=== PATIENT | male | born 1955 | race Caucasian/White ===

== ENCOUNTER 2022-09-23 00:03 | Day surgery (SDC) | payer MEDICARE, SELFPAY ==
[2022-09-16 12:26] VITALS: BMI 32.8
[2022-09-23 10:47] VITALS: BP 124/90; PULSE 79; RESP 20; TEMP 36.3; O2SAT 95
[2022-09-23] MEDS: LACTATED RINGERS 1,000 ML 150 ML IV CONT (10:56)
--- NOTE | 2022-09-23 10:56 | PM.HPGS ---
History of Present Illness History of Present Illness Consent: Risks, benefits, and alternatives have been discussed and questions answered. Patient agrees to proceed with procedure. Chief complaint: neoplasm screening Narrative: Lazaro Hauser is a 67 year old male Presents for screening colonoscopy. Patient's current weight appetite and bowel movements are normal. Patient denies abdominal pain. He has had no bleeding. Family history is noncontributory. Patient did have previous colonoscopy more than 10 years ago. apparently this was unremarkable. Review of Systems Review of Systems: Review of systems noncontributory. [facility] Family History Family History (Updated 10/03/13 @ 12:45 by DOCTOR UNKNOWN) Other Family history of arthritis Family history of malignant neoplasm Social History Social History Smoking status: Never smoker Alcohol intake: never Substance use type: does not use Living arrangements: alone Spiritual care concerns: No Meds Home Medications and Allergies Home Medications Medication Instructions Recorded Confirmed Type sodium,potassium,mag sulfates 17.5 See Rx Instructions PO .COMPLEX 09/10/22 Rx gram-3.13 gram-1.6 gram oral soln #354 mL (Suprep Bowel Prep Kit) bupropion HCl 300 mg 24 hr tablet, 300 mg PO DAILY 09/16/22 09/16/22 History extended release eszopiclone 2 mg tablet 2 mg PO HS 09/16/22 09/16/22 History naproxen 500 mg tablet 500 mg PO BID 09/16/22 09/16/22 History oxybutynin chloride 5 mg 5 mg PO DAILY 09/16/22 09/16/22 History tablet,extended release 24 hr quetiapine 100 mg tablet 100 mg PO BID 09/16/22 09/16/22 History sertraline 100 mg tablet 200 mg PO DAILY 09/16/22 09/16/22 History simvastatin 20 mg tablet 20 mg PO DAILY 09/16/22 09/16/22 History Allergies Allergy/AdvReac Type Severity Reaction Status Date / Time No Known Allergies Allergy Unverified 09/23/22 10:46 Vital Signs Vital Signs - 24 hr 09/23/22 10:47 Temperature 97.3 F L Pulse Rate 79 Respiratory Rate 20 Blood Pressure 124/90 Pulse Oximetry 95 Oxygen Delivery Room Air Exam Narrative: Physical exam reveals patient to be alert. Vital signs stable. HEENT exam is unremarkable. Patient is anicteric. Lungs are clear to auscultation and percussion. Heart is without murmur or extra sounds. Abdomen bowel sounds are present soft nontender with no organomegaly. Digital external rectal exam is normal. Assessment and Plan Assessment and plan (1) Encounter for screening colonoscopy: Code(s): Z12.11 - Encounter for screening for malignant neoplasm of colon Status: Acute Assessment and Plan: Patient presents for screening colonoscopy. Appears to be at average risk for colon polyps. Further recommendations may be given after endoscopy.
--- NOTE | 2022-09-23 11:21 | P.PNAN_ITS ---
Anes - Initial Pre Proc Eval Procedure: Operation Date: 09/23/22 12:00 Proposed Procedures p Screening Colonoscopy - Ger Larkin MD Date/Time: 09/23/22 11:21 Surgeon: Ger Larkin MD Pre Op Diagnosis: neoplasm screening Patient Data Age: 67 Gender: M Height: 1.85 m Weight: 106.7 kg Last Vital Signs Temp 97.3 F L 09/23/22 10:47 Pulse 79 09/23/22 10:47 Resp 20 09/23/22 10:47 BP 124/90 09/23/22 10:47 Pulse Ox 95 09/23/22 10:47 O2 Del Method Room Air 09/23/22 10:47 Allergies Allergy/AdvReac Type Severity Reaction Status Date / Time No Known Allergies Allergy Unverified 09/23/22 10:46 Home Medications Medication Instructions Recorded Confirmed Type sodium,potassium,mag sulfates 17.5 See Rx Instructions PO .COMPLEX 09/10/22 Rx gram-3.13 gram-1.6 gram oral soln #354 mL (Suprep Bowel Prep Kit) bupropion HCl 300 mg 24 hr tablet, 300 mg PO DAILY 09/16/22 09/16/22 History extended release eszopiclone 2 mg tablet 2 mg PO HS 09/16/22 09/16/22 History naproxen 500 mg tablet 500 mg PO BID 09/16/22 09/16/22 History oxybutynin chloride 5 mg 5 mg PO DAILY 09/16/22 09/16/22 History tablet,extended release 24 hr quetiapine 100 mg tablet 100 mg PO BID 09/16/22 09/16/22 History sertraline 100 mg tablet 200 mg PO DAILY 09/16/22 09/16/22 History simvastatin 20 mg tablet 20 mg PO DAILY 09/16/22 09/16/22 History Patient hx anesthesia problems: none Family hx anesthesia problems: none Results Review: All pre-operative results and documents have been reviewed as part of the pre- operative evaluation. [facility] Family History Family History (Updated 10/03/13 @ 12:45 by DOCTOR UNKNOWN) Other Family history of arthritis Family history of malignant neoplasm Social History Social History Smoking status: Never smoker Alcohol intake: never Substance use type: does not use Living arrangements: alone Spiritual care concerns: No Anes - Eval Final PreProcedure Day of Procedure 09/23/22 11:21 Patient weight: obese Heart: regular rate and rhythm Lungs: clear to auscultation Airway: Mallampati scale class II Neurological: alert and oriented Last oral intake: >/= 8 hours ASA classification: II Emergent: no Anesthetic plan: proceed Anesthesia type and monitoring: general GIVS and standard monitoring Results Review: All pre-operative results and documents have been reviewed as part of the pre- operative evaluation. Informed Consent: The patient's anesthetic plan and its attendant risks and benefits were discussed with the patient/family/POA. Questions were solicited and answers provided to the satisfaction of the patient/family/POA.
[2022-09-23 11:44] VITALS: BP 110/70; PULSE 66; RESP 17; O2SAT 99
[2022-09-23 11:54] VITALS: BP 123/68; PULSE 67; RESP 22; O2SAT 99
[2022-09-23 12:04] VITALS: BP 118/68; PULSE 60; RESP 24; O2SAT 99
== END 2022-09-23 12:25 | disposition home or self-care (01) ==
PROVIDERS: PCP Family Medicine Sports Medicine; Visit Provider Internal Medicine Gastroenterology
PROC: 0DJD8ZZ Inspection of Lower Intestinal Tract, Via Natural or Artificial Opening Endoscopic (ICD-10-PCS; CPT 45378; principal; 2022-09-23 12:00)
DX: Z12.11 Encounter for screening for malignant neoplasm of colon (principal); K52.9 Noninfective gastroenteritis and colitis, unspecified; K64.8 Other hemorrhoids
CPT/HCPCS: 45380; 88305; J2704; J7120

== ENCOUNTER 2022-12-27 17:00 | Emergency (ER) | payer MEDICARE, SELFPAY ==
--- NOTE | ~2022-12-27 | CT_ITS ---
EXAMINATION: CT brain wo con DATE: 12/27/2022 18:13 INDICATION: head injury . TECHNIQUE: Computed tomography (CT) of the head was performed without intravenous contrast. The mA wa s adjusted according to patient size. Iterative reconstruction technique was employed. The dose-lengt h product was 681.00 mGy-cm. COMPARISON: None. FINDINGS: No acute intracranial hemorrhage or extra-axial fluid collection. No hydrocephalus, mass, or herniation. No acute ischemic infarct. Unremarkable dural venous sinus attenuation. No acute osseous abnormality. The aerated spaces are clear. Mild atrophy and chronic white matter change. Atherosclerotic intracranial calcification. IMPRESSION: No acute intracranial process. Reviewed, dictated and finalized at location K.
[2022-12-27 17:08] VITALS: BP 143/78; PULSE 69; RESP 17; TEMP 36.7; O2SAT 100
--- NOTE | 2022-12-27 17:51 | ED.FALL ---
HPI - Fall General Chief Complaint: Fall Stated Complaint: fall Time Seen by Provider: 12/27/22 17:36 History of Present Illness HPI Narrative: 67-year-old male presented to ED for evaluation after having a fall in his garden. Patient reports he tripped over some landscaping and fell back and struck his head. Patient denies any loss conscious. Patient states he is not on any blood thinners. Patient denies any other pain or injury. Patient is unsure of his last tetanus shot. Related Data Home Medications Medication Instructions Recorded Confirmed bupropion HCl 300 mg 24 hr tablet, 300 mg PO DAILY 09/16/22 09/16/22 extended release eszopiclone 2 mg tablet 2 mg PO HS 09/16/22 09/16/22 naproxen 500 mg tablet 500 mg PO BID 09/16/22 09/16/22 oxybutynin chloride 5 mg 5 mg PO DAILY 09/16/22 09/16/22 tablet,extended release 24 hr quetiapine 100 mg tablet 100 mg PO BID 09/16/22 09/16/22 sertraline 100 mg tablet 200 mg PO DAILY 09/16/22 09/16/22 simvastatin 20 mg tablet 20 mg PO DAILY 09/16/22 09/16/22 Allergies Allergy/AdvReac Type Severity Reaction Status Date / Time No Known Allergies Allergy Verified 12/27/22 17:20 Review of Systems Review of Systems: All systems reviewed & are unremarkable except as noted in HPI and below PMFSH Family History Family History (Updated 10/03/13 @ 12:45 by DOCTOR UNKNOWN) Other Family history of arthritis Family history of malignant neoplasm Social History Social History Smoking status: Never smoker Alcohol intake: never Substance use type: does not use Living arrangements: alone Spiritual care concerns: No Exam Narrative: APPEARANCE: Well appearing, no pain, no distress, well-nourished. HEAD: normocephalic, abrasion to posterior scalp. EYES: PERRLA/EOMI, conjunctivae clear. NOSE: Normal no drainage NECK: Supple. No adenopathy, no masses. RESPIRATORY: Airway patent, respirations nonlabored. Clear to auscultation bilaterally, no rales, rhonchi, wheezing. CARDIOVASCULAR: Regular rate and rhythm without murmurs rubs or gallops. ABDOMINAL: Soft, nontender, nondistended, normal bowel sounds MUSCULOSKELETAL: Moves all extremities. Strength/ROM intact, No edema, No calf tenderness. NEURO: Alert. Cranial nerves II through XII intact. Good gait. Good coordination SKIN: Abrasion to posterior scalp Course Course Emergency Course: 67-year-old male presented the ED for evaluation after a head injury. No laceration requiring repair. Patient's tetanus was up-to-date. Wound was cleansed and patient had a dressing applied to the ED. CT scan was ordered to evaluate for intracranial injury due to age. Head CT was negative for any acute injury or abnormality. Patient was able to ambulate at his baseline. All questions concerns addressed and patient was well-appearing at time of discharge. Vital Signs Vital signs: Vital Signs Temperature 98.1 F 12/27/22 17:08 Pulse Rate 69 12/27/22 17:08 Respiratory Rate 17 12/27/22 17:08 Blood Pressure 143/78 H 12/27/22 17:08 Pulse Oximetry 100 12/27/22 17:08 Oxygen Delivery Room Air 12/27/22 17:08 Temperature 98.1 F 12/27/22 17:08 Pulse Rate 69 12/27/22 17:08 Respiratory Rate 17 12/27/22 17:08 Blood Pressure 143/78 H 12/27/22 17:08 Pulse Oximetry 100 12/27/22 17:08 Oxygen Delivery Room Air 12/27/22 17:08 MDM - Fall Differential Diagnosis Differential diagnosis: Likely concussion without loss of consciousness and other Imaging Data Radiologist's impression: Impressions Head CT 12/27/22 18:19 IMPRESSION: No acute intracranial process. Discharge Plan Discharge Clinical Impression: Abrasion of scalp, Head injury Patient Disposition: Home, Self-Care Condition: Stable Instructions: Antibiotic Form, Abrasion (ED) Additional Instructions: Wound care as directed. Follow head injury guidelines. Have close follow-up with your primary car
[2022-12-27] MEDS: TETANUS,DIPHTHERIA,AC PERTUSSIS ADULT (0.5 ML) BOOSTRIX IM (18:07)
== END 2022-12-27 19:06 | disposition home or self-care (01) ==
LOC: ANHED 18:42
PROVIDERS: Emergency Provider Emergency Medicine; PCP Family Medicine Sports Medicine
DX: S00.01XA Abrasion of scalp, initial encounter (principal); W01.0XXA Fall on same level from slipping, tripping and stumbling without subsequent striking against object, initial encounter; Z23 Encounter for immunization
CPT/HCPCS: 70450; 90715; 99284

== ENCOUNTER 2023-03-16 14:22 | Inpatient (IN) | payer MEDICARE, SELFPAY ==
--- NOTE | ~2023-03-16 | XR_ITS ---
XR chest PICC line 03/19/2023 12:39 Indication: PICC line verification Procedure: AP portable chest Comparison: No prior studies for comparison. Findings: There is bibasilar atelectasis. Borderline heart size. PICC line tip in the CC. No pneumoth orax. There is a left shoulder arthroplasty. Impression: 1: PICC line tip in the SVC. Reviewed, dictated and finalized at location A. TOP MANAGER Impression: 1: PICC line tip in the SVC.
--- NOTE | ~2023-03-16 | XR_ITS ---
EXAM: XR toe 2nd LT min 2V DATE: 03/16/2023 15:55 HISTORY: infection- BEST OBTAINABLE IMAGES . COMPARISON: None available. FINDINGS: Normal mineralization. No fracture or dislocation. No lytic or blastic lesion. Scattered d egenerative changes. Osteopenia of the left second distal phalange, with loss of the normal cortical line. These abnormal changes approach but do not conclusively involve the joint space of the second D IP. Soft tissue swelling/defect over the second toe. IMPRESSION: Findings suspicious for early osteomyelitis in the left second distal phalange. Reviewed, dictated and finalized at location K. T PLANT OPERATOR
[2023-03-16 14:28] VITALS: BP 134/87; PULSE 90; RESP 16; TEMP 36.5; O2SAT 100
[2023-03-16 16:18] LABS: Basophils Percent Auto 0.3 % (0.2-1.2); Eosinophils Percent Auto 0.3 % (0-4.4); Hematocrit 43.6 % (42.0-52.0); Hemoglobin 14.4 g/dL (14.0-18.0); Immature Granulocyte Absolute 0.03 K/mm3 (0.00-0.031); Immature Granulocyte Percent A 0.4 % (0-0.5); Lymphocytes Absolute Auto 0.85 K/mm3 (0.9-3.2); Lymphocytes Percent Auto 11.1 % (18.3-44.2); Mean Corpuscular Hemoglobin 29.3 pg (26-34); Mean Corpuscular Volume 88.8 fl (80-100); Mean Platelet Volume 8.8 fl (7.4-10.4); Monocytes Absolute Auto 0.6 K/mm3 (0.1-0.6); Neutrophils Absolute Auto 6.1 K/mm3 (1.3-6.7); Neutrophils Percent Auto 79.9 % (45.5-73.1); Platelet Count Result 267 k/mm3 (150-375); Red Blood Count 4.91 M/mm3 (4.6-6.20); Red Cell Distribution Width 13.3 % (11.5-14.5); White Blood Count 7.7 K/mm3 (4.5-10.0)
[2023-03-16 16:35] LABS: Alanine Aminotransferase 22 U/L (6-50); Albumin Level 4.4 g/dL (3.5-5.1); Alkaline Phosphatase 101 U/L (38-126); Anion Gap 9 mmol/L (8-16); Aspartate Amino Transferase 26 U/L (17-59); Bilirubin,Total 0.8 mg/dL (0.2-1.3); Blood Urea Nitrogen 24 mg/dL (9-20); CRP 2.4 mg/dL (<1.0); Calcium 9.3 mg/dL (8.4-10.2); Carbon Dioxide 25 mmol/L (22-30); Chloride 105 mmol/L (98-107); Estimated CRCL calculation 65 ml/min; Estimated Glomerular Filt Rate > 60; Glucose 94 mg/dL (65-110); Potassium 4.2 mmol/L (3.4-5.0); Sodium 139 mmol/L (137-145)
[2023-03-16 16:57] LABS: Erythrocyte Sedimentation Rate 20 mm/hr (0-20)
--- NOTE | 2023-03-16 17:05 | ED.WOUNDLAC ---
HPI - Wound/Laceration General Chief Complaint: Wound/Laceration Stated Complaint: infected toe Time Seen by Provider: 03/16/23 14:49 History of Present Illness HPI narrative: patient is a 68-year-old male who presents ER with an infected left 2nd toe. He had trimmed his toenails little over week ago and became secondarily infected. He is not diabetic. No drainage from the toe. No fevers or chills or sweats. Has pain with manipulation. It is beginning to streaking to the midfoot. Related Data Home Medications Medication Instructions Recorded Confirmed bupropion HCl 300 mg 24 hr tablet, 300 mg PO DAILY 09/16/22 09/16/22 extended release eszopiclone 2 mg tablet 2 mg PO HS 09/16/22 09/16/22 naproxen 500 mg tablet 500 mg PO BID 09/16/22 09/16/22 oxybutynin chloride 5 mg 5 mg PO DAILY 09/16/22 09/16/22 tablet,extended release 24 hr quetiapine 100 mg tablet 100 mg PO BID 09/16/22 09/16/22 sertraline 100 mg tablet 200 mg PO DAILY 09/16/22 09/16/22 simvastatin 20 mg tablet 20 mg PO DAILY 09/16/22 09/16/22 Allergies Allergy/AdvReac Type Severity Reaction Status Date / Time No Known Allergies Allergy Verified 03/16/23 15:01 Review of Systems Review of Systems: All systems reviewed & are unremarkable except as noted in HPI and below Constitutional: Constitutional: Reports no additional constitutional complaints Cardiovascular: Cardiovascular: Reports no additional cardiovascular complaints Respiratory: Respiratory: Reports no additional respiratory complaints Gastrointestinal: Gastrointestinal: Reports no additional gastrointestinal complaints Musculoskeletal: Musculoskeletal: Reports arthralgias and Reports joint swelling Integumentary/Breasts: Skin/Breast: Reports erythema, Reports rash and Reports skin ulcer PMFSH Past Medical History Medical History (Updated 03/16/23 @ 18:23 by Dimitri Jay MD) Hyperlipidemia Surgical History Surgical History (Updated 03/16/23 @ 18:23 by Dimitri Jay MD) No pertinent past surgical history Family History Family History (Updated 10/03/13 @ 12:45 by DOCTOR UNKNOWN) Other Family history of arthritis Family history of malignant neoplasm Social History Social History Smoking status: Never smoker Alcohol intake: never Substance use type: does not use Living arrangements: alone Spiritual care concerns: No Exam Narrative: GENERAL: Well-appearing, well-nourished, and in no acute distress. HEAD: Normocephalic, atraumatic. ENT: Mucous membranes moist. CHEST: Clear to auscultation. No respiratory distress. HEART: Regular rate and rhythm. Normal peripheral pulses. ABDOMEN: Soft, nontender, nondistended. EXTREMITIES: Normal range of motion. No edema. left 2nd toe is edematous and erythematous moving into the midfoot. There is some sloughing of skin in using noted. Mildly tender to touch. SKIN: Warm, dry, no rash. NEURO: Alert and oriented x3. PSYCH: Normal mood and affect. Course Course Emergency Course: Patient resting comfortably. Informed of results. admit to hospitalist service for IV antibiotics per Vital Signs Vital signs: Vital Signs Temperature 97.7 F 03/16/23 14:28 Pulse Rate 90 03/16/23 14:28 Respiratory Rate 16 03/16/23 14:28 Blood Pressure 134/87 03/16/23 14:28 Pulse Oximetry 100 03/16/23 14:28 Temperature 97.7 F 03/16/23 14:28 Pulse Rate 90 03/16/23 14:28 Respiratory Rate 16 03/16/23 14:28 Blood Pressure 134/87 03/16/23 14:28 Pulse Oximetry 100 03/16/23 14:28 MDM - Wound/Laceration Lab Data 03/16/23 16:00 03/16/23 16:00 Labs: Lab Results 03/16/23 Range/Units 16:00 WBC 7.7 (4.5-10.0) K/mm3 RBC 4.91 (4.6-6.20) M/mm3 Hgb 14.4 (14.0-18.0) g/dL Hct 43.6 (42.0-52.0) % MCV 88.8 (80-100) fl MCH 29.3 (26-34) pg MCHC 33.0 (32-36) g/dl RDW 13.3 (11.5-14.5) % Plt Count 267 (150-375) k/m
[2023-03-16 18:12] VITALS: BP 139/89; PULSE 79; RESP 18; O2SAT 97
[2023-03-16] MEDS: cefTRIAXone 2 GM/NS 100 ML 2 GM/100 ML BAG IVPB (18:14)
--- NOTE | 2023-03-16 19:19 | PM.IMHP ---
H&P: HPI History of Present Illness Date/Time: 03/16/23 19:19 Chief Complaint: left 2nd toe pain Narrative: A 68-year-old? male who presents ER with an infected left 2nd toe.? He had trimmed his toenails little over week ago Which subsequently became painful and red.? this persisted and got swollen with redness spreading into the and patient decided to present to the ED to be evaluated. He is not diabetic.? No drainage from the toe.? No fevers or chills or sweats.? Has pain with manipulation.? he was found to have cellulitis of the left 2nd toe with osteomyelitis of the left 2nd toe, he was started on vancomycin and ceftriaxone and I was consulted for admission of this patient. patient said that pain is much better now Review of Systems Review of Systems: All systems reviewed & are unremarkable except as noted in HPI and below PMFSH Past Medical History Medical History (Updated 03/16/23 @ 19:24 by Dalia Liu MD) Hyperlipidemia Surgical History Surgical History (Updated 03/16/23 @ 18:23 by Dimitri Jay MD) No pertinent past surgical history Family History Family History (Updated 03/16/23 @ 22:28 by Etienne Mccall RN) Mother Family history of arthritis Acute myocardial infarction Hypertension Father Family history of malignant neoplasm Social History Social History Smoking status: Never smoker Alcohol intake: never Substance use: never Substance use type: does not use Lack of Transportation: No Lack of Food: Never True Current Housing: I Have Housing Concerned About Future Housing: No Difficulty Paying Gas/Electric Bills: No Difficulty Paying for Meds: No Currently Unemployed: No Education: Bachelor's Degree Difficulty w/ Childcare or Family Care: No Living arrangements: alone Spiritual care concerns: No Meds Home Medications and Allergies Home Medications Medication Instructions Recorded Confirmed Type naproxen 500 mg tablet 500 mg PO BID 09/16/22 03/16/23 History oxybutynin chloride 5 mg 5 mg PO DAILY 09/16/22 03/16/23 History tablet,extended release 24 hr quetiapine 100 mg tablet 100 mg PO BID 09/16/22 03/16/23 History sertraline 100 mg tablet 200 mg PO HS 09/16/22 03/16/23 History simvastatin 20 mg tablet 20 mg PO DAILY 09/16/22 03/16/23 History bupropion HCl 150 mg 24 hr tablet, 450 mg PO DAILY 03/16/23 03/16/23 History extended release lamotrigine 100 mg tablet 50 mg PO HS 03/16/23 03/16/23 History zolpidem 10 mg tablet 10 mg PO HS PRN Insomnia 03/16/23 03/16/23 History Allergies Allergy/AdvReac Type Severity Reaction Status Date / Time No Known Allergies Allergy Verified 03/16/23 15:01 Vital Signs Vital Signs - 24 hr 03/16/23 14:28 03/16/23 18:12 Temperature 97.7 F Pulse Rate 90 79 Respiratory Rate 16 18 Blood Pressure 134/87 139/89 Pulse Oximetry 100 97 Exam Narrative: GENERAL: Well-appearing, well-nourished, and in no acute distress. HEAD: Normocephalic, atraumatic. ENT:? Mucous membranes moist. CHEST: Clear to auscultation.? No respiratory distress. HEART: Regular rate and rhythm. ? Normal peripheral pulses. ABDOMEN: Soft, nontender, nondistended. EXTREMITIES: Normal range of motion. left 2nd toe is swollen and erythematous, gradually spreading into the left mid foot .? There is some sloughing of skin in using noted.? Mildly tender to touch and warm. SKIN: warm and erythematous left second toe as described above. NEURO: Alert and oriented x3. PSYCH: Normal mood and affect H&P: Results Labs Labs: Short CBC 03/16/23 Range/Units 16:00 WBC 7.7 (4.5-10.0) K/mm3 Hgb 14.4 (14.0-18.0) g/dL Hct 43.6 (42.0-52.0) % Plt Count 267 (150-375) k/mm3 [facility] 03/16/23 16:00 Sodium 139 Potassium 4.2 Chloride 105 Carbon Dioxide 25 BUN 24 H Creatinine 1.10 Glucose 94 Calcium 9.3 Liver Function 03/16/23 Range/Units 16:00 Total Bilirubin 0.8 (0.2-1.3) mg/dL
[2023-03-16] MEDS: VANCOMYCIN 1,250 MG/NS 250 ML 1,250 MG/250 ML BAG 166.67 MG IVPB ×2 (19:45→22:14)
[2023-03-16] MEDS: HYDROcodone/acetaminophen (*CRX) 5-325 MG TABLET 1 TAB PO (19:53)
[2023-03-16 20:00] VITALS: BP 121/53; PULSE 67; RESP 18; TEMP 36.7; O2SAT 98
--- NOTE | 2023-03-16 22:12 | ADMGEN ---
This patient, Lazaro Hauser, was admitted to Medical Room 243-01. Patient/family oriented to hospital policies and general routines including ID bracelet, bed and alarms, visiting hours, pain management, procedures, bathroom and other care routines, personal items, smoking policy, room service/diet, and visiting hours. Information on how to activate the Rapid Response Team has been discussed. Patient/Family are encouraged to report perceived risks to care and to ask questions if they do not understand what they are told or what they should do.
[2023-03-17] VITALS (7 sets, daily range): BP systolic 101–142; BP diastolic 51–82; PULSE 54–87; RESP 14–19; TEMP 36.1–37.1; O2SAT 90–99
[2023-03-17] MEDS: HYDROcodone/acetaminophen (*CRX) 5-325 MG TABLET 1 TAB PO ×2 (04:46→12:25)
[2023-03-17 06:19] LABS: Basophils Percent Auto 0.2 % (0.2-1.2); Eosinophils Percent Auto 0.2 % (0-4.4); Hematocrit 44.7 % (42.0-52.0); Hemoglobin 14.5 g/dL (14.0-18.0); Immature Granulocyte Absolute 0.04 K/mm3 (0.00-0.031); Immature Granulocyte Percent A 0.5 % (0-0.5); Lymphocytes Percent Auto 8.6 % (18.3-44.2); Mean Corpuscular HGB Conc 32.4 g/dl (32-36); Mean Corpuscular Hemoglobin 29.3 pg (26-34); Mean Corpuscular Volume 90.3 fl (80-100); Mean Platelet Volume 9.1 fl (7.4-10.4); Monocytes Absolute Auto 0.7 K/mm3 (0.1-0.6); Monocytes Percent Auto 8.9 % (2.6-8.5); Neutrophils Absolute Auto 6.7 K/mm3 (1.3-6.7); Neutrophils Percent Auto 81.6 % (45.5-73.1); Platelet Count Result 277 k/mm3 (150-375); Red Blood Count 4.95 M/mm3 (4.6-6.20); Red Cell Distribution Width 13.3 % (11.5-14.5); White Blood Count 8.2 K/mm3 (4.5-10.0)
[2023-03-17 06:36] LABS: Anion Gap 6 mmol/L (8-16); Blood Urea Nitrogen 20 mg/dL (9-20); Calcium 9.5 mg/dL (8.4-10.2); Carbon Dioxide 28 mmol/L (22-30); Chloride 106 mmol/L (98-107); Estimated CRCL calculation 72 ml/min; Estimated Glomerular Filt Rate > 60; Glucose 109 mg/dL (65-110); Potassium 4.6 mmol/L (3.4-5.0); Sodium 140 mmol/L (137-145)
[2023-03-17] MEDS: buPROPion HCL XL (24 HR) 150 MG TABCR 450 MG PO (08:32)
[2023-03-17] MEDS: SIMVASTATIN 20 MG TABLET PO (08:32)
[2023-03-17] MEDS: QUEtiapine FUMARATE 100 MG TABLET PO ×2 (08:32→17:55)
[2023-03-17] MEDS: oxyBUTYnin CHLORIDE XL 5 MG TAB.ER.24 PO (08:32)
--- NOTE | 2023-03-17 09:45 | PM.IMPN ---
Progress Note: A&P Assessment and Plan (1) Osteomyelitis of second toe of left foot: Code(s): M86.9 - Osteomyelitis, unspecified Status: Acute Assessment and Plan: Continue IV Abx of Rocephin and Vancomycin No blood cultures were ordered prior to administration of IV abx. Will order them now, after the fact Awaiting General Surgery consult. Monitor labs daily and continue to monitor VS. (2) Insomnia: Code(s): G47.00 - Insomnia, unspecified Status: Acute Assessment and Plan: I am allowing pt to continue with his Ambien 10 mg QHS Initiate Fall precautions. (3) Anxiety and depression: Code(s): F41.9 - Anxiety disorder, unspecified; F32.A - Depression, unspecified Status: Acute Assessment and Plan: Continue with home medications of Wellbutrin XL 450 mg po daily, Lamictal 50 mg po HS, Seroquel 100 mg po BID and Sertraline 200 mg po HS (4) Dyslipidemia: Code(s): E78.5 - Hyperlipidemia, unspecified Status: Acute Assessment and Plan: Continue statin therapy with Zocor 20 mg po daily. Heart healthy diet Time Spent With Patient Time: 20 minutes Subjective Date/time seen: 03/17/23 0800 Interval history: This very pleasant gentleman was examined at the bedside in interval assessment after being admitted to the hospital for Osteomyelitis of the left second toe. He is awaiting a consult from General surgery and remains on Vancomycin and Rocephin. This AM his labs and VSS, and states that he did not sleep well last night at all because he did not have his Ambien 10 mg that he takes at home at bedtime. He denies any other new complaints or symptoms at this time. Review of Systems Review of Systems: All systems reviewed & are unremarkable except as noted in HPI and below Exam Const: General: comfortable and no acute distress Other: Appears disheveled. HENMT: Mouth: Yes moist mucous membranes Eyes: General: appearance normal, both eyes and all related structures Neck: Neck: supple and no JVD Lymphatic: lymphadenopathy not noted Resp: Effort & Inspection: normal respiratory effort Auscultation: clear to auscultation bilaterally Cardio: Rate: regular rate GI: Inspection: non-distended GI Palp: Yes Soft to palpation and No Tenderness to palpation present (GI) Auscultation: normal bowel sounds Skin: General skin exam: No normal color, rashes and/or lesions noted and erythema (Left second toe is swollen, red and mildly warm to the touch. No drainage.) Wounds: wounds noted (Left second toe, distal phalanx and tuft.) Neuro: Speech: normal speech Motor exam (neuro): 5/5 motor strength present throughout and Normal motor muscle tone present throughout Sensory Exam: normal sensation Extrem: General: normal exam except as noted (See Skin assessment of left second toe.), edema (Left second toe) and no pedal edema Psych: Mental Status: mental status grossly normal Affect: normal affect Attitude: not belligerent Objective Data Vital Signs Vital Signs: Vital Signs - 24 hr 03/16/23 14:28 03/16/23 18:12 03/16/23 20:00 Temperature 97.7 F 98.1 F Pulse Rate 90 79 67 Respiratory Rate 16 18 18 Blood Pressure 134/87 139/89 121/53 L Pulse Oximetry 100 97 98 Oxygen Delivery 03/17/23 00:00 03/16/23 22:00 03/17/23 04:00 Temperature 97.7 F 97.8 F Pulse Rate 70 64 Respiratory Rate 18 18 Blood Pressure 101/52 L 113/63 Pulse Oximetry 95 99 Oxygen Delivery Room Air 03/17/23 08:00 Temperature 97.0 F L Pulse Rate 54 L Respiratory Rate 14 Blood Pressure 142/82 H Pulse Oximetry 90 Oxygen Delivery Intake/Output Intake/Output: Intake & Output 03/14/23 03/15/23 03/16/23 03/17/23 23:59 23:59 23:59 23:59 Intake Total 600 360 Output Total 795 Balance 600 -435 Meds/Results Medications: Active Medications Generic Name Dose Route Start Last Admin Trade Name Freq PRN Reason Stop Dose Admin Aceta
[2023-03-17] MEDS: VANCOMYCIN 1,500 MG/NS 500 ML 1,500 MG/500 ML BAG 250 MG IVPB (14:03)
--- NOTE | 2023-03-17 15:24 | WPDCN ---
Assessment and Plan Assessment and plan (1) Osteomyelitis of second toe of left foot: Code(s): M86.9 - Osteomyelitis, unspecified Status: Acute Assessment and Plan: Patient has cellulitis of the left 2nd toe extending onto the distal dorsal forefoot of the left foot. There is on fluctuance and some drainage the dorsal aspect of the 2nd left toe. Remaining toes on left foot or viable without evidence of infection. X-rays suggest possible osteomyelitis. Will taken to the operating room tomorrow for debridement of the left 2nd toe. If bone is exposed then by definition this will represent osteomyelitis. I did discuss with him attempts to salvage the toe which may include surgical debridement and then an extended course of IV antibiotics at home. A course of antibiotics could be as long as 6 weeks. Possible need for amputation of the left 2nd toe if it does not heal or the osteomyelitis cannot be eradicated was also discussed as well. He understands and wished to proceed with surgical debridement of the left 2nd toe tomorrow. Continue IV antibiotics for now. Will make him NPO at midnight. HPI Data of Consult Date/Time: 03/17/23 15:24 Requesting Physician: NEELA Nunn Primary Care Provider: Monisha Tucker, Consult Narrative Reason for consult: Left 2nd toe wound and cellulitis Narrative: Lazaro Hauser is a 68 year old male who presented to the emergency room yesterday with complaints of pain, redness, and infection of his left 2nd toe. Apparently in the recent past he had tried to trim his toenails and ended up causing a wound on the left 2nd toe. Since that time has become infected started to drain. White blood cell count was normal the emergency room. Plain x-ray showed possible osteomyelitis of the left 2nd toe. He was admitted to the hospital for IV antibiotics. I have been asked to comment on the for debridement of the wound on the 2nd left toe. Patient denies being a diabetic. He has never had any prior nonhealing wounds on his feet. [facility] Past Medical History Medical History Anxiety and depression Dyslipidemia Hyperlipidemia Insomnia Surgical History Surgical History No pertinent past surgical history Family History Family History Mother Family history of arthritis Acute myocardial infarction Hypertension Father Family history of malignant neoplasm Social History Social History Smoking status: Never smoker Alcohol intake: never Substance use: never Substance use type: does not use Lack of Transportation: No Lack of Food: Never True Current Housing: I Have Housing Concerned About Future Housing: No Difficulty Paying Gas/Electric Bills: No Difficulty Paying for Meds: No Currently Unemployed: No Education: Bachelor's Degree Difficulty w/ Childcare or Family Care: No Living arrangements: alone Spiritual care concerns: No Meds Home Medications and Allergies Home Medications Medication Instructions Recorded Confirmed Type naproxen 500 mg tablet 500 mg PO BID 09/16/22 03/16/23 History oxybutynin chloride 5 mg 5 mg PO DAILY 09/16/22 03/16/23 History tablet,extended release 24 hr quetiapine 100 mg tablet 100 mg PO BID 09/16/22 03/16/23 History sertraline 100 mg tablet 200 mg PO HS 09/16/22 03/16/23 History simvastatin 20 mg tablet 20 mg PO DAILY 09/16/22 03/16/23 History bupropion HCl 150 mg 24 hr tablet, 450 mg PO DAILY 03/16/23 03/16/23 History extended release lamotrigine 100 mg tablet 50 mg PO HS 03/16/23 03/16/23 History zolpidem 10 mg tablet 10 mg PO HS PRN Insomnia 03/16/23 03/16/23 History Allergies Allergy/AdvReac Type Severity Reaction Status Date / Time No Known Allergies Allergy Veri
[2023-03-17] MEDS: cefTRIAXone 2 GM/NS 100 ML 2 GM/100 ML BAG IVPB (17:55)
[2023-03-17] MEDS: SERTRALINE HCL 50 MG TABLET 200 MG PO (20:54)
[2023-03-17] MEDS: lamoTRIgine 50 MG TABLET PO (20:54)
[2023-03-17] MEDS: ZOLPIDEM TARTRATE (*CRX) 5 MG TABLET 10 MG PO (20:54)
[2023-03-18] VITALS (13 sets, daily range): BP systolic 105–137; BP diastolic 61–99; PULSE 60–97; RESP 10–20; TEMP 36.6–37.7; O2SAT 94–99
[2023-03-18 07:00] LABS: Basophils Percent Auto 0.3 % (0.2-1.2); Eosinophils Percent Auto 0.3 % (0-4.4); Hematocrit 41.5 % (42.0-52.0); Hemoglobin 13.9 g/dL (14.0-18.0); Immature Granulocyte Absolute 0.02 K/mm3 (0.00-0.031); Immature Granulocyte Percent A 0.3 % (0-0.5); Lymphocytes Absolute Auto 0.58 K/mm3 (0.9-3.2); Lymphocytes Percent Auto 9.9 % (18.3-44.2); Mean Corpuscular HGB Conc 33.5 g/dl (32-36); Mean Corpuscular Hemoglobin 29.9 pg (26-34); Mean Corpuscular Volume 89.2 fl (80-100); Mean Platelet Volume 8.6 fl (7.4-10.4); Monocytes Absolute Auto 0.6 K/mm3 (0.1-0.6); Monocytes Percent Auto 10.3 % (2.6-8.5); Neutrophils Absolute Auto 4.6 K/mm3 (1.3-6.7); Neutrophils Percent Auto 78.9 % (45.5-73.1); Platelet Count Result 219 k/mm3 (150-375); Red Blood Count 4.65 M/mm3 (4.6-6.20); Red Cell Distribution Width 13.3 % (11.5-14.5); White Blood Count 5.8 K/mm3 (4.5-10.0)
[2023-03-18 07:12] LABS: Anion Gap 7 mmol/L (8-16); Blood Urea Nitrogen 19 mg/dL (9-20); Calcium 9.1 mg/dL (8.4-10.2); Carbon Dioxide 26 mmol/L (22-30); Chloride 107 mmol/L (98-107); Estimated CRCL calculation 65 ml/min; Estimated Glomerular Filt Rate > 60; Glucose 115 mg/dL (65-110); Potassium 4.2 mmol/L (3.4-5.0); Sodium 140 mmol/L (137-145)
[2023-03-18 08:06] LABS: Erythrocyte Sedimentation Rate 72 mm/hr (0-20)
[2023-03-18] MEDS: VANCOMYCIN 1,500 MG/NS 500 ML 1,500 MG/500 ML BAG 250 MG IVPB ×2 (08:13→20:00)
[2023-03-18 08:39] LABS: Hemoglobin A1C 5.3 % (<5.7)
[2023-03-18] MEDS: SIMVASTATIN 20 MG TABLET PO (09:44)
[2023-03-18] MEDS: oxyBUTYnin CHLORIDE XL 5 MG TAB.ER.24 PO (09:44)
[2023-03-18] MEDS: QUEtiapine FUMARATE 100 MG TABLET PO (09:44)
[2023-03-18] MEDS: buPROPion HCL XL (24 HR) 150 MG TABCR 450 MG PO (09:45)
--- NOTE | 2023-03-18 09:48 | PM.IMPN ---
Progress Note: A&P Assessment and Plan (1) Osteomyelitis of second toe of left foot: Code(s): M86.9 - Osteomyelitis, unspecified Status: Acute Assessment and Plan: Continue IV Abx of Rocephin and Vancomycin No blood cultures were ordered prior to administration of IV abx. Will order them now, after the fact Awaiting General Surgery consult. Monitor labs daily and continue to monitor VS. if patient only has debridement rather than amputation he will require at least 6 weeks of IV antibiotics. If that is the case, we will have PICC line inserted tomorrow. (2) Insomnia: Code(s): G47.00 - Insomnia, unspecified Status: Acute Assessment and Plan: I am allowing pt to continue with his Ambien 10 mg QHS Initiate Fall precautions. (3) Anxiety and depression: Code(s): F41.9 - Anxiety disorder, unspecified; F32.A - Depression, unspecified Status: Acute Assessment and Plan: Continue with home medications of Wellbutrin XL 450 mg po daily, Lamictal 50 mg po HS, Seroquel 100 mg po BID and Sertraline 200 mg po HS EKG obtained QTC 439, continue home medications (4) Dyslipidemia: Code(s): E78.5 - Hyperlipidemia, unspecified Status: Acute Assessment and Plan: Continue statin therapy with Zocor 20 mg po daily. Heart healthy diet Time Spent With Patient Time with patient: 25 - 35 minutes Subjective Date/time seen: 03/18/23 09:48 Interval history: 03/17: This very pleasant gentleman was examined at the bedside in interval assessment after being admitted to the hospital for Osteomyelitis of the left second toe. He is awaiting a consult from General surgery and remains on Vancomycin and Rocephin. This AM his labs and VSS, and states that he did not sleep well last night at all because he did not have his Ambien 10 mg that he takes at home at bedtime. He denies any other new complaints or symptoms at this time. 03/18: patient going to the operating room at 5:00 p.m. today for debridement of left 2nd toe possible amputation for partial amputation. If debridement patient will require 6 weeks of IV antibiotics upon discharge. Patient reports chronic back pain L3-L4 with pinched nerve. Otherwise patient denies any complaints or concerns at this time. Patient does take several psychiatric medications. EKG ordered as there was not a recent one to reference. QTC 439. Continue prior plan care. Review of Systems Review of Systems: All systems reviewed & are unremarkable except as noted in HPI and below Exam Narrative: GENERAL: Well-appearing, well-nourished, and in no acute distress. HEAD: Normocephalic, atraumatic. ENT:? Mucous membranes moist. CHEST: Clear to auscultation.? No respiratory distress. HEART: Regular rate and rhythm. ? Normal peripheral pulses. ABDOMEN: Soft, nontender, nondistended. EXTREMITIES: Normal range of motion. left 2nd toe is swollen and erythematous, gradually spreading into the left mid foot .? There is some sloughing of skin in using noted.? Mildly tender to touch and warm. SKIN: warm and erythematous left second toe as described above. NEURO: Alert and oriented x3. PSYCH: Normal mood and affect Objective Data Vital Signs Vital Signs: Vital Signs - 24 hr 03/17/23 10:29 03/17/23 12:00 03/17/23 16:00 Temperature 36.6 C 36.5 C Pulse Rate 87 86 80 Respiratory Rate 18 14 14 Blood Pressure 103/55 L 120/65 Pulse Oximetry 97 99 95 Oxygen Delivery 03/17/23 20:00 03/17/23 20:55 03/18/23 00:00 Temperature 37.1 C 37.1 C Pulse Rate 68 83 Respiratory Rate 19 20 Blood Pressure 122/51 L 128/66 Pulse Oximetry 98 96 Oxygen Delivery Room Air 03/18/23 04:00 03/18/23 08:00 Temperature 36.6 C 36.6 C Pulse Rate 69 63 Respiratory Rate 17 17 Blood Pressure 137/69 126/72 Pulse Oximetry 99 99 Oxygen Delivery Intake/Output Intake/Output: Intake & Output 03/15/23 03/16/23 03/17/23 03/18/23 23:59 23:59 23:59 23:5
--- NOTE | 2023-03-18 09:59 | ECG_ITS ---
Measurements Intervals [place] Rate: 84 P: 12 UT: 177 QRS: -1 QRSD: 85 T: -5 QT: 370 QTc: 439 Interpretive Statements SINUS RHYTHM LOW QRS VOLTAGE IN PRECORDIAL LEADS [QRS DEFLECTION < 1.0 mV IN CHEST LEADS] OTHERWISE WITHIN NORMAL LIMITS NO PREVIOUS ECG AVAILABLE FOR COMPARISON Electronically Signed On 03-18-2023 14:11:56 [employer]HER by Dick Jean M.D.
--- NOTE | 2023-03-18 14:52 | WPDHPUPDATE1 ---
History and Physical Update Update Date/Time: 03/18/23 14:52 History and Physical has been reviewed, including an updated exam of the patient. There are NO changes in the patient's condition. Risks, benefits, and alternatives have been discussed and questions answered. Patient agrees to proceed with procedure.
--- NOTE | 2023-03-18 15:10 | PC.NURSE ---
Patient to OR for debridement.
[2023-03-18] MEDS: LACTATED RINGERS 1,000 ML 30 ML IV CONT (15:20)
--- NOTE | 2023-03-18 15:43 | WPDANESEPPF ---
Anes - Initial Pre Proc Eval Procedure: Operation Date: 03/18/23 17:00 Proposed Procedures p Debridement Left Second Toe - Quincy Mixon MD Date/Time: 03/18/23 15:43 Surgeon: NEELA Nunn Pre Op Diagnosis: Osteomyelitis Patient Data Age: 68 Gender: M Height: 1.85 m Weight: 95 kg Last Vital Signs Temp 36.7 C 03/18/23 15:22 Pulse 97 03/18/23 15:22 Resp 16 03/18/23 15:22 BP 134/72 03/18/23 15:22 Pulse Ox 98 03/18/23 15:22 O2 Del Method Room Air 03/18/23 15:22 Allergies Allergy/AdvReac Type Severity Reaction Status Date / Time No Known Allergies Allergy Verified 03/18/23 15:20 Home Medications Medication Instructions Recorded Confirmed Type naproxen 500 mg tablet 500 mg PO BID 09/16/22 03/16/23 History oxybutynin chloride 5 mg 5 mg PO DAILY 09/16/22 03/16/23 History tablet,extended release 24 hr quetiapine 100 mg tablet 100 mg PO BID 09/16/22 03/16/23 History sertraline 100 mg tablet 200 mg PO HS 09/16/22 03/16/23 History simvastatin 20 mg tablet 20 mg PO DAILY 09/16/22 03/16/23 History bupropion HCl 150 mg 24 hr tablet, 450 mg PO DAILY 03/16/23 03/16/23 History extended release lamotrigine 100 mg tablet 50 mg PO HS 03/16/23 03/16/23 History zolpidem 10 mg tablet 10 mg PO HS PRN Insomnia 03/16/23 03/16/23 History Laboratory Tests 03/18/23 06:47 WBC 5.8 K/mm3 (4.5-10.0) RBC 4.65 M/mm3 (4.6-6.20) Hgb 13.9 L g/dL (14.0-18.0) Hct 41.5 L % (42.0-52.0) MCV 89.2 fl (80-100) MCH 29.9 pg (26-34) MCHC 33.5 g/dl (32-36) RDW 13.3 % (11.5-14.5) Plt Count 219 k/mm3 (150-375) MPV 8.6 fl (7.4-10.4) Immature Gran % (Auto) 0.3 % (0-0.5) Neut % (Auto) 78.9 H % (45.5-73.1) Lymph % (Auto) 9.9 L % (18.3-44.2) [place] % (Auto) 10.3 H % (2.6-8.5) Eos % (Auto) 0.3 % (0-4.4) Baso % (Auto) 0.3 % (0.2-1.2) Lymph # (Auto) 0.58 L K/mm3 (0.9-3.2) [place] # (Auto) 0.6 K/mm3 (0.1-0.6) Eos # (Auto) 0.0 K/mm3 (0-0.3) Baso # (Auto) 0.0 K/mm3 (0.0-0.1) Abs Immat Gran (auto) 0.02 K/mm3 (0.00-0.031) Absolute Neuts (auto) 4.6 K/mm3 (1.3-6.7) Absolute Nucleated RBC 0.0 K/mm3 (0.0-0.012) Nucleated RBC % 0.0 % (0.0-0.2) ESR 72 H mm/hr (0-20) Sodium 140 mmol/L (137-145) Potassium 4.2 mmol/L (3.4-5.0) Chloride 107 mmol/L (98-107) Carbon Dioxide 26 mmol/L (22-30) Anion Gap 7 L mmol/L (8-16) BUN 19 mg/dL (9-20) Creatinine 1.10 mg/dL (0.7-1.3) Estim Creat Clear Calc 65 ml/min Estimated GFR > 60 (59 - ) Glucose 115 H mg/dL (65-110) Hemoglobin A1c 5.3 % (<5.7) Calcium 9.1 mg/dL (8.4-10.2) Vancomycin Trough 11.0 ug/mL (10.0-20.0) Patient hx anesthesia problems: none Family hx anesthesia problems: none Results Review: All pre-operative results and documents have been reviewed as part of the pre-operative evaluation. [facility] Past Medical History Medical History Anxiety and depression Dyslipidemia Hyperlipidemia Insomnia Surgical History Surgical History (Updated 03/18/23 @ 15:44 by Brett Fleming MD) H/O colonoscopy Family History Family History Mother Family history of arthritis Acute myocardial infarction Hypertension Father Family history of malignant neoplasm Social History Social History Smoking status: Never smoker Alcohol intake: never Substance use: never Substance use type: does not use Lack of Transportation: No Lack of Food: Never True Current Housing: I Have Housing Concerned About Future Housing: No Difficulty Paying Gas/Electric Bills: No Difficulty Paying for Meds: No Currently Unemployed: No Education: Bachelor's Degree Difficulty w/ Childcare or Fa
[2023-03-18] MEDS: LIDOCAINE HCL 1% PF INJ 5 ML VIAL INFILTRATE (16:43)
--- NOTE | 2023-03-18 16:43 | P.OP_ITS ---
Procedure Note - Detailed Date of Procedure 03/18/23 Pre-op Diagnosis Left 2nd toe abscess. Post-op Diagnosis Other (Left 2nd toe abscess with cellulitis and osteomyelitis.) Procedure Performed Incision and drainage of left 2nd toe abscess. Surgeon Quincy Mixon MD Anesthesia MAC and Local Indications Patient is a 68-year-old gentleman who is not a diabetic. He was trimming his toenails and the little to deep on his left 2nd toe has developed an infection and an abscess with underlying probable osteomyelitis. This now for incision and drainage of the left 2nd toe abscess. Findings Patient had approximately 1cm abscess extending down to the interphalangeal joint on the left 2nd toe. Did not seem to extend to the metatarsophalangeal joint. Small amount of purulent fluid was drained and a culture was sent for microbiology. Description of Procedure After informed consent was obtained patient brought to the operating room was placed supine position IV sedation was administered by anesthesia. The left foot was then prepped and draped usual sterile fashion. A time-out was then performed correctly identifying the patient as well as procedure to be performed and verifying the site marking. He was already on scheduled IV antibiotics. I 1st started by performing a digital block with 1% lidocaine without epinephrine around the base of the left 2nd toe. I then proceeded by by incising the abscess cavity on the dorsal aspect of distal left 2nd toe. I then cut away the necrotic skin and found underlying small abscess cavity. I then opened the abscess cavity with the scalpel spread into the abscess cavity with a small mosquito clamp. The clamp extended into the abscess cavity for about 1cm. Extended to the interphalangeal joint. There was no tract to the tarsal phalangeal joint the tissue was viable and that area although was cellulitic and swollen. I then irrigated out the abscess cavity sterile saline solution after a culture swab which was sent to microbiology. Packed the wound with quarter- inch iodoform gauze. Approximately 2 to 3 cm of gauze was placed. The wound was then covered with dry gauze and the foot was wrapped with dry Kerlix gauze and 4in Jason wrap. The patient tolerated the procedure well no complications. All sponges, needles, and instrument counts were correct at the end procedure. EBL was __5_cc. The patient was awakened and taken to recovery in stable and satisfactory condition. Implants None Estimated Blood Loss 5 Urine Output 150 Drains No Packing Yes (Iodoform packing quarter-inch left 2nd toe) Pathology Yes (Culture swab sent to microbiology) Complications No immediate complications Condition Stable Disposition PACU [facility] Billing Surgery - Charge Forward: Surgery Billing
[2023-03-18] MEDS: cefTRIAXone 2 GM/NS 100 ML 2 GM/100 ML BAG IVPB (18:11)
[2023-03-18] MEDS: SERTRALINE HCL 50 MG TABLET 200 MG PO (20:38)
[2023-03-18] MEDS: lamoTRIgine 50 MG TABLET PO (20:38)
[2023-03-18] MEDS: ZOLPIDEM TARTRATE (*CRX) 5 MG TABLET 10 MG PO (22:56)
[2023-03-19] VITALS: BP 133/91; PULSE 81; RESP 18; TEMP 37.2; O2SAT 98
[2023-03-19 04:00] VITALS: BP 141/75; PULSE 66; RESP 15; TEMP 36.6; O2SAT 96
[2023-03-19 05:16] LABS: Basophils Percent Auto 0.3 % (0.2-1.2); Eosinophils Absolute Auto 0.1 K/mm3 (0-0.3); Eosinophils Percent Auto 0.8 % (0-4.4); Hematocrit 43.6 % (42.0-52.0); Hemoglobin 14.3 g/dL (14.0-18.0); Immature Granulocyte Absolute 0.03 K/mm3 (0.00-0.031); Immature Granulocyte Percent A 0.5 % (0-0.5); Lymphocytes Absolute Auto 0.62 K/mm3 (0.9-3.2); Lymphocytes Percent Auto 9.9 % (18.3-44.2); Mean Corpuscular HGB Conc 32.8 g/dl (32-36); Mean Corpuscular Hemoglobin 29.4 pg (26-34); Mean Corpuscular Volume 89.5 fl (80-100); Mean Platelet Volume 9.1 fl (7.4-10.4); Monocytes Absolute Auto 0.6 K/mm3 (0.1-0.6); Monocytes Percent Auto 8.9 % (2.6-8.5); Neutrophils Percent Auto 79.6 % (45.5-73.1); Platelet Count Result 248 k/mm3 (150-375); Red Blood Count 4.87 M/mm3 (4.6-6.20); Red Cell Distribution Width 13.2 % (11.5-14.5); White Blood Count 6.3 K/mm3 (4.5-10.0)
[2023-03-19 05:26] LABS: Anion Gap 9 mmol/L (8-16); Blood Urea Nitrogen 19 mg/dL (9-20); Calcium 9.4 mg/dL (8.4-10.2); Carbon Dioxide 24 mmol/L (22-30); Chloride 105 mmol/L (98-107); Estimated CRCL calculation 72 ml/min; Estimated Glomerular Filt Rate > 60; Glucose 100 mg/dL (65-110); Potassium 4.2 mmol/L (3.4-5.0); Sodium 138 mmol/L (137-145)
[2023-03-19 08:15] VITALS: BP 121/71; PULSE 66; RESP 16; TEMP 36.4; O2SAT 97
[2023-03-19] MEDS: buPROPion HCL XL (24 HR) 150 MG TABCR 450 MG PO (08:35)
[2023-03-19] MEDS: VANCOMYCIN 1,500 MG/NS 500 ML 1,500 MG/500 ML BAG 250 MG IVPB ×2 (08:35→20:07)
[2023-03-19] MEDS: QUEtiapine FUMARATE 100 MG TABLET PO ×2 (08:36→17:34)
[2023-03-19] MEDS: SIMVASTATIN 20 MG TABLET PO (08:36)
[2023-03-19] MEDS: oxyBUTYnin CHLORIDE XL 5 MG TAB.ER.24 PO (08:36)
--- NOTE | 2023-03-19 11:51 | PM.IMPN ---
Progress Note: A&P Assessment and Plan (1) Osteomyelitis of second toe of left foot: Code(s): M86.9 - Osteomyelitis, unspecified Status: Acute Assessment and Plan: Continue IV Abx of Rocephin and Vancomycin No blood cultures were ordered prior to administration of IV abx. Will order them now, after the fact Awaiting General Surgery consult. Monitor labs daily and continue to monitor VS. if patient only has debridement rather than amputation he will require at least 6 weeks of IV antibiotics. If that is the case, we will have PICC line inserted tomorrow. 03/19: SNF versus home antibiotics and wound care. Expected date of discharge to be 03/21 (2) Insomnia: Code(s): G47.00 - Insomnia, unspecified Status: Acute Assessment and Plan: I am allowing pt to continue with his Ambien 10 mg QHS Initiate Fall precautions. (3) Anxiety and depression: Code(s): F41.9 - Anxiety disorder, unspecified; F32.A - Depression, unspecified Status: Acute Assessment and Plan: Continue with home medications of Wellbutrin XL 450 mg po daily, Lamictal 50 mg po HS, Seroquel 100 mg po BID and Sertraline 200 mg po HS EKG obtained QTC 439, continue home medications (4) Dyslipidemia: Code(s): E78.5 - Hyperlipidemia, unspecified Status: Acute Assessment and Plan: Continue statin therapy with Zocor 20 mg po daily. Heart healthy diet Plan SNF versus home antibiotics home health verses wound clinic, case management on board. Time Spent With Patient Time with patient: 25 - 35 minutes Subjective Date/time seen: 03/19/23 11:51 Interval history: 03/17: This very pleasant gentleman was examined at the bedside in interval assessment after being admitted to the hospital for Osteomyelitis of the left second toe. He is awaiting a consult from General surgery and remains on Vancomycin and Rocephin. This AM his labs and VSS, and states that he did not sleep well last night at all because he did not have his Ambien 10 mg that he takes at home at bedtime. He denies any other new complaints or symptoms at this time. 03/18: patient going to the operating room at 5:00 p.m. today for debridement of left 2nd toe possible amputation for partial amputation. If debridement patient will require 6 weeks of IV antibiotics upon discharge. Patient reports chronic back pain L3-L4 with pinched nerve. Otherwise patient denies any complaints or concerns at this time. Patient does take several psychiatric medications. EKG ordered as there was not a recent one to reference. QTC 439. Continue prior plan care. 03/19: Left toe incision and drainage completed in the operating room yesterday. Patient does have findings of osteomyelitis and abscess was into the joint. He require 6 weeks IV antibiotics per General surgery plan of care. Patient resides at [facility]. Will consult PT and OT in hopes SNF at [place] upon discharge. PICC line is ordered. Expect patient remains hospitalized until Tuesday when IV antibiotics can be arranged on an outpatient basis if he does not get in to SNF. He will also need wound care frequently. Review of Systems Review of Systems: All systems reviewed & are unremarkable except as noted in HPI and below Exam Narrative: GENERAL: Well-appearing, well-nourished, and in no acute distress. HEAD: Normocephalic, atraumatic. ENT:? Mucous membranes moist. CHEST: Clear to auscultation.? No respiratory distress. HEART: Regular rate and rhythm. ? Normal peripheral pulses. ABDOMEN: Soft, nontender, nondistended. EXTREMITIES: Normal range of motion. Surgical site is dressed, management per General surgery SKIN: warm and erythematous left second toe as described above. NEURO: Alert and oriented x3. PSYCH: Normal mood and affect Objective Data Vital Signs Vital Signs: Vital Signs - 24 hr 03/18/23 12:08 03/18/23 15:22 03/18/23 16:40 Temperature 36.6 C 36.7
[2023-03-19] MEDS: LIDOCAINE HCL 1% PF INJ 5 ML VIAL INFILTRATE (12:15)
--- NOTE | 2023-03-19 14:26 | PM.PNGS ---
Progress Note: A&P Assessment and Plan (1) Osteomyelitis of second toe of left foot: Code(s): M86.9 - Osteomyelitis, unspecified Status: Acute Assessment and Plan: Debrided yesterday in the operating room. Still erythematous, swollen, tender but open wound on the dorsum of the toe is not draining any purulent fluid. I did not see any packing in the wound. Will start silver gel dressing changes to open wound, cover with gauze, wrap with Juan and Jason wrap. Perform this daily. Patient is up walking with walking shoe. He is to get a PICC line today and will need 6 weeks of IV antibiotics. Subjective Subjective Date/Time Seen: 03/19/23 14:26 Post Op day: 1 Patient reports: no new complaints Exam Extrem: Left lower extremity: foot (Open wound dorsum left 2nd toe, toe reddened and swollen, tender) Details: tenderness; no unusual warmth and no crepitus Objective Data Vital Signs Vital Signs: Vital Signs - 24 hr 03/18/23 15:22 03/18/23 16:40 03/18/23 16:55 Temperature 36.7 C 36.9 C Pulse Rate 97 76 66 Respiratory Rate 16 10 L 14 Blood Pressure 134/72 110/72 122/73 Pulse Oximetry 98 99 98 Oxygen Delivery Room Air Simple Face Mask Room Air Oxygen Flow Rate 8 03/18/23 17:10 03/18/23 17:25 03/18/23 15:43 Temperature 36.7 C Pulse Rate 68 66 60 Respiratory Rate 16 14 16 Blood Pressure 133/68 132/71 123/61 Pulse Oximetry 99 99 99 Oxygen Delivery Room Air Room Air Oxygen Flow Rate 03/18/23 18:25 03/18/23 19:25 03/19/23 00:00 Temperature 36.8 C 37.7 C H 37.2 C Pulse Rate 82 76 81 Respiratory Rate 17 17 18 Blood Pressure 117/99 H 118/67 133/91 H Pulse Oximetry 97 94 98 Oxygen Delivery Oxygen Flow Rate 03/19/23 04:00 03/19/23 08:15 03/19/23 13:59 Temperature 36.6 C 36.4 C L Pulse Rate 66 66 Respiratory Rate 15 16 Blood Pressure 141/75 H 121/71 Pulse Oximetry 96 97 Oxygen Delivery Room Air Oxygen Flow Rate Intake/Output Intake/Output: Intake & Output 03/16/23 03/17/23 03/18/23 03/19/23 23:59 23:59 23:59 23:59 Intake Total 600 1780 1640 790 Output Total 1295 725 Balance 600 485 915 790 Meds/Results Medications: Active Medications Generic Name Dose Route Start Last Admin Trade Name Freq PRN Reason Stop Dose Admin Acetaminophen 650 mg 03/16/23 18:09 Acetaminophen 325 Mg Tablet PO Q4H PRN Mild Pain (1-3) or Fever Hydrocodone Bitart/Acetaminophen 1 tab 03/16/23 18:09 03/17/23 12:25 Hydrocodone/Acetaminophen (*Crx) 5-325 Mg Tablet PO 1 tab Q4H PRN Administration Pain Rated 4-6 Bupropion HCl 450 mg 03/17/23 09:00 03/19/23 08:35 Bupropion Hcl Xl (24 Hr) 150 Mg Tabcr PO 450 mg DAILY ALEJA Administration Ceftriaxone Sodium 2 gm in 100 mls @ 200 mls/hr 03/17/23 18:00 03/18/23 18:41 Rocephin 2 Gm/Ns 100 Ml IVPB Infused Q24H ALEJA Infusion Vancomycin HCl 1,500 mg in 500 mls @ 250 mls/hr 03/18/23 08:00 03/19/23 10:35 Vancomycin 1,500 Mg/Ns 500 Ml IVPB Infused Q12H ALEJA Infusion Lamotrigine 50 mg 03/17/23 21:00 03/18/23 20:38 Lamotrigine 50 Mg Tablet PO 50 mg HS ALEJA Administration Morphine Sulfate 2 mg 03/16/23 18:09 Morphine Sulfate (*Crx) 2 Mg/Ml Inj IV PUSH Q2H PRN Pain Rated 7-10 Ondansetron HCl 4 mg 03/16/23 18:09 Ondansetron Inj 4 Mg/2 Ml Vial IV PUSH Q4H PRN Nausea Ondansetron HCl 4 mg 03/18/23 15:43 Ondansetron Inj 4 Mg/2 Ml Vial IV PUSH ONCE PRN Nausea Oxybutynin Chloride 5 mg 03/17/23 09:00 03/19/23 08:36 Oxybutynin Chloride Xl 5 Mg Tab.Er.24 PO 5 mg DAILY ALEJA Administration Quetiapine Fumarate 100 mg 03/17/23 09:00 03/19/23 08:36 Quetiapine Fumarate 100 Mg Tablet PO 100 mg BID ALEJA Administration Sertraline HCl 200 mg 03/17/23 21:00 03/18/23 20:38 Sertraline Hcl 50 Mg Tablet PO 200 mg HS ALEJA Administration Simvastatin 20 mg 03/17/23 09:00 03/19/23 08:36 Simvastatin 20 Mg Tab
[2023-03-19 14:31] VITALS: BP 105/66; PULSE 90; RESP 16; TEMP 36.3; O2SAT 97
[2023-03-19] MEDS: CENTRAL LINE FLUSH 10 ML IV PUSH ×2 (17:34→23:46)
[2023-03-19] MEDS: cefTRIAXone 2 GM/NS 100 ML 2 GM/100 ML BAG IVPB (17:34)
[2023-03-19 18:05] VITALS: BP 110/62; PULSE 85; RESP 16; TEMP 36.5; O2SAT 100
[2023-03-19 19:15] LABS: Vancomycin Trough 16.7 ug/mL (10.0-20.0)
[2023-03-19 20:00] VITALS: BP 129/64; PULSE 66; RESP 18; TEMP 36.8; O2SAT 97
[2023-03-19] MEDS: SERTRALINE HCL 50 MG TABLET 200 MG PO (20:09)
[2023-03-19] MEDS: lamoTRIgine 50 MG TABLET PO (20:09)
[2023-03-19] MEDS: ZOLPIDEM TARTRATE (*CRX) 5 MG TABLET 10 MG PO (21:58)
[2023-03-20] VITALS: BP 129/67; PULSE 80; RESP 16; TEMP 36.3; O2SAT 98
[2023-03-20 04:00] VITALS: BP 144/76; PULSE 67; RESP 18; TEMP 36.5; O2SAT 97
[2023-03-20] MEDS: CENTRAL LINE FLUSH 10 ML IV PUSH ×3 (06:32→21:39)
[2023-03-20 08:12] VITALS: BP 136/69; PULSE 66; RESP 16; TEMP 36.5; O2SAT 97
[2023-03-20] MEDS: SIMVASTATIN 20 MG TABLET PO (08:29)
[2023-03-20] MEDS: buPROPion HCL XL (24 HR) 150 MG TABCR 450 MG PO (08:29)
[2023-03-20] MEDS: VANCOMYCIN 1,500 MG/NS 500 ML 1,500 MG/500 ML BAG 250 MG IVPB ×2 (08:29→21:38)
[2023-03-20] MEDS: oxyBUTYnin CHLORIDE XL 5 MG TAB.ER.24 PO (08:30)
[2023-03-20] MEDS: QUEtiapine FUMARATE 100 MG TABLET PO ×2 (08:30→17:15)
[2023-03-20 11:50] VITALS: BP 119/65; PULSE 77; RESP 17; TEMP 37; O2SAT 95
--- NOTE | 2023-03-20 14:19 | PM.IMPN ---
Progress Note: A&P Assessment and Plan (1) Osteomyelitis of second toe of left foot: Code(s): M86.9 - Osteomyelitis, unspecified Status: Acute Assessment and Plan: Continue IV Abx of Rocephin and Vancomycin No blood cultures were ordered prior to administration of IV abx. Awaiting General Surgery consult-debridement left 2nd toe Monitor labs daily and continue to monitor VS. He will require at least 6 weeks of IV antibiotics. 03/19: SNF versus home antibiotics and wound care. Expected date of discharge to be 03/21 (2) Insomnia: Code(s): G47.00 - Insomnia, unspecified Status: Acute Assessment and Plan: I am allowing pt to continue with his Ambien 10 mg QHS Initiate Fall precautions. (3) Anxiety and depression: Code(s): F41.9 - Anxiety disorder, unspecified; F32.A - Depression, unspecified Status: Acute Assessment and Plan: Continue with home medications of Wellbutrin XL 450 mg po daily, Lamictal 50 mg po HS, Seroquel 100 mg po BID and Sertraline 200 mg po HS EKG obtained QTC 439, continue home medications (4) Dyslipidemia: Code(s): E78.5 - Hyperlipidemia, unspecified Status: Acute Assessment and Plan: Continue statin therapy with Zocor 20 mg po daily. Heart healthy diet Plan SNF versus home antibiotics home health verses wound clinic, case management on board. Time Spent With Patient Time with patient: 15 - 25 minutes Subjective Date/time seen: 03/20/23 14:19 Interval history: 03/17:? This very pleasant gentleman was examined at the bedside in interval assessment after being admitted to the hospital for Osteomyelitis of the left second toe. He is awaiting a consult from General surgery and remains on Vancomycin and Rocephin. This AM his labs and VSS, and states that he did not sleep well last night at all because he did not have his Ambien 10 mg that he takes at home at bedtime. He denies any other new complaints or symptoms at this time. 03/18: patient going to the operating room at 5:00 p.m. today for debridement of left 2nd toe possible amputation for partial amputation.? If debridement patient will require 6 weeks of IV antibiotics upon discharge.? Patient reports chronic back pain L3-L4 with pinched nerve.? Otherwise patient denies any complaints or concerns at this time.? Patient does take several psychiatric medications.? EKG ordered as there was not a recent one to reference.? QTC 439.? Continue prior plan care. 03/19:? Left toe incision and drainage completed in the operating room yesterday.? Patient does have findings of osteomyelitis and abscess was into the joint.? He require 6 weeks IV antibiotics per General surgery plan of care.? Patient resides at [facility] living.? Will consult PT and OT in hopes SNF at [place] upon discharge. PICC line is ordered.? Expect patient remains hospitalized until Tuesday when IV antibiotics can be arranged on an outpatient basis if he does not get in to SNF.? He will also need wound care frequently. 03/20: Patient is alert and oriented x3 and denies any complaints. Denies any pain. Dressing to left foot is dry and intact. Pedal and posterior tibial pulses bilaterally are palpable and equal. Patient tolerating flat soled shoe. Patient was ambulatory in room with standby assist and steady gait. Process and vancomycin continued through the PICC line. Review of Systems Review of Systems: All systems reviewed & are unremarkable except as noted in HPI and below Exam Narrative: Patient is alert and oriented x4 and appears in no acute distress. Pleasant and jovial. Ambulatory in room with standby assist of staff. Gait steady. Const: General: comfortable and no acute distress HENMT: Face/Nose/Sinus: Normal nares present Mouth: Yes moist mucous membranes Eyes: General: appearance normal, both eyes and all related structures Sclera: sclerae normal Pupils: Equal, round and reacti
--- NOTE | 2023-03-20 14:34 | PM.PNGS ---
Progress Note: A&P Assessment and Plan (1) Osteomyelitis of second toe of left foot: Code(s): M86.9 - Osteomyelitis, unspecified Status: Acute Assessment and Plan: 2nd toe less swollen today and less tender. Continue IV antibiotics. Continue silver gel with gauze and Jason wrap. Walk with walking shoe only. Doing well. Subjective Subjective Date/Time Seen: 03/20/23 14:34 Post Op day: 2 Patient reports: no new complaints Exam Extrem: Left lower extremity: foot (Second toe less swollen, wound clean, less tender) Details: tenderness (Less than yesterday); no crepitus Objective Data Vital Signs Vital Signs: Vital Signs - 24 hr 03/19/23 18:05 03/19/23 20:00 03/20/23 00:00 Temperature 36.5 C 36.8 C 36.3 C L Pulse Rate 85 66 80 Respiratory Rate 16 18 16 Blood Pressure 110/62 129/64 129/67 Pulse Oximetry 100 97 98 Oxygen Delivery 03/20/23 04:00 03/20/23 08:12 03/20/23 08:22 Temperature 36.5 C 36.5 C Pulse Rate 67 66 Respiratory Rate 18 16 Blood Pressure 144/76 H 136/69 Pulse Oximetry 97 97 Oxygen Delivery Room Air 03/20/23 11:50 Temperature 37.0 C Pulse Rate 77 Respiratory Rate 17 Blood Pressure 119/65 Pulse Oximetry 95 Oxygen Delivery Intake/Output Intake/Output: Intake & Output 03/17/23 03/18/23 03/19/23 03/20/23 23:59 23:59 23:59 23:59 Intake Total 1780 1640 2280 680 Output Total 1295 725 Balance 311 740 3105 680 Meds/Results Medications: Active Medications Generic Name Dose Route Start Last Admin Trade Name Freq PRN Reason Stop Dose Admin Acetaminophen 650 mg 03/16/23 18:09 Acetaminophen 325 Mg Tablet PO Q4H PRN Mild Pain (1-3) or Fever Hydrocodone Bitart/Acetaminophen 1 tab 03/16/23 18:09 03/17/23 12:25 Hydrocodone/Acetaminophen (*Crx) 5-325 Mg Tablet PO 1 tab Q4H PRN Administration Pain Rated 4-6 Bupropion HCl 450 mg 03/17/23 09:00 03/20/23 08:29 Bupropion Hcl Xl (24 Hr) 150 Mg Tabcr PO 450 mg DAILY ALEJA Administration Ceftriaxone Sodium 2 gm in 100 mls @ 200 mls/hr 03/17/23 18:00 03/19/23 18:04 Rocephin 2 Gm/Ns 100 Ml IVPB Infused Q24H ALEJA Infusion Vancomycin HCl 1,500 mg in 500 mls @ 250 mls/hr 03/18/23 08:00 03/20/23 08:29 Vancomycin 1,500 Mg/Ns 500 Ml IVPB 250 mls/hr Q12H ALEJA Administration Lamotrigine 50 mg 03/17/23 21:00 03/19/23 20:09 Lamotrigine 50 Mg Tablet PO 50 mg HS ALEJA Administration Morphine Sulfate 2 mg 03/16/23 18:09 Morphine Sulfate (*Crx) 2 Mg/Ml Inj IV PUSH Q2H PRN Pain Rated 7-10 Ondansetron HCl 4 mg 03/16/23 18:09 Ondansetron Inj 4 Mg/2 Ml Vial IV PUSH Q4H PRN Nausea Ondansetron HCl 4 mg 03/18/23 15:43 Ondansetron Inj 4 Mg/2 Ml Vial IV PUSH ONCE PRN Nausea Oxybutynin Chloride 5 mg 03/17/23 09:00 03/20/23 08:30 Oxybutynin Chloride Xl 5 Mg Tab.Er.24 PO 5 mg DAILY ALEJA Administration Quetiapine Fumarate 100 mg 03/17/23 09:00 03/20/23 08:30 Quetiapine Fumarate 100 Mg Tablet PO 100 mg BID ALEJA Administration Sertraline HCl 200 mg 03/17/23 21:00 03/19/23 20:09 Sertraline Hcl 50 Mg Tablet PO 200 mg HS ALEJA Administration Simvastatin 20 mg 03/17/23 09:00 03/20/23 08:29 Simvastatin 20 Mg Tablet PO 20 mg DAILY ALEJA Administration Sodium Chloride 10 ml 03/19/23 14:00 03/20/23 06:32 Central Line Flush IV PUSH 10 ml Q8HR ALEJA Administration Sodium Chloride 10 ml 03/19/23 12:46 Central Line Flush IV PUSH PRN PRN with TPN bag changes Sodium Chloride 20 ml 03/19/23 12:46 Central Line Flush IV PUSH PRN PRN after blood draws Zolpidem Tartrate 10 mg 03/17/23 08:40 03/19/23 21:58 Zolpidem Tartrate (*Crx) 5 Mg Tablet PO 10 mg HS PRN Administration Insomnia Radiology Results: ITS Impressions Toe X-Ray 03/16/23 15:57 IMPRESSION: Findings suspicious for early osteomyelitis in the left second dista
[2023-03-20] MEDS: cefTRIAXone 2 GM/NS 100 ML 2 GM/100 ML BAG IVPB (17:15)
[2023-03-20 17:20] VITALS: BP 149/80; PULSE 76; RESP 17; TEMP 36.7; O2SAT 99
[2023-03-20 19:59] VITALS: BP 140/79; PULSE 68; RESP 16; TEMP 36.5; O2SAT 100
[2023-03-20] MEDS: ZOLPIDEM TARTRATE (*CRX) 5 MG TABLET 10 MG PO (21:38)
[2023-03-20] MEDS: SERTRALINE HCL 50 MG TABLET 200 MG PO (21:38)
[2023-03-20] MEDS: lamoTRIgine 50 MG TABLET PO (21:38)
[2023-03-21 00:54] VITALS: BP 146/84; PULSE 82; RESP 16; TEMP 36.5; O2SAT 96
[2023-03-21] MEDS: CENTRAL LINE FLUSH 10 ML IV PUSH ×3 (05:36→20:43)
[2023-03-21 06:14] LABS: Estimated CRCL calculation 72 ml/min; Estimated Glomerular Filt Rate > 60
[2023-03-21 06:32] VITALS: BP 145/68; PULSE 64; RESP 16; TEMP 36.4; O2SAT 98
[2023-03-21 08:22] VITALS: BP 141/70; PULSE 73; RESP 17; TEMP 36.9; O2SAT 100
[2023-03-21] MEDS: QUEtiapine FUMARATE 100 MG TABLET PO ×2 (09:06→17:17)
[2023-03-21] MEDS: SIMVASTATIN 20 MG TABLET PO (09:06)
[2023-03-21] MEDS: buPROPion HCL XL (24 HR) 150 MG TABCR 450 MG PO (09:06)
[2023-03-21] MEDS: oxyBUTYnin CHLORIDE XL 5 MG TAB.ER.24 PO (09:06)
[2023-03-21] MEDS: VANCOMYCIN 1,500 MG/NS 500 ML 1,500 MG/500 ML BAG 250 MG IVPB ×2 (09:06→20:43)
[2023-03-21 10:06] LABS: Anion Gap 6 mmol/L (8-16); Blood Urea Nitrogen 15 mg/dL (9-20); Calcium 9.5 mg/dL (8.4-10.2); Carbon Dioxide 25 mmol/L (22-30); Chloride 110 mmol/L (98-107); Estimated CRCL calculation 72 ml/min; Estimated Glomerular Filt Rate > 60; Glucose 113 mg/dL (65-110); Potassium 4.2 mmol/L (3.4-5.0); Sodium 141 mmol/L (137-145)
[2023-03-21 11:33] LABS: Basophils Percent Auto 0.3 % (0.2-1.2); Eosinophils Absolute Auto 0.1 K/mm3 (0-0.3); Hematocrit 42.4 % (42.0-52.0); Hemoglobin 13.9 g/dL (14.0-18.0); Immature Granulocyte Absolute 0.02 K/mm3 (0.00-0.031); Immature Granulocyte Percent A 0.3 % (0-0.5); Lymphocytes Absolute Auto 0.84 K/mm3 (0.9-3.2); Lymphocytes Percent Auto 12.4 % (18.3-44.2); Mean Corpuscular HGB Conc 32.8 g/dl (32-36); Mean Corpuscular Hemoglobin 29.3 pg (26-34); Mean Corpuscular Volume 89.5 fl (80-100); Mean Platelet Volume 8.8 fl (7.4-10.4); Monocytes Absolute Auto 0.5 K/mm3 (0.1-0.6); Neutrophils Absolute Auto 5.3 K/mm3 (1.3-6.7); Platelet Count Result 231 k/mm3 (150-375); Red Blood Count 4.74 M/mm3 (4.6-6.20); Red Cell Distribution Width 13.2 % (11.5-14.5); White Blood Count 6.8 K/mm3 (4.5-10.0)
[2023-03-21 12:00] VITALS: BP 100/66; PULSE 88; RESP 17; TEMP 36.3; O2SAT 99
[2023-03-21] MEDS: ACETAMINOPHEN 325 MG TABLET 650 MG PO (12:03)
--- NOTE | 2023-03-21 16:15 | PM.IMPN ---
Progress Note: A&P Assessment and Plan (1) Osteomyelitis of second toe of left foot: Code(s): M86.9 - Osteomyelitis, unspecified Status: Acute Assessment and Plan: Continue IV Abx of Rocephin and Vancomycin No blood cultures were ordered prior to administration of IV abx. Awaiting General Surgery consult-debridement left 2nd toe Monitor labs daily and continue to monitor VS. He will require at least 6 weeks of IV antibiotics. 03/19: SNF versus home antibiotics and wound care. 03/21: 1 blood culture returned positive for staph aureus which is what the preliminary wound culture shows. Repeat blood cultures ordered. (2) Insomnia: Code(s): G47.00 - Insomnia, unspecified Status: Acute Assessment and Plan: I am allowing pt to continue with his Ambien 10 mg QHS Initiate Fall precautions. (3) Anxiety and depression: Code(s): F41.9 - Anxiety disorder, unspecified; F32.A - Depression, unspecified Status: Acute Assessment and Plan: Continue with home medications of Wellbutrin XL 450 mg po daily, Lamictal 50 mg po HS, Seroquel 100 mg po BID and Sertraline 200 mg po HS EKG obtained QTC 439, continue home medications (4) Dyslipidemia: Code(s): E78.5 - Hyperlipidemia, unspecified Status: Acute Assessment and Plan: Continue statin therapy with Zocor 20 mg po daily. Heart healthy diet Plan SNF versus home antibiotics home health verses wound clinic, case management on board. Time Spent With Patient Time with patient: 15 - 25 minutes Subjective Date/time seen: 03/21/23 0936 Interval history: 03/17:? This very pleasant gentleman was examined at the bedside in interval assessment after being admitted to the hospital for Osteomyelitis of the left second toe. He is awaiting a consult from General surgery and remains on Vancomycin and Rocephin. This AM his labs and VSS, and states that he did not sleep well last night at all because he did not have his Ambien 10 mg that he takes at home at bedtime. He denies any other new complaints or symptoms at this time. 03/18: patient going to the operating room at 5:00 p.m. today for debridement of left 2nd toe possible amputation for partial amputation.? If debridement patient will require 6 weeks of IV antibiotics upon discharge.? Patient reports chronic back pain L3-L4 with pinched nerve.? Otherwise patient denies any complaints or concerns at this time.? Patient does take several psychiatric medications.? EKG ordered as there was not a recent one to reference.? QTC 439.? Continue prior plan care. 03/19:? Left toe incision and drainage completed in the operating room yesterday.? Patient does have findings of osteomyelitis and abscess was into the joint.? He require 6 weeks IV antibiotics per General surgery plan of care.? Patient resides at [facility].? Will consult PT and OT in hopes SNF at [place] upon discharge. PICC line is ordered.? Expect patient remains hospitalized until Tuesday when IV antibiotics can be arranged on an outpatient basis if he does not get in to SNF.? He will also need wound care frequently. 03/20:? Patient is alert and oriented x3 and denies any complaints.? Denies any pain.? Dressing to left foot is dry and intact.? Pedal and posterior tibial pulses bilaterally are palpable and equal.? Patient tolerating flat soled shoe.? Patient was ambulatory in room with standby assist and steady gait.? Process and vancomycin continued through the PICC line. 03/21: Preliminary culture of the toe shoes staph aureus as does one of the blood cultures. Will redraw blood cultures and await the sensitivity of the wound culture. Patient states he is doing well.Denies any pain. Review of Systems Review of Systems: All systems reviewed & are unremarkable except as noted in HPI and below Exam Narrative: Pt is a/o x 4 and appears in no distress. Pleasant affect. Const: General: comfortable a
[2023-03-21 16:30] VITALS: BP 114/70; PULSE 85; RESP 17; TEMP 36.4; O2SAT 99
[2023-03-21] MEDS: cefTRIAXone 2 GM/NS 100 ML 2 GM/100 ML BAG IVPB (17:16)
[2023-03-21 20:00] VITALS: BP 116/71; PULSE 75; RESP 15; TEMP 36.6; O2SAT 94
[2023-03-21] MEDS: ZOLPIDEM TARTRATE (*CRX) 5 MG TABLET 10 MG PO (20:43)
[2023-03-21] MEDS: SERTRALINE HCL 50 MG TABLET 200 MG PO (20:43)
[2023-03-21] MEDS: lamoTRIgine 50 MG TABLET PO (20:43)
[2023-03-22] VITALS: BP 141/78; PULSE 86; RESP 20; TEMP 36.7; O2SAT 92
[2023-03-22 04:00] VITALS: BP 137/76; PULSE 78; RESP 15; TEMP 36.7; O2SAT 95
[2023-03-22] MEDS: CENTRAL LINE FLUSH 10 ML IV PUSH ×3 (05:24→21:39)
[2023-03-22 07:43] LABS: Vancomycin Trough 21.8 ug/mL (10.0-20.0)
[2023-03-22] MEDS: buPROPion HCL XL (24 HR) 150 MG TABCR 450 MG PO (08:23)
[2023-03-22] MEDS: oxyBUTYnin CHLORIDE XL 5 MG TAB.ER.24 PO (08:24)
[2023-03-22] MEDS: QUEtiapine FUMARATE 100 MG TABLET PO ×2 (08:24→18:52)
[2023-03-22] MEDS: SIMVASTATIN 20 MG TABLET PO (08:24)
[2023-03-22] MEDS: ACETAMINOPHEN 325 MG TABLET 650 MG PO (08:28)
--- NOTE | 2023-03-22 11:06 | PM.IMPN ---
Progress Note: A&P Assessment and Plan (1) Osteomyelitis of second toe of left foot: Code(s): M86.9 - Osteomyelitis, unspecified Status: Acute Assessment and Plan: Continue IV Abx of Rocephin and Vancomycin No blood cultures were ordered prior to administration of IV abx. Awaiting General Surgery consult-debridement left 2nd toe Monitor labs daily and continue to monitor VS. He will require at least 6 weeks of IV antibiotics. 03/19: SNF versus home antibiotics and wound care. 03/21: 1 blood culture returned positive for staph aureus which is what the preliminary wound culture shows. Repeat blood cultures ordered. (2) Staphylococcus aureus bacteremia: Code(s): R78.81 - Bacteremia; B95.61 - Methicillin susceptible Staphylococcus aureus infection as the cause of diseases classified elsewhere Status: Acute Assessment and Plan: MSSA--on oxacillin until discharge, cefazolin 6 g over 24 hours continuous for 6 weeks (3) Insomnia: Code(s): G47.00 - Insomnia, unspecified Status: Acute Assessment and Plan: I am allowing pt to continue with his Ambien 10 mg QHS Initiate Fall precautions. (4) Anxiety and depression: Code(s): F41.9 - Anxiety disorder, unspecified; F32.A - Depression, unspecified Status: Acute Assessment and Plan: Continue with home medications of Wellbutrin XL 450 mg po daily, Lamictal 50 mg po HS, Seroquel 100 mg po BID and Sertraline 200 mg po HS EKG obtained QTC 439, continue home medications (5) Dyslipidemia: Code(s): E78.5 - Hyperlipidemia, unspecified Status: Acute Assessment and Plan: Continue statin therapy with Zocor 20 mg po daily. Heart healthy diet Plan Home health on discharge Time Spent With Patient Time with patient: 25 - 35 minutes Subjective Date/time seen: 03/22/23 11:06 Interval history: 03/17:? This very pleasant gentleman was examined at the bedside in interval assessment after being admitted to the hospital for Osteomyelitis of the left second toe. He is awaiting a consult from General surgery and remains on Vancomycin and Rocephin. This AM his labs and VSS, and states that he did not sleep well last night at all because he did not have his Ambien 10 mg that he takes at home at bedtime. He denies any other new complaints or symptoms at this time. 12/15: patient going to the operating room at 5:00 p.m. today for debridement of left 2nd toe possible amputation for partial amputation.? If debridement patient will require 6 weeks of IV antibiotics upon discharge.? Patient reports chronic back pain L3-L4 with pinched nerve.? Otherwise patient denies any complaints or concerns at this time.? Patient does take several psychiatric medications.? EKG ordered as there was not a recent one to reference.? QTC 439.? Continue prior plan care. 03/19:? Left toe incision and drainage completed in the operating room yesterday.? Patient does have findings of osteomyelitis and abscess was into the joint.? He require 6 weeks IV antibiotics per General surgery plan of care.? Patient resides at [facility].? Will consult PT and OT in hopes SNF at [place] upon discharge. PICC line is ordered.? Expect patient remains hospitalized until Tuesday when IV antibiotics can be arranged on an outpatient basis if he does not get in to SNF.? He will also need wound care frequently. 03/20:? Patient is alert and oriented x3 and denies any complaints.? Denies any pain.? Dressing to left foot is dry and intact.? Pedal and posterior tibial pulses bilaterally are palpable and equal.? Patient tolerating flat soled shoe.? Patient was ambulatory in room with standby assist and steady gait.? Process and vancomycin continued through the PICC line. 03/21: Preliminary culture of the toe shoes staph aureus as does one of the blood cultures. Will redraw blood cultures and await the sensitivity of the wound culture. Patient states he is
--- NOTE | 2023-03-22 11:54 | PM.PNGS ---
Progress Note: A&P Assessment and Plan (1) Osteomyelitis of second toe of left foot: Code(s): M86.9 - Osteomyelitis, unspecified Status: Acute Assessment and Plan: At the time of surgery the patient was noted to have an abscess cavity which extended into the PIP joint of the left 2nd toe. He wishes to try to salvage the left 2nd toe and so he will need at least 6 weeks of home IV antibiotic therapy. Cultures show methicillin sensitive Staph aureus. He can be discharged home on the appropriate IV antibiotics and dosing as per the primary service. I will see him back in the [facility] Care Clinic in 1 week. We will dress the toe with silver gel and wrapped it with dry dressings. He can ambulate with a postop shoe on the left foot. Subjective Subjective Date/Time Seen: 03/22/23 11:54 Interval history: Patient is doing well today. Sitting up in a chair. Home IV therapy nurses are currently working with him for teaching of administering is on IV antibiotics at home. He has a right upper extremity PICC line in place. Exam Extrem: Other: Left 2nd toe still with some mild swelling decreased erythema and minimal serous drainage. Sinus on the dorsal aspect of the left forefoot is decreased in the swelling has decreased. Remaining toes are all viable without any wounds. Objective Data Vital Signs Vital Signs: Vital Signs - 24 hr 03/21/23 12:00 03/21/23 16:30 03/21/23 20:00 Temperature 36.3 C L 36.4 C L 36.6 C Pulse Rate 88 85 75 Respiratory Rate 17 17 15 Blood Pressure 100/66 114/70 116/71 Pulse Oximetry 99 99 94 Oxygen Delivery 03/22/23 00:00 03/21/23 20:40 03/22/23 04:00 Temperature 36.7 C 36.7 C Pulse Rate 86 78 Respiratory Rate 20 15 Blood Pressure 141/78 H 137/76 Pulse Oximetry 92 95 Oxygen Delivery Room Air Intake/Output Intake/Output: Intake & Output 03/19/23 03/20/23 03/21/23 03/22/23 23:59 23:59 23:59 23:59 Intake Total 2279 2019 2119 640 Balance 2279 2019 2119 640 Meds/Results Medications: Active Medications Generic Name Dose Route Start Last Admin Trade Name Freq PRN Reason Stop Dose Admin Acetaminophen 650 mg 03/16/23 18:09 03/22/23 08:28 Acetaminophen 325 Mg Tablet PO 650 mg Q4H PRN Administration Mild Pain (1-3) or Fever Hydrocodone Bitart/Acetaminophen 1 tab 03/16/23 18:09 03/17/23 12:25 Hydrocodone/Acetaminophen (*Crx) 5-325 Mg Tablet PO 1 tab Q4H PRN Administration Pain Rated 4-6 Bupropion HCl 450 mg 03/17/23 09:00 03/22/23 08:23 Bupropion Hcl Xl (24 Hr) 150 Mg Tabcr PO 450 mg DAILY ALEJA Administration Oxacillin Sodium 2 gm/ Sodium 100 mls @ 200 mls/hr 03/22/23 13:00 Chloride IVPB 04/28/23 23:59 Q4HR ALEJA Lamotrigine 50 mg 03/17/23 21:00 03/21/23 20:43 Lamotrigine 50 Mg Tablet PO 50 mg HS ALEJA Administration Morphine Sulfate 2 mg 03/16/23 18:09 Morphine Sulfate (*Crx) 2 Mg/Ml Inj IV PUSH Q2H PRN Pain Rated 7-10 Ondansetron HCl 4 mg 03/16/23 18:09 Ondansetron Inj 4 Mg/2 Ml Vial IV PUSH Q4H PRN Nausea Ondansetron HCl 4 mg 03/18/23 15:43 Ondansetron Inj 4 Mg/2 Ml Vial IV PUSH ONCE PRN Nausea Oxybutynin Chloride 5 mg 03/17/23 09:00 03/22/23 08:24 Oxybutynin Chloride Xl 5 Mg Tab.Er.24 PO 5 mg DAILY ALEJA Administration Polyethylene Glycol 17 gm 03/21/23 07:40 Polyethylene Glycol 3350 17 Gm Powd.Pack PO DAILY PRN Constipation Quetiapine Fumarate 100 mg 03/17/23 09:00 03/22/23 08:24 Quetiapine Fumarate 100 Mg Tablet PO 100 mg BID ALEJA Administration Sertraline HCl 200 mg 03/17/23 21:00 03/21/23 20:43 Sertraline Hcl 50 Mg Tablet PO 200 mg HS ALEJA Administration Simvastatin 20 mg 03/17/23 09:00 03/22/23 08:24 Simvastatin 20 Mg Tablet PO 20 mg DAILY ALEJA Administration Sodium Chloride 10 ml 03/19/23 14:00 03/22/23 05:24 Central Line Flush IV PUSH 10 ml Q8HR
[2023-03-22 12:05] VITALS: BP 126/69; PULSE 79; RESP 16; TEMP 36.3; O2SAT 99
[2023-03-22] MEDS: OXACILLIN SODIUM 2 GM in SODIUM CHLORIDE 0.9% IV 100 ML IVPB ×3 (14:22→21:38)
[2023-03-22 16:44] VITALS: BP 129/68; PULSE 78; RESP 18; TEMP 36.4; O2SAT 97
[2023-03-22 19:59] VITALS: BP 100/65; PULSE 91; RESP 18; TEMP 36.8; O2SAT 97
[2023-03-22] MEDS: ZOLPIDEM TARTRATE (*CRX) 5 MG TABLET 10 MG PO (21:39)
[2023-03-22] MEDS: SERTRALINE HCL 50 MG TABLET 200 MG PO (21:39)
[2023-03-22] MEDS: lamoTRIgine 50 MG TABLET PO (21:39)
[2023-03-23] VITALS: BP 130/78; PULSE 81; RESP 18; TEMP 36.5; O2SAT 96
[2023-03-23] MEDS: OXACILLIN SODIUM 2 GM in SODIUM CHLORIDE 0.9% IV 100 ML IVPB ×4 (00:54→13:24)
[2023-03-23 03:56] VITALS: BP 130/75; PULSE 80; RESP 18; TEMP 36.4; O2SAT 95
[2023-03-23] MEDS: CENTRAL LINE FLUSH 10 ML IV PUSH ×2 (05:37→14:30)
[2023-03-23 06:06] LABS: Basophils Percent Auto 0.4 % (0.2-1.2); Eosinophils Absolute Auto 0.2 K/mm3 (0-0.3); Eosinophils Percent Auto 2.1 % (0-4.4); Hematocrit 43.1 % (42.0-52.0); Hemoglobin 14.1 g/dL (14.0-18.0); Immature Granulocyte Absolute 0.04 K/mm3 (0.00-0.031); Immature Granulocyte Percent A 0.5 % (0-0.5); Lymphocytes Absolute Auto 1.04 K/mm3 (0.9-3.2); Lymphocytes Percent Auto 13.7 % (18.3-44.2); Mean Corpuscular HGB Conc 32.7 g/dl (32-36); Mean Corpuscular Hemoglobin 29.2 pg (26-34); Mean Corpuscular Volume 89.2 fl (80-100); Mean Platelet Volume 9.1 fl (7.4-10.4); Monocytes Absolute Auto 0.5 K/mm3 (0.1-0.6); Neutrophils Absolute Auto 5.8 K/mm3 (1.3-6.7); Neutrophils Percent Auto 76.3 % (45.5-73.1); Platelet Count Result 288 k/mm3 (150-375); Red Blood Count 4.83 M/mm3 (4.6-6.20); Red Cell Distribution Width 13.2 % (11.5-14.5); White Blood Count 7.6 K/mm3 (4.5-10.0)
[2023-03-23 06:09] LABS: Alanine Aminotransferase 23 U/L (6-50); Albumin Level 4.1 g/dL (3.5-5.1); Alkaline Phosphatase 102 U/L (38-126); Anion Gap 6 mmol/L (8-16); Aspartate Amino Transferase 29 U/L (17-59); Bilirubin,Total 0.7 mg/dL (0.2-1.3); Blood Urea Nitrogen 20 mg/dL (9-20); Calcium 9.2 mg/dL (8.4-10.2); Carbon Dioxide 25 mmol/L (22-30); Chloride 108 mmol/L (98-107); Estimated CRCL calculation 60 ml/min; Estimated Glomerular Filt Rate 60; Glucose 104 mg/dL (65-110); Magnesium 2.2 mg/dL (1.6-2.3); Potassium 3.8 mmol/L (3.4-5.0); Sodium 139 mmol/L (137-145)
--- NOTE | 2023-03-23 07:36 | PM.DS ---
DS: Admitting Diagnosis Discharge Date 03/23/2023 Admitting Diagnosis osteomyelitis of second toe of left foot DS: Discharge Diagnosis Discharge Diagnosis (1) Osteomyelitis of second toe of left foot: Code(s): M86.9 - Osteomyelitis, unspecified Status: Acute (2) Staphylococcus aureus bacteremia: Code(s): R78.81 - Bacteremia; B95.61 - Methicillin susceptible Staphylococcus aureus infection as the cause of diseases classified elsewhere Status: Acute (3) Insomnia: Code(s): G47.00 - Insomnia, unspecified Status: Acute (4) Anxiety and depression: Code(s): F41.9 - Anxiety disorder, unspecified; F32.A - Depression, unspecified Status: Acute (5) Dyslipidemia: Code(s): E78.5 - Hyperlipidemia, unspecified Status: Acute DS: Summary Hospital Course Hospital Course: 03/17:? This very pleasant gentleman was examined at the bedside in interval assessment after being admitted to the hospital for Osteomyelitis of the left second toe. He is awaiting a consult from General surgery and remains on Vancomycin and Rocephin. This AM his labs and VSS, and states that he did not sleep well last night at all because he did not have his Ambien 10 mg that he takes at home at bedtime. He denies any other new complaints or symptoms at this time. 03/18: patient going to the operating room at 5:00 p.m. today for debridement of left 2nd toe possible amputation for partial amputation.? If debridement patient will require 6 weeks of IV antibiotics upon discharge.? Patient reports chronic back pain L3-L4 with pinched nerve.? Otherwise patient denies any complaints or concerns at this time.? Patient does take several psychiatric medications.? EKG ordered as there was not a recent one to reference.? QTC 439.? Continue prior plan care. 03/19:? Left toe incision and drainage completed in the operating room yesterday.? Patient does have findings of osteomyelitis and abscess was into the joint.? He require 6 weeks IV antibiotics per General surgery plan of care.? Patient resides at [facility].? Will consult PT and OT in hopes SNF at [place] upon discharge. PICC line is ordered.? Expect patient remains hospitalized until Tuesday when IV antibiotics can be arranged on an outpatient basis if he does not get in to SNF.? He will also need wound care frequently. 03/20:? Patient is alert and oriented x3 and denies any complaints.? Denies any pain.? Dressing to left foot is dry and intact.? Pedal and posterior tibial pulses bilaterally are palpable and equal.? Patient tolerating flat soled shoe.? Patient was ambulatory in room with standby assist and steady gait.? Process and vancomycin continued through the PICC line. 03/21: Preliminary culture of the toe shoes staph aureus as does one of the blood cultures.? Will redraw blood cultures and await the sensitivity of the wound culture. Patient states he is doing well.Denies any pain.? 03/22:? Blood culture and wound culture show MSSA.? Will change antibiotics to oxacillin.? Planned on oxacillin or nafcillin for home antibiotics however the infusion company said they could not do either one so he will be sent with a phos all in 6 g over 24 hours for total of 6 weeks with last dose on April 28.? Patient underwent bedside teaching of home antibiotic usage today.? He will also half to undergo teaching dressing changes.? Blood cultures redrawn yesterday.? Discharge is pending negative cultures for 48 hours which would be end of day tomorrow at the earliest.? Patient reports feeling fine except he still has pain in the affected toe. 03/23: Repeat blood cultures negative growth to date. Patient got very upset about being told he should stay until 1800 which would be 48 hours after repeat BCs drawn. First dose of cephazolin given here. Infusion company will deliver meds today. Home health will come tomorrow. Wound care instructions provided by surgery. Status at Discharge Cog
[2023-03-23 08:00] VITALS: BP 116/89; PULSE 79; RESP 18; TEMP 36.7; O2SAT 98
[2023-03-23] MEDS: buPROPion HCL XL (24 HR) 150 MG TABCR 450 MG PO (09:21)
[2023-03-23] MEDS: oxyBUTYnin CHLORIDE XL 5 MG TAB.ER.24 PO (09:21)
[2023-03-23] MEDS: SIMVASTATIN 20 MG TABLET PO (09:21)
[2023-03-23] MEDS: QUEtiapine FUMARATE 100 MG TABLET PO (09:21)
[2023-03-23 12:00] VITALS: BP 106/61; PULSE 82; RESP 16; TEMP 36.3; O2SAT 98
[2023-03-23] MEDS: ceFAZolin 2 GM/D5W 50 ML 2 GM/50 ML BAG IVPB (14:00)
== END 2023-03-23 16:00 | disposition home health service (06) | DRG 504 ==
LOC: ANHED 18:27 → ANH2MED 20:18
PROVIDERS: Nurse Practitioner; Nurse Practitioner Family; Student in an Organized Health Care Education/Training Program; Surgery; Admitting Provider Family Medicine; Emergency Provider Emergency Medicine; PCP Family Medicine Sports Medicine; Visit Provider Nurse Practitioner Adult Health
PROC: 0S9Q0ZZ Drainage of Left Toe Phalangeal Joint, Open Approach (ICD-10-PCS; principal; 2023-03-18 17:00)
DX: M86.172 Other acute osteomyelitis, left ankle and foot (principal); R78.81 Bacteremia; L03.032 Cellulitis of left toe; B95.61 Methicillin susceptible Staphylococcus aureus infection as the cause of diseases classified elsewhere; E78.5 Hyperlipidemia, unspecified; M54.9 Dorsalgia, unspecified; G89.29 Other chronic pain; G47.00 Insomnia, unspecified; F41.9 Anxiety disorder, unspecified; F32.A Depression, unspecified
CPT/HCPCS: 36415; 36569; 73660; 80048; 80053; 80202; 82565; 83036; 83735; 85025; 85652; 86140; 87040; 87070; 87075; 87147; 87181; 87186; 87205; 93005; 96365; 96366; 96367; 97161; 97165; 99285; A9270; G0378; J0690; J0696; J2250; J2700; J2704; J3010; J3370; J7120

== ENCOUNTER 2023-03-29 08:14 | Outpatient (RCR) | payer OTHER, MEDICARE, SELFPAY ==
[2023-03-29 09:51] VITALS: BMI 27.1
--- NOTE | 2023-03-29 11:05 | P.PN_ITS ---
Progress Note: A&P Assessment and Plan (1) Osteomyelitis of second toe of left foot: Code(s): M86.9 - Osteomyelitis, unspecified Status: Acute Assessment and Plan: Patient is improving and the infection is being treated with extended course of IV antibiotics [place] [facility] via PICC line. Continue with IV antibiotics for least another 2 to 4 weeks. We will see him back in the [facility] in 2 weeks to see if he can convert to oral antibiotics or whether he would need a full course of 6 weeks of IV antibiotics. Continue to paint the left 2nd toe with Betadine each day. He can continue ambulating with a postop shoe. Subjective Date/time seen: 03/29/23 11:05 Interval history: Patient is seen back in the [facility] after recent hospitalization for cellulitis and abscess drainage of his left 2nd toe. He had obvious infection into the PIP joint and osteomyelitis. Actually has been doing well at a [place] [facility] facility. He has got a PICC line placed and is scheduled get 6 weeks of IV antibiotics. Exam Extrem: Other: Left 2nd toe still with some mild swelling and mild erythema but much improved from its appearance during hospitalization. The has almost close and there is now scabbed over the wound. No drainage at this time. Mild redness extends back to the metatarsophalangeal joint but there is only minimal tenderness. No crepitus of the tissue. Remaining toes are all normal appearing without any wounds. He does have a palpable left dorsalis pedis pulse.
== END 2023-06-13 09:09 | disposition home or self-care (01) ==
LOC: ANHWOC 08:14
PROVIDERS: PCP Family Medicine Sports Medicine; Visit Provider Surgery
DX: M86.9 Osteomyelitis, unspecified (principal); L97.529 Non-pressure chronic ulcer of other part of left foot with unspecified severity
CPT/HCPCS: 99214; G0463

== ENCOUNTER 2023-04-12 10:14 | Emergency (ER) | payer MEDICARE, SELFPAY ==
[2023-04-12] VITALS (9 sets, daily range): BP systolic 131–141; BP diastolic 71–95; PULSE 69–93; RESP 14–20; TEMP 36.6–37.5; O2SAT 96–100
--- NOTE | ~2023-04-12 | CT_ITS ---
EXAMINATION: CT abdomen pelvis w con DATE: 04/12/2023 11:23 INDICATION: Left lower quadrant abdominal pain. Nausea. TECHNIQUE: Computed tomography (CT) of the abdomen and pelvis was performed with 100 mL Omnipaque 350 intravenous contrast. Automated exposure control and iterative reconstruction technique were employe d. The dose-length product was 818.00 mGy-cm. COMPARISON: None. FINDINGS: The visualized portions of the lung bases demonstrate mild atelectasis. No pleural effusion . The heart size is normal. There are coronary artery calcifications. No pericardial effusion. There is a 7 mm cyst in the liver. The spleen, pancreas, adrenal glands, and right kidney are normal. There is a 10 mm cyst in left kidney. There are bilateral inguinal hernias containing fat. There are no di lated loops of bowel. The appendix is fluid-filled with diameter of 9 mm. No adjacent fat stranding. There are no pathologically enlarged lymph nodes. There is no free intraperitoneal fluid. There is ca lcified atherosclerosis of the aorta and many of the other arteries. The prostate is mildly enlarged. There is lumbar levoscoliosis and severe spondylosis. IMPRESSION: 1. Bilateral inguinal hernias containing fat. 2. Appendiceal diameter of 9 mm, which is indeterminate for appendicitis. Correlate with physical exa m. Reviewed, dictated and finalized at location A. OSAL LEAD WRITER IMPRESSION: 1. Bilateral inguinal hernias containing fat. 2. Appendiceal diameter of 9 mm, which is indeterminate for appendicitis. Corre late with physical exam.
--- NOTE | 2023-04-12 10:37 | ED.ABDPAIN ---
HPI - Abdominal Pain General Chief Complaint: Abdominal Pain Stated Complaint: abd pain Source: patient Mode of arrival: EMS Limitations: no limitations History of Present Illness HPI narrative: Patient is a 68-year-old male who presents the ED via EMS with report of abdominal pain. Patient reports having pain across his mid to lower abdomen since last night. States pain began suddenly. He has never had pain like this before. Pain worse with standing upright. He also reports nausea, worse with standing upright. Denies vomiting. Denies diarrhea or constipation. States his last bowel movement was 2 days ago. Denies rectal bleeding or melena. Denies urinary complaints. Denies fevers. Patient was admitted to the hospital here in March for osteomyelitis of his left 2nd toe. Underwent debridement via Dr. Mixon. He is currently on IV antibiotics via PICC line related to this. States his toe has been doing well. Related Data Home Medications Medication Instructions Recorded Confirmed naproxen 500 mg tablet 500 mg PO BID 09/16/22 03/29/23 oxybutynin chloride 5 mg 5 mg PO DAILY 09/16/22 03/29/23 tablet,extended release 24 hr quetiapine 100 mg tablet 100 mg PO BID 09/16/22 03/29/23 sertraline 100 mg tablet 200 mg PO HS 09/16/22 03/29/23 simvastatin 20 mg tablet 20 mg PO DAILY 09/16/22 03/29/23 bupropion HCl 150 mg 24 hr tablet, 450 mg PO DAILY 03/16/23 03/29/23 extended release lamotrigine 100 mg tablet 50 mg PO HS 03/16/23 03/29/23 zolpidem 10 mg tablet 10 mg PO HS PRN Insomnia 03/16/23 03/29/23 amino acids-protein hydrolysate 17 1 ea PO DAILY 03/29/23 03/29/23 gram-100 kcal/30 mL oral liquid (Pro-Stat AWC) arginine-vitamin C-vitamin E oral 1 g PO DAILY 03/29/23 03/29/23 4.5 gram-156 mg/9.2 gram powder pkt (Arginaid) heparin lock flush (porcine) 10 10 unit IV Q8H 03/29/23 03/29/23 unit/mL intravenous solution nystatin 100,000 unit/gram topical 1 applic topical BID 03/29/23 03/29/23 powder sodium chloride 0.9 % (flush) 10 ml IV TID 03/29/23 03/29/23 (Normal Saline Flush 0.9 % injection syringe) Allergies Allergy/AdvReac Type Severity Reaction Status Date / Time No Known Allergies Allergy Verified 03/29/23 10:02 Review of Systems Review of Systems: CONSTITUTIONAL: Denies fever, chills, or sweats. CARDIOVASCULAR: Denies chest pain. RESPIRATORY: Denies dyspnea. GASTROINTESTINAL: See HPI. GENITOURINARY: Denies dysuria or hematuria. All systems reviewed & are unremarkable except as noted in HPI and below PMFSH Past Medical History Medical History Anxiety and depression Dyslipidemia Hyperlipidemia Insomnia Surgical History Surgical History H/O colonoscopy Family History Family History Mother Family history of arthritis Acute myocardial infarction Hypertension Father Family history of malignant neoplasm Social History Social History Smoking status: Never smoker Alcohol intake: never Substance use: never Substance use type: does not use Do You Feel Safe in your Home?: Yes Lack of Transportation: No Lack of Food: Never True Current Housing: I Have Housing Concerned About Future Housing: No Difficulty Paying Gas/Electric Bills: No Difficulty Paying for Meds: No Currently Unemployed: No Education: Bachelor's Degree Difficulty w/ Childcare or Family Care: No Living arrangements: alone Spiritual care concerns: No Exam Narrative: GENERAL: Elderly, well-nourished, non-toxic, in no acute distress. HEAD: Normocephalic, atraumatic. RESPIRATORY: Airway patent, respirations nonlabored. Clear to auscultation bilaterally, no rales, rhonchi, wheezing. CARDIOVASCULAR: Regular rate and rhythm without murmu
[2023-04-12 10:46] LABS: Basophils Percent Auto 0.5 % (0.2-1.2); Eosinophils Absolute Auto 0.1 K/mm3 (0-0.3); Eosinophils Percent Auto 1.1 % (0-4.4); Hematocrit 44.4 % (42.0-52.0); Hemoglobin 14.8 g/dL (14.0-18.0); Immature Granulocyte Absolute 0.02 K/mm3 (0.00-0.031); Immature Granulocyte Percent A 0.4 % (0-0.5); Lymphocytes Absolute Auto 0.82 K/mm3 (0.9-3.2); Lymphocytes Percent Auto 14.7 % (18.3-44.2); Mean Corpuscular HGB Conc 33.3 g/dl (32-36); Mean Corpuscular Hemoglobin 30.1 pg (26-34); Mean Corpuscular Volume 90.4 fl (80-100); Mean Platelet Volume 9.9 fl (7.4-10.4); Monocytes Absolute Auto 0.4 K/mm3 (0.1-0.6); Monocytes Percent Auto 7.2 % (2.6-8.5); Neutrophils Absolute Auto 4.3 K/mm3 (1.3-6.7); Neutrophils Percent Auto 76.1 % (45.5-73.1); Platelet Count Result 179 k/mm3 (150-375); Red Blood Count 4.91 M/mm3 (4.6-6.20); Red Cell Distribution Width 13.8 % (11.5-14.5); White Blood Count 5.6 K/mm3 (4.5-10.0)
[2023-04-12 10:56] LABS: Alanine Aminotransferase 10 U/L (6-50); Albumin Level 4.4 g/dL (3.5-5.1); Alkaline Phosphatase 93 U/L (38-126); Anion Gap 12 mmol/L (8-16); Aspartate Amino Transferase 27 U/L (17-59); Bilirubin,Total 0.9 mg/dL (0.2-1.3); Blood Urea Nitrogen 20 mg/dL (9-20); Calcium 9.5 mg/dL (8.4-10.2); Carbon Dioxide 22 mmol/L (22-30); Chloride 106 mmol/L (98-107); Estimated CRCL calculation 79 ml/min; Estimated Glomerular Filt Rate > 60; Glucose 119 mg/dL (65-110); Lipase 56 U/L (23-300); Potassium 3.9 mmol/L (3.4-5.0); Sodium 140 mmol/L (137-145)
[2023-04-12] MEDS: ONDANSETRON INJ 4 MG/2 ML VIAL IV PUSH (11:31)
[2023-04-12] MEDS: MORPHINE SULFATE (*CRX) 4 MG/ML INJ IV PUSH (11:31)
[2023-04-12] MEDS: SODIUM CHLORIDE 0.9% IV 1,000 ML 999 ML IV CONT (11:32)
[2023-04-12 13:22] LABS: Bilirubin Urine Negative (Negative); Blood Urine Negative (Negative); Color Urine Yellow (Yellow); Glucose Urine UA Negative (Negative); Ketones Urine Trace mg/dL (Negative); Leukocyte Esterase Ur Negative LEU/UL (Negative); Nitrate Urine Negative (Negative); Protein Urine Negative (Negative); Urobilinogen Urine 0.2 mg/dL (<2.0)
[2023-04-12 13:26] LABS: Appearance Urine Clear (Clear); Specific Grav Ur 1.056 (1.001-1.035)
[2023-04-12 13:27] LABS: Add Urine Microscopic? NO
--- NOTE | 2023-04-12 13:33 | PCWOUND ---
WOCN NOTE Patient missed wound care outpatient appointment due to admitted in ED. assess left 2nd toe wound. area is healed. toe continues with man coloring. Reported assessment to Dr Mixon.
== END 2023-04-12 14:06 | disposition home or self-care (01) ==
PROVIDERS: Emergency Provider Physician Assistant; PCP Family Medicine Sports Medicine
DX: R10.33 Periumbilical pain (principal); M86.9 Osteomyelitis, unspecified; F41.9 Anxiety disorder, unspecified; F32.A Depression, unspecified; E78.5 Hyperlipidemia, unspecified
CPT/HCPCS: 36415; 74177; 80053; 81003; 83690; 85025; 96361; 96374; 96375; 99284; J2270; J2405; J7030; Q9967

== ENCOUNTER 2023-04-20 14:22 | Outpatient (NON) | payer MEDICARE, SELFPAY ==
[2023-04-20 15:18] LABS: Basophils Percent Auto 0.4 % (0.2-1.2); Eosinophils Absolute Auto 0.1 K/mm3 (0-0.3); Hematocrit 43.1 % (42.0-52.0); Hemoglobin 13.9 g/dL (14.0-18.0); Immature Granulocyte Absolute 0.02 K/mm3 (0.00-0.031); Immature Granulocyte Percent A 0.4 % (0-0.5); Lymphocytes Absolute Auto 1.09 K/mm3 (0.9-3.2); Lymphocytes Percent Auto 20.2 % (18.3-44.2); Mean Corpuscular HGB Conc 32.3 g/dl (32-36); Mean Corpuscular Hemoglobin 29.6 pg (26-34); Mean Corpuscular Volume 91.7 fl (80-100); Monocytes Absolute Auto 0.5 K/mm3 (0.1-0.6); Monocytes Percent Auto 8.9 % (2.6-8.5); Neutrophils Absolute Auto 3.7 K/mm3 (1.3-6.7); Neutrophils Percent Auto 68.1 % (45.5-73.1); Platelet Count Result 199 k/mm3 (150-375); Red Cell Distribution Width 13.8 % (11.5-14.5); White Blood Count 5.4 K/mm3 (4.5-10.0)
[2023-04-20 15:30] LABS: Alanine Aminotransferase 11 U/L (6-50); Albumin Level 4.2 g/dL (3.5-5.1); Alkaline Phosphatase 89 U/L (38-126); Anion Gap 11 mmol/L (8-16); Aspartate Amino Transferase 29 U/L (17-59); Bilirubin,Total 0.6 mg/dL (0.2-1.3); Blood Urea Nitrogen 24 mg/dL (9-20); Calcium 9.2 mg/dL (8.4-10.2); Carbon Dioxide 25 mmol/L (22-30); Chloride 103 mmol/L (98-107); Estimated Glomerular Filt Rate > 60; Glucose 74 mg/dL (65-110); Potassium 3.6 mmol/L (3.4-5.0); Sodium 139 mmol/L (137-145)
== END 2023-04-20 14:23 | disposition home or self-care (01) ==
LOC: ANHLAB 14:28 → HOME HLTH 14:29
PROVIDERS: PCP Family Medicine Sports Medicine; Visit Provider Family Medicine Sports Medicine
DX: Z45.2 Encounter for adjustment and management of vascular access device (principal); M86.172 Other acute osteomyelitis, left ankle and foot; L03.032 Cellulitis of left toe; L02.612 Cutaneous abscess of left foot
CPT/HCPCS: 80053; 85025

== ENCOUNTER 2023-04-27 12:58 | Outpatient (RCR) | payer MEDICARE, SELFPAY ==
[2023-04-27 14:02] LABS: Basophils Percent Auto 0.4 % (0.2-1.2); Eosinophils Absolute Auto 0.1 K/mm3 (0-0.3); Eosinophils Percent Auto 1.3 % (0-4.4); Hematocrit 40.4 % (42.0-52.0); Hemoglobin 13.1 g/dL (14.0-18.0); Immature Granulocyte Absolute 0.01 K/mm3 (0.00-0.031); Immature Granulocyte Percent A 0.2 % (0-0.5); Lymphocytes Absolute Auto 0.78 K/mm3 (0.9-3.2); Lymphocytes Percent Auto 16.7 % (18.3-44.2); Mean Corpuscular HGB Conc 32.4 g/dl (32-36); Mean Corpuscular Hemoglobin 29.8 pg (26-34); Mean Corpuscular Volume 91.8 fl (80-100); Mean Platelet Volume 10.2 fl (7.4-10.4); Monocytes Absolute Auto 0.4 K/mm3 (0.1-0.6); Monocytes Percent Auto 9.4 % (2.6-8.5); Neutrophils Absolute Auto 3.4 K/mm3 (1.3-6.7); Platelet Count Result 188 k/mm3 (150-375); Red Cell Distribution Width 13.9 % (11.5-14.5); White Blood Count 4.7 K/mm3 (4.5-10.0)
[2023-04-27 14:11] LABS: Alanine Aminotransferase 10 U/L (6-50); Albumin Level 3.7 g/dL (3.5-5.1); Alkaline Phosphatase 96 U/L (38-126); Anion Gap 8 mmol/L (8-16); Aspartate Amino Transferase 27 U/L (17-59); Bilirubin,Total 0.5 mg/dL (0.2-1.3); Blood Urea Nitrogen 24 mg/dL (9-20); Calcium 8.8 mg/dL (8.4-10.2); Carbon Dioxide 25 mmol/L (22-30); Chloride 104 mmol/L (98-107); Estimated Glomerular Filt Rate > 60; Glucose 88 mg/dL (65-110); Potassium 4.1 mmol/L (3.4-5.0); Sodium 137 mmol/L (137-145)
== END 2023-07-26 23:59 | disposition home or self-care (01) ==
LOC: HOME HLTH 12:58
PROVIDERS: PCP Family Medicine Sports Medicine; Visit Provider Family Medicine Sports Medicine
DX: M86.172 Other acute osteomyelitis, left ankle and foot (principal); L03.032 Cellulitis of left toe; L02.612 Cutaneous abscess of left foot
CPT/HCPCS: 80053; 85025

== ENCOUNTER → 2023-05-03 13:59 | Outpatient (CLI) | payer MEDICARE, SELFPAY ==
--- NOTE | ~2023-05-03 | MR_ITS ---
EXAMINATION: MR brain/brain stem wo con DATE: 05/03/2023 15:13 INDICATION: Unstable gait. TECHNIQUE: Magnetic resonance imaging (MRI) of the brain and brainstem was performed without intraven ous contrast. COMPARISON: Head CT 12/27/2022 FINDINGS: There are scattered areas of nonspecific increased T2-weighted signal intensity in the cere bral white matter, which is within normal limits for the patient's age. There is no intracranial hemo rrhage, acute infarction, or abnormal intracranial mass lesion. The ventricles are normal in size. Th e paranasal sinuses are clear. The orbits are normal. There are small bilateral mastoid effusions. IMPRESSION: 1. Normal aging brain. Reviewed, dictated and finalized at location A. BUTTON SWITCH ASSEMBLER IMPRESSION: 1. Normal aging brain.
== END ==
PROVIDERS: PCP Family Medicine Sports Medicine; Visit Provider Family Medicine Sports Medicine
DX: R26.81 Unsteadiness on feet (principal); R29.6 Repeated falls; R32 Unspecified urinary incontinence; R41.3 Other amnesia
CPT/HCPCS: 70551

== ENCOUNTER 2023-05-10 09:19 | Emergency (ER) | payer MEDICARE, SELFPAY ==
--- NOTE | ~2023-05-10 | CT_ITS ---
EXAMINATION: CT abdomen pelvis w con DATE: 05/10/2023 11:00 INDICATION: Left lower quadrant abdominal pain. Left groin pain. TECHNIQUE: Computed tomography (CT) of the abdomen and pelvis was performed with 100 mL Omnipaque 350 intravenous contrast. Automated exposure control and iterative reconstruction technique were employe d. The dose-length product was 668.97 mGy-cm. COMPARISON: CT abdomen and pelvis 04/12/2023 FINDINGS: The visualized portions of the lung bases demonstrate mild atelectasis. No pleural effusion . The heart size is normal. There are coronary artery calcifications. No pericardial effusion. There is an 8 mm cyst in the liver. The gallbladder, spleen, pancreas, adrenal glands, and right kidney are normal. There is an 11 mm cyst in left kidney. There is a right inguinal hernia containing fat. Ther e is a left inguinal hernia containing nonobstructed sigmoid colon. The tip of the appendix measures 10 mm in diameter. No surrounding fat stranding. The prostate is moderately enlarged. There are no pa thologically enlarged lymph nodes. There is mild aortic atherosclerosis. There is no free intraperito phyllis fluid. IMPRESSION: 1. Left inguinal hernia containing nonobstructed sigmoid colon. 2. Right inguinal hernia containing fat. 3. Appendiceal diameter of 10 mm without change, which is indeterminate for appendicitis. Correlate w ith physical exam. Reviewed, dictated and finalized at location A. THCARE ANALYST IMPRESSION: 1. Left inguinal hernia containing nonobstructed sigmoid colon. 2. Right inguinal hernia containing fat. 3. Appendiceal diameter of 10 mm without change, which is indeterminate for fabiana endicitis. Correlate with physical exam.
[2023-05-10 09:39] VITALS: BP 130/80; PULSE 88; RESP 16; TEMP 36.6; O2SAT 96
[2023-05-10 10:09] LABS: Basophils Percent Auto 0.3 % (0.2-1.2); Eosinophils Absolute Auto 0.1 K/mm3 (0-0.3); Eosinophils Percent Auto 1.4 % (0-4.4); Hematocrit 44.1 % (42.0-52.0); Hemoglobin 14.9 g/dL (14.0-18.0); Immature Granulocyte Absolute 0.03 K/mm3 (0.00-0.031); Immature Granulocyte Percent A 0.5 % (0-0.5); Lymphocytes Absolute Auto 0.97 K/mm3 (0.9-3.2); Mean Corpuscular HGB Conc 33.8 g/dl (32-36); Mean Corpuscular Hemoglobin 30.2 pg (26-34); Mean Corpuscular Volume 89.5 fl (80-100); Mean Platelet Volume 8.9 fl (7.4-10.4); Monocytes Absolute Auto 0.5 K/mm3 (0.1-0.6); Monocytes Percent Auto 7.6 % (2.6-8.5); Neutrophils Absolute Auto 4.9 K/mm3 (1.3-6.7); Neutrophils Percent Auto 75.2 % (45.5-73.1); Platelet Count Result 241 k/mm3 (150-375); Red Blood Count 4.93 M/mm3 (4.6-6.20); Red Cell Distribution Width 13.8 % (11.5-14.5); White Blood Count 6.5 K/mm3 (4.5-10.0)
[2023-05-10 10:19] LABS: Alanine Aminotransferase 19 U/L (6-50); Albumin Level 3.9 g/dL (3.5-5.1); Alkaline Phosphatase 86 U/L (38-126); Anion Gap 7 mmol/L (8-16); Aspartate Amino Transferase 28 U/L (17-59); Bilirubin,Total 0.7 mg/dL (0.2-1.3); Blood Urea Nitrogen 24 mg/dL (9-20); Calcium 9.4 mg/dL (8.4-10.2); Carbon Dioxide 24 mmol/L (22-30); Chloride 106 mmol/L (98-107); Estimated Glomerular Filt Rate > 60; Glucose 103 mg/dL (65-110); Lipase 68 U/L (23-300); Potassium 4.2 mmol/L (3.4-5.0); Sodium 137 mmol/L (137-145)
--- NOTE | 2023-05-10 10:42 | ED.GENADULT ---
HPI - General Adult General Chief complaint: Abdominal Pain <Eric Perez PA-C - Last Filed: 05/10/23 15:37> Stated complaint: Hernia <Eric Perez PA-C - Last Filed: 05/10/23 15:37> Time Seen by Provider: 05/10/23 10:24 <Eric Perez PA-C - Last Filed: 05/10/23 15:37> Source: patient <ALISON West Last Filed: 05/10/23 15:37> Mode of arrival: ambulatory <ALISON West Last Filed: 05/10/23 15:37> Limitations: no limitations <ALISON West Last Filed: 05/10/23 15:37> History of Present Illness HPI narrative: This is a 68-year-old male who presents to the ED with chief complaint of left groin pain for the past several weeks and worsening last night. Reports that he noticed swelling this morning for the 1st time. Reports the pain is worse when he stands up feels like there is a lot more pressure and the groin. He has not tried to reduce the area of swelling to the groin. Endorses some nausea but no episodes of vomiting. Denies fevers, chills, diarrhea, chest pain, shortness of breath, urinary problems. <ALISON West Last Filed: 05/10/23 15:37> Related Data Home medications: Home Medications Medication Instructions Recorded Confirmed naproxen 500 mg tablet 500 mg PO BID 09/16/22 04/28/23 oxybutynin chloride 5 mg 5 mg PO DAILY 09/16/22 04/28/23 tablet,extended release 24 hr quetiapine 100 mg tablet 100 mg PO BID 09/16/22 04/28/23 sertraline 100 mg tablet 200 mg PO HS 09/16/22 04/28/23 simvastatin 20 mg tablet 20 mg PO DAILY 09/16/22 04/28/23 bupropion HCl 150 mg 24 hr tablet, 450 mg PO DAILY 03/16/23 04/28/23 extended release lamotrigine 100 mg tablet 50 mg PO HS 03/16/23 04/28/23 zolpidem 10 mg tablet 10 mg PO HS PRN Insomnia 03/16/23 04/28/23 amino acids-protein hydrolysate 17 1 ea PO DAILY 03/29/23 04/28/23 gram-100 kcal/30 mL oral liquid (Pro-Stat AWC) arginine-vitamin C-vitamin E oral 1 g PO DAILY 03/29/23 04/28/23 4.5 gram-156 mg/9.2 gram powder pkt (Arginaid) heparin lock flush (porcine) 10 10 unit IV Q8H 03/29/23 04/28/23 unit/mL intravenous solution nystatin 100,000 unit/gram topical 1 applic topical BID 03/29/23 04/28/23 powder sodium chloride 0.9 % (flush) 10 ml IV TID 03/29/23 04/28/23 (Normal Saline Flush 0.9 % injection syringe) <Eric Perez PA-C - Last Filed: 05/10/23 15:37> Allergies/adverse reactions: Allergies Allergy/AdvReac Type Severity Reaction Status Date / Time No Known Allergies Allergy Verified 04/28/23 13:15 <Eric Perez PA-C - Last Filed: 05/10/23 15:37> Review of Systems Review of Systems: All systems as dictated in HPI <Eric Perez PA-C - Last Filed: 05/10/23 15:37> PMFSH Past Medical History Medical History: Medical History Anxiety and depression Dyslipidemia Hyperlipidemia Insomnia <Eric Perez PA-C - Last Filed: 05/10/23 15:37> Surgical History Surgical History: Surgical History H/O colonoscopy History of incision and drainage I&D of left 2nd toe abscess 03/18/23. <Eric Perez PA-C - Last Filed: 05/10/23 15:37> Family History Family History: Family History Mother Family history of arthritis Acute myocardial infarction Hypertension Father Family history of malignant neoplasm <Eric Perez PA-C - Last Filed: 05/10/23 15:37> Social History Social History: Social History Smoking status: Never smoker Alcohol intake: never Substance use: never Substance use type: does not use Do You Feel Safe in your Home?: Yes Lack of Transportation: No Lack of Food: Never True Current Housing: I Have Housing Concerned About Future Housing: No Difficulty Paying Gas/El
[2023-05-10] MEDS: MORPHINE SULFATE (*CRX) 4 MG/ML INJ IV PUSH (11:32)
[2023-05-10] MEDS: ONDANSETRON INJ 4 MG/2 ML VIAL IV PUSH (11:32)
[2023-05-10 11:38] LABS: Appearance Urine Clear (Clear); Bilirubin Urine Negative (Negative); Blood Urine Negative (Negative); Color Urine Yellow (Yellow); Glucose Urine UA Negative (Negative); Ketones Urine Negative (Negative); Leukocyte Esterase Ur Negative LEU/UL (Negative); Nitrate Urine Negative (Negative); Protein Urine Negative (Negative)
[2023-05-10 11:40] LABS: Add Urine Microscopic? NO
[2023-05-10 13:50] VITALS: BP 125/70; PULSE 78; RESP 16; O2SAT 98
== END 2023-05-10 13:50 | disposition home or self-care (01) ==
PROVIDERS: Emergency Medicine; Emergency Provider Physician Assistant; PCP Family Medicine Sports Medicine
DX: K40.90 Unilateral inguinal hernia, without obstruction or gangrene, not specified as recurrent (principal); F41.9 Anxiety disorder, unspecified; F32.A Depression, unspecified; E78.5 Hyperlipidemia, unspecified
CPT/HCPCS: 36415; 74177; 80053; 81003; 83690; 85025; 96374; 96375; 99284; J2270; J2405; Q9967

== ENCOUNTER 2023-05-21 13:47 | Inpatient (IN) | payer MEDICARE, SELFPAY ==
--- NOTE | 2023-05-13 09:49 | PC.NURSE ---
Report to the Outpatient Waiting Room, entrance under the green pavilion located off [facility], at time 0645 on date _05/20/23 . Planned Procedure Time: __0845 . Time changes happen often and if your time is changed the preop area will call you the afternoon before. - You and your visitor will be asked to self-screen and do not enter if you have any COVID symptoms. - A mask is optional within the hospital at this time. Patients may have clear liquids (water, carbonated beverages, clear teas, apple juice) until 3 hours prior to surgery( 5:45 AM ) with a maximum of 20 ounces. - No food from midnight until time of surgery - Infants may have breast milk until 4 hours before surgery, infant formula 6 hours prior to surgery. - Children will be allowed to drink immediately following surgery. If applicable, please bring a bottle or sippy cup to assist with drinking. Juice, water, soda, and popsicles are readily available. For infants on formula, please bring formula the day of surgery. Pacifiers are allowed. Take the following medications with a SIP of water the morning of surgery: _BUPROPION,LEVOFLOXACIN,QUETIAPINE DO NOT STOP ANY OF YOUR OTHER PRESCRIPTION MEDICATIONS PRIOR TO SURGERY ?EXCEPT THE FOLLOWING Medications to discontinue per physician ___HOLD ALL VITAMINS AND SUPPLEMENTS 3 DAYS PRE OP .LAST DOSE 05/16/23 Please no make-up, nail mauritian, hairspray, perfume, deodorant, or body powder the day of surgery. No jewelry (including any body piercings) or valuables the day of surgery, leave them at home. Please take a shower or bath the night before, or the morning of, surgery with an antibacterial soap. Wear comfortable, loose fitting clothing. Children are encouraged to wear pajamas. - Jewelry must be removed prior to entering the operating room. Rings and piercings that are not removed may be cut off. - The hospital will not accept responsibility for valuables. - Please leave all valuables, including medications, at home the day of surgery. If you are going home after surgery, a licensed crew car driver must drive you home. - NO public transportation without another adult if you receive anesthesia. - We recommend that an adult stay with you for 24 hours following discharge. - We also recommend that you do not drive, make important decision, drink alcoholic beverages, or take any drugs that were not prescribed by your health care provider for at least 24 hours after your discharge time. Follow any additional instructions given to you from your surgeon. If you or anyone in your household have experienced Covid symptoms in the past week, please notify your surgeon or the nurse liaison at the phone number below for possible testing. Telephone instructions given to __PATIENT and asked if any additional questions and then verbalized understanding. Patient advised to call surgeon office or pre surgery nurse liaison [phone] if any additional questions.
[2023-05-13 09:58] VITALS: BMI 26.8
[2023-05-20] VITALS (10 sets, daily range): BP systolic 101–137; BP diastolic 54–76; PULSE 72–95; RESP 10–20; TEMP 36.4–37; O2SAT 94–100
[2023-05-20] MEDS: LACTATED RINGERS 1,000 ML 30 ML IV CONT ×2 (08:02→11:50)
--- NOTE | 2023-05-20 08:29 | WPDHPUPDATE1 ---
History and Physical Update Update Date/Time: 05/20/23 08:29 History and Physical has been reviewed, including an updated exam of the patient. There are NO changes in the patient's condition. Risks, benefits, and alternatives have been discussed and questions answered. Patient agrees to proceed with procedure.
[2023-05-20] MEDS: ACETAMINOPHEN 500 MG TABLET 1000 MG PO (08:34)
[2023-05-20] MEDS: KETOROLAC 15 MG/ML VIAL (*BKC) IV PUSH (08:36)
--- NOTE | 2023-05-20 08:43 | WPDANESEPPF ---
Anes - Initial Pre Proc Eval Procedure: Operation Date: 05/20/23 09:00 Proposed Procedures p Open Bilateral Inguinal Hernia Repair with [facility] - Quincy Mixon MD Date/Time: 05/20/23 08:43 Surgeon: Quincy Mixon MD Pre Op Diagnosis: bilat inguinal hernia Patient Data Age: 68 Gender: M Height: 1.85 m Weight: 92.1 kg Allergies Allergy/AdvReac Type Severity Reaction Status Date / Time No Known Allergies Allergy Verified 05/20/23 07:55 Home Medications Medication Instructions Recorded Confirmed Type naproxen 500 mg tablet 500 mg PO BID 09/16/22 05/20/23 History quetiapine 100 mg tablet 100 mg PO BID 09/16/22 05/20/23 History sertraline 100 mg tablet 200 mg PO HS 09/16/22 05/20/23 History simvastatin 20 mg tablet 20 mg PO QPM 09/16/22 05/20/23 History zolpidem 10 mg tablet 10 mg PO HS PRN Insomnia 03/16/23 05/20/23 History ondansetron 4 mg disintegrating 4 mg PO Q8H PRN nausea and 04/12/23 05/13/23 Rx tablet vomiting #15 tabs docusate sodium 100 mg capsule 100 mg PO BID #30 caps 05/10/23 05/20/23 Rx (Colace) hydrocodone 5 mg-acetaminophen 325 1 tablet PO Q8H PRN pain #14 tabs 05/10/23 05/20/23 Rx mg tablet bupropion HCl 300 mg 24 hr tablet, 300 mg PO QAM 05/12/23 05/20/23 History extended release lactobacillus combination no.9 4 4,000 mmu cells PO DAILY 05/12/23 05/20/23 History billion cell capsule (Adult 50 Plus Probiotic) levofloxacin 750 mg tablet 750 mg PO DAILY 30 days #30 tabs 05/12/23 05/20/23 Rx omeprazole 40 mg capsule,delayed 40 mg PO DAILY 05/12/23 05/20/23 History release tamsulosin 0.4 mg capsule 0.4 mg PO HS 05/13/23 05/20/23 History vitamins A,C,H-cess-fyftwn 2,148 2 tablet PO DAILY 05/13/23 05/20/23 History mcg-113 mg-45 mg-17.4 mg tablet (PreserVision AREDS) Patient hx anesthesia problems: none Family hx anesthesia problems: none Results Review: All pre-operative results and documents have been reviewed as part of the pre-operative evaluation. [facility] Past Medical History Medical History Anxiety and depression Dyslipidemia Hyperlipidemia Insomnia Surgical History Surgical History H/O colonoscopy History of incision and drainage I&D of left 2nd toe abscess 03/18/23. Family History Family History Mother Family history of arthritis Acute myocardial infarction Hypertension Father Family history of malignant neoplasm Social History Social History Smoking status: Never smoker Alcohol intake: never Substance use: never Substance use type: does not use Do You Feel Safe in your Home?: Yes Lack of Transportation: No Lack of Food: Never True Current Housing: I Have Housing Concerned About Future Housing: No Difficulty Paying Gas/Electric Bills: No Difficulty Paying for Meds: No Currently Unemployed: No Education: Bachelor's Degree Difficulty w/ Childcare or Family Care: No Living arrangements: alone Spiritual care concerns: No Anes - Eval Final PreProcedure Day of Procedure 05/20/23 08:43 Patient weight: normal Heart: regular rate and rhythm Lungs: clear to auscultation Airway: Mallampati scale class II Neurological: alert and oriented Last oral intake: >/= 8 hours ASA classification: II Emergent: no Anesthetic plan: proceed Anesthesia type and monitoring: general GIVS (may use LMA) and standard monitoring Results Review: All pre-operative results and documents have been reviewed as part of the pre-operative evaluation. Informed Consent: The patient's anesthetic plan and its attendant risks and benefits were discussed with the patient/family/POA. Questions were solicited and answers provided to the satisfaction of the patient/family/POA.
[2023-05-20] MEDS: ceFAZolin 2 GM/D5W 50 ML 2 GM/50 ML BAG IVPB (08:55)
[2023-05-20] MEDS: BUPivacaine HCL 0.5% PF 30 ML VIAL INFILTRATE ×2 (09:42→11:35)
--- NOTE | 2023-05-20 13:10 | ADMGEN ---
This patient, Lazaro Hauser, was admitted to Medical Room 344-01. Patient/family oriented to hospital policies and general routines including ID bracelet, bed and alarms, visiting hours, pain management, procedures, bathroom and other care routines, personal items, smoking policy, room service/diet, and visiting hours. Information on how to activate the Rapid Response Team has been discussed. Patient/Family are encouraged to report perceived risks to care and to ask questions if they do not understand what they are told or what they should do.
[2023-05-20] MEDS: LACTATED RINGERS 1,000 ML 75 ML IV CONT (14:55)
[2023-05-20] MEDS: QUEtiapine FUMARATE 100 MG TABLET PO (17:33)
[2023-05-20] MEDS: DOCUSATE SODIUM 100 MG CAPSULE PO (17:33)
[2023-05-20] MEDS: SIMVASTATIN 20 MG TABLET PO (17:33)
[2023-05-20] MEDS: ONDANSETRON INJ 4 MG/2 ML VIAL IV PUSH (19:44)
[2023-05-20] MEDS: SERTRALINE HCL 50 MG TABLET 200 MG PO (20:35)
[2023-05-20] MEDS: TAMSULOSIN HCL 0.4 MG CAPSULE PO (20:35)
[2023-05-20] MEDS: PROMETHAZINE HCL 25 MG/ML AMPUL 12.5 MG IV PUSH (22:20)
[2023-05-20] MEDS: PANTOPRAZOLE SODIUM IV 40 MG VIAL IV PUSH (22:20)
[2023-05-20] MEDS: ZOLPIDEM TARTRATE (*CRX) 5 MG TABLET 10 MG PO (22:28)
[2023-05-21] MEDS: LACTATED RINGERS 1,000 ML 75 ML IV CONT (05:34)
[2023-05-21 06:12] VITALS: BP 121/52; PULSE 85; RESP 18; TEMP 36.8; O2SAT 100
[2023-05-21] MEDS: HYDROcodone/acetaminophen (*CRX) 5-325 MG TABLET 1 TAB PO ×2 (09:51→18:03)
[2023-05-21] MEDS: OPTI-GEN TAB 1 TABLET PO (09:54)
[2023-05-21] MEDS: ACIDOPHILUS/BULGARICUS CHEWABLE TABLET 2 TABLET BY MOUTH (09:54)
[2023-05-21] MEDS: PANTOPRAZOLE 40 MG TABLET PO (09:54)
[2023-05-21] MEDS: DOCUSATE SODIUM 100 MG CAPSULE PO ×2 (09:54→17:51)
[2023-05-21] MEDS: levoFLOXacin 750 MG TABLET PO (09:54)
[2023-05-21] MEDS: QUEtiapine FUMARATE 100 MG TABLET PO ×2 (09:55→17:51)
[2023-05-21] MEDS: NAPROXEN 500 MG TABLET PO ×2 (09:55→17:50)
[2023-05-21] MEDS: buPROPion HCL XL (24 HR) 150 MG TABCR 300 MG PO (09:55)
--- NOTE | 2023-05-21 10:41 | WPDPN ---
Progress Note: A&P Assessment and Plan (1) Bilateral inguinal hernia: Qualifiers: Obstruction and gangrene presence: without obstruction or gangrene Recurrence: non-recurrent Qualified Code(s): K40.20 - Bilateral inguinal hernia, without obstruction or gangrene, not specified as recurrent Code(s): K40.20 - Bilateral inguinal hernia, without obstruction or gangrene, not specified as recurrent Status: Acute Assessment and Plan: Postoperative day 1 after bilat open inguinal hernia repairs with mesh. Pain seems to be okay on oral pain medications. Incisions look good. Continue supportive management. PT OT evaluation for safety strengthening. Patient does have balance issues. He lives alone presently but has plans to move into assisted living but in the short term he is still going to be going home. He will need to be safe from a ambulatory standpoint before he be discharged home. (2) Postoperative urinary retention: Code(s): N99.89 - Other postprocedural complications and disorders of genitourinary system; R33.8 - Other retention of urine Status: Acute Assessment and Plan: Rice catheter had replaced this morning for acute urinary retention most likely related to his bilateral inguinal hernia repairs yesterday. He was already on Flomax. We will put him on the nursing driven Rice catheter protocol and hopefully will be able to get the catheter out tomorrow morning. Subjective Date/time seen: 05/21/23 10:41 Interval history: Patient had very tension overnight had have a Rice catheter placed this morning. He was already on Flomax. He did have bilateral open inguinal hernia repair yesterday which likely contributed to his urinary retention. Urine output from the Rice is good and the urine is clear. He did tolerate some solid food for breakfast but did not like food very well. Hopefully lunch will be more palatable to him. Otherwise pre has got above once to a chair. Exam : Other: Bilateral groin incisions intact with minimal bruising and no drainage. Scrotal support in place. Rice catheter in place. Mild scrotal edema. Urinary Catheter: Urinary Catheter: patent and draining and urine clear Objective Data Vital Signs Vital Signs: Vital Signs - 24 hr 05/20/23 11:50 05/20/23 12:00 05/20/23 12:15 Temperature 36.4 C L Pulse Rate 76 74 81 Respiratory Rate 10 L 12 20 Blood Pressure 102/60 101/62 113/66 Pulse Oximetry 100 98 98 Oxygen Delivery Simple Face Mask Simple Face Mask Simple Face Mask Oxygen Flow Rate 8 8 8 05/20/23 12:30 05/20/23 12:45 05/20/23 14:30 Temperature 36.9 C Pulse Rate 87 88 82 Respiratory Rate 20 18 20 Blood Pressure 127/68 126/70 114/69 Pulse Oximetry 94 96 98 Oxygen Delivery Room Air Room Air Oxygen Flow Rate 05/20/23 14:59 05/20/23 16:00 05/20/23 19:38 Temperature 37.0 C 36.9 C Pulse Rate 83 84 72 Respiratory Rate 20 20 18 Blood Pressure 119/69 127/76 112/54 L Pulse Oximetry 96 96 98 Oxygen Delivery Oxygen Flow Rate 05/21/23 06:12 05/21/23 09:06 05/21/23 09:18 Temperature 36.8 C Pulse Rate 85 Respiratory Rate 18 Blood Pressure 121/52 L Pulse Oximetry 100 Oxygen Delivery Room Air Room Air Oxygen Flow Rate Intake/Output Intake/Output: Intake & Output 05/18/23 05/19/23 05/20/23 05/21/23 23:59 23:59 23:59 23:59 Intake Total 1050 1490 Output Total 3000 Balance 1050 -1510 Meds/Results Medications: Active Medications Generic Name Dose Route Start Last Admin Trade Name Freq PRN Reason Stop Dose Admin Acetaminophen 1,000 mg 05/20/23 12:52 Acetaminophen 500 Mg Tablet PO Q6H PRN Mild Pain (1-3) or Fever Hydrocodone Bitart/Acetaminophen 1 tab 05/20/23 12:52 05/21/23 09:51 Hydrocodone/Acetaminophen (*Crx) 5-325 Mg Tablet PO 1 tab Q4H PRN Administration Pain Rated 4-6 Bupropion HCl 300 mg 05/21/23 09:00 05/21/23 09:55 Bupropio
--- NOTE | 2023-05-21 11:20 | W.PM.PROC2 ---
Procedure Note - Detailed Date of Procedure 05/21/23 Pre-op Diagnosis Bilat inguinal hernia Post-op Diagnosis Same Procedure Performed Open bilateral inguinal hernia repairs with UHS mesh. Surgeon Quincy Mixon MD Anesthesia General Indications Patient is a 68-year-old gentleman who has bilateral inguinal hernias. Left side is much larger than the right side and the left side has portion of his colon in the left hemiscrotum. He presents now for bilateral elective inguinal hernia repairs with mesh. Findings The right-sided inguinal hernia was an indirect hernia with a large cord lipoma. The left-sided inguinal hernia was indirect as well had a portion of the sigmoid colon within it. All the bowel was viable. Description of Procedure After informed consent was obtained patient brought to the operating room was placed supine position and then general LMA anesthesia was administered. The bilateral lower abdomen and groins were then prepped and draped usual sterile fashion. A time-out was then performed correctly identifying the patient as well as procedure to be performed. He was given perioperative IV antibiotics. I 1st started by making a transverse incision right groin region and then dissected down through the subcutaneous tissues to the external oblique aponeurosis was encountered. I then sized external oblique aponeurosis with scalpel then opened out through the external ring utilizing electrocautery. Then the external oblique aponeurosis from the underlying cremasteric muscle fibers utilizing electrocautery. I then isolated the cord structures at the pubic tubercle and placed a Mónica drain around the cord for mobilization. Divided cremasteric muscle fibers to further mobilize the cord and examined the floor of the inguinal canal. There was no evidence of a direct defect. I then explored the cord and identified the vas deferens and testicular vessels protected these throughout the rest procedure. The large cord lipoma come out through the indirect inguinal hernia defect was dissected free of the cord structures and reduced back through the dilated internal ring. I then dissected out the preperitoneal space with blunt finger and sponge dissection inferior epigastric vessels. An extended oval piece of Ultrapro hernia system mesh was used for the repair. The underlay portion was placed through the dilated internal ring into the preperitoneal space and spread out to cover the whole myopectineal orifice. The cylindrical connecting portion of the mesh came out through the internal ring and then the overlay portion of mesh was placed over the floor of the inguinal canal. A slit was then cut the overlay mesh to accommodate cord structures and the edges were reapproximated around the cord utilizing interrupted 2-0 Vicryl sutures. The overlay mesh was then secured to the tissues around the pubic tubercle utilizing interrupted 2-0 Vicryl sutures. Medially the overlay mesh was secured to the internal oblique muscle utilizing interrupted 2-0 Vicryl sutures in laterally it was secured to the shelving edge of the external oblique aponeurosis utilizing interrupted 2-0 Vicryl sutures. The tail the patch was tucked underneath the external oblique aponeurosis. I then closed the external oblique aponeurosis utilizing a running 3-0 Vicryl suture. The external ring was recreated. I then irrigated out the incision and closed the subcutaneous tissues and Betty's fascial layer with interrupted 3-0 Vicryl sutures. The skin edges were approximated utilizing a running subcuticular 4 Monocryl suture. The incision was then cleaned and then skin glue was applied. I then approached repair of the left inguinal hernia. A transverse incision was made a left groin region dissection was carried down through the subcu tissues until the external oblique aponeurosis was encountered. Again the external oblique aponeurosis incised the scalp was opened widel
[2023-05-21 15:17] VITALS: BP 96/53; PULSE 94; RESP 16; TEMP 37; O2SAT 94
[2023-05-21] MEDS: SIMVASTATIN 20 MG TABLET PO (17:51)
[2023-05-21] MEDS: TAMSULOSIN HCL 0.4 MG CAPSULE PO (19:55)
[2023-05-21] MEDS: SERTRALINE HCL 50 MG TABLET 200 MG PO (19:56)
[2023-05-21] MEDS: ZOLPIDEM TARTRATE (*CRX) 5 MG TABLET 10 MG PO (19:56)
[2023-05-21] MEDS: oxyCODONE HCL (*CRX) 5 MG TAB IR PO (20:03)
[2023-05-21 20:28] VITALS: BP 137/73; PULSE 92; RESP 16; TEMP 36.7; O2SAT 97
[2023-05-21 23:57] VITALS: BP 117/65; PULSE 81; RESP 16; TEMP 36.4; O2SAT 97
[2023-05-22 05:16] VITALS: BP 125/75; PULSE 81; RESP 14; TEMP 36.7; O2SAT 97
[2023-05-22] MEDS: DOCUSATE SODIUM 100 MG CAPSULE PO ×2 (09:33→17:59)
[2023-05-22] MEDS: buPROPion HCL XL (24 HR) 150 MG TABCR 300 MG PO (09:33)
[2023-05-22] MEDS: levoFLOXacin 750 MG TABLET PO (09:33)
[2023-05-22] MEDS: OPTI-GEN TAB 1 TABLET PO (09:33)
[2023-05-22] MEDS: QUEtiapine FUMARATE 100 MG TABLET PO ×2 (09:33→17:59)
[2023-05-22] MEDS: ACIDOPHILUS/BULGARICUS CHEWABLE TABLET 2 TABLET BY MOUTH (09:33)
[2023-05-22] MEDS: PANTOPRAZOLE 40 MG TABLET PO (09:34)
[2023-05-22] MEDS: NAPROXEN 500 MG TABLET PO ×2 (09:34→17:59)
[2023-05-22] MEDS: HYDROcodone/acetaminophen (*CRX) 5-325 MG TABLET 1 TAB PO ×2 (10:06→20:32)
--- NOTE | 2023-05-22 10:29 | PM.PNGS ---
Progress Note: A&P Assessment and Plan (1) Bilateral inguinal hernia: Qualifiers: Obstruction and gangrene presence: without obstruction or gangrene Recurrence: non-recurrent Qualified Code(s): K40.20 - Bilateral inguinal hernia, without obstruction or gangrene, not specified as recurrent Code(s): K40.20 - Bilateral inguinal hernia, without obstruction or gangrene, not specified as recurrent Status: Acute Assessment and Plan: Doing well, continue routine postoperative care, continue to work PT/OT, may need rehab (2) Postoperative urinary retention: Code(s): N99.89 - Other postprocedural complications and disorders of genitourinary system; R33.8 - Other retention of urine Status: Acute Assessment and Plan: Will try to DC Rice this morning Subjective Subjective Date/Time Seen: 05/22/23 10:29 Interval history: feels ok, still pretty weak and unsteady c ambulation Review of Systems Review of Systems: All systems reviewed & are unremarkable except as noted in HPI and below Exam Const: General: cooperative, comfortable and no acute distress Resp: Auscultation: clear to auscultation bilaterally Cardio: Rate: regular rate Rhythm: regular rhythm GI: Inspection: normal to inspection, distended and incision GI Palp: Yes abdominal tenderness, Yes Soft to palpation and Yes Tenderness to palpation present (GI) Objective Data Vital Signs Vital Signs: Vital Signs - 24 hr 05/21/23 10:38 05/21/23 15:17 05/21/23 20:28 Temperature 37.0 C 36.7 C Pulse Rate 94 92 Respiratory Rate 16 16 Blood Pressure 96/53 L 137/73 Pulse Oximetry 94 97 Oxygen Delivery Room Air 05/21/23 20:00 05/21/23 23:57 05/22/23 05:16 Temperature 36.4 C L 36.7 C Pulse Rate 81 81 Respiratory Rate 16 14 Blood Pressure 117/65 125/75 Pulse Oximetry 97 97 Oxygen Delivery Room Air 05/22/23 09:33 Temperature Pulse Rate Respiratory Rate Blood Pressure Pulse Oximetry Oxygen Delivery Room Air Intake/Output Intake/Output: Intake & Output 05/19/23 05/20/23 05/21/23 05/22/23 23:59 23:59 23:59 23:59 Intake Total 1050 2090 120 Output Total 3950 600 Balance 1050 -1860 -480 Meds/Results Medications: Active Medications Generic Name Dose Route Start Last Admin Trade Name Nixon PRN Reason Stop Dose Admin Acetaminophen 1,000 mg 05/20/23 12:52 Acetaminophen 500 Mg Tablet PO Q6H PRN Mild Pain (1-3) or Fever Hydrocodone Bitart/Acetaminophen 1 tab 05/20/23 12:52 05/22/23 10:06 Hydrocodone/Acetaminophen (*Crx) 5-325 Mg Tablet PO 1 tab Q4H PRN Administration Pain Rated 4-6 Bupropion HCl 300 mg 05/21/23 09:00 05/22/23 09:33 Bupropion Hcl Xl (24 Hr) 150 Mg Tabcr PO 300 mg QAM ALEJA Administration Docusate Sodium 100 mg 05/20/23 17:00 05/22/23 09:33 Docusate Sodium 100 Mg Capsule PO 100 mg BID ALEJA Administration Lactated Ringer's 1,000 mls @ 75 mls/hr 05/20/23 11:55 05/22/23 07:58 Lr - Lactated Ringers Iv IV CONT Not Given .[id number] [facility] Lactobacillus Acidophilus 2 tablet 05/21/23 09:00 05/22/23 09:33 Acidophilus/Bulgaricus Chewable Tablet BY MOUTH 2 tablet DAILY ALEJA Administration Levofloxacin 750 mg 05/21/23 09:00 05/22/23 09:33 Levofloxacin 750 Mg Tablet PO 750 mg DAILY ALEJA Administration Multivitamins/Minerals 1 tablet 05/21/23 09:00 05/22/23 09:33 Opti-Gen Tab PO 1 tablet QAM ALEJA Administration Naproxen 500 mg 05/20/23 17:00 05/22/23 09:34 Naproxen 500 Mg Tablet PO 500 mg BID ALEJA Administration Ondansetron HCl 4 mg 05/19/23 14:05 05/20/23 19:44 Ondansetron Inj 4 Mg/2 Ml Vial IV PUSH 4 mg ONCE PRN Administration Nausea Ondansetron HCl 4 mg 05/20/23 12:52 Ondansetron Hcl Odt 4 Mg Tablet PO Q8H PRN nausea and vomiting Oxycodone HCl 5 mg 05/20/23 12:52 05/21/23 20:03 Oxycodone Hcl (*Crx) 5 Mg Tab Ir PO 5 mg Q4H CO
[2023-05-22 13:49] VITALS: BP 110/66; PULSE 78; RESP 24; TEMP 37.1; O2SAT 96
[2023-05-22] MEDS: SIMVASTATIN 20 MG TABLET PO (17:59)
[2023-05-22] MEDS: TAMSULOSIN HCL 0.4 MG CAPSULE PO (20:32)
[2023-05-22] MEDS: SERTRALINE HCL 50 MG TABLET 200 MG PO (20:32)
[2023-05-22] MEDS: LACTATED RINGERS 1,000 ML 75 ML IV CONT (20:33)
[2023-05-22] MEDS: ZOLPIDEM TARTRATE (*CRX) 5 MG TABLET 10 MG PO (20:36)
[2023-05-22 20:43] VITALS: BP 114/65; PULSE 76; RESP 16; TEMP 37.1; O2SAT 97
[2023-05-23] MEDS: HYDROcodone/acetaminophen (*CRX) 5-325 MG TABLET 1 TAB PO ×2 (05:56→16:36)
[2023-05-23 06:00] VITALS: BP 132/73; PULSE 72; RESP 16; TEMP 36.8; O2SAT 96
[2023-05-23] MEDS: buPROPion HCL XL (24 HR) 150 MG TABCR 300 MG PO (08:47)
[2023-05-23] MEDS: OPTI-GEN TAB 1 TABLET PO (08:47)
[2023-05-23] MEDS: NAPROXEN 500 MG TABLET PO ×2 (08:47→16:36)
[2023-05-23] MEDS: DOCUSATE SODIUM 100 MG CAPSULE PO ×2 (08:47→16:36)
[2023-05-23] MEDS: QUEtiapine FUMARATE 100 MG TABLET PO ×2 (08:47→16:36)
[2023-05-23] MEDS: PANTOPRAZOLE 40 MG TABLET PO (08:47)
[2023-05-23] MEDS: levoFLOXacin 750 MG TABLET PO (08:47)
[2023-05-23] MEDS: ACIDOPHILUS/BULGARICUS CHEWABLE TABLET 2 TABLET BY MOUTH (08:47)
[2023-05-23 14:00] VITALS: BP 129/65; PULSE 76; RESP 16; TEMP 36.8; O2SAT 98
--- NOTE | 2023-05-23 15:12 | PM.PNGS ---
Progress Note: A&P Assessment and Plan (1) Bilateral inguinal hernia: Qualifiers: Obstruction and gangrene presence: without obstruction or gangrene Recurrence: non-recurrent Qualified Code(s): K40.20 - Bilateral inguinal hernia, without obstruction or gangrene, not specified as recurrent Code(s): K40.20 - Bilateral inguinal hernia, without obstruction or gangrene, not specified as recurrent Status: Acute Assessment and Plan: Postop day 3 following open bilateral inguinal hernia repairs. He is slowly improving. Continues to have weakness and is followed by PT/OT. Patient came from [facility] and care coordination is working on placement on discharge back to [place] either chcf status or SNF. Hopefully, he can be discharged tomorrow if placement is confirmed. (2) Postoperative urinary retention: Code(s): N99.89 - Other postprocedural complications and disorders of genitourinary system; R33.8 - Other retention of urine Status: Acute Assessment and Plan: Voiding without difficulty after Rice removal yesterday. Continue tamsulosin. Plan I have discussed the patient's case and plan of care with Dr. Mixon. Subjective Subjective Date/Time Seen: 05/23/23 13:12 Post Op day: 3 (Open bilateral inguinal hernia repairs with UHS mesh) Patient reports: no new complaints, tolerating a regular diet, voiding w/o difficulty, flatus and bowel movement Interval history: Postop incisional pain well controlled. Tolerating a diet. He is still working with therapy as he has been weak since surgery. Having difficulty with ambulation. He was living in independent living at [place]. Recommendations are either SNF or chcf status on discharge back to [place]. CC working on approval. Review of Systems Review of Systems: All systems reviewed & are unremarkable except as noted in HPI and below Exam Const: General: comfortable and no acute distress GI: Inspection: non-distended GI Palp: Yes Soft to palpation, No Tenderness to palpation present (GI), No Guarding due to palpation present (GI) and No Rebound tenderness present Auscultation: normal bowel sounds Other: Incisions dry and glue intact, no erythema or drainage. : Penis: Yes normal penis Scrotum: edematous (appeared slightly edematous but difficult to assess while in chair) Objective Data Vital Signs Vital Signs: Vital Signs - 24 hr 05/22/23 20:43 05/22/23 20:00 05/23/23 06:00 Temperature 98.7 F 98.3 F Pulse Rate 76 72 Respiratory Rate 16 16 Blood Pressure 114/65 132/73 Pulse Oximetry 97 96 Oxygen Delivery Room Air 05/23/23 07:45 Temperature Pulse Rate Respiratory Rate Blood Pressure Pulse Oximetry Oxygen Delivery Room Air Intake/Output Intake/Output: Intake & Output 05/20/23 05/21/23 05/22/23 05/23/23 23:59 23:59 23:59 23:59 Intake Total 1050 3090 360 1360 Output Total 3950 600 700 Balance 1050 860 -240 660 Meds/Results Medications: Active Medications Generic Name Dose Route Start Last Admin Trade Name Freq PRN Reason Stop Dose Admin Acetaminophen 1,000 mg 05/20/23 12:52 Acetaminophen 500 Mg Tablet PO Q6H PRN Mild Pain (1-3) or Fever Hydrocodone Bitart/Acetaminophen 1 tab 05/20/23 12:52 05/23/23 05:56 Hydrocodone/Acetaminophen (*Crx) 5-325 Mg Tablet PO 1 tab Q4H PRN Administration Pain Rated 4-6 Bupropion HCl 300 mg 05/21/23 09:00 05/23/23 08:47 Bupropion Hcl Xl (24 Hr) 150 Mg Tabcr PO 300 mg QAM ALEJA Administration Docusate Sodium 100 mg 05/20/23 17:00 05/23/23 08:47 Docusate Sodium 100 Mg Capsule PO 100 mg BID ALEJA Administration Lactobacillus Acidophilus 2 tablet 05/21/23 09:00 05/23/23 08:47 Acidophilus/Bulgaricus Chewable Tablet BY MOUTH 2 tablet DAILY ALEJA Administration Levofloxacin 750 mg 05/21/23 09:00 05/23/23 08:47 Levofloxacin 750 Mg Tablet PO 75
[2023-05-23] MEDS: SIMVASTATIN 20 MG TABLET PO (17:39)
[2023-05-23 21:28] VITALS: BP 117/67; PULSE 81; RESP 18; TEMP 36.7; O2SAT 98
[2023-05-23] MEDS: oxyCODONE HCL (*CRX) 5 MG TAB IR PO (22:02)
[2023-05-23] MEDS: SERTRALINE HCL 50 MG TABLET 200 MG PO (22:03)
[2023-05-23] MEDS: ZOLPIDEM TARTRATE (*CRX) 5 MG TABLET 10 MG PO (22:03)
[2023-05-23] MEDS: TAMSULOSIN HCL 0.4 MG CAPSULE PO (22:03)
[2023-05-24 06:00] VITALS: BP 147/79; PULSE 72; RESP 18; TEMP 36.8; O2SAT 99
[2023-05-24] MEDS: DOCUSATE SODIUM 100 MG CAPSULE PO (10:05)
[2023-05-24] MEDS: ACIDOPHILUS/BULGARICUS CHEWABLE TABLET 2 TABLET BY MOUTH (10:05)
[2023-05-24] MEDS: levoFLOXacin 750 MG TABLET PO (10:05)
[2023-05-24] MEDS: NAPROXEN 500 MG TABLET PO (10:05)
[2023-05-24] MEDS: QUEtiapine FUMARATE 100 MG TABLET PO (10:05)
[2023-05-24] MEDS: OPTI-GEN TAB 1 TABLET PO (10:05)
[2023-05-24] MEDS: buPROPion HCL XL (24 HR) 150 MG TABCR 300 MG PO (10:05)
[2023-05-24] MEDS: PANTOPRAZOLE 40 MG TABLET PO (10:06)
--- NOTE | 2023-05-24 13:40 | PM.DS ---
DS: Admitting Diagnosis Discharge Date May 24, 2023 Admitting Diagnosis Status post open bilaterally more hernia repair with mesh. DS: Discharge Diagnosis Discharge Diagnosis (1) Bilateral inguinal hernia: Qualifiers: Obstruction and gangrene presence: without obstruction or gangrene Recurrence: non-recurrent Qualified Code(s): K40.20 - Bilateral inguinal hernia, without obstruction or gangrene, not specified as recurrent Code(s): K40.20 - Bilateral inguinal hernia, without obstruction or gangrene, not specified as recurrent Status: Acute (2) Postoperative urinary retention: Code(s): N99.89 - Other postprocedural complications and disorders of genitourinary system; R33.8 - Other retention of urine Status: Acute DS: Summary Hospital Course Reason for hospitalization: Postoperative management after bilateral open inguinal hernia repair with mesh and postoperative urinary retention Hospital Course: Patient [facility] on May 20, 2023 and underwent an uncomplicated open bilateral inguinal hernia repair with mesh. Postoperatively he was transferred to the surgical floor for postoperative routine management. The patient does have some baseline balance issues and given his recent postoperative status want to make sure he was able to ambulate and be safe. Once surgical floor that evening he had urinary retention had to have a Rice catheter placed. By nursing reports almost a L of urine and had to be drained. A Rice catheter was left in place overnight. The next day the Rice catheter was removed he was able to urinate spontaneously. Physical therapy and occupational therapy was consulted to see the patient and they felt that he would benefit from continued therapy after discharge. I saw the patient and his incisions are healing well without any wound complications. He was eating well and was afebrile. On postop day 4, arrangements were made for the patient to be discharged to long term facility where he continued to get strengthening and closer observation since he lives alone. He was discharged home in improved condition nearly back to his baseline. Status at Discharge Functional status at discharge: uses cane/walker Overall status at discharge: patient is progressing back to baseline Time Spent with Patient Time attestation: Total time spent providing and/or coordinating discharge services: Time spent: Less than 30 minutes Exam : Other: Bilateral groin incisions are healing well. Minimal ecchymosis and no swelling. Minimal scrotal swelling. No evidence of seroma or postoperative recurrent inguinal hernias. Discharge Plan Discharge Attending physician on discharge: Quincy Mixon Discharging Clinician: Quincy Mixon Patient Disposition: SNF Activity: may shower Diet: heart healthy Wound Care Instructions: other - see discharge instructions Discharge Instructions: May discharge patient home when stable. Patient to follow-up with Dr. Mixon in the office in 2 weeks. Call [phone] for an appointment. May shower in 24hours but no soaking incision under water for 2 weeks. No lifting more than 5 to 10 lb for 4 to 6 weeks. No driving for 1 week or until no longer taking any narcotic pain medications. Wear scrotal support during the day and at night for 2 weeks. Resume all home medications and a prescription for narcotic pain medication will be sent to the patient's pharmacy if needed. May use Tylenol and/or ibuprofen in addition to or in place of narcotic pain medications. Stand Alone Forms: General Discharge Information Follow-up/Referrals: Quincy Mixon MD [Physician] - ( Follow-up see Dr. Mixon in the office in 2 weeks) Discharge Medications: New hydrocodone-acetaminophen 5-325 mg tablet 1 tablet PO Q6H PRN (Reason: pain) Qty: 15 0RF Continued bupropion HCl 300 mg tablet extended release 24 hr 300 mg PO Q
[2023-05-24 14:00] VITALS: PULSE 90; RESP 16; TEMP 36.6; O2SAT 99
[2023-05-24 15:14] LABS: SARS-CoV-2 RNA PCR Negative (Negative)
== END 2023-05-24 15:35 | DRG 352 ==
LOC: ANHSURGERY 13:49 → ANH3MED 05-24 13:47
PROVIDERS: Admitting Provider Surgery; PCP Family Medicine Sports Medicine; Visit Provider Surgery
PROC: 0YUA0JZ Supplement Bilateral Inguinal Region with Synthetic Substitute, Open Approach (ICD-10-PCS; principal; 2023-05-20 09:00)
DX: K40.20 Bilateral inguinal hernia, without obstruction or gangrene, not specified as recurrent (principal); N99.89 Other postprocedural complications and disorders of genitourinary system; R33.8 Other retention of urine; D17.6 Benign lipomatous neoplasm of spermatic cord; F41.8 Other specified anxiety disorders; E78.5 Hyperlipidemia, unspecified
CPT/HCPCS: 87635; 97110; 97116; 97161; 97165; 97530; 97535; A9270; C1781; C9113; J0690; J1100; J1885; J2250; J2371; J2405; J2550; J2704; J3010; J7120

== ENCOUNTER 2024-02-13 13:03 | Emergency (ER) | payer MEDICARE, SELFPAY ==
--- NOTE | ~2024-02-13 | CT_ITS ---
EXAMINATION: CT cervical spine wo con DATE: 02/13/2024 15:29 INDICATION: Fall with head injury TECHNIQUE: Computed tomography (CT) of the cervical spine was performed without intravenous contrast. Automated exposure control and iterative reconstruction technique were employed. The dose-length pro duct was 430.09 mGy-cm. COMPARISON: None FINDINGS: 1-2 mm anterolisthesis C5 on C6. 1 mm anterolisthesis C3 on C4. Minimal cervicothoracic dextrocurvatu re and minimal cervical levocurvature. Vertebral body heights are normal. No fracture. Mild to modera te disc height loss at C2-C3 and mild disc height loss at C3-C4 through C5-C6. Disc bulges contributi ng to mild central canal stenosis at C3-C4 and C4-C5.0 there is posterior spinal fusion across the le ft C2-C3 facet joint. Severe facet osteoarthritis on the left at C5-C6 and on the right at C3-C4. Mil d to moderate facet osteoarthritis and remainder of the cervical spine. There is also mild multilevel cervical uncovertebral osteoarthritis. This contributes to multilevel bilateral mild cervical neural foraminal stenosis. Small amount of atherosclerotic calcifications at the bilateral carotid bulbs. C ervical soft tissues are otherwise unremarkable. There is a large apices of the lungs are clear. IMPRESSION: 1. Mild to moderate cervical spondylosis. No acute osseous abnormality. Reviewed, dictated and finalized at location B. ESCENT COUNSELOR
--- NOTE | ~2024-02-13 | CT_ITS ---
EXAMINATION: CT brain wo con DATE: 02/13/2024 15:29 INDICATION: Head injury. TECHNIQUE: Computed tomography (CT) of the head was performed without intravenous contrast. The mA wa s adjusted according to patient size. Iterative reconstruction technique was employed. The dose-lengt h product was 681.00 mGy-cm. COMPARISON: Head CT 01/26/2023, brain MRI 05/03/2023 FINDINGS: There are scattered areas of low attenuation in the cerebral white matter, which is within normal limits for the patient's age. There is no intracranial hemorrhage, acute infarction, or abnorm al intracranial mass lesion. The ventricles are normal in size. The paranasal sinuses are clear. The orbits are normal. The mastoid air cells are normal. There is cerumen in the external auditory canals . IMPRESSION: 1. Normal aging brain. Reviewed, dictated and finalized at location A. ENTICE COOK IMPRESSION: 1. Normal aging brain.
[2024-02-13 13:15] VITALS: BP 120/68; PULSE 68; RESP 17; TEMP 36.3; O2SAT 99
[2024-02-13] MEDS: diphenhydrAMINE HCl INJ 50 MG/ML VIAL 25 MG IV PUSH (15:44)
[2024-02-13] MEDS: PROCHLORPERAZINE EDISYLATE 10 MG/2 ML VIAL IV PUSH (15:44)
[2024-02-13 15:50] LABS: Basophils Percent Auto 0.1 % (0.2-1.2); Eosinophils Absolute Auto 0.1 K/mm3 (0-0.3); Eosinophils Percent Auto 0.5 % (0-4.4); Hematocrit 42.2 % (42.0-52.0); Hemoglobin 14.3 g/dL (14.0-18.0); Immature Granulocyte Absolute 0.04 K/mm3 (0.00-0.031); Immature Granulocyte Percent A 0.4 % (0-0.5); Lymphocytes Absolute Auto 0.71 K/mm3 (0.9-3.2); Lymphocytes Percent Auto 6.8 % (18.3-44.2); Mean Corpuscular HGB Conc 33.9 g/dl (32-36); Mean Corpuscular Hemoglobin 30.2 pg (26-34); Mean Corpuscular Volume 89.2 fl (80-100); Mean Platelet Volume 9.3 fl (7.4-10.4); Monocytes Absolute Auto 0.9 K/mm3 (0.1-0.6); Monocytes Percent Auto 8.7 % (2.6-8.5); Neutrophils Absolute Auto 8.7 K/mm3 (1.3-6.7); Neutrophils Percent Auto 83.5 % (45.5-73.1); Platelet Count Result 177 k/mm3 (150-375); Red Blood Count 4.73 M/mm3 (4.6-6.20); Red Cell Distribution Width 13.9 % (11.5-14.5); White Blood Count 10.5 K/mm3 (4.5-10.0)
[2024-02-13 16:00] LABS: Alanine Aminotransferase 16 U/L (6-50); Albumin Level 4.4 g/dL (3.5-5.1); Alkaline Phosphatase 103 U/L (38-126); Anion Gap 9 mmol/L (4-12); Aspartate Amino Transferase 21 U/L (17-59); Bilirubin,Total 1.3 mg/dL (0.2-1.3); Blood Urea Nitrogen 25 mg/dL (9-20); Calcium 9.4 mg/dL (8.4-10.2); Carbon Dioxide 26 mmol/L (22-30); Chloride 103 mmol/L (98-107); Estimated CRCL calculation 56 ml/min; Estimated Glomerular Filt Rate 55; Glucose 118 mg/dL (65-110); Potassium 4.1 mmol/L (3.4-5.0); Sodium 138 mmol/L (137-145)
[2024-02-13 16:15] LABS: Add Urine Microscopic? YES; Appearance Urine Cloudy (Clear); Bacteria Urine 4+ /hpf; Bilirubin Urine Negative (Negative); Blood Urine Negative (Negative); Color Urine Yellow (Yellow); Glucose Urine UA Negative (Negative); Ketones Urine Trace mg/dL (Negative); Leukocyte Esterase Ur 2+ LEU/UL (Negative); Nitrate Urine Positive (Negative); Protein Urine Trace mg/dL (Negative); RBC Urine 0-2 /hpf (0-2); Specific Grav Ur 1.017 (1.001-1.035); Squamous Epithelial Cell Urine Occasional /hpf (Few); WBC Urine 21-50 /hpf (0-3); pH Urine 5.5 (5.0-9.0)
[2024-02-13 16:31] VITALS: BP 123/75; PULSE 71; RESP 18; O2SAT 98
--- NOTE | 2024-02-13 16:46 | ED_ITS ---
HPI - General Adult General Chief complaint: Headache Stated complaint: HEADACHE POST FALL Time Seen by Provider: 02/13/24 14:39 History of Present Illness HPI narrative: patient is a 68-year-old gentleman who presents emergency department chief complaint of headache and nausea. Patient reports that he slipped out of bed last night struck his head patient reports no loss of consciousness but reports that he has had nausea since then. Patient reports no other complaints the patient reports that he is not on blood thinners but does report that the nausea got worse whenever he was at therapy today Related Data Home Medications Medication Instructions Recorded Confirmed naproxen 500 mg tablet 500 mg PO BID 09/16/22 09/15/23 sertraline 100 mg tablet 200 mg PO HS 09/16/22 09/15/23 simvastatin 20 mg tablet 20 mg PO QPM 09/16/22 09/15/23 zolpidem 10 mg tablet 10 mg PO HS PRN Insomnia 03/16/23 09/15/23 bupropion HCl 300 mg 24 hr tablet, 300 mg PO QAM 05/12/23 09/15/23 extended release omeprazole 40 mg capsule,delayed 40 mg PO DAILY 05/12/23 09/15/23 release tamsulosin 0.4 mg capsule 0.4 mg PO HS 05/13/23 09/15/23 vitamins A,C,V-hmsh-zphjpm 2,148 2 tablet PO DAILY 05/13/23 09/15/23 mcg-113 mg-45 mg-17.4 mg tablet (PreserVision AREDS) Allergies Allergy/AdvReac Type Severity Reaction Status Date / Time No Known Allergies Allergy Verified 09/07/23 14:09 Review of Systems Review of Systems: A 10 system review of systems was completed on the patient and is negative except for what is stated in the HPI. Nursing and ancillary documentation was reviewed. [facility] Past Medical History Medical History Anxiety and depression Dyslipidemia Hyperlipidemia Insomnia Surgical History Surgical History H/O colonoscopy History of incision and drainage I&D of left 2nd toe abscess 03/18/23. Hx of inguinal hernia repair Open bilateral inguinal hernia repairs with UHS mesh 05/20/23 SAW Family History Family History Mother Family history of arthritis Acute myocardial infarction Hypertension Father Family history of malignant neoplasm Social History Social History Smoking status: Never smoker Alcohol intake: never Substance use: never Substance use type: does not use Do You Feel Safe in your Home?: Yes Lack of Transportation: No Lack of Food: Never True Current Housing: I Have Housing Concerned About Future Housing: No Difficulty Paying Gas/Electric Bills: No Difficulty Paying for Meds: No Currently Unemployed: No Education: Bachelor's Degree Difficulty w/ Childcare or Family Care: No Living arrangements: alone Spiritual care concerns: No Exam Narrative: GENERAL: Well-appearing, well-nourished, and in no acute distress. HEAD: Normocephalic, atraumatic. EYES: PERRLA and EOMI. ENT: Nares clear, no rhinorrhea or epistaxis. Mucous membranes moist. NECK: Supple. CHEST: Clear to auscultation. No respiratory distress. HEART: Regular rate and rhythm. No murmur heard. Normal peripheral pulses. ABDOMEN: Soft, nontender, nondistended, normal active bowel sounds. EXTREMITIES: Normal range of motion. No edema. SKIN: Warm, dry, no rash. NEURO: No focal deficits. Alert and oriented x3. PSYCH: Normal mood and affect. Course Vital Signs Vital signs: Vital Signs Temperature 36.3 C L 02/13/24 13:15 Pulse Rate 68 02/13/24 13:15 Respiratory Rate 17 02/13/24 13:15 Blood Pressure 120/68 02/13/24 13:15 Pulse Oximetry 99 02/13/24 13:15 Temperature 36.3 C L 02/13/24 13:15 Pulse Rate 71 02/13/24 16:31 Respiratory Rate 18 02/13/24 16:31 Blood Pressure 123/75 02/13/24 16:31 Pulse Oximetry 98 02/13/24 16:31 Medical Decision Making [facility] Narrative Medical decision making narrative: differential diagnosis includes migraine headache, intracranial hemorrhage, head injury CT head CT C-spine showed no acute abnormality urinalysis did show evidence UTI electrolytes showed no acute abnormality CBC showed a white count of 10.5 hemoglobin of 14.3 Vital Signs Vital Signs: Vital Signs Temperature 36.3 C L 02/13/24 13:15 Pulse Rate 68 02/13/24 13:15 Respiratory Rate 17 02/13/24 13:15 Blood Pressure 120/68 02/13/24 13:15 Pulse Oximetry 99 02/13/24 13:15 Temperature 36.3 C L 02/13/24 13:15 Pulse Rate 71 02/13/24 16:31 Respiratory Rate 18 02/13/24 16:31 Blood Pressure 123/75 02/13/24 16:31 Pulse Oximetry 98 02/13/24 16:31 Lab Data 02/13/24 15:45 02/13/24 15:45 Labs: Lab Results 02/13/24 02/13/24 Range/Units 15:45 16:05 WBC 10.5 H (4.5-10.0) K/mm3 RBC 4.73 (4.6-6.20) M/mm3 Hgb 14.3 (14.0-18.0) g/dL Hct 42.2 (42.0-52.0) % MCV 89.2 (80-100) fl MCH 30.2 (26-34) pg MCHC 33.9 (32-36) g/dl RDW 13.9 (11.5-14.5) % Plt Count 177 (150-375) k/mm3 MPV 9.3 (7.4-10.4) fl Immature Gran % (Auto) 0.4 (0-0.5) % Neut % (Auto) 83.5 H (45.5-73.1) % Lymph % (Auto) 6.8 L (18.3-44.2) % [place] % (Auto) 8.7 H (2.6-8.5) % Eos % (Auto) 0.5 (0-4.4) % Baso % (Auto) 0.1 L (0.2-1.2) % Lymph # (Auto) 0.71 L (0.9-3.2) K/mm3 [place] # (Auto) 0.9 H (0.1-0.6) K/mm3 Eos # (Auto) 0.1 (0-0.3) K/mm3 Baso # (Auto) 0.0 (0.0-0.1) K/mm3 Abs Immat Gran (auto) 0.04 H (0.00-0.031) K/mm3 Absolute Neuts (auto) 8.7 H (1.3-6.7) K/mm3 Absolute Nucleated RBC 0.000 (0.0-0.012) K/mm3 Nucleated RBC % 0.0 (0.0-0.2) % Sodium 138 (137-145) mmol/L Potassium 4.1 (3.4-5.0) mmol/L Chloride 103 (98-107) mmol/L Carbon Dioxide 26 (22-30) mmol/L Anion Gap 9 (4-12) mmol/L BUN 25 H (9-20) mg/dL Creatinine 1.30 (0.7-1.3) mg/dL Estim Creat Clear Calc 56 ml/min Estimated GFR 55 L (59 - ) Glucose 118 H (65-110) mg/dL Calcium 9.4 (8.4-10.2) mg/dL Total Bilirubin 1.3 (0.2-1.3) mg/dL AST 21 (17-59) U/L ALT 16 (6-50) U/L Alkaline Phosphatase 103 (38-126) U/L Total Protein 8.0 (6.3-8.2) g/dL Albumin 4.4 (3.5-5.1) g/dL Urine Color Yellow (Yellow) Urine Appearance Cloudy H (Clear) Urine pH 5.5 (5.0-9.0) Ur Specific [place] 1.017 (1.001-1.035) Urine Protein Trace (Negative) mg/dL Urine Glucose (UA) Negative (Negative) mg/dL Urine Ketones Trace H (Negative) mg/dL Ur Blood (Man) Negative (Negative) Urine Nitrate Positive H (Negative) Urine Bilirubin Negative (Negative) Urine Urobilinogen 1.0 (<2.0) mg/dL Leukocyte Esterase Rfl 2+ H (Negative) KINGSLEY/UL Urine RBC 0-2 (0-2) /hpf Urine WBC 21-50 H (0-3) /hpf Ur Squamous Epith Cells Occasional (Few) /hpf Urine Bacteria 4+ H /hpf Urine Casts 3-5 Discharge Plan Discharge Clinical Impression: Headache, Acute UTI, Head injury Patient Disposition: Home, Self-Care Condition: Stable Instructions: Antibiotic Form, Head Injury (ED), Acute Headache (ED), Urinary Tract Infection in Older Adults (ED) Prescriptions: New cephalexin 500 mg capsule 500 mg PO Q12H 7 Days Qty: 14 0RF cephalexin 500 mg capsule 500 mg PO Q12H 7 Days Qty: 14 0RF No Action bupropion HCl 300 mg tablet extended release 24 hr 300 mg PO QAM omeprazole 40 mg capsule,delayed release(DR/EC) 40 mg PO DAILY zolpidem 10 mg tablet 10 mg PO HS PRN (Reason: Insomnia) PreserVision AREDS 2,148 mcg-113 mg-45 mg-17.4mg Tablet 2 tablet PO DAILY Rx Instructions: administer with AM and PM meals tamsulosin 0.4 mg capsule 0.4 mg PO HS sertraline 100 mg tablet 200 mg PO HS simvastatin 20 mg tablet 20 mg PO QPM naproxen 500 mg tablet 500 mg PO BID ondansetron 4 mg tablet,disintegrating 4 mg PO Q8H PRN (Reason: nausea and vomiting) Qty: 15 0RF docusate sodium [Colace] 100 mg capsule 100 mg PO BID Qty: 30 0RF Follow-up/Referrals: PHYSICIAN NOT ON STAFF,NONSTAFF [Primary Care Provider] - Time of Disposition: 16:54
== END 2024-02-13 17:15 | disposition home or self-care (01) ==
PROVIDERS: Emergency Provider Emergency Medicine
DX: S09.90XA Unspecified injury of head, initial encounter (principal); N39.0 Urinary tract infection, site not specified; E78.5 Hyperlipidemia, unspecified; F41.9 Anxiety disorder, unspecified; F32.A Depression, unspecified; Z79.899 Other long term (current) drug therapy; W06.XXXA Fall from bed, initial encounter
CPT/HCPCS: 36415; 70450; 72125; 80053; 81001; 85025; 96374; 96375; 99284; J0780; J1200

== ENCOUNTER 2024-06-26 00:21 | Day surgery (SDC) | payer MEDICARE, SELFPAY ==
[2024-06-18 08:34] VITALS: BMI 26.7
--- NOTE | 2024-06-18 10:43 | PC.NURSE ---
Report to the Outpatient Waiting Room, entrance under the green pavilion located off [facility], at time __8:30AM on date ___06/26/24____. Planned Procedure Time: ___10:30AM .? Time changes happen often and if your time is changed the preop area will call you the afternoon before. - You and your visitor will be asked to self-screen and do not enter if you have any COVID symptoms. Please call surgeon if you need to reschedule. - A mask is optional within the hospital at this time. Patients may have clear liquids (water, carbonated beverages, clear teas, apple juice) until 3 hours prior to surgery (7:30AM) with a maximum of 20 ounces. - No food from midnight until time of surgery and no smoking, or chewing tobacco (or any form of nicotine). No chewing gum, candy or mints. Take only the following medications with a SIP of water on the morning of surgery: ___BUPROPION DO NOT STOP ANY OF YOUR OTHER PRESCRIPTION MEDICATIONS PRIOR TO SURGERY EXCEPT THE FOLLOWING Hold all vitamins and supplements for 3 days per anesthesiologist.- LAST DOSE 06/22/24 Medications to discontinue per physician ____HOLD ASPIRIN 7 DAYS PRE-OP PER DR ZARAGOZA Date to take last dose 06/18/24 FLEET ENEMA ONCE PRE-OP ON 06/26/[address] ZARAGOZA. Please no make-up, nail rwandan, hairspray, perfume, deodorant, or body powder the day of surgery.? No jewelry (including any body piercings) or valuables the day of surgery, leave them at home.? Please take a shower or bath the night before, or the morning of, surgery with an antibacterial soap.? Wear comfortable, loose fitting clothing.? - Jewelry must be removed prior to entering the operating room.? Rings and piercings that are not removed may be cut off. - The hospital will not accept responsibility for valuables.? - Please leave all valuables, including medications, at home the day of surgery. If you are going home after surgery, a licensed six horse hitch driver must drive you home.? - NO public transportation without another adult if you receive anesthesia. - We recommend that an adult stay with you for 24 hours following discharge. - We also recommend that you do not drive, make important decision, drink alcoholic beverages, or take any drugs that were not prescribed by your health care provider for at least 24 hours after your discharge time. Follow any additional instructions given to you from your surgeon. Telephone instructions given to ____PATIENT, SISTER & LONG-TERM STAFF and asked if any additional questions and then verbalized understanding. Patient advised to call surgeon office or pre surgery nurse liaison [phone] if any additional questions.
--- OUTSIDE RECORDS SUMMARY | 2024-06-26 00:23 | XMS_ITS | Encounter Summary ---
Author Organization [facility] Healthcare Address [address] [place] [address] Care Team Providers Care Property Staff Accountant Name Role Phone Vladimir Skelton MD Primary Care Provider Monisha Tucker MD Primary Care Provider Jefe Chung NP Unavailable [phone] Mazin Vigil MD Unavailable Quincy Mixon MD Unavailable [phone] Murali Milton MD Unavailable [phone] Robert Bull RN Unavailable Cornelio Ferris MD Unavailable [phone] Reason for Visit * Reason Onset Date Comments No Show 08/14/2021 Encounter Details Date Type Department Care Team (Late st Contact Info) Description 08/14/2021 Documentation [facility] OP Physical Therapy [id number] [address] Aleta Nielsen PTA No Show Social History Tobacco Use Types Packs/Day Years Used Date Smoking Tobacco: Never Smokeless Tobacco: Never Alcohol Use Standard Drinks/Week Comments Not Currently 0 (1 standard drink = 0.6 oz pur e alcohol) AUDIT-C Answer Date Recorded Q1: How often do you have a drink containing alc ohol? Never 07/08/2021 Average Number of Drinks Not on file 022 Q3: How often do you have si x or more drinks on one occasion? 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 Gender Identity Not on file Sexual Orientation Not on file Occupation Industry Job Start Date Job End Date retired Not on file Not on file Not on file documented as of this encounter Plan of Treatment Not on file documented as of this encounter Visit Diagnoses Not on filedocumented in this encounter Care Teams Property Staff Accountant Relationship Specialty Start Date End Date Vladimir Skelton MD PCP - General Family Medicine 05/04/18 08/04/22 Monisha Tucker MD PCP - General Family Practice 08/05/22 [place] [id number] [facility] [address] [place] [address] Nurse Practitioner Pain Management 09/06/23 [place] [id number] [facility] [address] [address] Consulting Physician Pain Management 09/06/23 [place] [address] [facility] [address] [address] Referring Physician General Surgery 09/06/23 [place] [phone] [facility] [address] [address] Consulting Physician Neurosurgery 11/14/23 Robert Bull RN [address] [place] [address] [address] [place] [address] Bisque Kiln Placer 12/08/23 01/01/24 Cornelio Ferris MD [address] [facility] [address] [place] [address] Referring Physician Psychiatry 12/15/23 documented as of this encounter
--- OUTSIDE RECORDS SUMMARY | 2024-06-26 00:23 | XMS_ITS | Encounter Summary ---
Author Organization [facility] Address [address] [place] [id number] Care Team Providers Care Toll Collector Supervisor Name Role Phone Vladimir Skelton MD Primary Care Provider Encounter Details Date Type Department Care Team (Latest Contact Info) Description 02/07/2018 Abstract [facility] , Josue Knutson MD Social History Tobacco Use Types Packs/Day Years Used Date Smoking Tobacco: Never Smokeless Tobacco: Never Alcohol Use Standard Drinks/Week Comments No 0 (1 standard drink = 0.6 oz pur e alcohol) Sex and Gender Information Value Date Recorded Sex Assigned at Not on file Legal Sex Male 4:21 PM CDT Gender Identity Not on file Sexual Orientation Not on file documented as of this encounter Plan of Treatment Not on file documented as of this encounter Visit Diagnoses Not on filedocumented in this encounter Care Teams Toll Collector Supervisor Relationship Specialty Start Date End Date Vladimir Skelton MD [address] [place] [address] [address] [place] [address] PCP - General 03/27/15 documented as of this encounter
--- OUTSIDE RECORDS SUMMARY | 2024-06-26 00:23 | XMS_ITS | Clinical Summary ---
Author Organization [facility] Address [address] [place] [address] Care Team Providers Care Technology Analyst Name Role Phone Vladimir Skelton MD Primary Care Provider Allergies No known active allergies Medications ALPRAZolam 1 MG tablet TK 1 T PO TID PRA 4 07/19/2017 Active buPROPion 12 hr 150 MG 12 hr tablet Active sertraline 100 MG tablet Active simvastatin 20 MG tablet TK 1 T PO HS 2 01/19/2018 Active zolpidem (AMBIEN) 10 MG tablet Active QUEtiapine 200 MG tablet TK 1 T PO HS 0 03/06/2018 Active Active Problems Problem Noted Date Diagnosed Date Anxiety 01/10/2018 Degenerative arthritis of lumbar spine 8 Depression 01/10/2018 OCD (obsessive compulsive disorder) 01/10/2018 Partial tear of left subscapularis tendon 2017 Rupture of left supraspinatus tendon 01/10/2018 Subluxation of tendon of long head of biceps 12/2017 Tear of infraspinatus tendon 01/10/2018 Shoulder pain 01/09/2018 Social History Tobacco Use Types Packs/Day Years Used Date Smoking Tobacco: Never Smokeless Tobacco: Never Alcohol Use Standard Drinks/Week Comments No 0 (1 standard drink = 0.6 oz pur e alcohol) Sex and Gender Information Value Date Recorded Sex Assigned at Not on file Legal Sex Male 4:21 PM CDT Gender Identity Not on file Sexual Orientation Not on file Last Filed Vital Signs Vital Sign Reading Time Taken Comments Blood Pressure 136/86 04/11/2018 10:33 AM CAMPUS RECEPTIONIST Pulse 71 04/11/2018 10:33 AM CAMPUS RECEPTIONIST Temperature 36.8 C (98.2 F) 04/11/2018 10:33 AM CAMPUS RECEPTIONIST Respiratory Rate 20 11/04/2017 7:57 PM CDT Oxygen Saturation 97% 11/04/2017 7:57 PM CDT Inhaled Oxygen Concentration - - Weight 116 kg (255 lb 12.8 oz) 04/11/2018 10:33 AM CAMPUS RECEPTIONIST Height 188 cm (6' 2 ) 04/11/2018 10:33 AM CAMPUS RECEPTIONIST Body Mass Index 32.84 04/11/2018 10:33 AM CAMPUS RECEPTIONIST Plan of Treatment Health Maintenance Due Date Last Done Comments Colorectal Cancer Screening Colonoscopy (10 Years) 1955 Hepatitis C 02/13/1974 DTaP, Tdap and Td Vaccines (1 - Tdap) 02/13/1975 Zoster Vaccines (1 of 2) 02/13/2006 Annual Medicare Wellness Visit 02/13/2021 Pneumococcal Vaccine: 65+ Years (1 of 1 - PCV) 02/13/2021 COVID-19 Vaccine ( season) 2023 02/26/2022, 01/31/2021, 07/12/2020, Additional history exists Influenza Adult (#1) 2024 01/31/2021, 01/02/2020, 01/09/2014, Additional history exists RSV Immunization or 60+ Years (1 - 1-dose 75+ series) 02/13/2031 Meningococcal B Vaccine Aged Out No l onger eligible based on patient's age to complete this topic Meningococcal Vaccine Aged Out No elian ema eligible based on patient's age to complete this topic RSV Immunizations Under 20 Months Aged Out No longer eligible based on patient's age to complete this topic Insurance MEDICARE [facility] Care Teams Technology Analyst Relationship Specialty Start Date End Date Vladimir Skelton MD [address] [place] [address] [address] [place] [id number] PCP - General 03/27/15
--- OUTSIDE RECORDS SUMMARY | 2024-06-26 00:23 | XMS_ITS | Clinical Summary ---
Author Organization [facility] Address [address] [place] [address] Care Team Providers Care Mixer Operator Tablets Name Role Phone Monisha Tucker MD Primary Care Provider Jefe Chung NP Unavailable Mazin Vigil MD Unavailable Quincy Mixon MD Unavailable [phone] Murali Milton MD Unavailable [phone] Cornelio Ferris MD Unavailable [phone] Allergies No known active allergies Medications sertraline (ZOLOFT) 100 mg tabletIndicatio ns:Anxiety with Depression Take 2 tablets (200 mg total) by mouth nightly Active simvastatin (ZOCOR) 20 mg tabletIndicatio ns:hyperlipidem ia Take 1 tablet (20 mg total) by mouth nightly Active zolpidem (AMBIEN) 10 mg tablet Take 1 tablet (10 mg total) by mouth nightly at bedtime. 3 Active buPROPion XL (WELLBUTRIN XL) 150 mg 24 hr tablet Take 1 tablet (150 mg total) by mouth daily Total daily dose of 450 mg 0 4 Active vitamins A,C,E-zinc-jefry er (OCUVITE) 2,148 mcg-113 mg-45 mg-17.4mg tablet Take 1 tablet by mouth 2 (two) times a day Active omeprazole (PriLOSEC) 40 mg capsuleIndicati ons:Epigastric pain,Nausea Take 1 capsule (40 mg total) by mouth daily before breakfast For 30 days. After that can be used for 2 week course when symptoms flare 90 capsule 4 Active naproxen (NAPROSYN) 500 mg tablet Take 1 tablet (500 mg total) by mouth 2 (two) times a day with meals 4 Active buPROPion XL (WELLBUTRIN XL) 300 mg 24 hr tablet Take 1 tablet (300 mg total) by mouth every morning Total daily dose of 450 mg 0 4 Active aspirin 81 mg enteric coated tablet Take 1 tablet (81 mg total) by mouth daily Active cyanocobalamin (Vitamin B-12) 1,000 mcg tabletIndicatio ns:Prevention of Vitamin B12 Deficiency Take 1 tablet (1,000 mcg total) by mouth daily 100 tablet 3 4 Active Active Problems Problem Noted Date Diagnosed Date Lumbar radiculopathy 09/28/2023 Pre-ulcerative corn or callous 09/06/2023 Overview (09/06/2023): left 3rd toe. 2nd toe with mild swelling and erythema Chronic pain 08/25/2023 Lumbosacral radiculopathy 07/29/2023 Spinal stenosis, lumbar rosa on, with neurogenic claudication 07/29/2023 Assessment & Plan (09/06/2023 12:28 PM CDT): Chronic. Does struggle some with pain and some neurologic symptoms in his feet. Working with pain management. Plans to trial for possible spinal cord stimulator based on what he is describing Myofascial pain 07/13/2023 Mild episode of recurrent major depressive disor dilshad 04/18/2023 Assessment & Plan (09/06/2023 12:29 PM CDT): Chronic. Mood is relatively controlled with medication. Continue. Continue care per Psychiatry Assessment & Plan (04/18/2023 9:51 AM MANAGER MEDICAL WRITING): Chronic. Stable. 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 Patient reports the tamsulosin was making a Pee too frequently so he stopped it. He is requesting to stay off of it. We will need to monitor urinary symptoms Assessment & Plan (04/18/2023 9:52 AM MANAGER MEDICAL WRITING): Chronic. Feels oxybutynin ineffective. Will try change to tamsulosin. Monitor Toe osteomyelitis, left 04/18/2023 Assessment & Plan (09/06/2023 12:29 PM CDT): Patient follows with Dr. Mixon over it Rubin as surgeon. The 2nd toe is looking a little swollen and red still. Concerned that the osteomyelitis never fully resolved. He will follow up with the surgeon tomorrow as planned. He has a preulcerative callus on the adjacent 3rd toe which may also need to be addressed. He will discuss this with the surgeon tomorrow. If the surgeon is unable to address the 2nd and 3rd toe issues then we may want to get him in to see a fresh work inspector instead Assessment & Plan (04/18/2023 9:54 AM MANAGER MEDICAL WRITING): Continue care per surgeon Dr. Mixon. Continue IV antibiotics for total of 6 weeks. Antibiotics will be done in about a week and a half. Continue wound care in the toe. Monitor for recurrent ulcers. They are trying to save the toe previously by doing an I and D and deferring amputation Abnormal CT of the abdomen 04/15/2023 Overview (04/15/2023): 04/12/23 at [facility]. Report to be scanned Coronary artery calcification 7 mm liver cyst 10 mm cyst in the left kidney Bilateral inguinal hernias containing fat Appendix with filled with fluid with a diameter of 9 mm which was indeterminate for possible appendicitis. Hospital was to correlate with physical exam Atherosclerosis of the aorta and abdominal vasculature was noted Prostate mildly enlarged Lumbar levoscoliosis with severe spondylosis Atherosclerosis of aorta 04/15/2023 Overview (04/15/2023): Incidental vascular calcifications noted on CT abdomen pelvis 04/12/2023 at [facility] Assessment & Plan (09/06/2023 12:27 PM CDT): Patient had incidental finding of aortic atherosclerosis on prior imaging. Discussed recommendation to start a baby aspirin daily for risk reduction. We will target an LDL less than 70 with cholesterol medication. Check levels and adjust simvastatin as needed Assessment & Plan (04/18/2023 9:51 AM MANAGER MEDICAL WRITING): Incidental on prior imaging. Continue simvastatin. We will monitor levels and plan to just in the future as needed target LDL goal less than 70 Lumbar facet arthropathy 02/16/2023 Assessment & Plan (04/18/2023 9:51 AM MANAGER MEDICAL WRITING): Chronic. Follows with pain management. Advised caution with naproxen as may be contributing to some of his stomach symptoms. Thirty day course of PPI order Sacroiliitis, not elsewhere classified Assessment & Plan (04/18/2023 9:52 AM MANAGER MEDICAL WRITING): Mild noted on recent CT. Continue care per pain specialist Lumbar spondylosis 08/05/2022 Assessment & Plan (04/18/2023 9:51 AM MANAGER MEDICAL WRITING): Chronic. Care per pain manage Spondylolisthesis of lumbar region 09/25/2020 Assessment & Plan (04/18/2023 9:52 AM MANAGER MEDICAL WRITING): Chronic. Medication care per pain management. Caution with NSAIDs given recent stomach issues. Advised if guarding to take naproxen needs to take it with food. We will give a 30 day course of PPI Anxiety 06/13/2019 Assessment & Plan (04/18/2023 9:52 AM MANAGER MEDICAL WRITING): Chronic. Medication and care per Psychiatry. Defer meds to them Hyperlipidemia 06/13/2019 Assessment & Plan (09/06/2023 12:27 PM CDT): Patient is inconsistent whether he is taking simvastatin. He initially reported he has been off of it but then he reported later at the end of it is that he actually has been taking it. We will check his cholesterol level and determine possible need for adjustment. Assessment & Plan (04/18/2023 9:52 AM MANAGER MEDICAL WRITING): Chronic. On simvastatin. We will plan to adjust in the future as needed to target LDL less than 70 Risk factors for obstructive sleep apnea 020 OCD (obsessive compulsive disorder) 01/10/2018 Assessment & Plan (09/06/2023 12:28 PM CDT): Chronic. Mental status is relatively stable. He is going to continue working with his psychiatrist. Patient is unsure whether he is taking Seroquel or not. We will leave in the medication list and defer to psychiatrist Assessment & Plan (04/18/2023 9:52 AM MANAGER MEDICAL WRITING): Chronic. Medication and care per Psychiatry. Patient felt lamotrigine caused side effects so he is now stopped it through discussion with his psychiatrist Conductive hearing loss, bilateral 10/14/2016 Nonallergic rhinitis 10/14/2016 Resolved Problems Problem Noted Date Diagnosed Date Resolved Date MSSA bacteremia 04/18/2023 09/06/2023 Assessment & Plan (04/18/2023 9:54 AM MANAGER MEDICAL WRITING): Noted at time of hospitalization for toe infection. Repeat cultures were negative. 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 12/26/2020 08/05/2022 Overview (12/26/2020): Added automatically from request for surgery [id number] Acquired right foot drop 09/25/202007/2022 Class 1 obesity with body ma ss index (BMI) of 33.0 to 33.9 in adult 06/13/2019 08/05/2022 Depression 06/13/2019 04/18/2023 Nontraumatic complete tear o f left rotator cuff 07/17/2018 08/05/2022 Overview (07/17/2018): Added automatically from request for surgery [id number] Partial tear of left subscapularis tendon 01/10/2018 08/05/2022 Rupture of left supraspinatus tendon 01/10/2018 08/05/2022 Subluxation of tendon of long head of biceps 8 08/05/2022 Shoulder pain 01/09/2018 08/05/2022 Encounters Date Type Department Care Team Description 05/31/2024 7:37 AM MANAGER MEDICAL WRITING - 05/31/2024 11:59 PM MANAGER MEDICAL WRITING Hospital Encounter [facility] [address] [place] [address] Jefe Chung NP Other chronic pain (Primary Dx); Spondylolisthesis of lumbar region; Spinal stenosis, lumbar region, with neurogenic claudication; Sacroiliitis, not elsewhere classified; Lumbosacral radiculopathy; Lumbar spondylosis; Lumbar radiculopathy; Lumbar facet arthropathy Discharge Disposition: Discharge to home or self care from Last 3 Months Immunizations Immunization Administration Dates Next Due Influenza, Quadrivalent, Hig h Dose, Preservative Free, Intrr 01/07/2023,02/26/2022 Influenza, Quadrivalent, Spl it, Preservative Free, Intramuscular 01/31/2021,01/02/2020 Influenza, Trivalent, Adjuvanted, Intramuscular 01/12/2024 Influenza, Trivalent, IM (MDV) 01/09/2014,2012 Pneumococcal Conjugate Pcv20 09/06/2023 Tdap 12/27/2022 Surgical History Surgery Date Site/Laterality Comments MANDIBLE SURGERY 04/04/1971 - 04/03/1972 for broken jaw COLONOSCOPY SHOULDER ARTHROSCOPY 09/07/2018 Left rotator cuff repair TONSILLECTOMY 04/04/1960 - 04/03/1961 WISDOM TOOTH EXTRACTION 1970s REVERSE TOTAL SHOULDER ARTHROPLASTY 09/03/2019 - 10/02/2019 Left PERONEAL NERVE DECOMPRESSION Right FL FLUORO GUIDED LUMBAR PUNCTURE 03/08/2024 Right Medical History Medical History Date Comments HLD (hyperlipidemia) Anxiety Rotator cuff tear Obesity Osteoarthritis Depression Disc disorder of lumbar region Subluxation of tendon of elian g head of biceps 01/10/2018 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 Was in liver at Dx (may have been metastatic at Dx) - serotonin secretating tumor Heart disease Maternal Grandfather Heart attack Mother Heart disease Mother Cancer Paternal Grandfather in abdo men, but unsure of primary Stroke Paternal Grandmother Anal Cancer Sister Anesthesia problems Neg Hx Relation Name Status Comments Brother Father Maternal Grandfather Mother [place] age 70s Paternal Grandfather Paternal Grandmother Sister Social History Tobacco Use Types Packs/Day Years Used Date Smoking Tobacco: Never Smokeless Tobacco: Never Tobacco Cessation:Counseling Given: No Alcohol Use Standard Drinks/Week Comments Not Currently 0 (1 standard drink = 0.6 oz pur e alcohol) AUDIT-C Answer Date Recorded Q1: How often do you have a drink containing alcohol? Never 01/19/2024 Q2: How many drinks containi ng alcohol do you have on a typical day when you are drinking? Patient does not drink Q3: How often do you have si x or more drinks on one occasion? Never 01/19/2024 PHQ-2 Answer Date Recorded PHQ-2 Total Score (If total score is 3 or more points, staff should administer the PHQ-9) 0 09/06/2023 PHQ-9 Answer Date Recorded PHQ-9 Total Score 1 09/06/2023 Personal Safety Answer Date Recorded Have you ever been in or are you currently in a harmful physical or emotional relationship or is someone making you feel afraid or unsafe? Denies 03/08/2024 Sex and Gender Information Value Date Recorded Sex Assigned at Not on file Legal Sex Male 7:15 PM MANAGER MEDICAL WRITING Gender Identity Not on file Sexual Orientation Not on file Occupation Industry Job Start Date Job End Date retired Not on file Not on file Not on file Obstetrics History Last Filed Vital Signs Vital Sign Reading Time Taken Comments Blood Pressure 115/62 05/31/2024 8:03 AM MANAGER MEDICAL WRITING Pulse 101 05/31/2024 8:03 AM MANAGER MEDICAL WRITING Temperature 37.1 C (98.7 F) 03/08/2024 9:19 AM MANAGER MEDICAL WRITING Respiratory Rate 17 05/31/2024 8:03 AM MANAGER MEDICAL WRITING Oxygen Saturation 99% 05/31/2024 8:03 AM MANAGER MEDICAL WRITING Inhaled Oxygen Concentration - - Weight 96.4 kg (212 lb 8 oz) 03/08/2024 9:19 AM MANAGER MEDICAL WRITING Height 185.4 cm (6' 1 ) 03/08/2024 9:19 AM MANAGER MEDICAL WRITING Body Mass Index 28.04 03/08/2024 9:19 AM MANAGER MEDICAL WRITING Plan of Treatment Health Maintenance Due Date Last Done Comments Hepatitis B Screening 02/13/1974 Zoster Vaccine (1 of 2) 02/13/2006 Covid-19 Vaccine (2023-2 5 season) 2023 02/12/2023, 02/26/2022, 01/31/2021, Additional history exists Depression Screening 09/05/2024 09/06/2023, 09/06/2023, 01/07/2023, Additional history exists Well Visit 65+ 09/05/2024 09/06/2023 Fall Risk Assessment 05/31/2025 05/31/2024, 01/19/2024, 09/06/2023, Additional history exists Prostate Cancer Screening-PSA 09/08/2025 09/09/2023, 05/26/2022 DTaP/Tdap/Td Vaccine (2 - Td or Tdap) 12/27/2032 12/27/2022 Colon Cancer Screening-Colonoscopy 10/19/2033 10/20/2023, 11/12/2022 Pneumococcal vaccine 65+ Completed 09/06/2023 Hepatitis C Screening Completed 09/28/2023 Colon Cancer Screening-CT Colonography Discontinued 10/20/2023 Colon Cancer Screening-DNA Stool Discontinued 10/20/19 Colon Cancer Screening-FIT Discontinued 10/20/2023 Colon Cancer Screening-Sigmoidoscopy Discontinued 10/20/2023 Influenza Vaccine Completed 01/12/2024, , 02/26/2022, Additional history exists Medical Devices Implanted Type Area Government Guard Device Identifier Shelf Expiration Date Model / Serial / Lot [employer] [id number] Base Plate 26mm Tm Reverse 20m - [id number] Implanted:Qty : 1 on 09/17/2019 at [facility] Other - see comments Left: Shoulder [employer] [id number] 12/02/2028 [id number] / / [id number] [employer] Ar-2324 Bcm Swivelock 4.75mm 24.5mm Self Punch Vent Shoulder Grayson Suture - Sna - [id number] Implanted:Qty : 1 on 09/07/2018 by Amaury Gordon MD at [facility] Left: Humerus [employer] [id number] 05/04/2020 AR-2324BCM / NA / [id number] [employer] Ar-2324 Bcm Swivelock 4.75mm 24.5mm Self Punch Vent Shoulder Grayson Suture - [id number] Implanted:Qty : 1 on 09/07/2018 by Amaury Gordon MD at [facility] Left: Shoulder [employer] [id number] 05/04/2020 AR-2324BCM / / [id number] [employer] [id number] Glenosphere Tm Reverse 36mm Centric - [id number] Implanted:Qty : 1 on 09/17/2019 at [facility] Left: Shoulder [employer] [id number] 12/02/2028 [id number] / / [id number] [employer] .00917.048 Ncb Anatomical Shoulder 4.5mm 48mm Inverse Reverse Lock Self Tap - [id number] Implanted:Qty : 1 on 09/17/2019 at [facility] Left: Shoulder [employer] [id number] 03/03/2024.55283.048 / / [id number] [employer] 01.76625.042 Ncb Anatomical Shoulder 4.5mm 42mm Inverse Reverse Lock Self Tap - [id number] Implanted:Qty : 1 on 09/17/2019 at [facility] Left: Shoulder [employer] [id number] 02/02/2024 01.57791.042 / / [id number] [employer] [id number] 12mm 130mm Shoulder Stem Humeral Trabecular Metal Tivanium - [id number] Implanted:Qty : 1 on 09/17/2019 at [facility] Left: Shoulder [employer] [id number] 07/02/2029 [id number] / / [id number] [employer] [id number] 36mm H+3mm Reverse Humerus 7d Standard Liner Shoulder Trabecular - [id number] Implanted:Qty : 1 on 09/17/2019 at [facility] Left: Shoulder [employer] [id number] 06/02/2027 [id number] / / [id number] Explanted Type Area Government Guard Device Identifier Shelf Expiration Date Model / Serial / Lot [employer] [id number] Steinmann 3/32in 9in 2 Trocar Pin Fixation Nonsterile - [id number] Explanted:Qty: 1 on 09/17/2019 at [facility] [employer] [id number] / / Procedures Procedure Name Priority Date/Time Associated Diagnosis Comments COLONOSCOPY Routine 10/20/2023 9:37 AM CDT HEPATITIS C SCREENING Routine 09/28/2023 11:10 AM CDT PSA SCREEN Routine 05/26/2022 12:14 PM MANAGER MEDICAL WRITING Screening for prostate cancer from Last 3 Months or Most Recently Relevant to Health Maintenance Results * COLONOSCOPY (10/20/2023 9:37 AM CDT) Scribed Colonoscopy Normal us Monisha Tucker MD [facility] Fin al Result * HEPATITIS C SCREENING (09/28/2023 11:10 AM CDT) SCRIBED HCV ab Non Reactive us Rj Dooley MD [facility] Final Re sult * PSA screen (05/26/2022 12:14 PM MANAGER MEDICAL WRITING) PSA-Total 1.99 <=5.40 ng/mL IRAM GARCIA Comment: Interpretive Data AGE SEX REFERENCE INTERVAL 0 minutes-150 years Female None 0 minutes-49 years Male None 50-59 years Male 0-3.90 60-69 years Male 0-5.40 70-79 years Male 0-6.20 80-150 years Male 0-6.20 The Frances PSA Total assay procedure was used. Results from different manufacturers or methods may not be comparable. Serial testing should be performed using the same method. Current interpretive data last revised 21. Blood 05/26/2022 12:1 4 PM MANAGER MEDICAL WRITING 05/26/2022 2:55 PM MANAGER MEDICAL WRITING Nayan Linder DO LAB BLOOD ORDERABLES Fin al Result IRAM GARCIA [id number] Department [place] [address] from Last 3 Months or Most Recently Relevant to Health Maintenance Insurance MEDICARE [facility] MEDICARE SUPPLEMENT MEDICARE [facility] MEDICARE BLUE CROSS MEDICARE SUPPLEMENT Advance Directives For more information, please contact: [phone] Documents on File Type Date Recorded Patient Disk And Tape Machine Tender Expl anation ADVANCE DIRECTIVE 12/27/2023 8:58 AM Power of Branch Banker for Health Care Power of Branch Banker 05/16/2023 12:09 PM * Full Code (Latest Code Status on File) Date Activated Date Inactivated Comments 03/08/2024 10:51 AM 03/09/2024 5:26 AM * Full Code Date Activated Date Inactivated Comments 09/17/2019 7:41 PM 09/18/2019 4:44 PM Care Teams Mixer Operator Tablets Relationship Specialty Start Date End Date Monisha Tucker MD PCP - General Family Practice 08/05/22 [place] [address] [address] Nurse Practitioner Pain Management 09/06/23 [place] [address] [address] [facility] [address] [address] Consulting Physician Pain Management 09/06/23 [place] [address] [address] [facility] [address] [address] Referring Physician General Surgery 09/06/23 [place] [address] [address] [facility] [address] [address] Consulting Physician Neurosurgery 11/14/23 Cornelio Ferris MD [address] [address] Referring Physician Psychiatry 12/15/23
--- OUTSIDE RECORDS SUMMARY | 2024-06-26 00:23 | XMS_ITS | Referral Summary ---
Author Organization [facility] Address [address] [place] [address] Care Team Providers Care Residential Air Sealing Technician Name Role Phone Monisha Tucker MD Primary Care Provider Jefe Chung NP Unavailable [phone] Mazin Vigil MD Unavailable Quincy Mixon MD Unavailable [phone] Murali Milton MD Unavailable [phone] Cornelio Ferris MD Unavailable [phone] Encounters Date Type Department Care Team Description 05/31/2024 7:37 AM HOP STRAINER - 05/31/2024 11:59 PM HOP STRAINER Hospital Encounter [facility] [address], [place] [id number] Jefe Chung NP Other chronic pain (Primary Dx); Spondylolisthesis of lumbar region; Spinal stenosis, lumbar region, with neurogenic claudication; Sacroiliitis, not elsewhere classified; Lumbosacral radiculopathy; Lumbar spondylosis; Lumbar radiculopathy; Lumbar facet arthropathy Discharge Disposition: Discharge to home or self care from Last 3 Months Allergies No known active allergies Medications sertraline [...] Psychiatry Assessment & Plan (04/18/2023 9:51 AM HOP STRAINER): Chronic. Stable. 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 Patient reports the tamsulosin was making a Pee too frequently so he stopped it. He is requesting to stay off of it. We will need to monitor urinary symptoms Assessment & Plan (04/18/2023 9:52 AM HOP STRAINER): Chronic. Feels oxybutynin ineffective. Will try change to tamsulosin. Monitor Toe osteomyelitis, left 04/18/2023 Assessment & Plan (09/06/2023 12:29 PM CDT): Patient follows with Dr. Mixon over maya Conklin as surgeon. The 2nd toe is looking [...] to get him in to see a litigation services manager instead Assessment & Plan (04/18/2023 9:54 AM HOP STRAINER): Continue care per surgeon Dr. Mixon. Continue IV antibiotics for total of 6 weeks. Antibiotics will be done in about a week and a half. Continue wound care in the toe. Monitor for recurrent ulcers. They are trying to save the toe previously by doing an I and D and deferring amputation Abnormal CT of the abdomen 04/15/2023 Overview (04/15/2023): 04/12/23 at [facility]. Report to be scanned Coronary artery calcification [...] noted on CT abdomen pelvis 04/12/2023 at [facility] Assessment & Plan (09/06/2023 12:27 PM CDT): Patient had incidental finding of aortic atherosclerosis on prior imaging. Discussed recommendation to start a baby aspirin daily for risk reduction. We will target an LDL less than 70 with cholesterol medication. Check levels and adjust simvastatin as needed Assessment & Plan (04/18/2023 9:51 AM HOP STRAINER): Incidental on prior imaging. Continue simvastatin. We will monitor levels and plan to just in the future as needed target LDL goal less than 70 Lumbar facet arthropathy 02/16/2023 Assessment & Plan (04/18/2023 9:51 AM HOP STRAINER): Chronic. Follows with pain management. Advised caution with naproxen as may be contributing to some of his stomach symptoms. Thirty day course of PPI order Sacroiliitis, not elsewhere classified Assessment & Plan (04/18/2023 9:52 AM HOP STRAINER): Mild noted on recent CT. Continue care per pain specialist Lumbar spondylosis 08/05/2022 Assessment & Plan (04/18/2023 9:51 AM HOP STRAINER): Chronic. Care per pain manage Spondylolisthesis of lumbar region 09/25/2020 Assessment & Plan (04/18/2023 9:52 AM HOP STRAINER): Chronic. Medication care per pain management. Caution with NSAIDs given recent stomach issues. Advised if guarding to take naproxen needs to take it with food. We will give a 30 day course of PPI Anxiety 06/13/2019 Assessment & Plan (04/18/2023 9:52 AM HOP STRAINER): Chronic. Medication and care per Psychiatry. Defer [...] adjustment. Assessment & Plan (04/18/2023 9:52 AM HOP STRAINER): Chronic. On simvastatin. We will plan to [...] psychiatrist Assessment & Plan (04/18/2023 9:52 AM HOP STRAINER): Chronic. Medication and care per Psychiatry. Patient felt lamotrigine caused side effects so he is now stopped it through discussion with his psychiatrist Conductive hearing loss, bilateral 10/14/2016 Nonallergic rhinitis 10/14/2016 Resolved Problems Problem Noted Date Diagnosed Date Resolved Date MSSA bacteremia 04/18/2023 09/06/2023 Assessment & Plan (04/18/2023 9:54 AM HOP STRAINER): Noted at time of hospitalization for toe [...] (12/26/2020): Added automatically from request for surgery [id number] Acquired right foot drop 09/25/202007/2022 Class 1 obesity with body ma ss index (BMI) of 33.0 to 33.9 in adult 06/13/2019 08/05/2022 Depression 06/13/2019 04/18/2023 Nontraumatic complete tear o f left rotator cuff 07/17/2018 08/05/2022 Overview (07/17/2018): Added automatically from request for surgery [id number] Partial tear of left subscapularis tendon 01/10/2018 08/05/2022 Rupture of left supraspinatus tendon 01/10/2018 08/05/2022 Subluxation of tendon of long head of biceps 8 08/05/2022 Shoulder pain 01/09/2018 08/05/2022 Immunizations Immunization Administration Dates Next Due Influenza, Quadrivalent, Hig h Dose, Preservative Free, Intrr 01/07/2023,02/26/2022 Influenza, Quadrivalent, Spl it, Preservative Free, Intramuscular 01/31/2021,01/02/2020 Influenza, Trivalent, Adjuvanted, Intramuscular 01/12/2024 Influenza, Trivalent, IM (MDV) 01/09/2014,2012 Pneumococcal Conjugate Pcv20 09/06/2023 Tdap 12/27/2022 Social History Tobacco Use Types Packs/Day Years [...] on file Legal Sex Male 7:15 PM HOP STRAINER Gender Identity Not on file Sexual Orientation Not on file Occupation Industry Job Start Date Job End Date retired Not on file Not on file Not on file Last Filed Vital Signs Vital Sign Reading Time Taken Comments Blood Pressure 115/62 05/31/2024 8:03 AM HOP STRAINER Pulse 101 05/31/2024 8:03 AM HOP STRAINER Temperature 37.1 C (98.7 F) 03/08/2024 9:19 AM HOP STRAINER Respiratory Rate 17 05/31/2024 8:03 AM HOP STRAINER Oxygen Saturation 99% 05/31/2024 8:03 AM HOP STRAINER Inhaled Oxygen Concentration - - Weight 96.4 kg (212 lb 8 oz) 03/08/2024 9:19 AM HOP STRAINER Height 185.4 cm (6' 1 ) 03/08/2024 9:19 AM HOP STRAINER Body Mass Index 28.04 03/08/2024 9:19 AM HOP STRAINER Plan of Treatment Not on file Medical Devices Implanted Type Area Distribution Superintendent Device Identifier Shelf Expiration Date Model / Serial / Lot [employer] [id number] Base Plate 26mm Tm Reverse 20m - [id number] Implanted:Qty : 1 on 09/17/2019 at [facility] Other - see comments Left: Shoulder [employer] [id number] 12/02/2028 [id number] / / [id number] [employer] Ar-2324 Bcm Swivelock 4.75mm 24.5mm Self Punch Vent Shoulder [place] Suture - Sna - [id number] Implanted:Qty : 1 on 09/07/2018 by Amaury Gordon MD at [facility] Left: Humerus [employer] [id number] 05/04/2020 AR-2324BCM / NA / [id number] [employer] Ar-2324 Bcm Swivelock 4.75mm 24.5mm Self Punch Vent Shoulder [place] Suture - [id number] Implanted:Qty : 1 on 09/07/2018 by Amaury Gordon MD at [facility] Left: Shoulder [employer] [id number] 05/04/2020 AR-2324BCM / / [id number] [employer] [id number] Glenosphere Tm Reverse 36mm Centric - [id number] Implanted:Qty : 1 on 09/17/2019 at [facility] Left: Shoulder [employer] [id number] 12/02/2028 [id number] / / [id number] [employer] 01.78188.048 Ncb Anatomical Shoulder 4.5mm 48mm Inverse Reverse Lock Self Tap - [id number] Implanted:Qty : 1 on 09/17/2019 at [facility] Left: Shoulder [employer] [id number] 03/03/2024 01.04381.048 / / [id number] [employer] 01.34387.042 Ncb Anatomical Shoulder 4.5mm 42mm Inverse Reverse Lock Self Tap - [id number] Implanted:Qty : 1 on 09/17/2019 at [facility] Left: Shoulder [employer] [id number] 02/02/2024.63931.042 / / [id number] [employer] [id number] 12mm 130mm Shoulder Stem Humeral Trabecular Metal Tivanium - [id number] Implanted:Qty : 1 on 09/17/2019 at [facility] Left: Shoulder [employer] [id number] 07/02/2029 [id number] / / [id number] [employer] [id number] 36mm H+3mm Reverse Humerus 7d Standard Liner Shoulder Trabecular - [id number] Implanted:Qty : 1 on 09/17/2019 at [facility] Left: Shoulder [employer] [id number] 06/02/2027 [id number] / / [id number] Explanted Type Area Distribution Superintendent Device Identifier Shelf Expiration Date Model / Serial / Lot [employer] [id number] Siva 3/32in 9in 2 Trocar Pin Fixation Nonsterile - [id number] Explanted:Qty: 1 on 09/17/2019 at [facility] [employer] [id number] / / Procedures Procedure Name Priority Date/Time Associated Diagnosis Comments COLONOSCOPY Routine 10/20/2023 9:37 AM CDT HEPATITIS C SCREENING Routine 09/28/2023 11:10 AM CDT PSA SCREEN Routine 05/26/2022 12:14 PM HOP STRAINER Screening for prostate cancer from Last 3 Months or Most Recently Relevant to Health Maintenance Results * COLONOSCOPY (10/20/2023 9:37 AM CDT) Scribed Colonoscopy Normal us Monisha Tucker MD HEALTH MAINTENANCE Fin al Result * HEPATITIS C SCREENING (09/28/2023 11:10 AM CDT) SCRIBED HCV ab Non Reactive us Rj Dooley MD HEALTH MAINTENANCE Final Re sult * PSA screen (05/26/2022 12:14 PM HOP STRAINER) PSA-Total 1.99 <=5.40 ng/mL IRAM GARCIA Comment: [...] revised 21. Blood 05/26/2022 12:1 4 PM HOP STRAINER 05/26/2022 2:55 PM HOP STRAINER Nayan Linder DO LAB [place] [id number] [place] Department of Laboratories [place] [id number] from Last 3 Months or Most Recently Relevant to Health Maintenance Insurance MEDICARE [facility] MEDICARE SUPPLEMENT MEDICARE [facility] MEDICARE BLUE CROSS MEDICARE SUPPLEMENT Advance Directives For more information, please contact: [phone] Documents on File Type Date Recorded Patient Batch Plant Operator Expl anation ADVANCE DIRECTIVE 12/27/2023 8:58 AM Power of [employer] Lead for Health Care Power of [employer] Lead 05/16/2023 12:09 PM * Full Code (Latest Code Status on File) Date Activated Date Inactivated Comments 03/08/2024 10:51 AM 03/09/2024 5:26 AM * Full Code Date Activated Date Inactivated Comments 09/17/2019 7:41 PM 09/18/2019 4:44 PM Care Teams Residential Air Sealing Technician Relationship Specialty Start Date End Date Monisha Tucker MD PCP - General Family Practice 08/05/22 [place] [address] [address] Nurse Practitioner Pain Management 09/06/23 [place] [address] [address] [facility] [address] [address] Consulting Physician Pain Management 09/06/23 [place] [address] [address] [facility] [address] [address] Referring Physician General Surgery 09/06/23 [place] [address] [address] [facility] [address] [address] Consulting Physician Neurosurgery 11/14/23 Cornelio Ferris MD [address] [address] Referring Physician Psychiatry 12/15/23
--- OUTSIDE RECORDS SUMMARY | 2024-06-26 00:23 | XMS_ITS ---
Author Name Monisha Pretty Address [address] [place] [address] Phone [phone] Organization [facility] Address [address] [place] [address] Phone [phone] Care Team Providers Care Skinner Pelts Name Role Phone Monisha Pretty Unavailable [phone] Rj Dooley Unavailable Functional Status No Results Mental Status No Results Allergies and Intolerances Name Onset Date Reaction Severity No Known Allergies (Allergy) TueMar 24 16:29:00 EST 2022 Encounters Program Name Primary Diagnosis Admission Date/Time Dis charge Date/Time [facility] TueDec 14 20:00:00 EDT 2023Mar 30 17:00:00 EST 2023 [facility] TueJun 07 19:00:00 EST 2023August 08 08:00:00 EDT 2023 Assisted Living Area Hypertensive chroni c 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 chronic kidney disease, or unspecified chronic kidney disease TueMay 31 06:00:00 EST 2023 Immunizations Name Dates Status influenza, trivalent, adjuvanted TueJan 11 01:0 0:00 EDT 2023 Completed COVID-19, mRNA, LNP-S, PF, t ris-sucrose, 30 mcg/0.3 mL TueApr 20 01:00:00 EST 2024 Completed Medications Medication Directions Start Date End Date PreserVision AREDS 2,148 mcg-113 mg-45 mg-17.4 mg tablet 2 tablets TABLET Oral 1 Time Daily Indication: eye supplement [employer] SUPERINTENDENT supervision TueJun 27 01:00:00 ED2024 cyanocobalamin (vit B-12) 1,000 mcg tablet 1 tablet TABLET Oral 1 Time Daily Indication: supplementCNA supervision TueJun 27 01:00:00 ED2024 aspirin 81 mg chewable tablet 1 TABLET,CHEWABLE Oral 1 Time Daily Indication: anticoagulantCNA supervision TueJun 27 01:00:00 ED2024 Adult 50 Plus Probiotic 4 billion cell capsule 1 capsule CAPSULE Oral 1 Time Daily for 2 Days Indication: constipation GI prophCNA Supervision TueJun 20 01:00:00 EDT 2024Jun 22 00:59:00 ED2024 Adult 50 Plus Probiotic 4 billion cell capsule 1 capsule CAPSULE Oral 1 Time Daily Indication: constipation GI prophCNA Supervision TueJun 27 01:00:00 ED2024 PreserVision AREDS 2,148 mcg-113 mg-45 mg-17.4 mg tablet 2 tablets TABLET Oral 1 Time Daily Indication: eye supplement [employer] SUPERINTENDENT supervision TueJun 26 01:00:00 ED2024Jun 24 19:25:00 ED2024 aspirin 81 mg chewable tablet 1 TABLET,CHEWABLE Oral 1 Time Daily Indication: anticoagulantCNA supervision TueJun 26 01:00:00 EDT 2024Jun 24 19:28:00 EDT 2024 cyanocobalamin (vit B-12) 1,000 mcg tablet 1 tablet TABLET Oral 1 Time Daily Indication: supplementCNA supervision TueJun 26 01:00:00 ED2024Jun 24 19:26:00 ED2024 Fleet Enema 19 gram-7 gram/118 mL 1 ENEMA (ML) Rectal 1 Time Daily for 1 Day Indication: clean out system pre op TueJun 26 01:00:00 ED2024Jun 27 00:59:00 ED2024 ciprofloxacin 500 mg tablet 1 tablet By Mouth 2 Times Daily for 5 Days Indication: For UTI Give 1 tablet po twice daily times 5 days.[employer] SUPERINTENDENT Supervision x1, x4. TueMay 15 07:00:00 2024May 20 06:59:00 EST 2024 oxyBUTYnin chloride ER 15 mg tablet,extended release 24 hr 1 TABLET TABLET, EXTENDED RELEASE 24 HR Oral 1 Time Daily Indication: antispasmodic - per [facility] TueMay 07 15:30:00 EST 2024 acetaminophen 500 mg tablet 2 tablets TABLET Oral PRN Every 8 Hours Indication: painMaximum dose is 3 grams/24 hours Sat May 05 11:24:00 EST 2024 Comirnaty (12y up)(PF) 30 mcg/0.3 mL intramuscular syringe 1 SYRINGE (ML) Intramuscular 1 Time Daily for 1 Day Indication: Vaccine Nurse administer TueApr 20 15:00:00 EST 2024Apr 21 14:59:00 EST 2024 Blood Pressure Cuff 1 EACH Other 2 Times Daily for 3 Days Indication: Vaccine check Temp TueApr 20 15:00:00 EST 2024Apr 23 14:59:00 EST 2024 QUEtiapine 50 mg tablet 1 tablet TABLET Oral 1 Time Daily Indication: OCD Anxiety, OCDPer Renetta Guy Kooi NPCNA supervision x4 TueApr 07 19:30:00 EST 2024 ergocalciferol (vitamin D2) 1,250 mcg (50,000 unit) capsule 1 CAPSULE Oral 1 Time Weekly Indication: supplement - [employer]PER[employer]ENT supervision X1 TueMar 12 01:00:00 EST 2023 simvastatin 20 mg tablet 1 tablet TABLET Oral 1 Time Daily Indication: hyperlipidemiaCNA supervision @ 1700 TueFeb 26 10:58:00 EST 2023 naproxen 500 mg tablet 1 TAB TABLET Oral 2 Times Daily Indication: pain Pain/InflammationCNA supervision x1 and 1700 TueFeb 26 10:59:00 EST 2023Mar 08 01:07:00 EST 2023 cephALEXin 500 mg capsule 1 CAPSULE Oral Every 12 Hours for 7 Days Indication: UTI [employer] SUPER[employer]ENDENT Supervision x1 x3 TueFeb 14 14:43:00 EST 2023Feb 21 14:42:00 EST 2023 aspirin 81 mg chewable tablet 1 TABLET,CHEWABLE Oral 1 Time Daily Indication: anticoagulantCNA supervision X1 TueFeb 14 18:07:00 EST 2023Jun 19 20:29:00 EDT 2024 zolpidem 10 mg tablet 1 tablet TABLET Or al 1 Time Daily Indication: insomnia TueFeb 14 18:13:00 EST 2023 Blood Pressure Cuff 1 EACH Other 2 Times Monthly Indication: monthly vitals [employer] SUPER[employer]ENT to obtain TueFeb 26 01:00:00 EST 2023 cephALEXin 500 mg capsule 1 CAPSULE Oral Every 12 Hours for 7 Days Indication: UTI [employer]ENT Supervision x1 x3 TueFeb 12 18:00:00 EST 2023Feb 14 14:44:00 EST 2023 sertraline 100 mg tablet 200mg TABLET Or al 1 Time Daily Indication: depression DepressionCNA supervision x42 [id number] MG TueFeb 05 01:00:00 EST 2023 omeprazole 40 mg capsule,delayed release 1 CAP CAPSULE,DELAYED RELEASE (ENTERIC COATED) Oral 1 Time Daily Indication: GERD [employer] SUPER[employer]ENT supervision x1 TueFeb 05 01:00:00 EST 2023 Adult 50 Plus Probiotic 4 billion cell capsule 1 capsule CAPSULE Oral 1 Time Daily Indication: constipation GI prophCNA Supervision x1 TueFeb 05 01:00:00 EST 2023Jun 19 20:26:00 EDT 2024 PreserVision AREDS 2,148 mcg-113 mg-45 mg-17.4 mg tablet 2 tablets TABLET Oral 1 Time Daily Indication: eye supplement [employer]ENT supervision x1 TueFeb 05 01:00:00 EST 2023Jun 19 20:28:00 EDT 2024 acetaminophen 500 mg tablet 2 tablets TABLET Oral PRN Every 8 Hours Indication: pain TueFeb 05 01:00:00 EST 2023May 05 11:25:00 EST 2024 buPROPion HCL XL 300 mg 24 hr tablet, extended release 1 tablet TABLET, EXTENDED RELEASE 24 HR Oral 1 Time Daily Indication: DepressionCNA supervision x1 TueFeb 05 01:00:00 EST 2023 simvastatin 20 mg tablet 1 tablet TABLET Oral 1 Time Daily Indication: hyperlipidemiaCNA supervision x4 TueFeb 05 01:00:00 EST 2023Feb 26 10:59:00 EST 2023 naproxen 500 mg tablet 1 TAB TABLET Oral 2 Times Daily Indication: pain Pain/InflammationCNA supervision x1 and x4 TueFeb 05 01:00:00 EST 2023Feb 26 11:01:00 EST 2023 Blood Pressure Cuff 1 EACH Other 2 Times Monthly Indication: monthly vitals [employer]PER[employer]ENT to obtain TueFeb 05 01:00:00 EST 2023Feb 14 18:15:00 EST 2023 cetirizine 10 mg tablet 1 tablet TABLET Oral PRN 1 Time Daily Indication: allergies TueFeb 05 01:00:00 EST 2023 QUEtiapine 100 mg tablet 1 tablet TABLET Oral 1 Time Daily Indication: OCD Anxiety, OCDPer Renetta Guy Bhavna NPCNA supervision x4 TueFeb 05 01:00:00 EST 2023Apr 07 19:32:00 EST 2024 aspirin 81 mg chewable tablet 1 TABLET,CHEWABLE Oral 1 Time Daily Indication: anticoagulantCNA supervision X1 TueFeb 05 01:00:00 EST 2023Feb 14 18:12:00 EST 2023 cyanocobalamin (vit B-12) 1,000 mcg tablet 1 tablet TABLET Oral 1 Time Daily Indication: supplementCNA supervision x1 TueFeb 05 01:00:00 EST 2023Jun 19 20:29:00 EDT 2024 zolpidem 10 mg tablet 1 tablet TABLET Or al 1 Time Daily Indication: insomnia TueFeb 05 01:00:00 EST 2023Feb 14 18:14:00 EST 2023 Fluad Triv 2023-25(65y up)(PF) 45 mcg (15 mcg x 3)/0.5 mL IM syringe 1 SYRINGE (ML) Intramuscular 1 Time Daily for 1 Day Indication: Vaccine TueJan 11 01:00:00 EDT 2023Jan 12 00:59:00 EDT 2023 Fluad Triv 2023-25(65y up)(PF) 45 mcg (15 mcg x 3)/0.5 mL IM syringe 1 SYRINGE (ML) Intramuscular 1 Time Daily for 1 Day Indication: Vaccine TueJan 11 01:00:00 EDT 2023Jan 12 00:59:00 EDT 2023 cyanocobalamin (vit B-12) 1,000 mcg tablet 1 tablet TABLET Oral 1 Time Daily Indication: supplement TueSep 20 13:00:00 EDT 2023Feb 05 16:45:00 EST 2023 ALPRAZolam 0.25 mg tablet 0.25 mg 1 tab Oral 1 Time Daily Indication: Anxiety take 1 tab 45 minutes prior to MRI on empty stomach may repeat 15 min prior to MRI if needed TueSep 25 01:00:00 EDT 2023Sep 26 12:06:00 EDT 2023 docusate sodium 100 mg capsule 1 capsule CAPSULE Oral PRN 1 Time Daily Indication: Constipation TueSep 06 19:01:00 EDT 2023Feb 05 16:45:00 EST 2023 aspirin 81 mg chewable tablet 1 TABLET,CHEWABLE Oral 1 Time Daily Indication: anticoagulant [employer]ENT supervision X1 TueSep 06 01:00:00 EDT 2023Feb 05 16:45:00 EST 2023 HYDROcodone 5 mg-acetaminophen 325 mg tablet 1 TAB TABLET Oral PRN Every 6 Hours Indication: pain PAIN *DO NOT EXCEED 3GM/DAY APAP FROM ALL SOURCES* TueMay 31 12:00:00 EST 2023Feb 05 16:45:00 EST 2023 sertraline 100 mg tablet 200mg TABLET Or al 1 Time Daily Indication: depression Depression2 [id number] MG TueMay 31 12:00:00 EST 2023Feb 05 16:45:00 EST 2023 zolpidem 10 mg tablet 1 tablet TABLET Or al PRN Hour Of Sleep Indication: insomnia INSOMNIA TueMay 31 12:00:00 EST 2023Feb 05 16:45:00 EST 2023 docusate sodium 100 mg capsule 1 capsule CAPSULE Oral 2 Times Daily Indication: Constipation Constipation TueMay 31 12:00:00 EST 2023Sep 06 19:05:00 EDT 2023 omeprazole 40 mg capsule,delayed release 1 CAP CAPSULE,DELAYED RELEASE (ENTERIC COATED) Oral 1 Time Daily Indication: GERD GERD TueMay 31 12:00:00 EST 2023Feb 05 16:45:00 EST 2023 Adult 50 Plus Probiotic 4 billion cell capsule 1 capsule CAPSULE Oral 1 Time Daily Indication: constipation GI proph TueMay 31 12:00:00 EST 2023Feb 05 16:45:00 EST 2023 levoFLOXacin 750 mg tablet 1 tablet TABL ET Oral 1 Time Daily for 32 Days Indication: osteomyelitis Prophylactic for osteomyelitis for second left toe TueMay 31 12:00:00 EST 2023Jun 14 19:22:00 EDT 2023 PreserVision AREDS 2,148 mcg-113 mg-45 mg-17.4 mg tablet 2 tablets TABLET Oral 1 Time Daily Indication: eye supplement Eye Supplement TueMay 31 12:00:00 EST 2023Feb 05 16:45:00 EST 2023 tamsulosin 0.4 mg capsule 1 capsule CAPS ULE Oral 1 Time Daily Indication: urinary retention Urinary Retention TueMay 31 12:00:00 EST 2023Sep 06 19:02:00 EDT 2023 acetaminophen 500 mg tablet 2 tablets TABLET Oral PRN Every 8 Hours Indication: pain Pain TueMay 31 12:00:00 EST 2023Feb 05 16:45:00 EST 2023 ondansetron 8 mg disintegrating tablet 1 tablet TABLET,DISINTEGRATING Oral PRN Every 8 Hours Indication: nausea and vomiting Nausea & Vomiting TueMay 31 12:00:00 EST 2023Sep 06 19:02:00 EDT 2023 buPROPion HCL XL 300 mg 24 hr tablet, extended release 1 tablet TABLET, EXTENDED RELEASE 24 HR Oral 1 Time Daily Indication: depression Depression TueMay 31 12:00:00 EST 2023Feb 05 16:45:00 EST 2023 simvastatin 20 mg tablet 1 tablet TABLET Oral 1 Time Daily Indication: hyperlipidemia HLD TueMay 31 12:00:00 EST 2023Feb 05 16:45:00 EST 2023 naproxen 500 mg tablet 1 TAB TABLET Oral 2 Times Daily Indication: pain Pain/Inflammation TueMay 31 12:00:00 EST 2023Feb 05 16:45:00 EST 2023 Blood Pressure Cuff 1 EACH Other 2 Times Monthly Indication: monthly vitals [employer] SUPER[employer]ENDENT to obtain TueMay 31 12:00:00 EST 2023Feb 05 16:45:00 EST 2023 cetirizine 10 mg tablet 1 tablet TABLET Oral PRN 1 Time Daily Indication: allergies TueMay 31 12:00:00 EST 2023Feb 05 16:45:00 EST 2023 QUEtiapine 100 mg tablet 1 tablet TABLET Oral 1 Time Daily Indication: OCD Anxiety, OCDPer Renetta Ferris LICENSED CERTIFIED ORTHOTIST TueMay 31 12:00:00 EST 2023Feb 05 16:45:00 EST 2023 QUEtiapine 100 mg tablet 1 tablet TABLET Oral 1 Time Daily Indication: OCD Anxiety, OCDPer Rneetta Eduardo Huggins LICENSED CERTIFIED ORTHOTIST TueJun 11 19:20:00 EDT 2023Jun 13 00:01:00 EDT 2023 cetirizine 10 mg tablet 1 tablet TABLET Oral PRN 1 Time Daily Indication: allergies TueJun 08 09:57:00 EST 2023Jun 08 23:52:00 EST 2023 HYDROcodone 5 mg-acetaminophen 325 mg tablet 1 TAB TABLET Oral PRN Every 6 Hours Indication: pain PAIN *DO NOT EXCEED 3GM/DAY APAP FROM ALL SOURCES* TueJun 08 23:37:00 EST 2023Jun 12 23:44:00 EDT 2023 sertraline 100 mg tablet 200mg TABLET Or al 1 Time Daily Indication: depression Depression2 [id number] MG TueJun 08 23:38:00 EST 2023Jun 12 23:45:00 EDT 2023 QUEtiapine 100 mg tablet 1 tablet TABLET Oral 2 Times Daily Indication: OCD Anxiety, OCD TueJun 08 23:38:00 EST 2023Jun 11 19:26:00 EDT 2023 zolpidem 10 mg tablet 1 tablet TABLET Or al PRN Hour Of Sleep Indication: insomnia INSOMNIA TueJun 08 23:39:00 EST 2023Jun 12 23:46:00 EDT 2023 docusate sodium 100 mg capsule 1 capsule CAPSULE Oral 2 Times Daily Indication: Constipation Constipation TueJun 08 23:39:00 EST 2023Jun 12 23:47:00 EDT 2023 omeprazole 40 mg capsule,delayed release 1 CAP CAPSULE,DELAYED RELEASE (ENTERIC COATED) Oral 1 Time Daily Indication: GERD GERD TueJun 08 23:40:00 EST 2023Jun 08 23:42:00 EST 2023 omeprazole 40 mg capsule,delayed release 1 CAP CAPSULE,DELAYED RELEASE (ENTERIC COATED) Oral 1 Time Daily Indication: GERD GERD TueJun 08 23:41:00 EST 2023Jun 12 23:48:00 EDT 2023 Adult 50 Plus Probiotic 4 billion cell capsule 1 capsule CAPSULE Oral 1 Time Daily Indication: constipation GI proph TueJun 08 23:41:00 EST 2023Jun 12 23:49:00 EDT 2023 levoFLOXacin 750 mg tablet 1 tablet TABL ET Oral 1 Time Daily for 23 Days Indication: osteomyelitis Prophylactic for osteomyelitis for second left toe TueJun 08 23:42:00 EST 2023Jun 12 23:51:00 EDT 2023 PreserVision AREDS 2,148 mcg-113 mg-45 mg-17.4 mg tablet 2 tablets TABLET Oral 1 Time Daily Indication: eye supplement Eye Supplement TueJun 08 23:42:00 EST 2023Jun 12 23:53:00 EDT 2023 tamsulosin 0.4 mg capsule 1 capsule CAPS ULE Oral 1 Time Daily Indication: urinary retention Urinary Retention TueJun 08 23:43:00 EST 2023Jun 12 23:54:00 EDT 2023 ondansetron 8 mg disintegrating tablet 1 tablet TABLET,DISINTEGRATING Oral PRN Every 8 Hours Indication: nausea and vomiting Nausea & Vomiting TueJun 08 23:43:00 EST 2023Jun 08 23:45:00 EST 2023 acetaminophen 500 mg tablet 2 tablets TABLET Oral PRN Every 8 Hours Indication: pain Pain TueJun 08 23:44:00 EST 2023Jun 12 23:54:00 EDT 2023 ondansetron 8 mg disintegrating tablet 1 tablet TABLET,DISINTEGRATING Oral PRN Every 8 Hours Indication: nausea and vomiting Nausea & Vomiting TueJun 08 23:44:00 EST 2023Jun 12 23:55:00 EDT 2023 buPROPion HCL XL 300 mg 24 hr tablet, extended release 1 tablet TABLET, EXTENDED RELEASE 24 HR Oral 1 Time Daily Indication: depression Depression TueJun 08 23:45:00 EST 2023Jun 12 23:56:00 EDT 2023 simvastatin 20 mg tablet 1 tablet TABLET Oral 1 Time Daily Indication: hyperlipidemia HLD TueJun 08 23:46:00 EST 2023Jun 12 23:57:00 EDT 2023 naproxen 500 mg tablet 1 TAB TABLET Oral 2 Times Daily Indication: pain Pain/Inflammation TueJun 08 23:46:00 EST 2023Jun 12 23:58:00 EDT 2023 Blood Pressure Cuff 1 EACH Other 2 Times Monthly Indication: monthly vitals [employer] SUPERINTENDENT to obtain TueJun 08 23:48:00 EST 2023Jun 12 23:59:00 EDT 2023 cetirizine 10 mg tablet 1 tablet TABLET Oral PRN 1 Time Daily Indication: allergies TueJun 08 23:51:00 EST 2023Jun 13 00:00:00 EDT 2023 Blood Pressure Cuff 1 EACH Other 2 Times Monthly Indication: monthly vitals [employer] SUPERINTENDENT to obtain TueJun 04 09:59:00 EST 2023Jun 08 23:51:00 EST 2023 simvastatin 20 mg tablet 1 tablet TABLET Oral 1 Time Daily Indication: hyperlipidemia HLD TueJun 03 10:50:00 EST 2023Jun 08 23:47:00 EST 2023 naproxen 500 mg tablet 1 TAB TABLET Oral 2 Times Daily Indication: pain Pain/Inflammation TueJun 03 10:56:00 EST 2023Jun 08 23:49:00 EST 2023 buPROPion HCL XL 300 mg 24 hr tablet, extended release 1 tablet TABLET, EXTENDED RELEASE 24 HR Oral 1 Time Daily Indication: Depression TueMay 31 01:00:00 EST 2023May 31 01:00:00 EST 2023 HYDROcodone 5 mg-acetaminophen 325 mg tablet 1 TAB TABLET Oral PRN Every 6 Hours Indication: pain PAIN *DO NOT EXCEED 3GM/DAY APAP FROM ALL SOURCES* TueMay 31 12:00:00 EST 2023Jun 08 23:38:00 EST 2023 naproxen 500 mg tablet 1 TAB TABLET Oral 2 Times Daily Indication: pain Pain/Inflammation TueMay 31 07:00:00 2023Jun 03 10:57:00 EST 2023 sertraline 100 mg tablet 200mg TABLET Or al 1 Time Daily Indication: depression Depression2 [id number] MG TueMay 31 12:00:00 EST 2023Jun 08 23:39:00 EST 2023 QUEtiapine 100 mg tablet 1 tablet TABLET Oral 2 Times Daily Indication: OCD Anxiety, OCD TueMay 31 12:00:00 EST 2023Jun 08 23:39:00 EST 2023 simvastatin 20 mg tablet 1 tablet TABLET Oral 1 Time Daily Indication: hyperlipidemia HLD TueMay 31 12:00:00 2023 [facility] Jun 03 10:56:00 EST 2023 zolpidem 10 mg tablet 1 tablet TABLET Or al PRN Hour Of Sleep Indication: insomnia INSOMNIA TueMay 31 12:00:00 2023Jun 08 23:40:00 EST 2023 docusate sodium 100 mg capsule 1 capsule CAPSULE Oral 2 Times Daily Indication: Constipation Constipation TueMay 31 12:00:00 EST 2023Jun 08 23:41:00 EST 2023 omeprazole 40 mg capsule,delayed release 1 CAP CAPSULE,DELAYED RELEASE (ENTERIC COATED) Oral 1 Time Daily Indication: GERD GERD TueMay 31 12:00:00 EST 2023Jun 08 23:41:00 EST 2023 Adult 50 Plus Probiotic 4 billion cell capsule 1 capsule CAPSULE Oral 1 Time Daily Indication: constipation GI proph TueMay 31 12:00:00 2023Jun 08 23:42:00 EST 2023 levoFLOXacin 750 mg tablet 1 tablet TABL ET Oral 1 Time Daily for 23 Days Indication: osteomyelitis Prophylactic for osteomyelitis for second left toe TueMay 31 12:00:00 EST 2023Jun 08 23:42:00 EST 2023 PreserVision AREDS 2,148 mcg-113 mg-45 mg-17.4 mg tablet 2 tablets TABLET Oral 1 Time Daily Indication: eye supplement Eye Supplement TueMay 31 12:00:00 EST 2023Jun 08 23:43:00 EST 2023 tamsulosin 0.4 mg capsule 1 capsule CAPS ULE Oral 1 Time Daily Indication: urinary retention Urinary Retention TueMay 31 12:00:00 EST 2023Jun 08 23:44:00 EST 2023 ondansetron 8 mg disintegrating tablet 1 tablet TABLET,DISINTEGRATING Oral PRN Every 8 Hours Indication: nausea and vomiting Nausea & Vomiting TueMay 31 12:00:00 EST 2023Jun 08 23:44:00 EST 2023 acetaminophen 500 mg tablet 2 tablets TABLET Oral PRN Every 8 Hours Indication: pain Pain TueMay 31 12:00: EST 2023Jun 08 23:45:00 EST 2023 cetirizine 10 mg tablet 1 tablet TABLET Oral 1 Time Daily Indication: allergies Allergies TueMay 31 12:00:00 EST 2023Jun 08 09:59:00 EST 2023 buPROPion HCL XL 300 mg 24 hr tablet, extended release 1 tablet TABLET, EXTENDED RELEASE 24 HR Oral 1 Time Daily Indication: depression Depression TueMay 31 12:00:00 EST 2023Jun 08 23:45:00 EST 2023 Blood Pressure Cuff 1 EACH Other 2 Times Monthly Indication: monthly vitals monthly vitals TueMay 31 12:00:00 EST 2023Jun 04 10:02:00 EST 2023 buPROPion HCL SR 150 mg tablet,12 hr sustained-release 1 tablet TABLET,SUSTAINED-RELEASE 12 HR Oral 2 Times Daily Indication: Depression Mon Feb 01:00:00 EST 2023b 01:00:00 EST 2023 ondansetron 8 mg disintegrating tablet 1 tablet TABLET,DISINTEGRATING Oral PRN Every 8 Hours Indication: Nausea & Vomiting Ana Luisa Feb 17:00:00 EST 2023b 01:00:00 EST 2023 acetaminophen 500 mg tablet 2 tablets TABLET Oral PRN Every 8 Hours Indication: Pain Ana Luisa Feb 22 14:00:00 EST 2023 Feb 27 01:00:00 EST 2023 cetirizine 10 mg tablet 1 tablet TABLET Oral 1 Time Daily Indication: Allergies Ana Luisa Feb 22 14:00:00 EST 2023May 31 01:00:00 EST 2023 Med Pass 2.0 Nutritional Supplement 120 mL 120 mL 180 cc Oral 1 Time Daily Indication: For weight maintenance and healing TueMay 25 16:00:00 2023May 31 01:00:00 EST 2023 acetaminophen 325 mg tablet 2 tabs TABLET Oral PRN Every 6 Hours Indication: pain As needed for pain/elevated temperature. TueMay 24 17:00:00 2023May 26 17:25:00 EST 2023 TubersoL 5 tub. unit/0.1 mL intradermal injection solution 0.1 ml VIAL (ML) Intradermal 1 Time Weekly for 2 Weeks Indication: TB 1st injection on admission, then one week after. Read between 48 and 72 hours TueMay 25 07:00:00 2023May 31 01:00:00 EST 2023 TubersoL 5 tub. unit/0.1 mL intradermal injection solution Read Results VIAL (ML) Other 1 Time Weekly for 2 Weeks Indication: TB Read results between 48-72 hours after 1st and 2nd (1 week apart). If positive do chest x-ray. TueMay 24 07:00:00 2023May 31 01:00:00 EST 2023 HYDROcodone 5 mg-acetaminophen 325 mg tablet 1 TAB TABLET Oral PRN Every 6 Hours Indication: PAIN *DO NOT EXCEED 3GM/DAY APAP FROM ALL SOURCES* TueMay 24 01:00:00 2023May 31 01:00:00 EST 2023 naproxen 500 mg tablet 1 TAB TABLET Oral 2 Times Daily Indication: Pain/Inflammation TueMay 24 18:00:00 EST 2023May 31 01:00:00 EST 2023 sertraline 100 mg tablet 200mg TABLET Or al 1 Time Daily Indication: Depression2 [id number] MG TueMay 24 18:00:00 EST 2023May 31 01:00:00 EST 2023 QUEtiapine 100 mg tablet 1 tablet TABLET Oral 2 Times Daily Indication: Anxiety, OCD TueMay 24 18:00:00 EST 2023May 31 01:00:00 EST 2023 simvastatin 20 mg tablet 1 tablet TABLET Oral 1 Time Daily Indication: HLD TueMay 24 18:00:00 EST 2023May 31 01:00:00 EST 2023 zolpidem 10 mg tablet 1 tablet TABLET Or al PRN Hour Of Sleep Indication: INSOMNIA Tue Feb 01:00:00 EST 2023 Feb 01:00:00 EST 2023 ondansetron 4 mg disintegrating tablet 1 tablet TABLET,DISINTEGRATING Oral PRN Every 8 Hours Indication: NAUSEA AND VOMITING Tue Feb 19:00:00 EST 2023 Ana Luisa Feb 22 17:21:00 EST 2023 docusate sodium 100 mg capsule 1 capsule CAPSULE Oral 2 Times Daily Indication: Constipation Tue Feb 18:00:00 EST 2023 Feb 01:00:00 EST 2023 buPROPion HCL XL 300 mg 24 hr tablet, extended release 1 tablet TABLET, EXTENDED RELEASE 24 HR Oral 1 Time Daily Indication: Depression Tue Feb 18:00:00 EST 2023 Mon Feb 26 08:38:00 EST 2023 omeprazole 40 mg capsule,delayed release 1 CAP CAPSULE,DELAYED RELEASE (ENTERIC COATED) Oral 1 Time Daily Indication: GERD Tueb 18:00:00 EST 2023b 01:00:00 EST 2023 Adult 50 Plus Probiotic 4 billion cell capsule 1 CAP CAPSULE Oral 1 Time Daily Indication: dd Tueb 18:00:00 EST 2023 Feb 20 19:08:00 EST 2023 Adult 50 Plus Probiotic 4 billion cell capsule 1 capsule CAPSULE Oral 1 Time Daily Indication: GI proph Tueb 14:00:00 EST 2023 Feb 01:00:00 EST 2023 levoFLOXacin 750 mg tablet 1 tablet TABL ET Oral 1 Time Daily for 30 Days Indication: Prophylactic for osteomyelitis for second left toe Tueb 14:00:00 EST 2023 Feb 01:00:00 EST 2023 PreserVision AREDS 2,148 mcg-113 mg-45 mg-17.4 mg tablet 2 tablets TABLET Oral 1 Time Daily Indication: Eye Supplement Tue Feb 15:00:00 EST 2023 Feb 01:00:00 EST 2023 tamsulosin 0.4 mg capsule 1 capsule CAPS ULE Oral 1 Time Daily Indication: Urinary Retention Tue Feb 14:00:00 EST 2023 Feb 01:00:00 EST 2023 ceFAZolin 3 gram intravenous solution 6 Grams VIAL (EA) Intravenous 1 Time Daily for 28 Days Indication: osteomyelitis 6 gm IV over 24hs x 4 weeks Ana Luisa Apr 07 09:00:00 EST 2023Apr 06 12:55:00 EST 2023 heparin, porcine (PF) 10 unit/mL intravenous syringe 5 mL SYRINGE (ML) Intravenous 3 Times Daily for 24 Days Indication: IV 10 mL of NS, then medication, then follow with 10 mL NS, followed with 5 mL Heparin TueApr 06 00:00:00 EST 2023Apr 09 01:00: EST 2023 povidone-iodine 5 % eye solution paint SOLUTION, NON-ORAL Topical 1 Time Daily Indication: wound care TueMar 30 15:00:00 2022Apr 09 01:00: EST 2023 Pro-Stat AWC 17 gram-100 kcal/30 mL oral liquid 30 cc LIQUID (ML) Oral 1 Time Daily Indication: For wound healing TueMar 25 13:30:00 2022Apr 09 01:00: EST 2023 ceFAZolin 10 gram solution for injection 2 grams VIAL (EA) Intravenous 3 Times Daily for 36 Days Indication: Infuse 2g 100mL/hr every 8 hours d/t Osteomyelitis TueMar 25 18:00:00 2022Apr 09 01:00:00 EST 2023 Arginaid 4.5 gram-156 mg/9.2 gram oral powder packet 1 packet POWDER IN PACKET (EA) Oral 1 Time Daily Indication: supplement TueMar 25 13:45:00 2022Apr 09 01:00:00 EST 2023 Normal Saline Flush 0.9 % injection syringe 10ml syringe SYRINGE (ML) Intravenous 3 Times Daily for 36 Days Indication: IV 10ml of NS, then medication, then follow with 10ml of saline followed with 5ml Heparin. TueMar 25 18:00:00 EST 2022Apr 09 01:00: EST 2023 heparin lock flush (porcine) 10 unit/mL intravenous solution 5ml VIAL (ML) Intravenous 3 Times Daily for 36 Days Indication: IV 10ml of NS, then medication, then follow with 10ml of saline followed with 5ml Heparin. TueMar 25 18:00:00 EST 2022 TuApr 05 23:57:00 EST 2023 ceFAZolin 10 gram solution for injection 6 grams VIAL (EA) Intravenous 1 Time Daily for 36 Days Indication: Infuse 6g every 24 hours d/t Osteomyelitis TueMar 25 07:00:00 EST 2022Mar 24 20:08:00 EST 2022 zolpidem 10 mg tablet 1 tablet TABLET Or al PRN 1 Time Daily Indication: Insomnia TueMar 24 16:00:00 EST 2022 Sat Apr 09 01:00:00 EST 2023 lamoTRIgine 50 mg disintegrating tablet 1 tablet TABLET,DISINTEGRATING Oral 1 Time Daily Indication: Seizures TueMar 24 16:00:00 EST 2022 Sat Apr 09 01:00: EST 2023 buPROPion HCL XL 450 mg 24 hr tablet, extended release 1 tablet TABLET, EXTENDED RELEASE 24 HR Oral 1 Time Daily Indication: Depression TueMar 24 16:00: EST 2022 Sat Apr 09:00: EST 2023 sertraline 100 mg tablet 200mg TABLET Or al 1 Time Daily Indication: Depression TueMar 24 14:00:00 EST 2022 Sat Apr 09 01:00: EST 2023 QUEtiapine 100 mg tablet 1 tablet TABLET Oral 2 Times Daily Indication: Depression/Anxiety TueMar 24 17:00:00 EST 2022 Sat Apr 09 01:00: EST 2023 simvastatin 20 mg tablet 1 tablet TABLET Oral 1 Time Daily Indication: HLD TueMar 24 17:00:00 EST 2022Apr 09 01:00:00 EST 2023 oxyBUTYnin chloride 5 mg tablet 1 tablet TABLET Oral 1 Time Daily Indication: Urinary Incontinence TueMar 24 16:00:00 EST 2022Apr 09 01:00:00 EST 2023 naproxen 500 mg tablet 1 tablet TABLET O ral 2 Times Daily Indication: Pain/Inflammation TueMar 24 14:00:00 EST 2022 Sat Apr 09 01:00: EST 2023 nystatin 100,000 unit/gram topical powder 1 application POWDER (GRAM) Topical 2 Times Daily Indication: Apply powder to scrotum & nelida-area BID & PRN d/t fungal rash TueMar 25 07:00:00 EST 2022 Sat Apr 09 01:00:00 EST 2023 ceFAZolin 10 gram solution for injection 2 grams VIAL (EA) Intravenous 3 Times Daily for 36 Days Indication: Infuse 2g 100mL/hr every 8 hours d/t Osteomyelitis TueMar 25 06:00:00 EST 2022Mar 25 13:39:00 EST 2022 Problems Active Concerns * Hyperlipidemia, unspecified* Code: * Start Date: TueMar 24 00:00:00 EST 2022 * End Date: * Text: * Obsessive-compulsive disorder, unspecified* Code: * Start Date: TueMar 24 00:00:00 2022 * End Date: * Text: * Overactive bladder* Code: * Start Date: TueMar 24 00:00:00 EST 2022 * End Date: * Text: * Schizoaffective disorder, unspecified* Code: * Start Date: TueMay 24 00:00:00 EST 2023 * End Date: * Text: * Mixed hyperlipidemia* Code: * Start Date: TueMay 24 00:00:00 EST 2023 * End Date: * Text: * Radiculopathy, lumbar region* Code: * Start Date: TueMay 24 00:00:00 EST 2023 * End Date: * Text: * Unspecified urinary incontinence* Code: * Start Date: TueMay 24 00:00:00 EST 2023 * End Date: * Text: * Other fatigue* Code: * Start Date: TueDec 15 00:00:00 EDT 2023 * End Date: * Text: * Need for assistance with personal care* Code: * Start Date: TueDec 15 00:00:00 EDT 2023 * End Date: * Text: * group home (current) use of aspirin* Code: * Start Date: TueMay 31 00:00:00 2023 * End Date: * Text: * Chronic kidney disease, stage 3 unspecified* Code: * Start Date: TueMay 31 00:00:00 EST 2023 * End Date: * Text: * Vitamin D deficiency, unspecified* Code: * Start Date: TueMay 31 00:00:00 EST 2023 * End Date: * Text: * Hypertensive chronic 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 chronic kidney disease, or unspecified chronic kidney disease* Code: * Start Date: TueMay 31 00:00:00 EST 2023 * End Date: * Text: * Personal history of other endocrine, nutritional and metabolic disease* Code: * Start Date: TueMay 31 00:00:00 EST 2023 * End Date: * Text: * Generalized anxiety disorder* Code: * Start Date: TueJul 12:00:00 EDT 2022 * End Date: * Text: * Major depressive disorder, single episode, unspecified* Code: * Start Date: TueJul 12 00:00:00 EDT 2022 * End Date: * Text: * Insomnia due to other mental disorder* Code: * Start Date: TueMar 07 00:00:00 EST 2023 * End Date: * Text: * Primary generalized (osteo)arthritis* Code: * Start Date: TueMar 07 00:00:00 EST 2023 * End Date: * Text: Resolved Concerns * Problem Other acute osteomyelitis, left ankle and foot* Code: * Start Date: TueMar 24 00:00:00 EST 2022 * End Date: TueMar 14 00:00:00 EST 2023 * Problem Cellulitis of left toe* Code: * Start Date: TueMar 24 00:00:00 EST 2022 * End Date: TueMar 14 00:00:00 EST 2023 * Problem Methicillin susceptible Staphylococcus aureus infection as the [facility]* Code: * Start Date: TueMar 24 00:00:00 EST 2022 * End Date: TueMar 14 00:00:00 EST 2023 * Problem Insomnia, unspecified* Code: * Start Date: TueMar 24 00:00:00 EST 2022 * End Date: TueMar 07 00:00:00 EST 2023 * Problem Anxiety disorder, unspecified* Code: * Start Date: TueMar 24 00:00:00 EST 2022 * End Date: TueMar 14 00:00:00 EST 2023 * Problem Depression, unspecified* Code: * Start Date: TueMar 24 00:00:00 EST 2022 * End Date: TueMar 14 00:00:00 EST 2023 * Problem Encounter for surgical aftercare following surgery on the skin and subcutaneous tissue* Code: * Start Date: TueMar 24 00:00:00 EST 2022 * End Date: TueMar 14 00:00:00 EST 2023 * Problem Encounter for adjustment and management of vascular access device* Code: * Start Date: TueMar 24 00:00:00 EST 2022 * End Date: TueMar 14 00:00:00 EST 2023 * Problem group home (current) use of antibiotics* Code: * Start Date: TueMar 24 00:00:00 EST 2022 * End Date: TueMar 07 00:00:00 EST 2023 * Problem Unspecified osteoarthritis, unspecified site* Code: * Start Date: TueMar 24 00:00:00 EST 2022 * End Date: TueMar 07 00:00:00 EST 2023 * Problem Bilateral inguinal hernia, without obstruction or gangrene, not specified as recurrent* Code: * Start Date: TueMay 24 00:00:00 EST 2023 * End Date: TueMar 14 00:00:00 EST 2023 * Problem Encounter for surgical aftercare following surgery on the digestive system* Code: * Start Date: TueMay 24 00:00:00 EST 2023 * End Date: TueMar 14 00:00:00 EST 2023 * Problem Subacute osteomyelitis, left ankle and foot* Code: * Start Date: TueMay 24 00:00:00 EST 2023 * End Date: TueMar 14 00:00:00 EST 2023 * Problem Essential (primary) hypertension* Code: * Start Date: TueMay 24 00:00:00 EST 2023 * End Date: TueMar 14 00:00:00 EST 2023 * Problem Osteomyelitis, unspecified* Code: * Start Date: TueJun 08 00:00:00 EST 2023 * End Date: TueMar 14 00:00:00 EST 2023 * Problem Weakness* Code: * Start Date: TueJun 08 00:00:00 EST 2023 * End Date: TueMar 14 00:00:00 EST 2023 * Problem Unsteadiness on feet* Code: * Start Date: TueJun 08 00:00:00 EST 2023 * End Date: TueMar 14 00:00:00 EST 2023 Vital Signs Vital Sign Measurement Date Systolic Blood Pressure 107.00 mm[Hg] [facility] Jun 16 21:16:41 EDT 2024 Diastolic Blood Pressure 74.00 mm[Hg] [facility] Jun 16 21:16:41 EDT 2024 Body weight 200.20 [lb_av] [facility] Jun 16 21:16 :41 EDT 2024 Heart Rate 84.00 /min [facility] Jun 16:16 :41 EDT 2024 Body temperature 98.10 [degF] [facility] Jun 16 21:1 6:41 EDT 2024 Respiratory rate 20.00 /min [facility] Jun 16 21:1 6:41 EDT 2024 Pulse Oximetry 94.00 % [facility] Jun 16 21:16 :41 EDT 2024 Systolic Blood Pressure 138.00 mm[Hg] Sat Jun 02 21:49:24 EST 2024 Diastolic Blood Pressure 68.00 mm[Hg] Sat Jun 02 21:49:24 EST 2024 Heart Rate 76.00 /min [facility] Jun 02 21:49 :24 EST 2024 Body temperature 98.00 [degF] [facility] Jun 02 21:4 9:24 EST 2024 Respiratory rate 18.00 /min [facility] Jun 02 21:4 9:24 EST 2024 Pulse Oximetry 97.00 % [facility] Jun 02 21:49 :24 EST 2024 Systolic Blood Pressure 149.00 mm[Hg] Tue Feb 06:15:00 EST 2024 Diastolic Blood Pressure 79.00 mm[Hg] Tue Feb 06:15:00 EST 2024 Heart Rate 79.00 /min Tue Feb 06:15 :00 EST 2024 Body temperature 97.70 [degF] Tue Feb 06:1 5:00 EST 2024 Respiratory rate 20.00 /min Tue Feb 06:1 5:00 EST 2024 Pulse Oximetry 95.00 % Tue Feb 06:15 :00 EST 2024 Systolic Blood Pressure 133.00 mm[Hg] Sat Feb 15 21:00:08 EST 2024 Diastolic Blood Pressure 68.00 mm[Hg] Sat Feb 15 21:00:08 EST 2024 Body weight 0.00 [lb_av] Sat Feb 15 21:00 :08 EST 2024 Heart Rate 76.00 /min Sat Feb 15 21:00 :08 EST 2024 Body temperature 98.00 [degF] Sat Feb 15 21:0 0:08 EST 2024 Respiratory rate 18.00 /min Sat Feb 15 21:0 0:08 EST 2024 Pulse Oximetry 96.00 % Sat Feb 15 21:00 :08 EST 2024 Systolic Blood Pressure 139.00 mm[Hg] Sat Feb 15:54:54 EST 2024 Diastolic Blood Pressure 72.00 mm[Hg] Sat Feb 15:54:54 EST 2024 Body weight 208.40 [lb_av] Sat Feb 15:54 :54 EST 2024 Heart Rate 64.00 /min Sat Feb 15:54 :54 EST 2024 Body temperature 98.00 [degF] Sat Feb 15:5 4:54 EST 2024 Respiratory rate 18.00 /min TueMay 05 15:5 4:54 EST 2024 Pulse Oximetry 96.00 % [facility] May 05 15:54 :54 EST 2024 Body temperature 97.40 [degF] TueApr 23 17:4 3:32 EST 2024 Body temperature 98.10 [degF] TueApr 22 21:0 6:15 EST 2024 Body temperature 98.10 [degF] TueApr 22 17:0 5:39 EST 2024 Body temperature 97.60 [degF] [facility] Apr 21 21:4 3:40 EST 2024 Body temperature 97.90 [degF] [facility] Apr 21 13:5 9:28 EST 2024 Body temperature 97.70 [degF] TueApr 20 22:1 7:46 EST 2024 Systolic Blood Pressure 136.00 mm[Hg] TueApr 19 10:53:15 EST 2024 Diastolic Blood Pressure 79.00 mm[Hg] TueApr 19 10:53:15 2024 Body weight 208.30 [lb_av] TueApr 19 10:53 :15 EST 2024 Heart Rate 74.00 /min TueApr 19 10:53 :15 2024 Body temperature 97.80 [degF] TueApr 19 10:5 3:15 2024 Respiratory rate 20.00 /min TueApr 19 10:5 3:15 2024 Pulse Oximetry 98.00 % TueApr 19 10:53 :15 2024 Systolic Blood Pressure 123.00 mm[Hg] TueApr 04 21:29:07 2024 Diastolic Blood Pressure 78.00 mm[Hg] TueApr 04 21:29:07 EST 2024 Body temperature 97.90 [degF] TueApr 04 21:2 9:07 2024 Body weight 207.30 [lb_av] TueApr 04 21:29 :07 EST 2024 Heart Rate 79.00 /min TueApr 04 21:29 :07 2024 Respiratory rate 18.00 /min TueApr 04 21:2 9:07 2024 Pulse Oximetry 98.00 % TueApr 04 21:29 :07 EST 2024 Systolic Blood Pressure 113.00 mm[Hg] TueMar 18 18:41:12 EST 2023 Diastolic Blood Pressure 80.00 mm[Hg] TueMar 18 18:41:12 EST 2023 Pulse Oximetry 94.00 % TueMar 18 18:41 :12 EST 2023 Body weight 207.40 [lb_av] TueMar 18 18:41 :12 EST 2023 Heart Rate 99.00 /min TueMar 18 18:41 :12 EST 2023 Body temperature 97.60 [degF] TueMar 18 18:4 1:12 EST 2023 Respiratory rate 18.00 /min TueMar 18 18:4 1:12 EST 2023 Systolic Blood Pressure 127.00 mm[Hg] TueMar 05 11:42:09 EST 2023 Diastolic Blood Pressure 75.00 mm[Hg] TueMar 05 11:42:09 EST 2023 Body weight 209.00 [lb_av] TueMar 05 11:42 :09 EST 2023 Heart Rate 79.00 /min TueMar 05 11:42 :09 EST 2023 Body temperature 97.10 [degF] TueMar 05 11:4 2:09 EST 2023 Respiratory rate 18.00 /min TueMar 05 11:4 2:09 EST 2023 Pulse Oximetry 93.00 % TueMar 05 11:42 :09 EST 2023 Systolic Blood Pressure 119.00 mm[Hg] TueFeb 23 00:14:00 EST 2023 Diastolic Blood Pressure 72.00 mm[Hg] TueFeb 23 00:14:00 EST 2023 Heart Rate 98.00 /min TueFeb 23 00:14 :00 EST 2023 Body temperature 97.30 [degF] TueFeb 23 00:1 4:00 EST 2023 Respiratory rate 20.00 /min TueFeb 23 00:1 4:00 EST 2023 Pulse Oximetry 94.00 % TueFeb 23 00:14 :00 EST 2023 Systolic Blood Pressure 129.00 mm[Hg] TueFeb 02 19:18:54 EDT 2023 Diastolic Blood Pressure 74.00 mm[Hg] TueFeb 02 19:18:54 EDT 2023 Body weight 210.60 [lb_av] TueFeb 02 19:18 :54 EDT 2023 Heart Rate 97.00 /min TueFeb 02 19:18 :54 EDT 2023 Body temperature 97.70 [degF] TueFeb 02 19:1 8:54 EDT 2023 Respiratory rate 20.00 /min TueFeb 02 19:1 8:54 EDT 2023 Systolic Blood Pressure 120.00 mm[Hg] TueJan 16 21:16:28 EDT 2023 Diastolic Blood Pressure 70.00 mm[Hg] [facility] Jan 16 21:16:28 EDT 2023 Body weight 211.00 [lb_av] Jan 16 21:16 :28 EDT 2023 Heart Rate 84.00 /min [facility] Jan 16 21:16 :28 EDT 2023 Body temperature 97.50 [degF] [facility] Jan 16 21:1 6:28 EDT 2023 Respiratory rate 18.00 /min [facility] Jan 16 21:1 6:28 EDT 2023 Body temperature 97.90 [degF] [facility] 13:2 8:30 EDT 2023 Body temperature 97.70 [degF] [facility] 13:2 6:40 EDT 2023 Body temperature 98.20 [degF] [facility] 12 18:0 1:23 EDT 2023 Body temperature 97.90 [degF] [facility] 16:0 2:07 EDT 2023 Body temperature 98.20 [degF] [facility] 21:3 8:59 EDT 2023 Body temperature 97.50 [degF] [facility] 14:2 4:40 EDT 2023 Body temperature 97.40 [degF] [facility] 03:0 9:21 EDT 2023 Systolic Blood Pressure 135.00 mm[Hg] [facility] Jan 02 22:46:25 EDT 2023 Diastolic Blood Pressure 78.00 mm[Hg] [facility] Jan 02 22:46:25 EDT 2023 Body weight 216.80 [lb_av] [facility] Jan 02 22:46 :25 EDT 2023 Heart Rate 82.00 /min Jan 02 22:46 :25 EDT 2023 Body temperature 98.20 [degF] [facility] Jan 02 22:4 6:25 EDT 2023 Respiratory rate 20.00 /min [facility] Jan 02 22:4 6:25 EDT 2023 Systolic Blood Pressure 82.00 mm[Hg] Sat Sep 03:51:00 EDT 2023 Diastolic Blood Pressure 58.00 mm[Hg] Sat Sep 03:51:00 EDT 2023 Heart Rate 102.00 /min Sat Sep 21 03:51 :00 EDT 2023 Body temperature 97.00 [degF] Sat Sep 21 03:5 1:00 EDT 2023 Respiratory rate 22.00 /min Sat Sep 21 03:5 1:00 EDT 2023 Pulse Oximetry 95.00 % [facility] 03:51 :00 EDT 2023 Systolic Blood Pressure 140.00 mm[Hg] [facility] Sep 15 20:32:47 EDT 2023 Diastolic Blood Pressure 76.00 mm[Hg] [facility] Sep 15 20:32:47 EDT 2023 Body weight 212.00 [lb_av] [facility] Sep 15 20:32 :47 EDT 2023 Heart Rate 90.00 /min [facility] 15 20:32 :47 EDT 2023 Body temperature 97.50 [degF] [facility] 15 20:3 2:47 EDT 2023 Respiratory rate 18.00 /min [facility] 20:3 2:47 EDT 2023 Systolic Blood Pressure 106.00 mm[Hg] [facility] 21:11:20 EDT 2023 Diastolic Blood Pressure 72.00 mm[Hg] [facility] 21:11:20 EDT 2023 Body weight 214.60 [lb_av] [facility] 21:11 :20 EDT 2023 Heart Rate 98.00 /min [facility] 21:11 :20 EDT 2023 Body temperature 97.00 [degF] [facility] 21:1 1:20 EDT 2023 Respiratory rate 18.00 /min [facility] 21:1 1:20 EDT 2023 Systolic Blood Pressure 149.00 mm[Hg] [facility] Nov 16 20:23:43 EDT 2023 Diastolic Blood Pressure 79.00 mm[Hg] [facility] Nov 16 20:23:43 EDT 2023 Heart Rate 93.00 /min [facility] Nov 16 20:23 :43 EDT 2023 Respiratory rate 18.00 /min [facility] Nov 16 20:2 3:43 EDT 2023 Body temperature 96.80 [degF] [facility] Nov 16 20:2 3:43 EDT 2023 Systolic Blood Pressure 111.00 mm[Hg] TueNov 02 20:52:47 EDT 2023 Diastolic Blood Pressure 61.00 mm[Hg] [facility] Nov 02 20:52:47 EDT 2023 Body weight 220.60 [lb_av] [facility] Nov 02 20:52 :47 EDT 2023 Heart Rate 96.00 /min [facility] Nov 02 20:52 :47 EDT 2023 Body temperature 97.90 [degF] [facility] Nov 02 20:5 2:47 EDT 2024 Respiratory rate 18.00 /min [facility] Nov 02 20:5 2:47 EDT 4 Systolic Blood Pressure 139.00 mm[Hg] TueOct 16 18:18:12 EDT 2023 Diastolic Blood Pressure 88.00 mm[Hg] TueOct 16 18:18:12 EDT 4 Body weight 217.80 [lb_av] TueOct 16 18:18 :12 EDT 2023 Heart Rate 106.00 /min TueOct 16 18:18 :12 EDT 2023 Body temperature 98.20 [degF] TueOct 16 18:1 8:12 EDT 2023 Respiratory rate 18.00 /min TueOct 16 18:1 8:12 EDT 2023 Systolic Blood Pressure 123.00 mm[Hg] TueOct 02 18:49:14 EDT 2023 Diastolic Blood Pressure 74.00 mm[Hg] TueOct 02 18:49:14 EDT 2023 Body weight 215.20 [lb_av] TueOct 02 18:49 :14 EDT 2023 Heart Rate 92.00 /min TueOct 02 18:49 :14 EDT 2023 Body temperature 97.20 [degF] TueOct 02 18:4 9:14 EDT 4 Respiratory rate 18.00 /min TueOct 02 18:4 9:14 EDT 4 Systolic Blood Pressure 130.00 mm[Hg] [facility] Sep 16 22:10:55 EDT 2023 Diastolic Blood Pressure 79.00 mm[Hg] [facility] Sep 16 22:10:55 EDT 4 Body weight 215.30 [lb_av] [facility] Sep 16 22:10 :55 EDT 2023 Heart Rate 98.00 /min [facility] Sep 16 22:10 :55 EDT 2023 Body temperature 97.60 [degF] [facility] Sep 16 22:1 0:55 EDT 2023 Respiratory rate 18.00 /min [facility] 22:1 0:55 EDT 2023 Systolic Blood Pressure 113.00 mm[Hg] [facility] Sep 02 22:12:21 EDT 2023 Diastolic Blood Pressure 67.00 mm[Hg] [facility] Sep 02 22:12:21 EDT 2023 Body weight 212.00 [lb_av] [facility] Sep 02 22:12 :21 EDT 2023 Heart Rate 69.00 /min [facility] Sep 02 22:12 :21 EDT 2023 Body temperature 97.90 [degF] TueSep 02 22:1 2:21 EDT 2023 Respiratory rate 20.00 /min TueSep 02 22:1 2:21 EDT 2023 Systolic Blood Pressure 115.00 mm[Hg] TueAugust 16 18:06:24 EDT 2023 Diastolic Blood Pressure 70.00 mm[Hg] TueAugust 16 18:06:24 EDT 2023 Body weight 207.00 [lb_av] TueAugust 16 18:06 :24 EDT 2023 Heart Rate 77.00 /min TueAugust 16 18:06 :24 EDT 2023 Body temperature 99.40 [degF] TueAugust 16 18:0 6:24 EDT 2023 Respiratory rate 20.00 /min TueAugust 16 18:0 6:24 EDT 2023 Systolic Blood Pressure 136.00 mm[Hg] TueAugust 02 15:55:57 EDT 2023 Diastolic Blood Pressure 85.00 mm[Hg] TueAugust 02 15:55:57 EDT 2023 Body weight 199.80 [lb_av] TueAugust 02 15:55 :57 EDT 2023 Heart Rate 79.00 /min TueAugust 02 15:55 :57 EDT 2023 Body temperature 98.30 [degF] TueAugust 02 15:5 5:57 EDT 2023 Respiratory rate 24.00 /min TueAugust 02 15:5 5:57 EDT 2023 Systolic Blood Pressure 135.00 mm[Hg] TueJul 17 20:50:08 EDT 2023 Diastolic Blood Pressure 60.00 mm[Hg] TueJul 17 20:50:08 EDT 2023 Body weight 198.10 [lb_av] TueJul 17 20:50 :08 EDT 2023 Heart Rate 69.00 /min TueJul 17 20:50 :08 EDT 2023 Body temperature 97.70 [degF] TueJul 17 20:5 0:08 EDT 2023 Respiratory rate 18.00 /min TueJul 17 20:5 0:08 EDT 2023 Body weight 197.40 [lb_av] TueJul 04 07:15 :17 EDT 2023 Systolic Blood Pressure 137.00 mm[Hg] TueJul 03 21:01:06 EDT 2023 Diastolic Blood Pressure 67.00 mm[Hg] TueJul 03 21:01:06 EDT 2023 Body weight 200.10 [lb_av] TueJul 03 21:01 :06 EDT 2023 Heart Rate 74.00 /min TueJul 03 21:01 :06 EDT 2023 Body temperature 97.70 [degF] TueJul 03 21:0 1:06 EDT 2023 Respiratory rate 18.00 /min TueJul 03 21:0 1:06 EDT 2023 Reason for Referral Past Medical History Resolved Concerns * Problem Other acute osteomyelitis, left ankle and foot* Code: * Start Date: TueMar 24 00:00:00 EST 2022 * End Date: TueMar 14 00:00:00 EST 2023 * Problem Cellulitis of left toe* Code: * Start Date: TueMar 24 00:00:00 EST 2022 * End Date: TueMar 14 00:00:00 EST 2023 * Problem Methicillin susceptible Staphylococcus aureus infection as the cause of diseases classifiedelshere* Code: * Start Date: TueMar 24 00:00:00 EST 2022 * End Date: TueMar 14 00:00:00 EST 2023 * Problem Insomnia, unspecified* Code: * Start Date: TueMar 24 00:00:00 EST 2022 * End Date: TueMar 07 00:00:00 EST 2023 * Problem Anxiety disorder, unspecified* Code: * Start Date: TueMar 24 00:00:00 EST 2022 * End Date: TueMar 14 00:00:00 EST 2023 * Problem Depression, unspecified* Code: * Start Date: TueMar 24 00:00:00 EST 2022 * End Date: TueMar 14 00:00:00 EST 2023 * Problem Encounter for surgical aftercare following surgery on the skin and subcutaneous tissue* Code: * Start Date: TueMar 24 00:00:00 EST 2022 * End Date: TueMar 14 00:00:00 EST 2023 * Problem Encounter for adjustment and management of vascular access device* Code: * Start Date: TueMar 24 00:00:00 EST 2022 * End Date: TueMar 14 00:00:00 EST 2023 * Problem group home (current) use of antibiotics* Code: * Start Date: TueMar 24 00:00:00 EST 2022 * End Date: TueMar 07 00:00:00 EST 2023 * Problem Unspecified osteoarthritis, unspecified site* Code: * Start Date: TueMar 24 00:00:00 EST 2022 * End Date: TueMar 07 00:00:00 EST 2023 * Problem Bilateral inguinal hernia, without obstruction or gangrene, not specified as recurrent* Code: * Start Date: TueMay 24 00:00:00 EST 2023 * End Date: TueMar 14 00:00:00 EST 2023 * Problem Encounter for surgical aftercare following surgery on the digestive system* Code: * Start Date: TueMay 24 00:00:00 EST 2023 * End Date: TueMar 14 00:00:00 EST 2023 * Problem Subacute osteomyelitis, left ankle and foot* Code: * Start Date: TueMay 24 00:00:00 EST 2023 * End Date: TueMar 14 00:00:00 EST 2023 * Problem Essential (primary) hypertension* Code: * Start Date: TueMay 24 00:00:00 EST 2023 * End Date: TueMar 14 00:00:00 EST 2023 * Problem Osteomyelitis, unspecified* Code: * Start Date: TueJun 08 00:00:00 2023 * End Date: TueMar 14 00:00:00 EST 2023 * Problem Weakness* Code: * Start Date: TueJun 08 00:00:00 EST 2023 * End Date: TueMar 14 00:00:00 EST 2023 * Problem Unsteadiness on feet* Code: * Start Date: TueJun 08 00:00:00 EST 2023 * End Date: TueMar 14 00:00:00 EST 2023
--- NOTE | 2024-06-26 07:30 | PM.IMHP ---
H&P: HPI History of Present Illness Date/Time: 06/26/24 07:30 Chief Complaint: elevated psa Narrative: 69 yr old with elevated psa and abnormal mri. Here for uronav us and prostate biopsy Review of Systems Review of Systems: All systems reviewed & are unremarkable except as noted in HPI and below [facility] Past Medical History Medical History Dyslipidemia Anxiety and depression Insomnia Hyperlipidemia Surgical History Surgical History Hx of inguinal hernia repair Open bilateral inguinal hernia repairs with [facility] mesh 05/20/23 [facility] History of incision and drainage I&D of left 2nd toe abscess 03/18/23. H/O colonoscopy Family History Family History Mother Family history of arthritis Acute myocardial infarction Hypertension Father Family history of malignant neoplasm Social History Social History Smoking status: Never smoker Alcohol intake: never Substance use: never Substance use type: does not use Do You Feel Safe in your Home?: Yes Lack of Transportation: No Lack of Food: Never True Current Housing: I Have Housing Concerned About Future Housing: No Difficulty Paying Gas/Electric Bills: No Difficulty Paying for Meds: No Currently Unemployed: No Education: Bachelor's Degree Difficulty w/ Childcare or Family Care: No Living arrangements: assisted living Spiritual care concerns: No Meds Home Medications and Allergies Home Medications ?Medication ?Instructions ?Recorded ?Confirmed ?Type sertraline 100 mg tablet 200 mg PO HS 09/16/22 06/18/24 History simvastatin 20 mg tablet 20 mg PO QPM 09/16/22 06/18/24 History zolpidem 10 mg tablet 10 mg PO HS Insomnia 03/16/23 06/18/24 History bupropion HCl 300 mg 24 hr tablet, 300 mg PO QAM 05/12/23 06/18/24 History extended release omeprazole 40 mg capsule,delayed 40 mg PO DAILY 05/12/23 06/18/24 History release vitamins A,C,Y-evkf-lwavzz 2,148 2 tablet PO DAILY 05/13/23 06/18/24 History mcg-113 mg-45 mg-17.4 mg tablet (PreserVision AREDS) acetaminophen 500 mg tablet 1,000 mg PO Q8H PRN pain 06/18/24 06/18/24 History (Acetaminophen Extra Strength) aspirin 81 mg chewable tablet 81 mg PO DAILY 06/18/24 06/18/24 History cetirizine 10 mg tablet (24Hour 10 mg PO DAILY 06/18/24 06/18/24 History Allergy) cholecalciferol (vitamin D3) 1,250 1,250 mcg PO WEEKLY 06/18/24 06/18/24 History mcg (50,000 unit) tablet cyanocobalamin (vitamin B-12) 1,000 mcg PO DAILY 06/18/24 06/18/24 History 1,000 mcg capsule lactobacillus combination no.4 3 4,000 mmu cells PO DAILY 06/18/24 06/18/24 History billion cell capsule (Probiotic) oxybutynin chloride 15 mg 15 mg PO DAILY 06/18/24 06/18/24 History tablet,extended release 24 hr quetiapine 50 mg tablet 50 mg PO HS 06/18/24 06/18/24 History sodium phosphates 19 gram-7 118 ml RECTAL DAILY 06/18/24 06/18/24 History gram/118 mL enema (Enema) Allergies Allergy/AdvReac Type Severity Reaction Status Date / Time No Known Allergies Allergy Verified 06/18/24 10:22 Exam Const: General: cooperative and comfortable Resp: Effort & Inspection: normal respiratory effort Cardio: Rate: regular rate Rhythm: regular rhythm Assessment and Plan Assessment and plan (1) Elevated PSA: Code(s): R97.20 - Elevated prostate specific antigen [PSA] Status: Acute Assessment and Plan: Proceed with uronav us and prostate biopsy
--- NOTE | 2024-06-26 07:34 | WPDHPUPDATE1 ---
History and Physical Update Update Date/Time: 06/26/24 07:34 History and Physical has been reviewed, including an updated exam of the patient. There are NO changes in the patient's condition. Risks, benefits, and alternatives have been discussed and questions answered. Patient agrees to proceed with procedure.
[2024-06-26 08:30] VITALS: BP 130/83; PULSE 95; RESP 14; TEMP 36.5; O2SAT 98; BMI 25.9
[2024-06-26] MEDS: LACTATED RINGERS 1,000 ML 30 ML IV CONT (08:55)
--- NOTE | 2024-06-26 09:37 | P.PNAN_ITS ---
Anes - Initial Pre Proc Eval Procedure: Operation Date: 06/26/24 10:30 Proposed Procedures p Trans Rectal Ultrasound Fusion Guided Prostate Biopsy - Luis Eduardo Jackson MD Date/Time: 06/26/24 09:37 Surgeon: Luis Eduardo Jackson MD Pre Op Diagnosis: elevated PSA Patient Data Age: 69 Gender: M Height: 1.85 m Weight: 89.2 kg Last Vital Signs Temp 97.7 F 06/26/24 08:30 Pulse 95 06/26/24 08:30 Resp 14 06/26/24 08:30 BP 130/83 06/26/24 08:30 Pulse Ox 98 06/26/24 08:30 O2 Del Method Room Air 06/26/24 08:30 Allergies Allergy/AdvReac Type Severity Reaction Status Date / Time No Known Allergies Allergy Verified 06/26/24 08:52 Home Medications ?Medication ?Instructions ?Recorded ?Confirmed ?Type sertraline 100 mg tablet 200 mg PO HS 09/16/22 06/18/24 History simvastatin 20 mg tablet 20 mg PO QPM 09/16/22 06/18/24 History zolpidem 10 mg tablet 10 mg PO HS Insomnia 03/16/23 06/18/24 History bupropion HCl 300 mg 24 hr tablet, 300 mg PO QAM 05/12/23 06/26/24 History extended release omeprazole 40 mg capsule,delayed 40 mg PO DAILY 05/12/23 06/18/24 History release vitamins A,C,I-zzrr-nhigvv 2,148 2 tablet PO DAILY 05/13/23 06/26/24 History mcg-113 mg-45 mg-17.4 mg tablet (PreserVision AREDS) acetaminophen 500 mg tablet 1,000 mg PO Q8H PRN pain 06/18/24 06/18/24 History (Acetaminophen Extra Strength) aspirin 81 mg chewable tablet 81 mg PO DAILY 06/18/24 06/26/24 History cetirizine 10 mg tablet (24Hour 10 mg PO DAILY 06/18/24 06/18/24 History Allergy) cholecalciferol (vitamin D3) 1,250 1,250 mcg PO WEEKLY 06/18/24 06/26/24 History mcg (50,000 unit) tablet cyanocobalamin (vitamin B-12) 1,000 mcg PO DAILY 06/18/24 06/26/24 History 1,000 mcg capsule lactobacillus combination no.4 3 4,000 mmu cells PO DAILY 06/18/24 06/26/24 History billion cell capsule (Probiotic) oxybutynin chloride 15 mg 15 mg PO DAILY 06/18/24 06/18/24 History tablet,extended release 24 hr quetiapine 50 mg tablet 50 mg PO HS 06/18/24 06/18/24 History sodium phosphates 19 gram-7 118 ml RECTAL DAILY 06/18/24 06/26/24 History gram/118 mL enema (Enema) Patient hx anesthesia problems: none Family hx anesthesia problems: none Results Review: All pre-operative results and documents have been reviewed as part of the pre- operative evaluation. [facility] Past Medical History Medical History Dyslipidemia Anxiety and depression Insomnia Hyperlipidemia Surgical History Surgical History Hx of inguinal hernia repair Open bilateral inguinal hernia repairs with UHS mesh 05/20/23 SAW History of incision and drainage I&D of left 2nd toe abscess 03/18/23. H/O colonoscopy Family History Family History Mother Family history of arthritis Acute myocardial infarction Hypertension Father Family history of malignant neoplasm Social History Social History Smoking status: Never smoker Alcohol intake: never Substance use: never Substance use type: does not use Do You Feel Safe in your Home?: Yes Lack of Transportation: No Lack of Food: Never True Current Housing: I Have Housing Concerned About Future Housing: No Difficulty Paying Gas/Electric Bills: No Difficulty Paying for Meds: No Currently Unemployed: No Education: Bachelor's Degree Difficulty w/ Childcare or Family Care: No Living arrangements: assisted living Spiritual care concerns: No Anes - Eval Final PreProcedure Day of Procedure 06/26/24 09:37 Patient weight: overweight Lungs: normal air movement Airway: Mallampati scale and special considerations (Upper edentulous, lower missing many teeth, none loose. ) Neurological: alert and oriented Last oral intake: >/= 8 hours ASA classification: II Emergent: no Anesthetic plan: proceed Anesthesia type and monitoring: general GIVS and standard monitoring Results Review: All pre-operative results and documents have been reviewed as part of the pre-operative evaluation. Hyperlipidemia, pt uses an assistive device due to severe lower back pain, no cp or sob w ambulating short distances. Informed Consent: The patient's anesthetic plan and its attendant risks and benefits were discussed with the patient/family/POA. Questions were solicited and answers provided to the satisfaction of the patient/family/POA.
[2024-06-26] MEDS: ceFAZolin 2 GM/D5W 50 ML 2 GM/50 ML BAG IVPB (09:53)
--- NOTE | 2024-06-26 09:59 | W.PM.PROC2 ---
Procedure Note - Detailed Date of Procedure 06/26/24 Pre-op Diagnosis elevated PSA Post-op Diagnosis Same Procedure Performed Uronav us and prostate biopsy Surgeon Luis Eduardo Jackson MD Anesthesia General Description of Procedure Patient was taken to the operative suite correctly identified. He was placed in lateral decubitus position. Anesthesia was given. Transrectal ultrasound was then performed and the MRI was fused on the ultrasound machine. One single region of interest was visualized in 3 biopsies were taken from this site. Twelve standard cores were then taken. Patient tolerated procedure well without any complications and was taken recovery stable condition. He will call for path results in 1 week. This completes dictation. Please send a copy of op note to my office Estimated Blood Loss 0 Drains No Packing No Pathology Yes Complications No immediate complications Condition Stable Disposition PACU
[2024-06-26 10:03] VITALS: BP 100/64; PULSE 70; RESP 16; O2SAT 94
[2024-06-26 10:30] VITALS: BP 108/65; PULSE 68; RESP 16
[2024-06-26 10:51] VITALS: BP 126/72; PULSE 70; RESP 16
== END 2024-06-26 11:00 | disposition home or self-care (01) ==
PROVIDERS: PCP Family Medicine; Visit Provider Urology
PROC: (CPT 55700; principal; 2024-06-26 10:30)
DX: C61 Malignant neoplasm of prostate (principal); R97.20 Elevated prostate specific antigen [PSA]; E78.5 Hyperlipidemia, unspecified; F41.8 Other specified anxiety disorders; G47.00 Insomnia, unspecified; Z79.82 Long term (current) use of aspirin; Z98.890 Other specified postprocedural states; Z80.9 Family history of malignant neoplasm, unspecified; Z82.49 Family history of ischemic heart disease and other diseases of the circulatory system
CPT/HCPCS: 76872; 55700; G0416; J0690; J2003; J2405; J2704; J3010; J7120

== ENCOUNTER 2024-07-18 12:30 | Outpatient (CLI) | payer MEDICARE, SELFPAY ==
--- NOTE | ~2024-07-18 | PE_ITS ---
EXAMINATION: PET_PETPSMAST_PT DATE: 07/18/2024 14:44 INDICATION: Prostate cancer TECHNIQUE: 5.14 mCi of Illucix Ga-68([id number]) was administered i.v. Low dose computed tomog zulema (CT) images were acquired from the base of the brain to the base of the brain to the proximal t highs for attenuation correction and anatomic localization. Positron emission tomography (PET) images were acquired in the same distribution beginning 72 minutes after injection. Images including fused PET/CT images were reconstructed in axial, coronal, and sagittal planes. Automated exposure control t echnique was employed. The dose-length product was 1041.85mGy-cm. COMPARISON: None FINDINGS: Head/neck: Typical pattern of symmetric physiologic increased activity in the lacrimal, parotid and submandibula r glands as well as along the mucosa of the nasal and oral cavities, pharynx and hypopharynx. No path ologically enlarged cervical lymphadenopathy or suspicious foci of increased uptake in the visualized head or neck. Chest: There is some respiratory motion and mild atelectasis in both lungs. No suspicious pulmonary nodules, pneumonia or pleural effusion. Heart size is normal. Atherosclerotic coronary artery calcification. No pericardial effusion. Thoracic aorta is normal in caliber. No pathologically enlarged or PSMA avid thoracic lymphadenopathy. Abdomen/pelvis/proximal thighs: Physiologic renal accumulation and excretion of activity in the kidneys, bladder and along portions o f ureters. Prostatomegaly measuring 5.4 x 3.7 cm. There is an approximately 1 cm small focus of mild increased uptake at the left posterior aspect of the prostate with maximal SUV of 4.0 which likely re presents the site of reported primary prostate cancer. 1 cm low-attenuation cyst in the right hepatic lobe. There is also a hepatic calcified lesions consistent with old granulomatous disease. Normal de gree and slightly heterogenous pattern of increased uptake throughout the liver and spleen without ra diologic correlate or dominant PSMA avid lesion. The gallbladder, pancreas and bilateral adrenal glan ds are normal. Moderate uptake scattered throughout the bowels with typical duodenal and proximal jej unal predominance and without radiologic correlate, also likely physiologic. No other abnormal foci o f increased uptake or pathologically enlarged lymphadenopathy in the abdomen, pelvis or proximal thig hs. Musculoskeletal: S-shaped scoliosis of the thoracic and lumbar spine with severe spondylosis. There are bridging osteo phytes at multiple levels consistent with diffuse idiopathic skeletal hyperostosis (DISH). No suspic ious lytic, blastic or abnormally PSA may avid bone lesions to suggest metastatic disease. IMPRESSION: 1. Small focus of mild increased PSA may activity at the left posterior margin of the enlarged prosta te consistent with primary prostate cancer. No lesions suspicious for metastatic disease. Reviewed, dictated and finalized at location A. IMPRESSION: 1. Small focus of mild increased PSA may activity at the left posterior margin of the enlarged prostate consistent with primary prostate cancer. No lesions yanez spicious for metastatic disease.
--- OUTSIDE RECORDS SUMMARY | 2024-07-18 13:32 | XMS_ITS | Encounter Summary ---
Author Organization [facility] Address [address] [place] [address] Care Team Providers Care Vice President Mission Integration Name Role Phone Vladimir Skelton MD Primary Care Provider Encounter Details Date Type Department Care Team (Latest Contact Info) Description 02/07/2018 Abstract [facility] , Josue Knutson MD Social [...] on filedocumented in this encounter Care Teams Vice President Mission Integration Relationship Specialty Start Date End Date Vladimir Skelton MD [address] [place] [address] [address] [place] [address] PCP - General 03/27/15 documented as of this encounter
--- OUTSIDE RECORDS SUMMARY | 2024-07-18 13:32 | XMS_ITS ---
Author Name Rj Dooley Address [address] [place] [address] Phone [phone] Organization [facility] ices Address [address] [place] [address] Phone [phone] Care Team Providers Care Racing Car Driver Name Role Phone Rj Dooley Unavailable [phone] Functional Status Mental Status Allergies and Intolerances Encounters Immunizations Medications Problems Vital Signs Reason for Referral Past Medical History
--- OUTSIDE RECORDS SUMMARY | 2024-07-18 13:32 | XMS_ITS | Encounter Summary ---
Author Organization [facility] Address [address] [place] [address] Care Team Providers Care Color Buffer Name Role Phone Vladimir Skelton MD Primary Care Provider Monisha Tucker MD Primary Care Provider Jefe Chung NP Unavailable [phone] Mazin Vigil MD Unavailable [phone] Quincy Mixon MD Unavailable [phone] Murali Milton MD Unavailable [phone] Robert Bull RN Unavailable Cornelio Ferris MD Unavailable [phone] Reason for Visit * Reason Onset Date Comments No Show 08/14/2021 Encounter Details Date Type Department Care Team (Late st Contact Info) Description 08/14/2021 Documentation [facility] OP Physical Therapy [address] [address] Aleta Nielsen PTA No Show [...] on file 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 Gender Identity Not on file Sexual Orientation Not on file Occupation Industry Job Start Date Job End Date retired Not on file Not on file Not on file documented as of this encounter Plan of Treatment Not on file documented as of this encounter Visit Diagnoses Not on filedocumented in this encounter Care Teams Color Buffer Relationship Specialty Start Date End Date Vladimir Skelton MD PCP - General Family Medicine 05/04/18 08/04/22 Monisha Tucker MD PCP - General Family Practice 08/05/22 [place] [address] [address] [facility] [address] [place] [address] Nurse Practitioner Pain Management 09/06/23 [place] [address] [address] [facility] [address] [address] Consulting Physician Pain Management 09/06/23 [place] [address] [address] [facility] [address] [address] Referring Physician General Surgery 09/06/23 [place] [address] [address] [facility] [address] [address] Consulting Physician Neurosurgery 11/14/23 Robert Bull RN [address] [place] [address] [address] [place] [address] Mastercam Programmer 12/08/23 01/01/24 Cornelio Ferris MD [address] [facility] [address] [place] [address] Referring Physician Psychiatry 12/15/23 documented as of this encounter
--- OUTSIDE RECORDS SUMMARY | 2024-07-18 13:32 | XMS_ITS | Clinical Summary ---
Author Organization [facility] Address [address] [place] [address] Care Team Providers Care Car Pre Cooler Name Role Phone Vladimir Skelton MD Primary [...] Comments Blood Pressure 136/86 04/11/2018 10:33 AM NUTRITION COUNSELOR Pulse 71 04/11/2018 10:33 AM NUTRITION COUNSELOR Temperature 36.8 C (98.2 F) 04/11/2018 10:33 AM NUTRITION COUNSELOR Respiratory Rate 20 11/04/2017 7:57 PM CDT Oxygen Saturation 97% 11/04/2017 7:57 PM CDT Inhaled Oxygen Concentration - - Weight 116 kg (255 lb 12.8 oz) 04/11/2018 10:33 AM NUTRITION COUNSELOR Height 188 cm (6' 2 ) 04/11/2018 10:33 AM NUTRITION COUNSELOR Body Mass Index 32.84 04/11/2018 10:33 AM NUTRITION COUNSELOR Plan of Treatment Health Maintenance Due Date Last Done Comments Colorectal Cancer Screening Colonoscopy (10 Years) 1955 Hepatitis C 02/13/1974 DTaP, Tdap and Td Vaccines (1 - Tdap) 02/13/1975 Zoster Vaccines (1 of 2) 02/13/2006 Annual Medicare Wellness Visit 02/13/2021 Pneumococcal Vaccine: 50+ Years (1 of 1 - PCV) 02/13/2021 COVID-19 Vaccine ( season) 2023 02/26/2022, 01/31/2021, 07/12/2020, Additional history exists RSV Immunization or 60+ [...] age to complete this topic Insurance MEDICARE [facility] Care Teams Car Pre Cooler Relationship Specialty Start Date End Date Vladimir Skelton MD [address] [place] [address] [address] [place], [place] [id number] PCP - General 03/27/15
--- OUTSIDE RECORDS SUMMARY | 2024-07-18 13:32 | XMS_ITS | Referral Summary ---
Author Organization [facility] Address [address] [place] [address] Care Team Providers Care Flange Turner Name Role Phone Monisha Tucker MD Primary Care Provider Jefe Chung NP Unavailable [phone] Mazin Vigil MD Unavailable Quincy Mixon MD Unavailable [phone] Murali Milton MD Unavailable [phone] Cornelio Ferris MD Unavailable [phone] Encounters Date Type Department Care Team Description 05/31/2024 7:37 AM RADIOLOGIC THERAPIST - 05/31/2024 11:59 PM RADIOLOGIC THERAPIST Hospital Encounter [facility] [address] [place], [place] [id number] Jefe Chung NP Other chronic pain (Primary [...] Psychiatry Assessment & Plan (04/18/2023 9:51 AM RADIOLOGIC THERAPIST): Chronic. Stable. 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 Patient reports the tamsulosin was making a Pee too frequently so he stopped it. He is requesting to stay off of it. We will need to monitor urinary symptoms Assessment & Plan (04/18/2023 9:52 AM RADIOLOGIC THERAPIST): Chronic. Feels oxybutynin ineffective. Will try change [...] to get him in to see a drop forge hand instead Assessment & Plan (04/18/2023 9:54 AM RADIOLOGIC THERAPIST): Continue care per surgeon Dr. Mixon. Continue IV antibiotics for total of 6 weeks. Antibiotics will be done in about a week and a half. Continue wound care in the toe. Monitor for recurrent ulcers. They are trying to save the toe previously by doing an I and D and deferring amputation Abnormal CT of the abdomen 04/15/2023 Overview (04/15/2023): 04/12/23 at [facility]. Report to be scanned Coronary artery calcification [...] noted on CT abdomen pelvis 04/12/2023 at [facility] Assessment & Plan (09/06/2023 12:27 PM CDT): Patient had incidental finding of aortic atherosclerosis on prior imaging. Discussed recommendation to start a baby aspirin daily for risk reduction. We will target an LDL less than 70 with cholesterol medication. Check levels and adjust simvastatin as needed Assessment & Plan (04/18/2023 9:51 AM RADIOLOGIC THERAPIST): Incidental on prior imaging. Continue simvastatin. We will monitor levels and plan to just in the future as needed target LDL goal less than 70 Lumbar facet arthropathy 02/16/2023 Assessment & Plan (04/18/2023 9:51 AM RADIOLOGIC THERAPIST): Chronic. Follows with pain management. Advised caution with naproxen as may be contributing to some of his stomach symptoms. Thirty day course of PPI order Sacroiliitis, not elsewhere classified Assessment & Plan (04/18/2023 9:52 AM RADIOLOGIC THERAPIST): Mild noted on recent CT. Continue care per pain specialist Lumbar spondylosis 08/05/2022 Assessment & Plan (04/18/2023 9:51 AM RADIOLOGIC THERAPIST): Chronic. Care per pain manage Spondylolisthesis of lumbar region 09/25/2020 Assessment & Plan (04/18/2023 9:52 AM RADIOLOGIC THERAPIST): Chronic. Medication care per pain management. Caution with NSAIDs given recent stomach issues. Advised if guarding to take naproxen needs to take it with food. We will give a 30 day course of PPI Anxiety 06/13/2019 Assessment & Plan (04/18/2023 9:52 AM RADIOLOGIC THERAPIST): Chronic. Medication and care per Psychiatry. Defer [...] adjustment. Assessment & Plan (04/18/2023 9:52 AM RADIOLOGIC THERAPIST): Chronic. On simvastatin. We will plan to [...] psychiatrist Assessment & Plan (04/18/2023 9:52 AM RADIOLOGIC THERAPIST): Chronic. Medication and care per Psychiatry. Patient felt lamotrigine caused side effects so he is now stopped it through discussion with his psychiatrist Conductive hearing loss, bilateral 10/14/2016 Nonallergic rhinitis 10/14/2016 Resolved Problems Problem Noted Date Diagnosed Date Resolved Date MSSA bacteremia 04/18/2023 09/06/2023 Assessment & Plan (04/18/2023 9:54 AM RADIOLOGIC THERAPIST): Noted at time of hospitalization for toe [...] (12/26/2020): Added automatically from request for surgery [id number] Acquired right foot drop 09/25/202007/2022 Class 1 obesity with body ma ss index (BMI) of 33.0 to 33.9 in adult 06/13/2019 08/05/2022 Depression 06/13/2019 04/18/2023 Nontraumatic complete tear o f left rotator cuff 07/17/2018 08/05/2022 Overview (07/17/2018): Added automatically from request for surgery [id number] Partial tear of left subscapularis tendon 01/10/2018 [...] on file Legal Sex Male 7:15 PM RADIOLOGIC THERAPIST Gender Identity Not on file Sexual Orientation Not on file Occupation Industry Job Start Date Job End Date retired Not on file Not on file Not on file Last Filed Vital Signs Vital Sign Reading Time Taken Comments Blood Pressure 115/62 05/31/2024 8:03 AM RADIOLOGIC THERAPIST Pulse 101 05/31/2024 8:03 AM RADIOLOGIC THERAPIST Temperature 37.1 C (98.7 F) 03/08/2024 9:19 AM RADIOLOGIC THERAPIST Respiratory Rate 17 05/31/2024 8:03 AM RADIOLOGIC THERAPIST Oxygen Saturation 99% 05/31/2024 8:03 AM RADIOLOGIC THERAPIST Inhaled Oxygen Concentration - - Weight 96.4 kg (212 lb 8 oz) 03/08/2024 9:19 AM RADIOLOGIC THERAPIST Height 185.4 cm (6' 1 ) 03/08/2024 9:19 AM RADIOLOGIC THERAPIST Body Mass Index 28.04 03/08/2024 9:19 AM RADIOLOGIC THERAPIST Plan of Treatment Not on file Medical Devices Implanted Type Area Spar Finisher Device Identifier Shelf Expiration Date Model / Serial / Lot [employer] [id number] Base Plate 26mm Tm Reverse 20m - [id number] Implanted:Qty : 1 on 09/17/2019 at [facility] Other - see comments Left: Shoulder [employer] [id number] 12/02/2028 [id number] / / [id number] [employer] Ar-2324 Bcm Swivelock 4.75mm 24.5mm Self Punch Vent Shoulder Blairs Suture - Sna - [id number] Implanted:Qty : 1 on 09/07/2018 by Amaury Gordon MD at [facility] Left: Humerus [employer] [id number] 05/04/2020 [id number]-[id number] / NA / [id number] [employer] Ar-2324 Bcm Swivelock 4.75mm 24.5mm Self Punch Vent Shoulder Blairs Suture - [id number] Implanted:Qty : 1 on 09/07/2018 by Amaury Gordon MD at [facility] Left: Shoulder [employer] [id number] 05/04/2020 AR-2324BCM / / [id number] [employer] [id number] Glenosphere Tm Reverse 36mm Centric - [id number] Implanted:Qty : 1 on 09/17/2019 at [facility] Left: Shoulder [employer] [id number] 12/02/2028 [id number] / / [id number] [employer] 01.55204.048 Ncb Anatomical Shoulder 4.5mm 48mm Inverse Reverse Lock Self Tap - [id number] Implanted:Qty : 1 on 09/17/2019 at [facility] Left: Shoulder [employer] [id number] 03/03/2024 01.19835.048 / / [id number] [employer] 01.06166.042 Ncb Anatomical Shoulder 4.5mm 42mm Inverse Reverse Lock Self Tap - [id number] Implanted:Qty : 1 on 09/17/2019 at [facility] Left: Shoulder [employer] [id number] 02/02/2024.22729.042 / / [id number] [employer] [id number] 12mm 130mm Shoulder Stem Humeral Trabecular Metal Tivanium - [id number] Implanted:Qty : 1 on 09/17/2019 at [facility] Left: Shoulder [employer] [id number] 07/02/2029 [id number] / / [id number] [employer] [id number] 36mm H+3mm Reverse Humerus 7d Standard Liner Shoulder Trabecular - [id number] Implanted:Qty : 1 on 09/17/2019 at [facility] Left: Shoulder [employer] [id number] 06/02/2027 [id number] / / [id number] Explanted Type Area Spar Finisher Device Identifier Shelf Expiration Date Model / Serial / Lot [employer] [id number] Siva 3/32in 9in 2 Trocar Pin Fixation Nonsterile - [id number] Explanted:Qty: 1 on 09/17/2019 at [facility] [employer] [id number] / / Procedures Procedure Name Priority Date/Time Associated Diagnosis Comments COLONOSCOPY Routine 10/20/2023 9:37 AM CDT HEPATITIS C SCREENING Routine 09/28/2023 11:10 AM CDT PSA SCREEN Routine 05/26/2022 12:14 PM RADIOLOGIC THERAPIST Screening for prostate cancer from Last 3 Months or Most Recently Relevant to Health Maintenance Results * COLONOSCOPY (10/20/2023 9:37 AM CDT) Scribed Colonoscopy Normal us Monisha Tucker MD HEALTH MAINTENANCE Fin al Result * HEPATITIS C SCREENING (09/28/2023 11:10 AM CDT) SCRIBED HCV ab Non Reactive us Rj Dooley MD HEALTH MAINTENANCE Final Re sult * PSA screen (05/26/2022 12:14 PM RADIOLOGIC THERAPIST) PSA-Total 1.99 <=5.40 ng/mL IRAM GARCIA Comment: [...] revised 21. Blood 05/26/2022 12:1 4 PM RADIOLOGIC THERAPIST 05/26/2022 2:55 PM RADIOLOGIC THERAPIST Nayan Linder DO LAB [place]OD [place] [id number] [place] Department of Laboratories [place] [id number] from Last 3 Months or Most Recently Relevant to Health Maintenance Insurance MEDICARE [facility] MEDICARE SUPPLEMENT MEDICARE [facility] MEDICARE BLUE CROSS MEDICARE SUPPLEMENT Advance Directives For more information, please contact: [phone] Documents on File Type Date Recorded Patient Brand [employer] Promotional Sales Expl anation ADVANCE DIRECTIVE 12/27/2023 8:58 AM Power of Finish Off Operator for Health Care Power of Finish Off Operator 05/16/2023 12:09 PM * Full Code (Latest Code Status on File) Date Activated Date Inactivated Comments 03/08/2024 10:51 AM 03/09/2024 5:26 AM * Full Code Date Activated Date Inactivated Comments 09/17/2019 7:41 PM 09/18/2019 4:44 PM Care Teams Flange Turner Relationship Specialty Start Date End Date Monisha Tucker MD PCP - General Family Practice 08/05/22 [place] [address] [address] Nurse Practitioner Pain Management 09/06/23 [place] [address] [address] [facility] [address] [address] Consulting Physician Pain Management 09/06/23 [place] [address] [address] [facility] [address] [address] Referring Physician General Surgery 09/06/23 [place] [address] [address] [facility] [address] [address] Consulting Physician Neurosurgery 11/14/23 Cornelio Ferris MD [address] [address] Referring Physician Psychiatry 12/15/23
--- OUTSIDE RECORDS SUMMARY | 2024-07-18 13:32 | XMS_ITS | Clinical Summary ---
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 Gender Identity Not on file Sexual Orientation Not on file Plan of Treatment Health Maintenance Due Date Last Done Comments Hepatitis C Virus (HCV) Screening 1955 TdaP Immunization 1955 Colonoscopy 02/13/2001 Colorectal Cancer Screening 02/13/2001 Cologuard 02/13/2006 Immunochemical Fecal Occult Blood 02/13/2006 Pneumococcal Immunization (50+ years) (1 of 1 - PCV) 02/13/2006 Zoster Immunization (1 of 2) 02/13/2006 PSA Discussion 02/13/2011 Influenza Immunization (#1) 12/04/202301/04, 01/02/2020, 01/09/2014, Additional history exists SARS-COV-2 Immunization ( season) 2023 07/12/2020, 06/26/2020, 06/19/2020 Respiratory Syncytial Virus (RSV) Immunization (Adult) (1 - 1-dose 75+ series) 02/13/2031 Hepatitis B Immunization Aged Out No longer eligible based on patient's age to complete this topic Meningococcal Immunization (ACWY) Aged Out No longer eligible based on patient's age to complete this topic Rotavirus Immunization Aged Out No lo nger eligible based on patient's age to complete this topic
--- OUTSIDE RECORDS SUMMARY | 2024-07-18 13:32 | XMS_ITS | Clinical Summary ---
Author Organization [facility] Address [address] [place] [address] Care Team Providers Care Charge Entry Specialist Name Role Phone Monisha Tucker MD Primary Care Provider Jefe Chung NP Unavailable Mazin Vigil MD Unavailable Quincy Mixon MD Unavailable [phone] Murali Milton MD Unavailable [phone] Cornelio Ferris MD Unavailable [phone] Allergies No known active allergies Medications sertraline [...] Psychiatry Assessment & Plan (04/18/2023 9:51 AM FAREBOX REPAIRER): Chronic. Stable. 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 Patient reports the tamsulosin was making a Pee too frequently so he stopped it. He is requesting to stay off of it. We will need to monitor urinary symptoms Assessment & Plan (04/18/2023 9:52 AM FAREBOX REPAIRER): Chronic. Feels oxybutynin ineffective. Will try change to tamsulosin. Monitor Toe osteomyelitis, left 04/18/2023 Assessment & Plan (09/06/2023 12:29 PM CDT): Patient follows with Dr. Mixno over it Rubin as surgeon. The 2nd [...] to get him in to see a emt i/85 instead Assessment & Plan (04/18/2023 9:54 AM FAREBOX REPAIRER): Continue care per surgeon Dr. Mixon. Continue IV antibiotics for total of 6 weeks. Antibiotics will be done in about a week and a half. Continue wound care in the toe. Monitor for recurrent ulcers. They are trying to save the toe previously by doing an I and D and deferring amputation Abnormal CT of the abdomen 04/15/2023 Overview (04/15/2023): 04/12/[address] [facility]. Report to be scanned Coronary artery calcification [...] noted on CT abdomen pelvis 04/12/[address] [facility] Assessment & Plan (09/06/2023 12:27 PM CDT): Patient had incidental finding of aortic atherosclerosis on prior imaging. Discussed recommendation to start a baby aspirin daily for risk reduction. We will target an LDL less than 70 with cholesterol medication. Check levels and adjust simvastatin as needed Assessment & Plan (04/18/2023 9:51 AM FAREBOX REPAIRER): Incidental on prior imaging. Continue simvastatin. We will monitor levels and plan to just in the future as needed target LDL goal less than 70 Lumbar facet arthropathy 02/16/2023 Assessment & Plan (04/18/2023 9:51 AM FAREBOX REPAIRER): Chronic. Follows with pain management. Advised caution with naproxen as may be contributing to some of his stomach symptoms. Thirty day course of PPI order Sacroiliitis, not elsewhere classified Assessment & Plan (04/18/2023 9:52 AM FAREBOX REPAIRER): Mild noted on recent CT. Continue care per pain specialist Lumbar spondylosis 08/05/2022 Assessment & Plan (04/18/2023 9:51 AM FAREBOX REPAIRER): Chronic. Care per pain manage Spondylolisthesis of lumbar region 09/25/2020 Assessment & Plan (04/18/2023 9:52 AM FAREBOX REPAIRER): Chronic. Medication care per pain management. Caution with NSAIDs given recent stomach issues. Advised if guarding to take naproxen needs to take it with food. We will give a 30 day course of PPI Anxiety 06/13/2019 Assessment & Plan (04/18/2023 9:52 AM FAREBOX REPAIRER): Chronic. Medication and care per Psychiatry. Defer [...] adjustment. Assessment & Plan (04/18/2023 9:52 AM FAREBOX REPAIRER): Chronic. On simvastatin. We will plan to [...] psychiatrist Assessment & Plan (04/18/2023 9:52 AM FAREBOX REPAIRER): Chronic. Medication and care per Psychiatry. Patient felt lamotrigine caused side effects so he is now stopped it through discussion with his psychiatrist Conductive hearing loss, bilateral 10/14/2016 Nonallergic rhinitis 10/14/2016 Resolved Problems Problem Noted Date Diagnosed Date Resolved Date MSSA bacteremia 04/18/2023 09/06/2023 Assessment & Plan (04/18/2023 9:54 AM FAREBOX REPAIRER): Noted at time of hospitalization for toe [...] (12/26/2020): Added automatically from request for surgery [id number] Acquired right foot drop 09/25/202007/2022 Class 1 obesity with body ma ss index (BMI) of 33.0 to 33.9 in adult 06/13/2019 08/05/2022 Depression 06/13/2019 04/18/2023 Nontraumatic complete tear o f left rotator cuff 07/17/2018 08/05/2022 Overview (07/17/2018): Added automatically from request for surgery [id number] Partial tear of left subscapularis tendon 01/10/2018 08/05/2022 Rupture of left supraspinatus tendon 01/10/2018 08/05/2022 Subluxation of tendon of long head of biceps 8 08/05/2022 Shoulder pain 01/09/2018 08/05/2022 Encounters Date Type Department Care Team Description 05/31/2024 7:37 AM FAREBOX REPAIRER - 05/31/2024 11:59 PM FAREBOX REPAIRER Hospital Encounter [facility] [address] [place] [address] Jefe Chugn NP Other chronic pain (Primary Dx); Spondylolisthesis [...] Added automatically from req uest for surgery [id number] Low back pain Chickenpox Non-recurrent bilateral ingu [...] Status Comments Brother Father Maternal Grandfather Mother OR age 70s Paternal Grandfather Paternal Grandmother Sister [...] on file Legal Sex Male 7:15 PM FAREBOX REPAIRER Gender Identity Not on file Sexual Orientation Not on file Occupation Industry Job Start Date Job End Date retired Not on file Not on file Not on file Obstetrics History Last Filed Vital Signs Vital Sign Reading Time Taken Comments Blood Pressure 115/62 05/31/2024 8:03 AM FAREBOX REPAIRER Pulse 101 05/31/2024 8:03 AM FAREBOX REPAIRER Temperature 37.1 C (98.7 F) 03/08/2024 9:19 AM FAREBOX REPAIRER Respiratory Rate 17 05/31/2024 8:03 AM FAREBOX REPAIRER Oxygen Saturation 99% 05/31/2024 8:03 AM FAREBOX REPAIRER Inhaled Oxygen Concentration - - Weight 96.4 kg (212 lb 8 oz) 03/08/2024 9:19 AM FAREBOX REPAIRER Height 185.4 cm (6' 1 ) 03/08/2024 9:19 AM FAREBOX REPAIRER Body Mass Index 28.04 03/08/2024 9:19 AM FAREBOX REPAIRER Plan of Treatment Health Maintenance Due Date [...] history exists Medical Devices Implanted Type Area Stem Shaper Device Identifier Shelf Expiration Date Model / Serial / Lot [employer] [id number] Base Plate 26mm Tm Reverse 20m - [id number] Implanted:Qty : 1 on 09/17/2019 at [facility] Other - see comments Left: Shoulder [employer] [id number] 12/02/2028 [id number] / / [id number] [employer] Ar-2324 Bcm Swivelock 4.75mm 24.5mm Self Punch Vent Shoulder [place] Suture - Sna - [id number] Implanted:Qty : 1 on 09/07/2018 by Amaury Gordon MD at [facility] Left: Humerus [employer] [id number] 05/04/2020 AR-2324BCM / NA / [id number] [employer] Ar-2324 Bcm Swivelock 4.75mm 24.5mm Self Punch Vent Shoulder [place] Suture - [id number] Implanted:Qty : 1 on 09/07/2018 by Amaury Gordon MD at [facility] Left: Shoulder [employer] [id number] 05/04/2020 AR-2324BCM / / [id number] [employer] [id number] Glenosphere Tm Reverse 36mm Centric - [id number] Implanted:Qty : 1 on 09/17/2019 at [facility] Left: Shoulder [employer] [id number] 12/02/2028 [id number] / / [id number] [employer] .36009.048 Ncb Anatomical Shoulder 4.5mm 48mm Inverse Reverse Lock Self Tap - [id number] Implanted:Qty : 1 on 09/17/2019 at [facility] Left: Shoulder [employer] [id number] 03/03/2024.59122.048 / / [id number] [employer] 01.28935.042 Ncb Anatomical Shoulder 4.5mm 42mm Inverse Reverse Lock Self Tap - [id number] Implanted:Qty : 1 on 09/17/2019 at [facility] Left: Shoulder [employer] [id number] 02/02/2024 01.88565.042 / / [id number] [employer] [id number] 12mm 130mm Shoulder Stem Humeral Trabecular Metal Tivanium - [id number] Implanted:Qty : 1 on 09/17/2019 at [facility] Left: Shoulder [employer] [id number] 07/02/2029 [id number] / / [id number] [employer] [id number] 36mm H+3mm Reverse Humerus 7d Standard Liner Shoulder Trabecular - [id number] Implanted:Qty : 1 on 09/17/2019 at [facility] Left: Shoulder [employer] [id number] 06/02/2027 [id number] / / [id number] Explanted Type Area Stem Shaper Device Identifier Shelf Expiration Date Model / Serial / Lot Resource [employer] [id number] Steinmann 3/32in 9in 2 Trocar Pin Fixation Nonsterile - [id number] Explanted:Qty: 1 on 09/17/2019 at [facility] [employer] [id number] / / Procedures Procedure Name Priority Date/Time Associated Diagnosis Comments COLONOSCOPY Routine 10/20/2023 9:37 AM CDT HEPATITIS C SCREENING Routine 09/28/2023 11:10 AM CDT PSA SCREEN Routine 05/26/2022 12:14 PM FAREBOX REPAIRER Screening for prostate cancer from Last 3 Months or Most Recently Relevant to Health Maintenance Results * COLONOSCOPY (10/20/2023 9:37 AM CDT) Scribed Colonoscopy Normal us Monisha Tucker MD [facility] [place] Fin al Result * HEPATITIS C SCREENING (09/28/2023 11:10 AM CDT) SCRIBED HCV ab Non Reactive us Rj Dooley MD [facility] [place] Final Re sult * PSA screen (05/26/2022 12:14 PM FAREBOX REPAIRER) PSA-Total 1.99 <=5.40 ng/mL IRAM GARCIA Comment: [...] revised 21. Blood 05/26/2022 12:1 4 PM FAREBOX REPAIRER 05/26/2022 2:55 PM FAREBOX REPAIRER Nayan Linder DO LAB BLOOD ORDERABLES Fin al Result IRAM GARCIA [id number] Department [place] [address] from Last 3 Months or Most Recently Relevant to Health Maintenance Insurance MEDICARE [facility] MEDICARE SUPPLEMENT MEDICARE [facility] MEDICARE [employer] MEDICARE SUPPLEMENT Advance Directives For more information, please contact: [phone] Documents on File Type Date Recorded Patient Supervisor [employer] Expl anation ADVANCE DIRECTIVE 12/27/2023 8:58 AM Power of Dog Races Manager for Health Care Power of Dog Races Manager 05/16/2023 12:09 PM * Full Code (Latest Code Status on File) Date Activated Date Inactivated Comments 03/08/2024 10:51 AM 03/09/2024 5:26 AM * Full Code Date Activated Date Inactivated Comments 09/17/2019 7:41 PM 09/18/2019 4:44 PM Care Teams Charge Entry Specialist Relationship Specialty Start Date End Date Monisha Tucker MD PCP - General Family Practice 08/05/22 [place] [address] [address] Nurse Practitioner Pain Management 09/06/23 [place] [address] [address] [facility] [address] [address] Consulting Physician Pain Management 09/06/23 [place] [address] [address] [facility] [address] [address] Referring Physician General Surgery 09/06/23 [place] [id number] [address] [facility] [address] [address] Consulting Physician Neurosurgery 11/14/23 Cornelio Ferris MD [address] [address] Referring Physician Psychiatry 12/15/23
--- OUTSIDE RECORDS SUMMARY | 2024-07-18 13:32 | XMS_ITS ---
Author Name Rj Dooley Address [address] [place] [address] Phone [phone] [facility] ices Address [address] [place] [address] Phone [phone] Care Team Providers Care Contract Management Specialist Name Role Phone Rj Dooley Unavailable [phone] Functional Status Mental Status Allergies and Intolerances Encounters Immunizations Medications Problems Vital Signs Reason for Referral Past Medical History
== END 2024-07-18 12:31 | disposition home or self-care (01) ==
PROVIDERS: PCP Family Medicine; Visit Provider Urology
DX: C61 Malignant neoplasm of prostate (principal)
CPT/HCPCS: 78815; A9596

== ENCOUNTER 2024-07-26 11:22 | Emergency (ER) | payer MEDICARE, SELFPAY ==
[2024-07-26] VITALS (7 sets, daily range): BP systolic 110–159; BP diastolic 76–91; PULSE 72–83; RESP 14–22; TEMP 37–37.2; O2SAT 94–98
--- NOTE | ~2024-07-26 | XR_ITS ---
XR hip RT 2V w AP pelvis Ordering provider: Tristan Goldsmith MD History: . hip pain s/p fall . Comparison: None. FINDINGS: BONES: No acute fracture or dislocation. HIP JOINT SPACES: Moderate osteoarthritic changes. SACROILIAC JOINT SPACES/LUMBAR SPINE: The sacroili ac joint spaces are normal. Mild degenerative changes of the visualized lower lumbar spine. PUBIC SYMPHYSIS: Pubic symphysitis. SOFT TISSUES: Normal. IMPRESSION: No acute osseous abnormality pelvis and right hip. If Still suspicious CT is advised. Moderate bilateral hip osteoarthritic changes. Reviewed, dictated and finalized at location A.
--- NOTE | ~2024-07-26 | CT_ITS ---
EXAMINATION: CT hip RT wo con DATE: 07/26/2024 14:25 INDICATION: Right hip pain post fall TECHNIQUE: High resolution computed tomography (CT) of the right hip was performed without intravenou s contrast. Additional sagittal and coronal reconstructions were performed. Automated exposure contro l and iterative reconstruction technique were employed. The dose-length product was 160.66 mGy-cm. COMPARISON: Right hip radiographs dated 07/26/2024 FINDINGS: Alignment is normal. No fracture. Mild osteoarthritis at the right hip. No hip joint effusion. Visual ized portion of the bladder and bowels are unremarkable. No pathologically enlarged pelvic or inguina l lymphadenopathy. IMPRESSION: 1. Mild right hip osteoarthritis. No acute osseous abnormality. Reviewed, dictated and finalized at location A.
--- NOTE | ~2024-07-26 | CT_ITS ---
CT brain wo con Ordering provider: Tristan Goldsmith MD History: 69 years Male with . falls . Comparison: February 13, 2024 Technique: CT of the head without contrast. Radiation reduction technique utilized. The dose-length p roduct was 681 mGy-cm. FINDINGS: BRAIN PARENCHYMA AND CSF SPACES: Mild leukoaraiosis and diffuse cortical atrophy. Mild atheromatous d isease. No midline shift, mass effect or hemorrhage. The brain parenchyma and CSF spaces are otherwi se normal. VISUALIZED PARANASAL SINUSES: Well aerated. MASTOIDS: Well aerated. BONES: The bones appear intact. SOFT TISSUES: Visualized nasopharynx is normal. Superficial soft tissues are normal. IMPRESSION: No acute intracranial findings. Reviewed, dictated and finalized at location A.
--- NOTE | 2024-07-26 12:24 | ED_ITS ---
HPI - Fall General Chief Complaint: Fall Stated Complaint: fall, hip injury Time Seen by Provider: 07/26/24 12:06 History of Present Illness HPI Narrative: 69-year-old male with a past medical history including hyperlipidemia. Patient presents to the emergency department after mechanical fall at his assisted living center. Patient normally ambulates with a walker but was not using this today and was trying to do some chores in the household. Patient fell onto his right hip and states that he is having some hip pain on the right side especially when he tries to bend his knee forward. When he is not moving his not in any discomfort or pain. Did endorse hitting his head and states that he has also fallen several times as past few weeks but attributes this to deconditioning and occasional muscle weakness. Patient normally is very active. He endorses hitting his head today but does not feel like it was hard enough to get a head CT according to him. He denies any nausea, vomiting, loss consciousness, blood thinner use, seizure disorder. No syncope. No chest pain, shortness a breath, abdominal pain or weakness. No back pain, anesthesia in the saddle region, paresthesias in the legs, weakness in legs this time. Related Data Home Medications ?Medication ?Instructions ?Recorded ?Confirmed ?Last Taken ?Type sertraline 100 mg tablet 200 mg PO HS 09/16/22 06/18/24 05/19/23 History simvastatin 20 mg tablet 20 mg PO QPM 09/16/22 06/18/24 05/19/23 History zolpidem 10 mg tablet 10 mg PO HS Insomnia 03/16/23 06/18/24 Unknown History bupropion HCl 300 mg 24 hr tablet, 300 mg PO QAM 05/12/23 06/26/24 06/26/24 History extended release omeprazole 40 mg capsule,delayed 40 mg PO DAILY 05/12/23 06/18/24 05/20/23 06:00 History release vitamins A,C,F-dpbt-joutst 2,148 2 tablet PO DAILY 05/13/23 06/26/24 06/22/24 History mcg-113 mg-45 mg-17.4 mg tablet (PreserVision AREDS) acetaminophen 500 mg tablet 1,000 mg PO Q8H PRN pain 06/18/24 06/18/24 Unknown History (Acetaminophen Extra Strength) aspirin 81 mg chewable tablet 81 mg PO DAILY 06/18/24 06/26/24 06/18/24 History cetirizine 10 mg tablet (24Hour 10 mg PO DAILY 06/18/24 06/18/24 Unknown History Allergy) cholecalciferol (vitamin D3) 1,250 1,250 mcg PO WEEKLY 06/18/24 06/26/24 06/22/24 History mcg (50,000 unit) tablet cyanocobalamin (vitamin B-12) 1,000 mcg PO DAILY 06/18/24 06/26/24 06/22/24 History 1,000 mcg capsule lactobacillus combination no.4 3 4,000 mmu cells PO DAILY 06/18/24 06/26/24 06/22/24 History billion cell capsule (Probiotic) oxybutynin chloride 15 mg 15 mg PO DAILY 06/18/24 06/18/24 Unknown History tablet,extended release 24 hr quetiapine 50 mg tablet 50 mg PO HS 06/18/24 06/18/24 Unknown History sodium phosphates 19 gram-7 118 ml RECTAL DAILY 06/18/24 06/26/24 06/26/24 History gram/118 mL enema (Enema) Allergies Allergy/AdvReac Type Severity Reaction Status Date / Time No Known Allergies Allergy Verified 07/26/24 11:29 Review of Systems 2 Review of Systems: As reviewed above in HPI [facility] Past Medical History Medical History Dyslipidemia Anxiety and depression Insomnia Hyperlipidemia Surgical History Surgical History Hx of inguinal hernia repair Open bilateral inguinal hernia repairs with UHS mesh 05/20/23 SAW History of incision and drainage I&D of left 2nd toe abscess 03/18/23. H/O colonoscopy Family History Family History Mother Family history of arthritis Acute myocardial infarction Hypertension Father Family history of malignant neoplasm Social History Social History Smoking status: Never smoker Alcohol intake: never Substance use: never Substance use type: does not use Do You Feel Safe in your Home?: Yes Lack of Transportation: No Lack of Food: Never True Current Housing: I Have Housing Concerned About Future Housing: No Difficulty Paying Gas/Electric Bills: No Difficulty Paying for Meds: No Currently Unemployed: No Education: Bachelor's Degree Difficulty w/ Childcare or Family Care: No Living arrangements: assisted living Spiritual care concerns: No Exam 2 Narrative: GENERAL: [Well-appearing, well-nourished, and in no acute distress.] HEAD: [Normocephalic, atraumatic.] EYES: [PERRLA and EOMI.] ENT: Nares clear, no rhinorrhea or epistaxis. Mucous membranes moist. NECK: Supple. CHEST: [Clear to auscultation. No respiratory distress.] HEART: [Regular rate and rhythm]. No murmur heard. [Normal peripheral pulses.] ABDOMEN: [Soft, nondistended], [nontender], [No rigidity or guarding] EXTREMITIES: Normal range of motion. [No edema.] Reproducible pain and tenderness with palpation and movement near his proximal right hip laterally. Dorsiflexion and plantar flexion of the ankle 5/5 and does not elicit any pain. Full mobility of the knee and ankle. No left-sided tenderness, no paraspinal muscle or midline tenderness to the back. Some mild tenderness over the left side of his parietal scalp. No overlying skin changes. SKIN: Warm, dry, no rash. NEURO: [No focal deficits]. Alert and oriented [x3.] PSYCH: [Normal mood and affect.] Course Vital Signs Vital signs: Vital Signs Temperature 37.2 C 07/26/24 11:19 Pulse Rate 77 07/26/24 11:19 Respiratory Rate 15 07/26/24 11:19 Blood Pressure 127/79 07/26/24 11:19 Pulse Oximetry 96 07/26/24 11:19 Oxygen Delivery Room Air 07/26/24 11:19 Temperature 37.2 C 07/26/24 11:19 Pulse Rate 78 07/26/24 17:21 Respiratory Rate 22 H 07/26/24 17:21 Blood Pressure 159/91 H 07/26/24 17:21 Pulse Oximetry 96 07/26/24 17:21 Oxygen Delivery Room Air 07/26/24 11:19 MDM - Fall MDM Narrative Medical decision making narrative: 69-year-old male presenting from his assisted living facility after mechanical fall. Patient states that he was walking without using his walker for assistance and lost his balance and fell onto his right hip. EMS was called and patient was transported to the hospital. Patient did strike his head but did not lose consciousness and does not take any blood thinner medications. He has no weakness or sensory changes on examination, no neurological complaints. States he has some pain when he tries to move his right hip but without moving it he has no pain at rest. Focal reproducible tenderness to palpation the right lateral proximal hip with palpation and flexion at the hip but he has good range of motion. Distal neuro vasculature is intact. Normal vital signs. Patient does state that he has fallen several times as past few weeks. Suspicion presently is for potential hip contusion, hip fracture, intertrochanteric fracture, less likely pelvic fracture. Given his frequent falls and head trauma today with his age and risk factors we will get a head CT to rule out intracranial pathology such as subdural hematoma, epidural, stroke which is less likely. Patient was comfortable with this plan. Offered the patient pain medications which he politely declined at this juncture. Attempted to ambulate the patient after is negative hip x-rays came back. He states that he was having some pain at this time with difficulty walking. He was provided some pain medications and a CT scan was obtained to make sure that he does not have any occult fracture in his hip. CT of the head and the hip shows no acute osseous abnormalities aside from some chronic mild osteoarthritis. His laboratory studies were drawn and normal. He is ambulatory at this time and able to walk with the assistance of his normal walker. Patient's daughter felt uncomfortable with him going home at this time so medicare insurance specialist was called for assistance in possible placement. Patient is currently in the memory care facility with healthcare assistance and they were able to arrange for appropriate level of care when he returns there today. Family was comfortable with this plan he was safe for discharge given that he is ambulatory without any concerns at this juncture. Medical Records Attestation: I reviewed the patient's medical records. Lab Data Attestation: I reviewed the patient's lab results. 07/26/24 14:30 07/26/24 14:30 Labs: Lab Results 07/26/24 Range/Units 14:30 WBC 9.1 (4.5-10.0) K/mm3 RBC 5.25 (4.6-6.20) M/mm3 Hgb 15.8 (14.0-18.0) g/dL Hct 46.9 (42.0-52.0) % MCV 89.3 (80-100) fl MCH 30.1 (26-34) pg MCHC 33.7 (32-36) g/dl RDW 13.0 (11.5-14.5) % Plt Count 181 (150-375) k/mm3 MPV 9.4 (7.4-10.4) fl Immature Gran % (Auto) 0.3 (0-0.5) % Neut % (Auto) 82.5 H (45.5-73.1) % Lymph % (Auto) 9.0 L (18.3-44.2) % Dupage % (Auto) 6.9 (2.6-8.5) % Eos % (Auto) 0.9 (0-4.4) % Baso % (Auto) 0.4 (0.2-1.2) % Lymph # (Auto) 0.82 L (0.9-3.2) K/mm3 Dupage # (Auto) 0.6 (0.1-0.6) K/mm3 Eos # (Auto) 0.1 (0-0.3) K/mm3 Baso # (Auto) 0.0 (0.0-0.1) K/mm3 Abs Immat Gran (auto) 0.03 (0.00-0.031) K/mm3 Absolute Neuts (auto) 7.5 H (1.3-6.7) K/mm3 Absolute Nucleated RBC 0.000 (0.0-0.012) K/mm3 Nucleated RBC % 0.0 (0.0-0.2) % PT 14.6 (11.1-14.7) Seconds INR 1.1 APTT 30.6 (22.3-36.8) Seconds Sodium 139 (137-145) mmol/L Potassium 4.2 (3.4-5.0) mmol/L Chloride 106 (98-107) mmol/L Carbon Dioxide 23 (22-30) mmol/L Anion Gap 10 (4-12) mmol/L BUN 21 H (9-20) mg/dL Creatinine 1.13 (0.7-1.3) mg/dL Estim Creat Clear Calc 63 ml/min Estimated GFR > 60 (59 - ) Glucose 105 (65-110) mg/dL Calcium 9.3 (8.4-10.2) mg/dL Imaging Data Attestation: I personally reviewed and interpreted this imaging study as follows: My impression: Impressions Head CT 07/26/24 12:53 IMPRESSION: No acute intracranial findings. Hip/Pelvis X-Ray 07/26/24 13:02 IMPRESSION: No acute osseous abnormality pelvis and right hip. If Still suspicious CT is advised. Moderate bilateral hip osteoarthritic changes. Hip CT 07/26/24 14:26 IMPRESSION: 1. Mild right hip osteoarthritis. No acute osseous abnormality. Discharge Plan Discharge Clinical Impression: Acute hip pain, Fall Patient Disposition: Home Condition: Stable Instructions: Antibiotic Form, Contusion in Adults (ED) Additional Instructions: Your x-rays and CT scans are all reassuring. No signs of injury. Your laboratory studies are all normal. Follow-up with regular doctor, take Tylenol and ibuprofen for any aches or pains. Return with any emergent concerns. Patient Language: Cymraes Prescriptions: No Action bupropion HCl 300 mg tablet extended release 24 hr 300 mg PO QAM omeprazole 40 mg capsule,delayed release(DR/EC) 40 mg PO DAILY zolpidem 10 mg tablet 10 mg PO HS PreserVision AREDS 2,148 mcg-113 mg-45 mg-17.4mg Tablet 2 tablet PO DAILY Rx Instructions: administer with AM and PM meals Probiotic 3 billion cell capsule 4,000 mmu cells PO DAILY Rx Instructions: administer with a meal cetirizine [24Hour Allergy] 10 mg tablet 10 mg PO DAILY cyanocobalamin (vitamin B-12) 1,000 mcg capsule 1,000 mcg PO DAILY aspirin 81 mg tablet,chewable 81 mg PO DAILY cholecalciferol (vitamin D3) 1,250 mcg (50,000 unit) tablet 1,250 mcg PO WEEKLY quetiapine 50 mg tablet 50 mg PO HS acetaminophen [Acetaminophen Extra Strength] 500 mg tablet 1,000 mg PO Q8H PRN (Reason: pain) oxybutynin chloride 15 mg tablet extended release 24hr 15 mg PO DAILY Enema 19-7 gram/118 mL enema 118 ml RECTAL DAILY Patient Comments: PRE-OP 06/26/24 sertraline 100 mg tablet 200 mg PO HS simvastatin 20 mg tablet 20 mg PO QPM Follow-up/Referrals: Motwani,Rj K., MD [Primary Care Provider] - Time of Disposition: 18:24
--- OUTSIDE RECORDS SUMMARY | 2024-07-26 13:23 | XMS_ITS ---
Author Name Auto Generated, Auto Generated Organization [facility] Address [address] [place] [address] Phone [phone] Care Team Providers Care Delivery Technician Name Role Phone Rj Dooley Unavailable [phone] Functional Status Mental Status Allergies and Intolerances Encounters Immunizations Medications Problems Vital Signs Reason for Referral Past Medical History
--- OUTSIDE RECORDS SUMMARY | 2024-07-26 13:23 | XMS_ITS | Referral Summary ---
Author Organization [facility] Address [address] [place] [address] Care Team Providers Care Oil Pump Station Operator Chief Name Role Phone Monisha Tucker MD Primary Care Provider Jefe Chung NP Unavailable [phone] Mazin Vigil MD Unavailable Quincy Mixon MD Unavailable [phone] Murali Milton MD Unavailable [phone] Cornelio Ferris MD Unavailable [phone] Encounters Date Type Department Care Team Description 05/31/2024 7:37 AM PURSE SEINER - 05/31/2024 11:59 PM PURSE SEINER Hospital Encounter [facility] [address], [place] [id number] Jefe Chung NP Other chronic pain (Primary [...] Psychiatry Assessment & Plan (04/18/2023 9:51 AM PURSE SEINER): Chronic. Stable. 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 Patient reports the tamsulosin was making a Pee too frequently so he stopped it. He is requesting to stay off of it. We will need to monitor urinary symptoms Assessment & Plan (04/18/2023 9:52 AM PURSE SEINER): Chronic. Feels oxybutynin ineffective. Will try change [...] to get him in to see a hydraulic controls technician instead Assessment & Plan (04/18/2023 9:54 AM PURSE SEINER): Continue care per surgeon Dr. Mixon. Continue IV antibiotics for total of 6 weeks. Antibiotics will be done in about a week and a half. Continue wound care in the toe. Monitor for recurrent ulcers. They are trying to save the toe previously by doing an I and D and deferring amputation Abnormal CT of the abdomen 04/15/2023 Overview (04/15/2023): 04/12/23 at [facility]. Report to be scanned Coronary artery calcification [...] noted on CT abdomen pelvis 04/12/2023 at [facility] Assessment & Plan (09/06/2023 12:27 PM CDT): Patient had incidental finding of aortic atherosclerosis on prior imaging. Discussed recommendation to start a baby aspirin daily for risk reduction. We will target an LDL less than 70 with cholesterol medication. Check levels and adjust simvastatin as needed Assessment & Plan (04/18/2023 9:51 AM PURSE SEINER): Incidental on prior imaging. Continue simvastatin. We will monitor levels and plan to just in the future as needed target LDL goal less than 70 Lumbar facet arthropathy 02/16/2023 Assessment & Plan (04/18/2023 9:51 AM PURSE SEINER): Chronic. Follows with pain management. Advised caution with naproxen as may be contributing to some of his stomach symptoms. Thirty day course of PPI order Sacroiliitis, not elsewhere classified Assessment & Plan (04/18/2023 9:52 AM PURSE SEINER): Mild noted on recent CT. Continue care per pain specialist Lumbar spondylosis 08/05/2022 Assessment & Plan (04/18/2023 9:51 AM PURSE SEINER): Chronic. Care per pain manage Spondylolisthesis of lumbar region 09/25/2020 Assessment & Plan (04/18/2023 9:52 AM PURSE SEINER): Chronic. Medication care per pain management. Caution with NSAIDs given recent stomach issues. Advised if guarding to take naproxen needs to take it with food. We will give a 30 day course of PPI Anxiety 06/13/2019 Assessment & Plan (04/18/2023 9:52 AM PURSE SEINER): Chronic. Medication and care per Psychiatry. Defer [...] adjustment. Assessment & Plan (04/18/2023 9:52 AM PURSE SEINER): Chronic. On simvastatin. We will plan to [...] psychiatrist Assessment & Plan (04/18/2023 9:52 AM PURSE SEINER): Chronic. Medication and care per Psychiatry. Patient felt lamotrigine caused side effects so he is now stopped it through discussion with his psychiatrist Conductive hearing loss, bilateral 10/14/2016 Nonallergic rhinitis 10/14/2016 Resolved Problems Problem Noted Date Diagnosed Date Resolved Date MSSA bacteremia 04/18/2023 09/06/2023 Assessment & Plan (04/18/2023 9:54 AM PURSE SEINER): Noted at time of hospitalization for toe [...] (12/26/2020): Added automatically from request for surgery [id number] Acquired right foot drop 09/25/202007/2022 Class 1 obesity with body ma ss index (BMI) of 33.0 to 33.9 in adult 06/13/2019 08/05/2022 Depression 06/13/2019 04/18/2023 Nontraumatic complete tear o f left rotator cuff 07/17/2018 08/05/2022 Overview (07/17/2018): Added automatically from request for surgery [id number] Partial tear of left subscapularis tendon 01/10/2018 [...] on file Legal Sex Male 7:15 PM PURSE SEINER Gender Identity Not on file Sexual Orientation Not on file Occupation Industry Job Start Date Job End Date retired Not on file Not on file Not on file Last Filed Vital Signs Vital Sign Reading Time Taken Comments Blood Pressure 115/62 05/31/2024 8:03 AM PURSE SEINER Pulse 101 05/31/2024 8:03 AM PURSE SEINER Temperature 37.1 C (98.7 F) 03/08/2024 9:19 AM PURSE SEINER Respiratory Rate 17 05/31/2024 8:03 AM PURSE SEINER Oxygen Saturation 99% 05/31/2024 8:03 AM PURSE SEINER Inhaled Oxygen Concentration - - Weight 96.4 kg (212 lb 8 oz) 03/08/2024 9:19 AM PURSE SEINER Height 185.4 cm (6' 1 ) 03/08/2024 9:19 AM PURSE SEINER Body Mass Index 28.04 03/08/2024 9:19 AM PURSE SEINER Plan of Treatment Not on file Medical Devices Implanted Type Area Sampling Expert Device Identifier Shelf Expiration Date Model / Serial / Lot [employer] [id number] Base Plate 26mm Tm Reverse 20m - [id number] Implanted:Qty : 1 on 09/17/2019 at [facility] Other - see comments Left: Shoulder [employer] [id number] 12/02/2028 [id number] / / [id number] [employer] Ar-2324 Bcm Swivelock 4.75mm 24.5mm Self Punch Vent Shoulder Salt Flat Suture - Sna - [id number] Implanted:Qty : 1 on 09/07/2018 by Amaury Gordon MD at [facility] Left: Humerus [employer] [id number] 05/04/2020 [id number] / NA / [id number] [employer] Ar-2324 Bcm Swivelock 4.75mm 24.5mm Self Punch Vent Shoulder Salt Flat Suture - [id number] Implanted:Qty : 1 on 09/07/2018 by Amaury Gordon MD at [facility] Left: Shoulder [employer] [id number] 05/04/2020 AR-[id number] / / [id number] [employer] [id number] Glenosphere Tm Reverse 36mm Centric - [id number] Implanted:Qty : 1 on 09/17/2019 at [facility] Left: Shoulder [employer] [id number] 12/02/2028 [id number] / / [id number] [employer] 01.62238.048 Ncb Anatomical Shoulder 4.5mm 48mm Inverse Reverse Lock Self Tap - [id number] Implanted:Qty : 1 on 09/17/2019 at [facility] Left: Shoulder [employer] [id number] 03/03/2024 01.96226.048 / / [id number] [employer] 01.49316.042 Ncb Anatomical Shoulder 4.5mm 42mm Inverse Reverse Lock Self Tap - [id number] Implanted:Qty : 1 on 09/17/2019 at [facility] Left: Shoulder [employer] [id number] 02/02/2024.21393.042 / / [id number] [employer] [id number] 12mm 130mm Shoulder Stem Humeral Trabecular Metal Tivanium - [id number] Implanted:Qty : 1 on 09/17/2019 at [facility] Left: Shoulder [employer] [id number] 07/02/2029 [id number] / / [id number] [employer] [id number] 36mm H+3mm Reverse Humerus 7d Standard Liner Shoulder Trabecular - [id number] Implanted:Qty : 1 on 09/17/2019 at [facility] Left: Shoulder [employer] [id number] 06/02/2027 [id number] / / [id number] Explanted Type Area Sampling Expert Device Identifier Shelf Expiration Date Model / Serial / Lot [employer] [id number] Siva 3/32in 9in 2 Trocar Pin Fixation Nonsterile - [id number] Explanted:Qty: 1 on 09/17/2019 at [facility] [employer] [id number] / / Procedures Procedure Name Priority Date/Time Associated Diagnosis Comments COLONOSCOPY Routine 10/20/2023 9:37 AM CDT HEPATITIS C SCREENING Routine 09/28/2023 11:10 AM CDT PSA SCREEN Routine 05/26/2022 12:14 PM PURSE SEINER Screening for prostate cancer from Last 3 Months or Most Recently Relevant to Health Maintenance Results * COLONOSCOPY (10/20/2023 9:37 AM CDT) Scribed Colonoscopy Normal us Monisha Tucker MD HEALTH MAINTENANCE Fin al Result * HEPATITIS C SCREENING (09/28/2023 11:10 AM CDT) SCRIBED HCV ab Non Reactive us Rj Dooley MD HEALTH MAINTENANCE Final Re sult * PSA screen (05/26/2022 12:14 PM PURSE SEINER) PSA-Total 1.99 <=5.40 ng/mL IRAM GARCIA Comment: [...] revised 21. Blood 05/26/2022 12:1 4 PM PURSE SEINER 05/26/2022 2:55 PM PURSE SEINER Nayan Linder DO LAB [place] [id number] [place] Department of Laboratories [place] [id number] from Last 3 Months or Most Recently Relevant to Health Maintenance [place] [address] [facility] MEDICARE SUPPLEMENT MEDICARE [facility] MEDICARE BLUE CROSS MEDICARE SUPPLEMENT Advance Directives For more information, please contact: [phone] Documents on File Type Date Recorded Patient Transfer And Pumphouse Operator Expl anation ADVANCE DIRECTIVE 12/27/2023 8:58 AM Power of Felt Hat Mellowing Machine Operator for Health Care Power of Felt Hat Mellowing Machine Operator 05/16/2023 12:09 PM * Full Code (Latest Code Status on File) Date Activated Date Inactivated Comments 03/08/2024 10:51 AM 03/09/2024 5:26 AM * Full Code Date Activated Date Inactivated Comments 09/17/2019 7:41 PM 09/18/2019 4:44 PM Care Teams Oil Pump Station Operator Chief Relationship Specialty Start Date End Date Monisha Tucker MD PCP - General Family Practice 08/05/22 [place] [address] [address] Nurse Practitioner Pain Management 09/06/23 [place] [address] [address] [facility] [address] [address] Consulting Physician Pain Management 09/06/23 [place] [address] [address] [facility] [address] [address] Referring Physician General Surgery 09/06/23 [place] [address] [address] [facility] [address] [address] Consulting Physician Neurosurgery 11/14/23 Cornelio Ferris MD [address] [address] Referring Physician Psychiatry 12/15/23
--- OUTSIDE RECORDS SUMMARY | 2024-07-26 13:23 | XMS_ITS | Encounter Summary ---
Author Organization [facility] Address [address] [place] [address] Care Team Providers Care Color Expert Name Role Phone Vladimir Skelton MD Primary Care Provider Encounter Details Date Type Department Care Team (Latest Contact Info) Description 02/07/2018 Abstract [facility] , Josue Knutson MD [...] filedocumented in this encounter Care Teams Color Expert Relationship Specialty Start Date End Date Vladimir Skelton MD [address] [place] [address] [address] [place] [address] PCP - General 03/27/15 documented as of this encounter
--- OUTSIDE RECORDS SUMMARY | 2024-07-26 13:23 | XMS_ITS ---
Author Name Auto Generated, Auto Generated Organization [facility] Address [address] [place] [address] Phone [phone] Care Team Providers Care Banking Assistant Name Role Phone Rj Dooley Unavailable [phone] Functional Status Mental Status Allergies and Intolerances Encounters Immunizations Medications Problems Vital Signs Reason for Referral Past Medical History
--- OUTSIDE RECORDS SUMMARY | 2024-07-26 13:23 | XMS_ITS | Clinical Summary ---
Author Organization [facility] Care Team Providers Care Network Contractor Name Role Phone Unavailable Primary Care Provider Unavailabl e Immunizations Immunization Administration Dates Next Due Covid-19, Mrna, Lnp-s, Pf, 30 Mcg/0.3 Ml Dose (P fizer) 07/12/2020,06/19/2020 Sars-cov-2 (Covid-19) Vaccine, Unspecified 06/26 Social History Tobacco Use Types Packs/Day Years Used Date Smoking Tobacco: Never Assessed Sex and Gender Information Value Date Recorded Sex Assigned at Not on file Legal Sex Male 12:27 PM RUBBER MIXER Gender Identity Not on file Sexual Orientation [...]
--- OUTSIDE RECORDS SUMMARY | 2024-07-26 13:23 | XMS_ITS | Clinical Summary ---
Author Organization [facility] Address [address] [place] [address] Care Team Providers Care Timber Management Technician Name Role Phone Vladimir Skelton MD Primary [...] Comments Blood Pressure 136/86 04/11/2018 10:33 AM SQL REPORT ANALYST Pulse 71 04/11/2018 10:33 AM SQL REPORT ANALYST Temperature 36.8 C (98.2 F) 04/11/2018 10:33 AM SQL REPORT ANALYST Respiratory Rate 20 11/04/2017 7:57 PM CDT Oxygen Saturation 97% 11/04/2017 7:57 PM CDT Inhaled Oxygen Concentration - - Weight 116 kg (255 lb 12.8 oz) 04/11/2018 10:33 AM SQL REPORT ANALYST Height 188 cm (6' 2 ) 04/11/2018 10:33 AM SQL REPORT ANALYST Body Mass Index 32.84 04/11/2018 10:33 AM SQL REPORT ANALYST Plan of Treatment Health Maintenance Due Date Last Done Comments Colorectal Cancer Screening Colonoscopy (10 Years) 1955 Hepatitis C 02/13/1974 DTaP, Tdap and Td Vaccines (1 - Tdap) 02/13/1975 Pneumococcal Vaccine: 50+ Years (1 of 1 - PCV) 02/13/2006 Zoster Vaccines (1 of 2) 02/13/2006 Annual Medicare Wellness Visit 02/13/2021 COVID-19 Vaccine ( season) 2023 02/26/2022, [...] age to complete this topic Insurance MEDICARE [facility] Care Teams Timber Management Technician Relationship Specialty Start Date End Date Vladimir Skelton MD [address] [place] [address] DR GOOD [address] [place] [address] [id number] PCP - General 03/27/15
--- OUTSIDE RECORDS SUMMARY | 2024-07-26 13:23 | XMS_ITS | Encounter Summary ---
Author Organization [facility] Address [address] [place] [address] Care Team Providers Care Stone Sawyer Name Role Phone Vladimir Skelton MD Primary Care Provider Monisha Tucker MD Primary Care Provider Jefe Chung NP Unavailable [phone] Mazin Vigil MD Unavailable Quincy Mixon MD Unavailable [phone] Murali Milton MD Unavailable [phone] Robert Bull RN Unavailable [phone] Cornelio Ferris MD Unavailable [phone] Reason for Visit * Reason Onset Date Comments No Show 08/14/2021 Encounter Details Date Type Department Care Team (Late st Contact Info) Description 08/14/2021 Documentation [facility] OP Physical Therapy [address] [address] Aleta Nielsen PTA No Show [...] on file 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 Gender Identity Not on file Sexual Orientation Not on file Occupation Industry Job Start Date Job End Date retired Not on file Not on file Not on file documented as of this encounter Plan of Treatment Not on file documented as of this encounter Visit Diagnoses Not on filedocumented in this encounter Care Teams Stone Sawyer Relationship Specialty Start Date End Date Vladimir Skelton MD PCP - General Family Medicine 05/04/18 08/04/22 Monisha Tucker MD PCP - General Family Practice 08/05/22 [place] [phone] [facility] [address] [place] [address] Nurse Practitioner Pain Management 09/06/23 [place] [address] [facility] [address] [address] Consulting Physician Pain Management 09/06/23 [place] [address] [facility] [address] [address] Referring Physician General Surgery 09/06/23 [place] [address] [facility] [address] [address] Consulting Physician Neurosurgery 11/14/23 Robert Bull RN [address] [place] [address] [address] [place] [address] [employer] Department Manager 12/08/23 01/01/24 Cornelio Ferris MD [address] [facility] [address] [place] [address] Referring Physician Psychiatry 12/15/23 documented as of this encounter
--- OUTSIDE RECORDS SUMMARY | 2024-07-26 13:23 | XMS_ITS | Clinical Summary ---
Author Organization [facility] Address [address] [place] [address] Care Team Providers Care Doctor Of Nursing Practice Name Role Phone Monisha Tucker MD Primary Care Provider Jefe Chung NP Unavailable [phone] Mazin Vigil MD Unavailable Quincy Mixon MD Unavailable [phone] Murali Milton MD Unavailable [phone] Cornelio Ferris MD Unavailable [phone] Allergies No known active allergies Medications sertraline [...] Psychiatry Assessment & Plan (04/18/2023 9:51 AM TIME STUDY TECHNICIAN): Chronic. Stable. 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 Patient reports the tamsulosin was making a Pee too frequently so he stopped it. He is requesting to stay off of it. We will need to monitor urinary symptoms Assessment & Plan (04/18/2023 9:52 AM TIME STUDY TECHNICIAN): Chronic. Feels oxybutynin ineffective. Will try change [...] to get him in to see a ink grinder instead Assessment & Plan (04/18/2023 9:54 AM TIME STUDY TECHNICIAN): Continue care per surgeon Dr. Mixon. Continue IV antibiotics for total of 6 weeks. Antibiotics will be done in about a week and a half. Continue wound care in the toe. Monitor for recurrent ulcers. They are trying to save the toe previously by doing an I and D and deferring amputation Abnormal CT of the abdomen 04/15/2023 Overview (04/15/2023): 04/12/23 at [facility]. Report to be scanned Coronary [...] noted on CT abdomen pelvis 04/12/2023 at [facility] Assessment & Plan (09/06/2023 12:27 PM CDT): Patient had incidental finding of aortic atherosclerosis on prior imaging. Discussed recommendation to start a baby aspirin daily for risk reduction. We will target an LDL less than 70 with cholesterol medication. Check levels and adjust simvastatin as needed Assessment & Plan (04/18/2023 9:51 AM TIME STUDY TECHNICIAN): Incidental on prior imaging. Continue simvastatin. We will monitor levels and plan to just in the future as needed target LDL goal less than 70 Lumbar facet arthropathy 02/16/2023 Assessment & Plan (04/18/2023 9:51 AM TIME STUDY TECHNICIAN): Chronic. Follows with pain management. Advised caution with naproxen as may be contributing to some of his stomach symptoms. Thirty day course of PPI order Sacroiliitis, not elsewhere classified Assessment & Plan (04/18/2023 9:52 AM TIME STUDY TECHNICIAN): Mild noted on recent CT. Continue care per pain specialist Lumbar spondylosis 08/05/2022 Assessment & Plan (04/18/2023 9:51 AM TIME STUDY TECHNICIAN): Chronic. Care per pain manage Spondylolisthesis of lumbar region 09/25/2020 Assessment & Plan (04/18/2023 9:52 AM TIME STUDY TECHNICIAN): Chronic. Medication care per pain management. Caution with NSAIDs given recent stomach issues. Advised if guarding to take naproxen needs to take it with food. We will give a 30 day course of PPI Anxiety 06/13/2019 Assessment & Plan (04/18/2023 9:52 AM TIME STUDY TECHNICIAN): Chronic. Medication and care per Psychiatry. Defer [...] adjustment. Assessment & Plan (04/18/2023 9:52 AM TIME STUDY TECHNICIAN): Chronic. On simvastatin. We will plan to [...] psychiatrist Assessment & Plan (04/18/2023 9:52 AM TIME STUDY TECHNICIAN): Chronic. Medication and care per Psychiatry. Patient felt lamotrigine caused side effects so he is now stopped it through discussion with his psychiatrist Conductive hearing loss, bilateral 10/14/2016 Nonallergic rhinitis 10/14/2016 Resolved Problems Problem Noted Date Diagnosed Date Resolved Date MSSA bacteremia 04/18/2023 09/06/2023 Assessment & Plan (04/18/2023 9:54 AM TIME STUDY TECHNICIAN): Noted at time of hospitalization for toe [...] (12/26/2020): Added automatically from request for surgery [id number] Acquired right foot drop 09/25/202007/2022 Class 1 obesity with body ma ss index (BMI) of 33.0 to 33.9 in adult 06/13/2019 08/05/2022 Depression 06/13/2019 04/18/2023 Nontraumatic complete tear o f left rotator cuff 07/17/2018 08/05/2022 Overview (07/17/2018): Added automatically from request for surgery [id number] Partial tear of left subscapularis tendon 01/10/2018 08/05/2022 Rupture of left supraspinatus tendon 01/10/2018 08/05/2022 Subluxation of tendon of long head of biceps 8 08/05/2022 Shoulder pain 01/09/2018 08/05/2022 Encounters Date Type Department Care Team Description 05/31/2024 7:37 AM TIME STUDY TECHNICIAN - 05/31/2024 11:59 PM TIME STUDY TECHNICIAN Hospital Encounter [facility] [address] [place] [address] Jefe Chung NP Other chronic pain (Primary [...] of lumbar region Subluxation of tendon of elain g head of biceps 01/10/2018 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 12/26/2020 Added automatically from req uest for surgery [id number] Low back pain Chickenpox Non-recurrent bilateral ingu [...] Status Comments Brother Father Maternal Grandfather Mother ME age 70s Paternal Grandfather Paternal Grandmother Sister [...] on file Legal Sex Male 7:15 PM TIME STUDY TECHNICIAN Gender Identity Not on file Sexual Orientation Not on file Occupation Industry Job Start Date Job End Date retired Not on file Not on file Not on file Obstetrics History Last Filed Vital Signs Vital Sign Reading Time Taken Comments Blood Pressure 115/62 05/31/2024 8:03 AM TIME STUDY TECHNICIAN Pulse 101 05/31/2024 8:03 AM TIME STUDY TECHNICIAN Temperature 37.1 C (98.7 F) 03/08/2024 9:19 AM TIME STUDY TECHNICIAN Respiratory Rate 17 05/31/2024 8:03 AM TIME STUDY TECHNICIAN Oxygen Saturation 99% 05/31/2024 8:03 AM TIME STUDY TECHNICIAN Inhaled Oxygen Concentration - - Weight 96.4 kg (212 lb 8 oz) 03/08/2024 9:19 AM TIME STUDY TECHNICIAN Height 185.4 cm (6' 1 ) 03/08/2024 9:19 AM TIME STUDY TECHNICIAN Body Mass Index 28.04 03/08/2024 9:19 AM TIME STUDY TECHNICIAN Plan of Treatment Health Maintenance Due Date [...] history exists Medical Devices Implanted Type Area Electrical/Instrument Technician Device Identifier Shelf Expiration Date Model / Serial / Lot [employer] [id number] Base Plate 26mm Tm Reverse 20m - [id number] Implanted:Qty : 1 on 09/17/2019 at [facility] Other - see comments Left: Shoulder [employer] [id number] 12/02/2028 [id number] / / [id number] [employer] Ar-2324 Bcm Swivelock 4.75mm 24.5mm Self Punch Vent Shoulder [place] Suture - Sna - [id number] Implanted:Qty : 1 on 09/07/2018 by Amaury Gordon MD at [facility] Left: Humerus [employer] [id number] 05/04/2020 AR-2324BCM / NA / [id number] [employer] Ar-2324 Bcm Swivelock 4.75mm 24.5mm Self Punch Vent Shoulder [place] Suture - [id number] Implanted:Qty : 1 on 09/07/2018 by Amaury Gordon MD at [facility] Left: Shoulder [employer] [id number] 05/04/2020 AR-2324BCM / / [id number] [employer] [id number] Glenosphere Tm Reverse 36mm Centric - [id number] Implanted:Qty : 1 on 09/17/2019 at [facility] Left: Shoulder [employer] [id number] 12/02/2028 [id number] / / [id number] [employer] .[id number] Ncb Anatomical Shoulder 4.5mm 48mm Inverse Reverse Lock Self Tap - [id number] Implanted:Qty : 1 on 09/17/2019 at [facility] Left: Shoulder [employer] [id number] 03/03/2024.30095.048 / / [id number] [employer] 01.32963.042 Ncb Anatomical Shoulder 4.5mm 42mm Inverse Reverse Lock Self Tap - [id number] Implanted:Qty : 1 on 09/17/2019 at [facility] Left: Shoulder [employer] [id number] 02/02/2024 01.89210.042 / / [id number] [employer] [id number] 12mm 130mm Shoulder Stem Humeral Trabecular Metal Tivanium - [id number] Implanted:Qty : 1 on 09/17/2019 at [facility] Left: Shoulder [employer] [id number] 07/02/2029 [id number] / / [id number] [employer] [id number] 36mm H+3mm Reverse Humerus 7d Standard Liner Shoulder Trabecular - [id number] Implanted:Qty : 1 on 09/17/2019 at [facility] Left: Shoulder [employer] [id number] 06/02/2027 [id number] / / [id number] Explanted Type Area Electrical/Instrument Technician Device Identifier Shelf Expiration Date Model / Serial / Lot vi[employer]ood [employer] [id number] Steinmann 3/32in 9in 2 Trocar Pin Fixation Nonsterile - [id number] Explanted:Qty: 1 on 09/17/2019 at [facility] [employer] [id number] / / Procedures Procedure Name Priority Date/Time Associated Diagnosis Comments COLONOSCOPY Routine 10/20/2023 9:37 AM CDT HEPATITIS C SCREENING Routine 09/28/2023 11:10 AM CDT PSA SCREEN Routine 05/26/2022 12:14 PM TIME STUDY TECHNICIAN Screening for prostate cancer from Last 3 Months or Most Recently Relevant to Health Maintenance Results * COLONOSCOPY (10/20/2023 9:37 AM CDT) Scribed Colonoscopy Normal us Monisha Tucker MD [facility] Fin al Result * HEPATITIS C SCREENING (09/28/2023 11:10 AM CDT) SCRIBED HCV ab Non Reactive us Rj Dooley MD [facility] Final Re sult * PSA screen (05/26/2022 12:14 PM TIME STUDY TECHNICIAN) PSA-Total 1.99 <=5.40 ng/mL IRAM GARCIA Comment: [...] revised 21. Blood 05/26/2022 12:1 4 PM TIME STUDY TECHNICIAN 05/26/2022 2:55 PM TIME STUDY TECHNICIAN Nayan Linder DO LAB BLOOD ORDERABLES Fin al Result IRAM GARCIA [id number] [facility] [place] [address] from Last 3 Months or Most Recently Relevant to Health Maintenance Insurance MEDICARE [facility] MEDICARE SUPPLEMENT MEDICARE [facility] MEDICARE BLUE CROSS MEDICARE SUPPLEMENT Advance Directives For more information, please contact: [phone] Documents on File Type Date Recorded Patient Athletic Scout Expl anation ADVANCE DIRECTIVE 12/27/2023 8:58 AM Power of Waste Transportation Technician for Health Care Power of Waste Transportation Technician 05/16/2023 12:09 PM * Full Code (Latest Code Status on File) Date Activated Date Inactivated Comments 03/08/2024 10:51 AM 03/09/2024 5:26 AM * Full Code Date Activated Date Inactivated Comments 09/17/2019 7:41 PM 09/18/2019 4:44 PM Care Teams Doctor Of Nursing Practice Relationship Specialty Start Date End Date Monisha Tucker MD PCP - General Family Practice 08/05/22 [place] [address] [address] Nurse Practitioner Pain Management 09/06/23 [place] [address] [address] [facility] [address] [address] Consulting Physician Pain Management 09/06/23 [place] [address] [facility] [address] [address] Referring Physician General Surgery 09/06/23 [place] [address] [address] [address] [address] Consulting Physician Neurosurgery 11/14/23 Cornelio Ferris MD [address] [address] Referring Physician Psychiatry 12/15/23
--- NOTE | 2024-07-26 14:04 | PC.NURSE ---
Pt states pain is too strong to ambulate
[2024-07-26] MEDS: KETOROLAC 15 MG/ML VIAL (*BKC) IV PUSH (14:07)
[2024-07-26] MEDS: MORPHINE SULFATE (*CRX) 4 MG/ML INJ IV PUSH (14:09)
[2024-07-26 14:41] LABS: Basophils Percent Auto 0.4 % (0.2-1.2); Eosinophils Absolute Auto 0.1 K/mm3 (0-0.3); Eosinophils Percent Auto 0.9 % (0-4.4); Hematocrit 46.9 % (42.0-52.0); Hemoglobin 15.8 g/dL (14.0-18.0); Immature Granulocyte Absolute 0.03 K/mm3 (0.00-0.031); Immature Granulocyte Percent A 0.3 % (0-0.5); Lymphocytes Absolute Auto 0.82 K/mm3 (0.9-3.2); Mean Corpuscular HGB Conc 33.7 g/dl (32-36); Mean Corpuscular Hemoglobin 30.1 pg (26-34); Mean Corpuscular Volume 89.3 fl (80-100); Mean Platelet Volume 9.4 fl (7.4-10.4); Monocytes Absolute Auto 0.6 K/mm3 (0.1-0.6); Monocytes Percent Auto 6.9 % (2.6-8.5); Neutrophils Absolute Auto 7.5 K/mm3 (1.3-6.7); Neutrophils Percent Auto 82.5 % (45.5-73.1); Platelet Count Result 181 k/mm3 (150-375); Red Blood Count 5.25 M/mm3 (4.6-6.20); White Blood Count 9.1 K/mm3 (4.5-10.0)
[2024-07-26 14:49] LABS: INR 1.1; Prothrombin Time 14.6 Seconds (11.1-14.7)
[2024-07-26 14:50] LABS: Anion Gap 10 mmol/L (4-12); Blood Urea Nitrogen 21 mg/dL (9-20); Calcium 9.3 mg/dL (8.4-10.2); Carbon Dioxide 23 mmol/L (22-30); Chloride 106 mmol/L (98-107); Estimated CRCL calculation 63 ml/min; Estimated Glomerular Filt Rate > 60; Glucose 105 mg/dL (65-110); Partial Thromboplastin Time 30.6 Seconds (22.3-36.8); Potassium 4.2 mmol/L (3.4-5.0); Sodium 139 mmol/L (137-145)
--- NOTE | 2024-07-26 19:36 | PCCCNOTE ---
1645- Called to the ED to assist pt and family with more care at his assisted living. [place] [facility] and has been more weak lately and having falls. 1715-Spoke with Chavez at [place], regarding pt requiring more assistance. Meghann from [place] spoke with the pt and they developed a plan for pt to come back to his AL tonight with extra attention and talk more about his options tomorrow. Pt and his family agreed to this plan. notified, pt will be discharged.
== END 2024-07-26 18:51 | disposition home or self-care (01) ==
PROVIDERS: Emergency Provider Student in an Organized Health Care Education/Training Program; PCP Family Medicine
DX: M25.551 Pain in right hip (principal); W19.XXXA Unspecified fall, initial encounter; E78.5 Hyperlipidemia, unspecified; Z79.82 Long term (current) use of aspirin; F41.8 Other specified anxiety disorders
CPT/HCPCS: 36415; 70450; 73502; 73700; 80048; 85025; 85610; 85730; 96374; 96375; 99284; J1885; J2270

== ENCOUNTER 2024-11-03 23:35 | Emergency (ER) | payer MEDICARE, SELFPAY ==
--- NOTE | ~2024-11-03 | CT_ITS ---
EXAMINATION: CT brain wo con DATE: 11/04/2024 01:53 INDICATION: Fall with head injury TECHNIQUE: Computed tomography (CT) of the head was performed without intravenous contrast. Sagittal and coronal reconstructions were performed. The mA was adjusted according to patient size. Iterative reconstruction technique was employed. The dose-length product was 756.67 mGy-cm. COMPARISON: head CT dated 07/26/2024 FINDINGS: No fracture. No acute intracranial hemorrhage, acute infarction or abnormal extra axial fluid collect ion. Unchanged mild scattered white matter hypoattenuation consistent with chronic small vessel ische veronika disease. Ventricles are normal and symmetric. No mass/mass effect. The orbits, paranasal sinuses and mastoid air cells are normal. IMPRESSION: 1. Normal aging brain. No fracture or acute intracranial process. Reviewed, dictated and finalized at location A.
--- NOTE | ~2024-11-03 | CT_ITS ---
EXAMINATION: CT cervical spine wo con DATE: 11/04/2024 01:53 INDICATION: FALL STRUCK HEAD TECHNIQUE: Computed tomography (CT) of the cervical spine was performed without intravenous contrast. Automated exposure control and iterative reconstruction technique were employed. The dose-length pro duct was 447.02 mGy-cm. COMPARISON: 02/13/2024. FINDINGS: Mild motion artifact. Vertebral Body Alignment: Stable multilevel trace listheses. Craniocervical and atlantoaxial alignment: Moderate degenerative change. Alignment intact. Osseous structures/fracture: No evidence of a lytic or blastic process in the visualized spine. No e vidence of acute fracture. Left C2-3 facet fusion. Cervical soft tissues: The paraspinal soft tissues planes are maintained. Degenerative changes: Degenerative changes, without severe neural foraminal or central canal narrowin g. IMPRESSION: No acute fracture or traumatic malalignment in the cervical spine. Reviewed, dictated and finalized at location K.
[2024-11-03 23:36] VITALS: BP 128/70; PULSE 75; RESP 18; TEMP 36.5; O2SAT 100
--- OUTSIDE RECORDS SUMMARY | 2024-11-03 23:37 | XMS_ITS ---
Author Name Auto Generated, Auto Generated Organization [facility] Address [address] [place] [address] Phone [phone] Care Team Providers Care Food Writer Name Role Phone Rj Dooley Unavailable [phone] Functional Status No Results Mental Status No Results Allergies and Intolerances Name Onset Date Reaction Severity No Known Allergies (Allergy) TueMar 24 16:29:00 EST 2022 Encounters Program Name Primary Diagnosis Admission Date/Time Dis charge Date/Time [facility] TueJul 29 20:00:00 EDT 2024Sep 07 18:00:00 EDT 2024 Assisted Living Area Malignant neoplasm of prostate TueMay 31 06:00:00 EST 2023 [facility] TueDec 14 20:00:00 EDT 2023Mar 30 17:00:00 EST 2023 Immunizations Name Dates Status influenza, trivalent, adjuvanted TueJan 11 01:0 0:00 EDT 2023 Completed COVID-19, mRNA, LNP-S, PF, t ris-sucrose, 30 mcg/0.3 mL TueApr 20 01:00:00 EST 2024 Completed Medications Medication Directions Start Date End Date ondansetron 8 mg disintegrating tablet 1 tab TABLET,DISINTEGRATING Oral PRN Every 6 Hours Indication: Nausea TueOct 25 01:00:00 EDT 2024 simethicone 125 mg capsule 1 capsule CAP ROSA Oral 2 Times Daily Indication: Prep for TREATMENT CLIENT ADVISOR supervision x1, x4 TueSep 26 13:00:00 EDT 2024Sep 26 16:56:00 EDT 2024 Metamucil Fiber Singles 3.4 gram oral powder packet 1 packet POWDER IN PACKET (EA) Oral 2 Times Daily Indication: Prep for TREATMENT, mix packet into 8oz of waterCNA supervision x1, x4 TueSep 26 13:00:00 EDT 2024Sep 26 16:57:00 EDT 2024 Gas-X Extra Strength 125 mg capsule 1 capsule CAPSULE Oral 2 Times Daily Indication: Prep for TREATMENT CLIENT ADVISOR supervision x1, x3 TueSep 26 16:55:00 EDT 2024 Metamucil Fiber Singles 3.4 gram oral powder packet 1 packet POWDER IN PACKET (EA) Oral 2 Times Daily Indication: Prep for TREATMENT, mix packet into 8oz of waterCNA supervision x1, x3 TueSep 26 16:56:00 EDT 2024 ibuprofen 600 mg tablet 1 tab TABLET Ora l PRN Every 6 Hours for 14 Days Indication: pain/inflammation TueSep 25 13:06:00 EDT 2024Oct 09 13:05:00 EDT 2024 Fleet Enema 19 gram-7 gram/118 mL 1 ENEMA (ML) Rectal 1 Time Daily for 1 Day Indication: surgical prep Nurse to administer TueSep 17 07:22:00 EDT 2024Sep 17 07:24:00 EDT 2024 Fleet Enema 19 gram-7 gram/118 mL 1 ENEMA (ML) Rectal 1 Time Daily for 1 Day Indication: surgical prep Nurse to administer TueSep 19 01:00:00 EDT 2024Sep 20 00:59:00 EDT 2024 simethicone 125 mg capsule 1 capsule CAP ROSA Oral 2 Times Daily for 5 Days Indication: prep for CT CLIENT ADVISOR supervision x1, x4 TueSep 21 01:00:00 EDT 2024Sep 26 00:59:00 EDT 2024 Metamucil Fiber Singles 3.4 gram oral powder packet 1 packet POWDER IN PACKET (EA) Oral 2 Times Daily for 5 Days Indication: Prep for CT, mix packet into 8oz of waterCNA supervision x1, x4 TueSep 21 01:00:00 EDT 2024Sep 26 00:59:00 EDT 2024 Fleet Enema 19 gram-7 gram/118 mL 1 ENEMA (ML) Rectal 1 Time Daily for 1 Day Indication: surgical prep Nurse to administer TueSep 19 07:00:00 EDT 2024Sep 17 07:23:00 EDT 2024 calcium 500 mg (as calcium carbonate 1,250 mg) tablet 2 tablets TABLET Oral 1 Time Daily Indication: supplement CLIENT ADVISOR supervision x1 2 tablets= 1000mg TueAugust 23 01:00:00 EDT 2024 cholecalciferol (vitamin D3) 25 mcg (1,000 unit) tablet 1 tablet TABLET Oral 1 Time Daily Indication: supplement CLIENT ADVISOR supervision x1 TueAugust 23 01:00:00 EDT 2024 Orgovyx 120 mg tablet 3 tablets TABLET O ral 1 Time Daily for 1 Day Indication: Prostate cancer CLIENT ADVISOR supervision x13 tablets for 1 day TueAugust 23 01:00:00 EDT 2024August 24 00:59:00 EDT 2024 Orgovyx 120 mg tablet 1 tablet TABLET Or al 1 Time Daily Indication: prostate cancer CLIENT ADVISOR supervision x1 TueAugust 24 01:00:00 EDT 2024 QUEtiapine 50 mg tablet 1 TABLET TABLET Oral 1 Time Daily Indication: mood disorder CLIENT ADVISOR administration TueAugust 04 03:00:00 EDT 2024 AdviL Liqui-GeL 200 mg capsule 2-3 caps CAPSULE Oral PRN Every 8 Hours for 14 Days Indication: pain/inflammation TueJul 27 12:00:00 EDT 2024August 10 11:59:00 EDT 2024 clomiPRAMINE 25 mg capsule 1 cap CAPSULE Oral Hour Of Sleep Indication: OCD CLIENT ADVISOR Supervision x4 TueJul 05 01:00:00 EDT 2024August 04 03:07:00 EDT 2024 PreserVision AREDS 2,148 mcg-113 mg-45 mg-17.4 mg tablet 2 tablets TABLET Oral 1 Time Daily Indication: eye supplement CLIENT ADVISOR supervision x1 TueJun 27 01:00:00 EDT 2024 cyanocobalamin (vit B-12) 1,000 mcg tablet 1 tablet TABLET Oral 1 Time Daily Indication: supplementCNA supervision x1 TueJun 27 01:00:00 EDT 2024 aspirin 81 mg chewable tablet 1 TABLET,CHEWABLE Oral 1 Time Daily Indication: anticoagulantCNA supervision X1 TueJun 27 01:00:00 EDT 2024 Adult 50 Plus Probiotic 4 billion cell capsule 1 capsule CAPSULE Oral 1 Time Daily for 2 Days Indication: constipation GI prophCNA Supervision x1 TueJun 20 01:00:00 EDT 2024Jun 22 00:59:00 EDT 2024 Adult 50 Plus Probiotic 4 billion cell capsule 1 capsule CAPSULE Oral 1 Time Daily Indication: constipation GI prophCNA Supervision x1 TueJun 27 01:00:00 EDT 2024 PreserVision AREDS 2,148 mcg-113 mg-45 mg-17.4 mg tablet 2 tablets TABLET Oral 1 Time Daily Indication: eye supplement CLIENT ADVISOR supervision x1 TueJun 26 01:00:00 EDT 2024Jun 24 19:25:00 EDT 2024 aspirin 81 mg chewable tablet 1 TABLET,CHEWABLE Oral 1 Time Daily Indication: anticoagulantCNA supervision X1 TueJun 26 01:00:00 EDT 2024Jun 24 19:28:00 EDT 2024 cyanocobalamin (vit B-12) 1,000 mcg tablet 1 tablet TABLET Oral 1 Time Daily Indication: supplementCNA supervision x1 TueJun 26 01:00:00 EDT 2024Jun 24 19:26:00 EDT 2024 Fleet Enema 19 gram-7 gram/118 mL 1 ENEMA (ML) Rectal 1 Time Daily for 1 Day Indication: clean out system pre op TueJun 26 01:00:00 EDT 2024Jun 27 00:59:00 EDT 2024 ciprofloxacin 500 mg tablet 1 tablet By Mouth 2 Times Daily for 5 Days Indication: For UTI Give 1 tablet po twice daily times 5 days.CLIENT ADVISOR Supervision x1, x4. TueMay 15 07:00:00 EST 2024May 20 06:59:00 EST 2024 oxyBUTYnin chloride ER 15 mg tablet,extended release 24 hr 1 TABLET TABLET, EXTENDED RELEASE 24 HR Oral 1 Time Daily Indication: antispasmodic - per [facility] TueMay 07 15:30:00 EST 2024 acetaminophen 500 mg tablet 2 tablets TABLET Oral PRN Every 8 Hours Indication: painMaximum dose is 3 grams/24 hours TueMay 05 11:24:00 EST 2024 Comirnaty 2023- (12y up)(PF) 30 mcg/0.3 mL intramuscular syringe [...] Time Daily Indication: OCD Anxiety, OCDPer Renetta Eduardo Huggins NPCNA supervision x4 Sat Apr 07 19:30:00 EST 2024Jul 09 09:07:00 EDT 2024 ergocalciferol (vitamin D2) 1,250 mcg (50,000 unit) capsule 1 CAPSULE Oral 1 Time Weekly Indication: supplement - CLIENT ADVISOR supervision X1 TueMar 12 01:00:00 EST 2023August 28 10:27:00 EDT 2024 simvastatin 20 mg tablet 1 tablet TABLET Oral 1 Time Daily Indication: hyperlipidemiaCNA supervision @ 1700 TueFeb 26 10:58:00 EST 2023 naproxen 500 mg tablet 1 TAB TABLET Oral 2 Times Daily Indication: pain Pain/InflammationCNA supervision x1 and 1700 TueFeb 26 10:59:00 EST 2023Mar 08 01:07:00 EST 2023 cephALEXin 500 mg capsule 1 CAPSULE Oral Every 12 Hours for 7 Days Indication: UTI CLIENT ADVISOR Supervision x1 x3 TueFeb 14 14:43:00 EST [...] Other 2 Times Monthly Indication: monthly vitals CLIENT ADVISOR to obtain TueFeb 26 01:00:00 EST 2023 cephALEXin 500 mg capsule 1 CAPSULE Oral Every 12 Hours for 7 Days Indication: UTI CLIENT ADVISOR Supervision x1 x3 TueFeb 12 18:00:00 EST 2023Feb 14 14:44:00 EST 2023 sertraline 100 mg tablet 200mg TABLET Or al 1 Time Daily Indication: depression DepressionCNA supervision x42 [id number]=482 MG TueFeb 05 01:00:00 EST 2023 omeprazole 40 mg capsule,delayed release 1 CAP CAPSULE,DELAYED RELEASE (ENTERIC COATED) Oral 1 Time Daily Indication: GERD CLIENT ADVISOR supervision x1 TueFeb 05 01:00:00 EST 2023 Adult 50 Plus Probiotic 4 billion cell capsule 1 capsule CAPSULE Oral 1 Time Daily Indication: constipation GI prophCNA Supervision x1 TueFeb 05 01:00:00 EST 2023Jun 19 20:26:00 EDT 2024 PreserVision AREDS 2,148 mcg-113 mg-45 mg-17.4 mg tablet 2 tablets TABLET Oral 1 Time Daily Indication: eye supplement CLIENT ADVISOR supervision x1 TueFeb 05 01:00:00 EST 2023Jun [...] Other 2 Times Monthly Indication: monthly vitals CLIENT ADVISOR to obtain TueFeb 05 01:00:00 EST 2023Feb 14 18:15:00 EST 2023 cetirizine 10 mg tablet 1 tablet TABLET Oral PRN 1 Time Daily Indication: allergies TueFeb 05 01:00:00 EST 2023 QUEtiapine 100 mg tablet 1 tablet TABLET Oral 1 Time Daily Indication: OCD Anxiety, OCDPer Renetta [place] Bryceoi NPCNA supervision x4 TueFeb 05 01:00:00 EST [...] 2023Feb 14 18:14:00 EST 2023 Fluad Triv (65y up)(PF) 45 mcg (15 mcg x 3)/0.5 mL IM syringe 1 SYRINGE (ML) Intramuscular 1 Time Daily for 1 Day Indication: Vaccine TueJan 11 01:00:00 EDT 2023Jan 12 00:59:00 EDT 2023 Fluad Triv 25(65y up)(PF) 45 mcg (15 mcg x 3)/0.5 [...] TABLET,CHEWABLE Oral 1 Time Daily Indication: anticoagulant CLIENT ADVISOR supervision X1 TueSep 06 01:00:00 EDT 2023Feb 05 16:45:00 EST 2023 HYDROcodone 5 mg-acetaminophen 325 mg tablet 1 TAB TABLET Oral PRN Every 6 Hours Indication: pain PAIN *DO NOT EXCEED 3GM/DAY APAP FROM ALL SOURCES* TueMay 31 12:00:00 EST 2023Feb 05 16:45:00 EST 2023 sertraline 100 mg tablet 200mg TABLET Or al 1 Time Daily Indication: depression Depression2 XQAV=287 MG TueMay 31 12:00:00 EST 2023Feb 05 [...] Other 2 Times Monthly Indication: monthly vitals CLIENT ADVISOR to obtain TueMay 31 12:00:00 EST 2023Feb 05 16:45:00 EST 2023 cetirizine 10 mg tablet 1 tablet TABLET Oral PRN 1 Time Daily Indication: allergies TueMay 31 12:00:00 EST 2023Feb 05 16:45:00 EST 2023 QUEtiapine 100 mg tablet 1 tablet TABLET Oral 1 Time Daily Indication: OCD Anxiety, OCDPer Renetta Ferris GAME PROTECTOR TueMay 31 12:00:00 EST 2023Feb 05 16:45:00 EST 2023 QUEtiapine 100 mg tablet 1 tablet TABLET Oral 1 Time Daily Indication: OCD Anxiety, OCDPer Renetta Ferris GAME PROTECTOR TueJun 11 19:20:00 EDT 2023Jun 13 00:01:00 [...] al 1 Time Daily Indication: depression Depression2 [id number]=087 MG TueJun 08 23:38:00 EST 2023Jun 12 [...] Other 2 Times Monthly Indication: monthly vitals CLIENT ADVISOR to obtain TueJun 08 23:48:00 EST 2023Jun 12 23:59:00 EDT 2023 cetirizine 10 mg tablet 1 tablet TABLET Oral PRN 1 Time Daily Indication: allergies TueJun 08 23:51:00 EST 2023Jun 13 00:00:00 EDT 2023 Blood Pressure Cuff 1 EACH Other 2 Times Monthly Indication: monthly vitals CLIENT ADVISOR to obtain [place] Jun 04 09:59:00 EST 2023Jun 08 23:51:00 EST [...] Daily Indication: pain Pain/Inflammation TueMay 31 07:00:00 EST 2023 Sat Jun 03 10:57:00 EST 2023 sertraline 100 mg tablet 200mg TABLET Or al 1 Time Daily Indication: depression Depression2 [id number]=838 MG TueMay 31 12:00:00 EST 2023Jun 08 23:39:00 EST 2023 QUEtiapine 100 mg tablet 1 tablet TABLET Oral 2 Times Daily Indication: OCD Anxiety, OCD TueMay 31 12:00:00 2023Jun 08 23:39:00 EST 2023 simvastatin 20 mg tablet 1 tablet TABLET Oral 1 Time Daily Indication: hyperlipidemia HLD TueMay 31 12:00:00 2023 [facility] Jun 03 10:56:00 EST 2023 zolpidem 10 mg tablet 1 tablet TABLET Or al PRN Hour Of Sleep Indication: insomnia INSOMNIA TueMay 31 12:00:00 2023Jun 08 23:40:00 EST 2023 docusate sodium 100 mg capsule 1 capsule CAPSULE Oral 2 Times Daily Indication: Constipation Constipation TueMay 31 12:00:00 2023Jun 08 23:41:00 EST 2023 omeprazole 40 mg capsule,delayed release 1 CAP CAPSULE,DELAYED RELEASE (ENTERIC COATED) Oral 1 Time Daily Indication: GERD GERD TueMay 31 12:00:00 2023Jun 08 23:41:00 EST 2023 Adult 50 [...] urinary retention Urinary Retention TueMay 31 12:00:00 2023Jun 08 23:44:00 EST 2023 ondansetron 8 mg disintegrating tablet 1 tablet TABLET,DISINTEGRATING Oral PRN Every 8 Hours Indication: nausea and vomiting Nausea & Vomiting TueMay 31 12:00:00 2023Jun 08 23:44:00 EST 2023 acetaminophen 500 mg tablet 2 tablets TABLET Oral PRN Every 8 Hours Indication: pain Pain TueMay 31 12:00:00 EST 2023Jun 08 23:45:00 EST 2023 cetirizine [...] HR Oral 2 Times Daily Indication: Depression TueMay 30 01:00:00 EST 2023May 31 01:00:00 EST 2023 ondansetron 8 mg disintegrating tablet 1 tablet TABLET,DISINTEGRATING Oral PRN Every 8 Hours Indication: Nausea & Vomiting TueMay 26 17:00:00 EST 2023b 01:00:00 EST 2023 acetaminophen 500 mg tablet 2 tablets TABLET Oral PRN Every 8 Hours Indication: Pain TueMay 26 14:00:00 EST 2023b 01:00:00 EST 2023 cetirizine 10 mg tablet 1 tablet TABLET Oral 1 Time Daily Indication: Allergies Tueb 14:00:00 EST 2023b 01:00:00 EST 2023 Med Pass 2.0 Nutritional Supplement 120 mL 120 mL 180 cc Oral 1 Time Daily Indication: For weight maintenance and healing TueMay 25 16:00:00 EST 2023b 01:00:00 EST 2023 acetaminophen 325 mg tablet 2 tabs TABLET Oral PRN Every 6 Hours Indication: pain As needed for pain/elevated temperature. TueMay 24 17:00:00 EST 2023 Feb 17:25:00 EST 2023 TubersoL 5 tub. unit/0.1 [...] positive do chest x-ray. TueMay 24 07:00:00 EST 2023May 31 01:00:00 EST 2023 HYDROcodone [...] Or al 1 Time Daily Indication: Depression2 [id number] MG TueMay 24 18:00:00 2023May 31 01:00:00 EST 2023 QUEtiapine 100 [...] al PRN Hour Of Sleep Indication: INSOMNIA TueMay 24 01:00:00 EST 2023May 31 01:00:00 EST 2023 ondansetron 4 mg disintegrating tablet 1 tablet TABLET,DISINTEGRATING Oral PRN Every 8 Hours Indication: NAUSEA AND VOMITING TueMay 24 19:00:00 EST 2023u b 22 17:21:00 EST 2023 docusate sodium 100 mg capsule 1 capsule CAPSULE Oral 2 Times Daily Indication: Constipation TueMay 24 18:00:00 EST 2023 Feb 01:00:00 EST 2023 buPROPion HCL XL 300 mg 24 hr tablet, extended release 1 tablet TABLET, EXTENDED RELEASE 24 HR Oral 1 Time Daily Indication: Depression e Feb 20 18:00:00 EST 2023 Mon Feb 26 08:38:00 EST 2023 omeprazole 40 mg capsule,delayed release 1 CAP CAPSULE,DELAYED RELEASE (ENTERIC COATED) Oral 1 Time Daily Indication: GERD Tue Feb 18:00:00 EST 2023 Feb 01:00:00 EST 2023 Adult 50 Plus Probiotic 4 billion cell capsule 1 CAP CAPSULE Oral 1 Time Daily Indication: dd Tueb 18:00:00 EST 2023 Feb 20 19:08:00 EST 2023 Adult 50 Plus Probiotic 4 billion cell capsule 1 capsule CAPSULE Oral 1 Time Daily Indication: GI proph Tueb 14:00:00 2023b 01:00:00 EST 2023 levoFLOXacin 750 mg tablet 1 tablet TABL ET Oral 1 Time Daily for 30 Days Indication: Prophylactic for osteomyelitis for second left toe Tueb 14:00:00 EST 2023b 01:00:00 EST 2023 PreserVision AREDS 2,148 mcg-113 mg-45 mg-17.4 mg tablet 2 tablets TABLET Oral 1 Time Daily Indication: Eye Supplement TueMay 24 15:00:00 2023b 01:00:00 EST 2023 tamsulosin 0.4 mg capsule 1 capsule CAPS ULE Oral 1 Time Daily Indication: Urinary Retention TueMay 24 14:00:00 EST 2023b 01:00:00 EST 2023 ceFAZolin 3 gram intravenous solution 6 Grams VIAL (EA) Intravenous 1 Time Daily for 28 Days Indication: osteomyelitis 6 gm IV over 24hs x 4 weeks TueApr 07 09:00:00 EST 2023Apr 06 12:55:00 EST 2023 heparin, porcine (PF) 10 unit/mL intravenous syringe 5 mL SYRINGE (ML) Intravenous 3 Times Daily for 24 Days Indication: IV 10 mL of NS, then medication, then follow with 10 mL NS, followed with 5 mL Heparin TueApr 06 00:00:00 EST 2023Apr 09 01:00:00 EST 2023 povidone-iodine 5 % eye solution paint SOLUTION, NON-ORAL Topical 1 Time Daily Indication: wound care TueMar 30 15:00:00 EST 2022Apr 09 01:00: EST 2023 Pro-Stat AWC 17 gram-100 kcal/30 mL oral liquid 30 cc LIQUID (ML) Oral 1 Time Daily Indication: For wound healing TueMar 25 13:30:00 EST 2022Apr 09 01:00: EST 2023 ceFAZolin 10 gram solution for injection 2 grams VIAL (EA) Intravenous 3 Times Daily for 36 Days Indication: Infuse 2g 100mL/hr every 8 hours d/t Osteomyelitis TueMar 25 18:00:00 EST 2022Apr 09 01:00: EST 2023 Arginaid 4.5 gram-156 mg/9.2 gram oral powder packet 1 packet POWDER IN PACKET (EA) Oral 1 Time Daily Indication: supplement TueMar 25 13:45:00 EST 2022Apr 09 01:00: EST 2023 Normal Saline Flush 0.9 % injection syringe 10ml syringe SYRINGE (ML) Intravenous 3 Times Daily for 36 Days Indication: IV 10ml of NS, then medication, then follow with 10ml of saline followed with 5ml Heparin. TueMar 25 18:00:00 EST 2022Apr 09:00: EST 2023 heparin lock flush (porcine) 10 unit/mL intravenous solution 5ml VIAL (ML) Intravenous 3 Times Daily for 36 Days Indication: IV 10ml of NS, then medication, then follow with 10ml of saline followed with 5ml Heparin. TueMar 25 18:00:00 EST 2022 Tue Apr 05 23:57:00 EST 2023 ceFAZolin 10 gram solution for injection 6 grams VIAL (EA) Intravenous 1 Time Daily for 36 Days Indication: Infuse 6g every 24 hours d/t Osteomyelitis TueMar 25 07:00:00 EST 2022Mar 24 20:08:00 EST 2022 zolpidem 10 mg tablet 1 tablet TABLET Or al PRN 1 Time Daily Indication: Insomnia TueMar 24 16:00:00 EST 2022Apr 09 01:00: EST 2023 lamoTRIgine 50 mg disintegrating tablet 1 tablet TABLET,DISINTEGRATING Oral 1 Time Daily Indication: Seizures TueMar 24 16:00:00 2022Apr 09 01:00: EST 2023 buPROPion HCL XL 450 mg 24 hr tablet, extended release 1 tablet TABLET, EXTENDED RELEASE 24 HR Oral 1 Time Daily Indication: Depression TueMar 24 16:00:00 EST 2022 Sat Apr 09 01:00: EST 2023 sertraline 100 mg tablet 200mg TABLET Or al 1 Time Daily Indication: Depression TueMar 24 14:00:00 EST 2022 Sat Apr 09 01:00:00 EST 2023 QUEtiapine 100 mg tablet 1 tablet TABLET Oral 2 Times Daily Indication: Depression/Anxiety TueMar 24 17:00:00 EST 2022 Sat Apr 09 01:00: EST 2023 simvastatin 20 mg tablet 1 tablet TABLET Oral 1 Time Daily Indication: HLD TueMar 24 17:00:00 EST 2022 Sat Apr 09 01:00: EST 2023 oxyBUTYnin chloride 5 mg tablet 1 tablet TABLET Oral 1 Time Daily Indication: Urinary Incontinence TueMar 24 16:00:00 EST 2022 Sat Apr 09 01:00:00 EST 2023 naproxen 500 mg [...] 13:39:00 EST 2022 Problems Active Concerns * Other acute osteomyelitis, left ankle and foot* Code: * Start Date: TueMar 24 00:00:00 EST 2022 * End Date: TueMar 14 00:00:00 EST 2023 * Text: * Cellulitis of left toe* Code: * Start Date: TueMar 24 00:00:00 EST 2022 * End Date: TueMar 14 00:00:00 EST 2023 * Text: * Methicillin susceptible Staphylococcus aureus infection as the cause of diseases classified elsewhere* Code: * Start Date: TueMar 24 00:00:00 EST 2022 * End Date: TueMar 14 00:00:00 EST 2023 * Text: * Insomnia, unspecified* Code: * Start Date: TueMar 24 00:00:00 EST 2022 * End Date: TueMar 07 00:00:00 EST 2023 * Text: * Anxiety disorder, unspecified* Code: * Start Date: TueMar 24 00:00:00 EST 2022 * End Date: TueMar 14 00:00:00 EST 2023 * Text: * Depression, unspecified* Code: * Start Date: TueMar 24 00:00:00 EST 2022 * End Date: TueMar 14 00:00:00 EST 2023 * Text: * Hyperlipidemia, unspecified* Code: * Start Date: TueMar 24 00:00:00 EST 2022 * End Date: TueJul 12 00:00:00 EDT 2024 * Text: * Encounter for surgical aftercare following surgery on the skin and subcutaneous tissue* Code: * Start Date: TueMar 24 00:00:00 EST 2022 * End Date: TueMar 14 00:00:00 EST 2023 * Text: * Encounter for adjustment and management of vascular access device* Code: * Start Date: TueMar 24 00:00:00 EST 2022 * End Date: TueMar 14 00:00:00 EST 2023 * Text: * superintendent terminal (current) use of antibiotics* Code: * Start Date: TueMar 24 00:00:00 EST 2022 * End Date: TueMar 07 00:00:00 EST 2023 * Text: * Obsessive-compulsive disorder, unspecified* Code: * Start Date: TueMar 24 00:00:00 EST 2022 * End Date: * Text: * Overactive bladder* Code: * Start Date: TueMar 24 00:00:00 EST 2022 * End Date: * Text: * Unspecified osteoarthritis, unspecified site* Code: * Start Date: TueMar 24 00:00:00 EST 2022 * End Date: TueMar 07 00:00:00 EST 2023 * Text: * Bilateral inguinal hernia, without obstruction or gangrene, not specified as recurrent* Code: * Start Date: TueMay 24 00:00:00 EST 2023 * End Date: TueMar 14 00:00:00 EST 2023 * Text: * Encounter for surgical aftercare following surgery on the digestive system* Code: * Start Date: TueMay 24 00:00:00 EST 2023 * End Date: TueMar 14 00:00:00 EST 2023 * Text: * Subacute osteomyelitis, left ankle and foot* Code: * Start Date: TueMay 24 00:00:00 EST 2023 * End Date: TueMar 14 00:00:00 EST 2023 * Text: * Schizoaffective disorder, unspecified* Code: * Start Date: TueMay 24 00:00:00 EST 2023 * End Date: * Text: * Mixed hyperlipidemia* Code: * Start Date: TueMay 24 00:00:00 EST 2023 * End Date: TueJul 12 00:00:00 EDT 2024 * Text: * Radiculopathy, lumbar region* Code: * Start Date: TueMay 24 00:00:00 EST 2023 * End Date: * Text: * Essential (primary) hypertension* Code: * Start Date: TueMay 24 00:00:00 EST 2023 * End Date: TueMar 14 00:00:00 EST 2023 * Text: * Unspecified urinary incontinence* Code: * Start Date: TueMay 24 00:00:00 EST 2023 * End Date: * Text: * Osteomyelitis, unspecified* Code: * Start Date: TueJun 08 00:00:00 EST 2023 * End Date: TueMar 14 00:00:00 EST 2023 * Text: * Weakness* Code: * Start Date: TueJun 08 00:00:00 EST 2023 * End Date: TueMar 14 00:00:00 EST 2023 * Text: * Unsteadiness on feet* Code: * Start Date: TueJun 08 00:00:00 EST 2023 * End Date: TueMar 14 00:00:00 EST 2023 * Text: * Other fatigue* Code: * Start Date: TueDec 15 00:00:00 EDT 2023 * End Date: TueJul 12 00:00:00 EDT 2024 * Text: * Need for assistance with personal care* Code: * Start Date: TueDec 15 00:00:00 EDT 2023 * End Date: TueJul 12 00:00:00 EDT 2024 * Text: * superintendent terminal (current) use of aspirin* Code: * Start [...] anxiety disorder* Code: * Start Date: TueJul 12 00:00:00 [...] 2023 * End Date: * Text: * Malignant neoplasm of prostate* Code: * Start Date: TueJun 26 00:00:00 EDT 2024 * End Date: * Text: * Neuromuscular dysfunction of bladder, unspecified* Code: * Start Date: TueMay 31 00:00:00 EST 2023 * End Date: * Text: * Pure hyperglyceridemia* Code: * Start Date: TueJul 12 00:00:00 EDT 2024 * End Date: * Text: * Bilateral inguinal hernia, without obstruction or gangrene, not specified as recurrent* Code: * Start Date: TueJul 12 00:00:00 EDT 2024 * End Date: * Text: * Personal history of other diseases of the musculoskeletal system and connective tissue* Code: * Start Date: TueMay 31 00:00:00 EST 2023 * End Date: * Text: * Repeated falls* Code: * Start Date: TueJul 30 00:00:00 EDT 2024 * End Date: * Text: * Muscle weakness (generalized)* Code: * Start Date: TueJul 30 00:00:00 EDT 2024 * End Date: * Text: * Unsteadiness on feet* Code: * Start Date: TueJul 30 00:00:00 EDT 2024 * End Date: * Text: * Other fatigue* Code: * Start Date: TueJul 30 00:00:00 EDT 2024 * End Date: * Text: * Other abnormalities of gait and mobility* Code: * Start Date: TueJul 30 00:00:00 EDT 2024 * End Date: * Text: * Need for assistance with personal care* Code: * Start Date: TueJul 30 00:00:00 EDT 2024 * End Date: * Text: * Unspecified fall, subsequent encounter* Code: * Start Date: TueJul 26 00:00:00 EDT 2024 * End Date: * Text: Vital Signs Vital Sign Measurement Date Systolic Blood Pressure 125.00 mm[Hg] [facility] Nov 03 14:40:54 EDT 2024 Diastolic Blood Pressure 67.00 mm[Hg] [facility] Nov 03 14:40:54 EDT 2024 Pulse Oximetry 98.00 % TueNov 03 14:40 :54 EDT 2024 Body weight 184.00 [lb_av] TueNov 03 14:40 :54 EDT 2024 Heart Rate 68.00 /min TueNov 03 14:40 :54 EDT 2024 Body temperature 98.00 [degF] TueNov 03 14:4 0:54 ED2024 Respiratory rate 18.00 /min TueNov 03 14:4 0:54 ED2024 Systolic Blood Pressure 115.00 mm[Hg] TueOct 16 17:59:28 ED2024 Diastolic Blood Pressure 67.00 mm[Hg] TueOct 16 17:59:28 ED2024 Pulse Oximetry 98.00 % TueOct 16 17:59 :28 ED2024 Body weight 185.40 [lb_av] TueOct 16 17:59 :28 ED2024 Heart Rate 72.00 /min TueOct 16 17:59 :28 2024 Body temperature 97.30 [degF] TueOct 16 17:5 9:28 ED2024 Respiratory rate 18.00 /min TueOct 16 17:5 9:28 2024 Systolic Blood Pressure 127.00 mm[Hg] TueOct 02 17:49:46 EDT 2024 Diastolic Blood Pressure 73.00 mm[Hg] TueOct 02 17:49:46 EDT 2024 Pulse Oximetry 98.00 % TueOct 02 17:49 :46 EDT 2024 Body weight 184.14 [lb_av] TueOct 02 17:49 :46 EDT 2024 Heart Rate 63.00 /min TueOct 02 17:49 :46 EDT 2024 Body temperature 98.20 [degF] TueOct 02 17:4 9:46 EDT 2024 Respiratory rate 18.00 /min TueOct 02 17:4 9:46 EDT 2024 Systolic Blood Pressure 128.00 mm[Hg] TueSep 21 01:19:00 EDT 2024 Diastolic Blood Pressure 80.00 mm[Hg] TueSep 21 01:19:00 EDT 2024 Pulse Oximetry 98.00 % TueSep 21 01:19 :00 EDT 2024 Heart Rate 77.00 /min TueSep 21 01:19 :00 EDT 2024 Body temperature 98.30 [degF] TueSep 21 01:1 9:00 EDT 2024 Respiratory rate 18.00 /min TueSep 21 01:1 9:00 EDT 2024 Systolic Blood Pressure 132.00 mm[Hg] TueSep 16 21:35:24 EDT 2024 Diastolic Blood Pressure 76.00 mm[Hg] TueSep 16 21:35:24 EDT 2024 Pulse Oximetry 95.00 % TueSep 16 21:35 :24 EDT 2024 Body weight 188.00 [lb_av] TueSep 16 21:35 :24 EDT 2024 Heart Rate 82.00 /min TueSep 16 21:35 :24 EDT 2024 Body temperature 98.00 [degF] TueSep 16 21:3 5:24 EDT 2024 Respiratory rate 20.00 /min TueSep 16 21:3 5:24 EDT 2024 Systolic Blood Pressure 128.00 mm[Hg] TueSep 02 19:40:01 EDT 2024 Diastolic Blood Pressure 78.00 mm[Hg] TueSep 02 19:40:01 EDT 2024 Pulse Oximetry 97.00 % TueSep 02 19:40 :01 EDT 2024 Body weight 187.40 [lb_av] TueSep 02 19:40 :01 EDT 2024 Heart Rate 85.00 /min TueSep 02 19:40 :01 EDT 2024 Body temperature 97.90 [degF] TueSep 02 19:4 0:01 EDT 2024 Respiratory rate 20.00 /min TueSep 02 19:4 0:01 EDT 2024 Systolic Blood Pressure 128.00 mm[Hg] TueAugust 16 21:47:27 EDT 2024 Diastolic Blood Pressure 74.00 mm[Hg] TueAugust 16 21:47:27 EDT 2024 Pulse Oximetry 97.00 % TueAugust 16 21:47 :27 EDT 2024 Body weight 188.60 [lb_av] TueAugust 16 21:47 :27 EDT 2024 Heart Rate 89.00 /min TueAugust 16 21:47 :27 EDT 2024 Body temperature 98.20 [degF] TueAugust 16 21:4 7:27 EDT 2024 Respiratory rate 18.00 /min TueAugust 16 21:4 7:27 EDT 2024 Systolic Blood Pressure 126.00 mm[Hg] TueAugust 09 18:20:00 EDT 2024 Diastolic Blood Pressure 73.00 mm[Hg] TueAugust 09 18:20:00 EDT 2024 Pulse Oximetry 100.00 % TueAugust 09 18:20 :00 EDT 2024 Heart Rate 90.00 /min TueAugust 09 18:20 :00 EDT 2024 Body temperature 97.20 [degF] TueAugust 09 18:2 0:00 EDT 2024 Respiratory rate 18.00 /min TueAugust 09 18:2 0:00 EDT 2024 Systolic Blood Pressure 96.00 mm[Hg] TueAugust 02 20:32:03 EDT 2024 Diastolic Blood Pressure 53.00 mm[Hg] TueAugust 02 20:32:03 EDT 2024 Pulse Oximetry 94.00 % TueAugust 02 20:32 :03 EDT 2024 Body weight 189.40 [lb_av] TueAugust 02 20:32 :03 EDT 2024 Heart Rate 89.00 /min TueAugust 02 20:32 :03 EDT 2024 Body temperature 98.30 [degF] TueAugust 02 20:3 2:03 EDT 2024 Respiratory rate 16.00 /min TueAugust 02 20:3 2:03 EDT 2024 Systolic Blood Pressure 144.00 mm[Hg] TueAug 01 08:36:00 EDT 2024 Diastolic Blood Pressure 81.00 mm[Hg] TueAug 01 08:36:00 EDT 2024 Pulse Oximetry 97.00 % TueAug 01 08:36 :00 EDT 2024 Heart Rate 89.00 /min TueAug 01 08:36 :00 EDT 2024 Body temperature 98.20 [degF] TueAug 01 08:3 6:00 EDT 2024 Systolic Blood Pressure 124.00 mm[Hg] TueJul 17 21:13:14 EDT 2024 Diastolic Blood Pressure 69.00 mm[Hg] TueJul 17 21:13:14 EDT 2024 Pulse Oximetry 96.00 % TueJul 17 21:13 :14 EDT 2024 Body weight 184.00 [lb_av] TueJul 17 21:13 :14 EDT 2024 Heart Rate 73.00 /min TueJul 17 21:13 :14 EDT 2024 Body temperature 98.60 [degF] TueJul 17 21:1 3:14 EDT 2024 Respiratory rate 16.00 /min TueJul 17 21:1 3:14 EDT 2024 Body weight 196.00 [lb_av] TueJul 03 20:32 :13 EDT 2024 Systolic Blood Pressure 110.00 mm[Hg] TueJul 03 19:15:38 EDT 2024 Diastolic Blood Pressure 75.00 mm[Hg] TueJul 03 19:15:38 EDT 2024 Pulse Oximetry 94.00 % TueJul 03 19:15 :38 EDT 2024 Body weight 200.40 [lb_av] TueJul 03 19:15 :38 EDT 2024 Heart Rate 77.00 /min TueJul 03 19:15 :38 EDT 2024 Body temperature 98.40 [degF] TueJul 03 19:1 5:38 EDT 2024 Respiratory rate 18.00 /min TueJul 03 19:1 5:38 EDT 2024 Systolic Blood Pressure 107.00 mm[Hg] Tue 15 21:16:41 EDT 2024 Diastolic Blood Pressure 74.00 mm[Hg] Tue 15 21:16:41 EDT 2024 Pulse Oximetry 94.00 % Sat Jun 15 21:16 :41 EDT 2024 Body weight 200.20 [lb_av] Sat Mar 15 21:16 :41 EDT 2024 Heart Rate 84.00 /min [facility] Jun 16 21:16 :41 EDT 2024 Body temperature 98.10 [degF] [facility] Jun 16 21:1 6:41 EDT 2024 Respiratory rate 20.00 /min [facility] Jun 16 21:1 6:41 EDT 2024 Systolic Blood Pressure 138.00 mm[Hg] [facility] Jun 02 21:49:24 EST 2024 Diastolic Blood Pressure 68.00 mm[Hg] [facility] Jun 02 21:49:24 EST 2024 Pulse Oximetry 97.00 % [facility] Jun 02 21:49 :24 EST 2024 Heart Rate 76.00 /min [facility] Jun 02 21:49 :24 EST 2024 Body temperature 98.00 [degF] [facility] Jun 02 21:4 9:24 EST 2024 Respiratory rate 18.00 /min [facility] Jun 02 21:4 9:24 EST 2024 Systolic Blood Pressure 149.00 mm[Hg] Tue Feb 06:15:00 EST 2024 Diastolic Blood Pressure 79.00 mm[Hg] Tue Feb 06:15:00 EST 2024 Pulse Oximetry 95.00 % TueJun 01 06:15 :00 EST 2024 Heart Rate 79.00 /min Tueb 06:15 :00 EST 2024 Body temperature 97.70 [degF] Tueb 06:1 5:00 EST 2024 Respiratory rate 20.00 /min Tueb 06:1 5:00 EST 2024 Systolic Blood Pressure 133.00 mm[Hg] [facility] Feb 15 21:00:08 EST 2024 Diastolic Blood Pressure 68.00 mm[Hg] [facility] Feb 15 21:00:08 EST 2024 Pulse Oximetry 96.00 % [facility] Feb 15 21:00 :08 EST 2024 Body weight 0.00 [lb_av] [facility] Feb 15 21:00 :08 EST 2024 Heart Rate 76.00 /min [facility] Feb 15 21:00 :08 EST 2024 Body temperature 98.00 [degF] [facility] Feb 15 21:0 0:08 EST 2024 Respiratory rate 18.00 /min [facility] Feb 15 21:0 0:08 EST 2024 Systolic Blood Pressure 139.00 mm[Hg] [facility] Feb 15:54:54 EST 2024 Diastolic Blood Pressure 72.00 mm[Hg] [facility] Feb 15:54:54 EST 2024 Pulse Oximetry 96.00 % [facility] May 05 15:54 :54 EST 2024 Body weight 208.40 [lb_av] [facility] May 05 15:54 :54 EST 2024 Heart Rate 64.00 /min [facility] May 05 15:54 :54 EST 2024 Body temperature 98.00 [degF] [facility] May 05 15:5 4:54 EST 2024 Respiratory rate 18.00 /min [facility] May 05 15:5 4:54 EST 2024 Body temperature 97.40 [degF] TueApr 23 17:4 3:32 EST 2024 Body temperature 98.10 [degF] [place] Apr 22 21:0 6:15 EST 2024 Body temperature 98.10 [degF] [place] Apr 22 17:0 5:39 EST 2024 Body temperature 97.60 [degF] [facility] Apr 21 21:4 3:40 EST 2024 Body temperature 97.90 [degF] [facility] Apr 21 13:5 9:28 EST 2024 Body temperature 97.70 [degF] [facility] Apr 20 22:1 7:46 2024 Systolic Blood Pressure 136.00 mm[Hg] TueApr 19 10:53:15 2024 Diastolic Blood Pressure 79.00 mm[Hg] TueApr 19 10:53:15 2024 Pulse Oximetry 98.00 % TueApr 19 10:53 :15 2024 Body weight 208.30 [lb_av] TueApr 19 10:53 :15 2024 Heart Rate 74.00 /min TueApr 19 10:53 :15 2024 Body temperature 97.80 [degF] TueApr 19 10:5 3:15 2024 Respiratory rate 20.00 /min TueApr 19 10:5 3:15 2024 Systolic Blood Pressure 123.00 mm[Hg] TueApr 04 21:29:07 2024 Diastolic Blood Pressure 78.00 mm[Hg] TueApr 04 21:29:07 2024 Pulse Oximetry 98.00 % TueApr 04 21:29 :07 2024 Body weight 207.30 [lb_av] TueApr 04 21:29 :07 EST 2024 Heart Rate 79.00 /min TueApr 04 21:29 :07 2024 Body temperature 97.90 [degF] TueApr 04 21:2 9:07 EST 2024 Respiratory rate 18.00 /min TueApr 04 21:2 9:07 EST 2024 Systolic Blood Pressure 113.00 mm[Hg] [...] 75.00 mm[Hg] TueMar 05 11:42:09 EST 2023 Pulse Oximetry 93.00 % TueMar 05 11:42 :09 EST 2023 Body weight 209.00 [lb_av] TueMar 05 11:42 :09 EST 2023 Heart Rate 79.00 /min TueMar 05 11:42 :09 EST 2023 Body temperature 97.10 [degF] TueMar 05 11:4 2:09 EST 2023 Respiratory rate 18.00 /min TueMar 05 11:4 2:09 EST 2023 Systolic Blood Pressure 119.00 mm[Hg] TueFeb 23 00:14:00 EST 2023 Diastolic Blood Pressure 72.00 mm[Hg] TueFeb 23 00:14:00 EST 2023 Pulse Oximetry 94.00 % TueFeb 23 00:14 :00 EST 2023 Heart Rate 98.00 /min TueFeb 23 00:14 :00 EST 2023 Body temperature 97.30 [degF] TueFeb 23 00:1 4:00 EST 2023 Respiratory rate 20.00 /min TueFeb 23 00:1 4:00 EST 2023 Systolic Blood Pressure 129.00 mm[Hg] [...] EDT 2023 Diastolic Blood Pressure 70.00 mm[Hg] TueJan 16 21:16:28 EDT 2023 Body weight 211.00 [lb_av] TueJan 16 21:16 :28 EDT 2023 Heart Rate 84.00 /min TueJan 16 21:16 :28 EDT 2023 Body temperature 97.50 [degF] TueJan 16 21:1 6:28 EDT 2023 Respiratory rate 18.00 /min TueJan 16 21:1 6:28 EDT 2023 Body temperature 97.90 [degF] [facility] 13:2 8:30 EDT 2023 Body temperature 97.70 [degF] [facility] 13:2 6:40 EDT 2023 Body temperature 98.20 [degF] [facility] 18:0 1:23 EDT 2023 Body temperature 97.90 [degF] [facility] 16:0 2:07 EDT 2023 Body temperature 98.20 [degF] [facility] Jan 12 21:3 8:59 EDT 2023 Body temperature 97.50 [degF] [facility] Jan 12 14:2 4:40 EDT 2023 Body temperature 97.40 [degF] [facility] Jan 12 03:0 9:21 EDT 2023 Systolic Blood Pressure 135.00 mm[Hg] TueJan 02 22:46:25 EDT 2023 Diastolic Blood Pressure 78.00 mm[Hg] TueJan 02 22:46:25 EDT 2023 Body weight 216.80 [lb_av] TueJan 02 22:46 :25 EDT 2023 Heart Rate 82.00 /min TueJan 02 22:46 :25 ED2023 Body temperature 98.20 [degF] TueJan 02 22:4 6:25 EDT 2023 Respiratory rate 20.00 /min TueJan 02 22:4 6:25 EDT 2023 Systolic Blood Pressure 82.00 mm[Hg] Sat Sep 21 03:51:00 EDT 2023 Diastolic Blood Pressure 58.00 mm[Hg] Sat Sep 21 03:51:00 EDT 2023 Pulse Oximetry 95.00 % [facility] 21 03:51 :00 EDT 2023 Heart Rate 102.00 /min [facility] 21 03:51 :00 EDT 2023 Body temperature 97.00 [degF] [facility] 21 03:5 1:00 EDT 2023 Respiratory rate 22.00 /min [facility] 03:5 1:00 EDT 2023 Systolic Blood Pressure 140.00 mm[Hg] [place] Sep 15 20:32:47 EDT 2023 Diastolic Blood Pressure 76.00 mm[Hg] [facility] 15 20:32:47 EDT 2023 Body weight 212.00 [lb_av] [facility] 15 20:32 :47 EDT 2023 Heart Rate 90.00 /min [facility] 15 20:32 :47 EDT 2023 Body temperature 97.50 [degF] [facility] 20:3 2:47 EDT 2023 Respiratory rate 18.00 /min [facility] 20:3 2:47 EDT 2023 Systolic Blood Pressure 106.00 mm[Hg] [facility] 21:11:20 EDT 2023 Diastolic Blood Pressure 72.00 mm[Hg] [facility] 21:11:20 EDT 2023 Body weight 214.60 [lb_av] [facility] 21:11 :20 EDT 2023 Heart Rate 98.00 /min [facility] 21:11 :20 EDT 2023 Body temperature 97.00 [degF] [facility] 21:1 1:20 EDT 2023 Respiratory rate 18.00 /min [facility] 21:1 1:20 EDT 2023 Systolic Blood Pressure 149.00 mm[Hg] [facility] Nov 16 20:23:43 EDT 2023 Diastolic Blood Pressure 79.00 mm[Hg] [facility] Nov 16 20:23:43 EDT 2023 Heart Rate 93.00 /min [facility] Nov 16 20:23 :43 EDT 2023 Body temperature 96.80 [degF] [facility] Nov 16 20:2 3:43 EDT 2023 Respiratory rate 18.00 /min TueNov 16 20:2 3:43 EDT 2023 Reason for Referral Past Medical History
--- OUTSIDE RECORDS SUMMARY | 2024-11-03 23:37 | XMS_ITS | Clinical Summary ---
Author Organization [facility] Address [address] [place] [address] Care Team Providers Care Electronic Lab Technician Name Role Phone Vladimir Skelton MD [...] Comments Blood Pressure 136/86 04/11/2018 10:33 AM MEDICAL DELIVERY DRIVER Pulse 71 04/11/2018 10:33 AM MEDICAL DELIVERY DRIVER Temperature 36.8 C (98.2 F) 04/11/2018 10:33 AM MEDICAL DELIVERY DRIVER Respiratory Rate 20 11/04/2017 7:57 PM CDT Oxygen Saturation 97% 11/04/2017 7:57 PM CDT Inhaled Oxygen Concentration - - Weight 116 kg (255 lb 12.8 oz) 04/11/2018 10:33 AM MEDICAL DELIVERY DRIVER Height 188 cm (6' 2) 04/11/2018 10:33 AM MEDICAL DELIVERY DRIVER Body Mass Index 32.84 04/11/2018 10:33 AM MEDICAL DELIVERY DRIVER Plan of Treatment Health Maintenance Due Date [...] age to complete this topic Insurance MEDICARE [facility] Care Teams Electronic Lab Technician Relationship Specialty Start Date End Date Vladimir Skelton MD [address] [place] [address] DR GOOD [address] [place] [address] [id number] PCP - General 03/27/15
--- OUTSIDE RECORDS SUMMARY | 2024-11-03 23:37 | XMS_ITS | Referral Summary ---
Author Organization [facility] Address [address] [place] [address] Care Team Providers Care Still Operator Gin Name Role Phone Monisha Tucker MD Primary Care Provider Jefe Chung NP Unavailable [phone] Mazin Vigil MD Unavailable Quincy Mixon MD Unavailable [phone] Murali Milton MD Unavailable [phone] Cornelio Ferris MD Unavailable [phone] Allergies No known active allergies Medications sertraline [...] Psychiatry Assessment & Plan (04/18/2023 9:51 AM INDUSTRIAL HYGIENE MANAGER): Chronic. Stable. 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 Patient reports the tamsulosin was making a Pee too frequently so he stopped it. He is requesting to stay off of it. We will need to monitor urinary symptoms Assessment & Plan (04/18/2023 9:52 AM INDUSTRIAL HYGIENE MANAGER): Chronic. Feels oxybutynin ineffective. Will try change [...] to get him in to see a stitch rubber instead Assessment & Plan (04/18/2023 9:54 AM INDUSTRIAL HYGIENE MANAGER): Continue care per surgeon Dr. Mixon. Continue IV antibiotics for total of 6 weeks. Antibiotics will be done in about a week and a half. Continue wound care in the toe. Monitor for recurrent ulcers. They are trying to save the toe previously by doing an I and D and deferring amputation Abnormal CT of the abdomen 04/15/2023 Overview (04/15/2023): 04/12/23 at [facility]. Report to be scanned Coronary artery [...] noted on CT abdomen pelvis 04/12/2023 at [facility] Assessment & Plan (09/06/2023 12:27 PM CDT): Patient had incidental finding of aortic atherosclerosis on prior imaging. Discussed recommendation to start a baby aspirin daily for risk reduction. We will target an LDL less than 70 with cholesterol medication. Check levels and adjust simvastatin as needed Assessment & Plan (04/18/2023 9:51 AM INDUSTRIAL HYGIENE MANAGER): Incidental on prior imaging. Continue simvastatin. We will monitor levels and plan to just in the future as needed target LDL goal less than 70 Lumbar facet arthropathy 02/16/2023 Assessment & Plan (04/18/2023 9:51 AM INDUSTRIAL HYGIENE MANAGER): Chronic. Follows with pain management. Advised caution with naproxen as may be contributing to some of his stomach symptoms. Thirty day course of PPI order Sacroiliitis, not elsewhere classified Assessment & Plan (04/18/2023 9:52 AM INDUSTRIAL HYGIENE MANAGER): Mild noted on recent CT. Continue care per pain specialist Lumbar spondylosis 08/05/2022 Assessment & Plan (04/18/2023 9:51 AM INDUSTRIAL HYGIENE MANAGER): Chronic. Care per pain manage Spondylolisthesis of lumbar region 09/25/2020 Assessment & Plan (04/18/2023 9:52 AM INDUSTRIAL HYGIENE MANAGER): Chronic. Medication care per pain management. Caution with NSAIDs given recent stomach issues. Advised if guarding to take naproxen needs to take it with food. We will give a 30 day course of PPI Anxiety 06/13/2019 Assessment & Plan (04/18/2023 9:52 AM INDUSTRIAL HYGIENE MANAGER): Chronic. Medication and care per Psychiatry. Defer [...] adjustment. Assessment & Plan (04/18/2023 9:52 AM INDUSTRIAL HYGIENE MANAGER): Chronic. On simvastatin. We will plan to [...] psychiatrist Assessment & Plan (04/18/2023 9:52 AM INDUSTRIAL HYGIENE MANAGER): Chronic. Medication and care per Psychiatry. Patient felt lamotrigine caused side effects so he is now stopped it through discussion with his psychiatrist Conductive hearing loss, bilateral 10/14/2016 Nonallergic rhinitis 10/14/2016 Resolved Problems Problem Noted Date Diagnosed Date Resolved Date MSSA bacteremia 04/18/2023 09/06/2023 Assessment & Plan (04/18/2023 9:54 AM INDUSTRIAL HYGIENE MANAGER): Noted at time of hospitalization for toe [...] (12/26/2020): Added automatically from request for surgery [id number] Acquired right foot drop 09/25/202007/2022 Class 1 obesity with body ma ss index (BMI) of 33.0 to 33.9 in adult 06/13/2019 08/05/2022 Depression 06/13/2019 04/18/2023 Nontraumatic complete tear o f left rotator cuff 07/17/2018 08/05/2022 Overview (07/17/2018): Added automatically from request for surgery [id number] Partial tear of left subscapularis tendon 01/10/2018 [...] on file Legal Sex Male 7:15 PM INDUSTRIAL HYGIENE MANAGER Gender Identity Not on file Sexual Orientation Not on file Occupation Industry Job Start Date Job End Date retired Not on file Not on file Not on file Last Filed Vital Signs Vital Sign Reading Time Taken Comments Blood Pressure 115/62 05/31/2024 8:03 AM INDUSTRIAL HYGIENE MANAGER Pulse 101 05/31/2024 8:03 AM INDUSTRIAL HYGIENE MANAGER Temperature 37.1 C (98.7 F) 03/08/2024 9:19 AM INDUSTRIAL HYGIENE MANAGER Respiratory Rate 17 05/31/2024 8:03 AM INDUSTRIAL HYGIENE MANAGER Oxygen Saturation 99% 05/31/2024 8:03 AM INDUSTRIAL HYGIENE MANAGER Inhaled Oxygen Concentration - - Weight 96.4 kg (212 lb 8 oz) 03/08/2024 9:19 AM INDUSTRIAL HYGIENE MANAGER Height 185.4 cm (6' 1) 03/08/2024 9:19 AM INDUSTRIAL HYGIENE MANAGER Body Mass Index 28.04 03/08/2024 9:19 AM INDUSTRIAL HYGIENE MANAGER Plan of Treatment Not on file Medical Devices Implanted Type Area Trimmer Meat Device Identifier Shelf Expiration Date Model / Serial / Lot [employer] [id number] Base Plate 26mm Tm Reverse 20m - [id number] Implanted:Qty : 1 on 09/17/2019 at [facility] Other - see comments Left: Shoulder [employer] [id number] 12/02/2028 [id number] / / [id number] [employer] Ar-2324 Bcm [place]ivelock 4.75mm 24.5mm Self Punch Vent Shoulder [place] Suture - Sna - [id number] Implanted:Qty : 1 on 09/07/2018 by Amaury Gordon MD at [facility] Advanced Medicine Left: Humerus [employer] [id number] 05/04/2020 AR-2324BCM / NA / [id number] [employer] Ar-2324 Bcm [place] 4.75mm 24.5mm Self Punch Vent Shoulder [place] Suture - [id number] Implanted:Qty : 1 on 09/07/2018 by Amaury Gordon MD at [facility] Advanced [employer] Left: Shoulder [employer] [id number] 05/04/2020 AR-2324BCM / / [id number] [employer] [id number] Glenosphere Tm Reverse 36mm Centric - [id number] Implanted:Qty : 1 on 09/17/2019 at [facility] Left: Shoulder [employer] [id number] 12/02/2028 [id number] / / [id number] [employer] .30262.048 Ncb Anatomical Shoulder 4.5mm 48mm Inverse Reverse Lock Self Tap - [id number] Implanted:Qty : 1 on 09/17/2019 at [facility] Left: Shoulder [employer] [id number] 03/03/2024.42521.048 / / [id number] [employer] .27904.042 Ncb Anatomical Shoulder 4.5mm 42mm Inverse Reverse Lock Self Tap - [id number] Implanted:Qty : 1 on 09/17/2019 at [facility] Left: Shoulder [employer] [id number] 02/02/2024.56022.042 / / [id number] [employer] [id number] 12mm 130mm Shoulder Stem Humeral Trabecular Metal Tivanium - [id number] Implanted:Qty : 1 on 09/17/2019 at [facility] Left: Shoulder [employer] [id number] 07/02/2029 [id number] / / [id number] [employer] [id number] 36mm H+3mm Reverse Humerus 7d Standard Liner Shoulder Trabecular - [id number] Implanted:Qty : 1 on 09/17/2019 at [facility] Left: Shoulder [employer] [id number] 06/02/2027 [id number] / / [id number] Explanted Type Area Trimmer Meat Device Identifier Shelf Expiration Date Model / Serial / Lot [employer] [id number] Steinmann 3/32in 9in 2 Trocar Pin Fixation Nonsterile - [id number] Explanted:Qty: 1 on 09/17/2019 at [facility] [employer] [id number] / / Procedures Procedure Name Priority Date/Time Associated Diagnosis Comments COLONOSCOPY Routine 10/20/2023 9:37 AM CDT HEPATITIS C SCREENING Routine 09/28/2023 11:10 AM CDT PSA SCREEN Routine 05/26/2022 12:14 PM INDUSTRIAL HYGIENE MANAGER Screening for prostate cancer from Last 3 Months or Most Recently Relevant to Health Maintenance Results * COLONOSCOPY (10/20/2023 9:37 AM CDT) Scribed Colonoscopy Normal us Monisha Tucker MD HEALTH MAINTENANCE Fin al Result * HEPATITIS C SCREENING (09/28/2023 11:10 AM CDT) SCRIBED HCV ab Non Reactive Rj Dooley MD HEALTH MAINTENANCE Final Re sult * PSA screen (05/26/2022 12:14 PM INDUSTRIAL HYGIENE MANAGER) PSA-Total 1.99 <=5.40 ng/mL IRAM GARCIA Comment: [...] revised 21. Blood 05/26/2022 12:1 4 PM INDUSTRIAL HYGIENE MANAGER 05/26/2022 2:55 PM INDUSTRIAL HYGIENE MANAGER Nayan Linder DO LAB BLOOD ORDERABLES Fin al Result IRAM GARCIA [id number] [address] [place] [address] from Last 3 Months or Most Recently Relevant to Health Maintenance Insurance MEDICARE [employer] MEDICARE SUPPLEMENT MEDICARE [facility] MEDICARE [facility] MEDICARE SUPPLEMENT Advance Directives For more information, please contact: [phone] Documents on File Type Date Recorded Patient Lpc Expl anation ADVANCE DIRECTIVE 12/27/2023 8:58 AM Power of Nursing Executive for Health Care Power of Nursing Executive 05/16/2023 12:09 PM * Full Code (Latest Code Status on File) Date Activated Date Inactivated Comments 03/08/2024 10:51 AM 03/09/2024 5:26 AM * Full Code Date Activated Date Inactivated Comments 09/17/2019 7:41 PM 09/18/2019 4:44 PM Care Teams Still Operator Gin Relationship Specialty Start Date End Date Monisha Tucker MD PCP - General Family Practice 08/05/22 [place] [id number] [address] [facility] [address] [place] [address] Nurse Practitioner Pain Management 09/06/23 [place] [id number] [address] [facility] [address] [address] Consulting Physician Pain Management 09/06/23 [place] [address] [address] [address] Referring Physician General Surgery 09/06/23 [place] [id number] [address] Consulting Physician Neurosurgery 11/14/23 Cornelio Ferris MD [address] [address] Referring Physician Psychiatry 12/15/23
--- OUTSIDE RECORDS SUMMARY | 2024-11-03 23:37 | XMS_ITS | Continuity of Care Document ---
Author Organization [facility] Address [address] [place] [address] Phone Care Team Providers Care Blemish Remover Name Role Phone Jose Armando PT,MPT,ATC, Eric Unavailable Unavai lable Procedures Procedure Date Therapeutic Activities Neuromuscular Re-Ed Hot or Cold Pack Therapeutic Activities Neuromuscular Re-Ed Therapeutic Exercise Hot or Cold Pack Therapeutic Activities Neuromuscular Re-Ed Therapeutic Exercise Hot or Cold Pack Therapeutic Activities Neuromuscular Re-Ed Therapeutic Exercise Hot or Cold Pack Therapeutic Activities Neuromuscular Re-Ed Hot or Cold Pack Therapeutic Activities Neuromuscular Re-Ed Therapeutic Exercise Hot or Cold Pack Therapeutic Activities Neuromuscular Re-Ed Therapeutic Exercise Manual Therapy Hot or Cold Pack Therapeutic Activities Neuromuscular Re-Ed Hot or Cold Pack Therapeutic Exercise Doc neg elder mal no plan OT Evaluation Moderate Complexity Therapeutic Activities Neuromuscular Re-Ed Hot or Cold Pack Manual Therapy Therapeutic Activities Therapeutic Exercise Neuromuscular Re-Ed Therapeutic Activities Neuromuscular Re-Ed Therapeutic Exercise Therapeutic Activities Neuromuscular Re-Ed Therapeutic Exercise Therapeutic Activities Neuromuscular Re-Ed Therapeutic Activities Neuromuscular Re-Ed Therapeutic Activities Neuromuscular Re-Ed Hot or Cold Pack Therapeutic Activities Neuromuscular Re-Ed Therapeutic Activities Neuromuscular Re-Ed Doc neg elder mal no plan PT Evaluation High Complexity Therapeutic Activities Neuromuscular Re-Ed Progress Note Therapeutic Activities Neuromuscular Re-Ed Hot or Cold Pack Electrical Stimulation Therapeutic Activities Neuromuscular Re-Ed Hot or Cold Pack Electrical Stimulation Therapeutic Activities Neuromuscular Re-Ed Doc neg elder mal no plan PT Re-evaluation Therapeutic Activities Neuromuscular Re-Ed Therapeutic Activities Neuromuscular Re-Ed Therapeutic Activities Neuromuscular Re-Ed Therapeutic Activities Neuromuscular Re-Ed Therapeutic Exercise Therapeutic Activities Neuromuscular Re-Ed Therapeutic Exercise Doc neg elder mal no plan PT Evaluation Moderate Complexity Therapeutic Activities Neuromuscular Re-Ed Therapeutic Activities Therapeutic Exercise Neuromuscular Re-Ed Therapeutic Activities Neuromuscular Re-Ed Therapeutic Exercise Therapeutic Activities Neuromuscular Re-Ed Therapeutic Exercise Therapeutic Activities Neuromuscular Re-Ed Therapeutic Exercise Therapeutic Activities Therapeutic Exercise Neuromuscular Re-Ed Therapeutic Activities Neuromuscular Re-Ed Therapeutic Exercise Neuromuscular Re-Ed Therapeutic Activities Therapeutic Activities Neuromuscular Re-Ed Hot or Cold Pack Doc neg elder mal no plan Therapeutic Activities PT Evaluation Low Complexity Neuromuscular Re-Ed Advance Directives Directive Yes / No Effective Date File Name No Information Encounters Encounter Description Practice Location Reason(s) For Visit Diagnoses Date Provider Providers Copied on Encounter [facility], [id number], tel:[phone] [place] No Information 4 [place], [place], . [facility], [place], [place], [id number], tel:[phone] [place] No Information 3 Ta Leonardo. . Referring Provider: Monisha Tucker , [address], [place], [address]. tel:[phone] [facility], [place], [place], [id number], tel:[phone] [place] No Information 3 Sherif Alvarado. . Referring Provider: Monisha Tucker [address], [place], [address]. tel:[phone] [facility], [address], [place], [place], [id number], [place] tel:[phone] [place] No Information 3 Sherif Jenny. . Referring Provider: Monisha Tucker , [address], [place], [address]. tel:[phone] [facility], [address], [place], [place], [id number], [place] tel:[phone] [place] No Information 3 Sherif Jenny. . Referring Provider: Monisha Tucker , [address], [place], [address]. tel:[phone] [facility], [address], [place], [place], [id number], [place] tel:[phone] [place] No Information 3 Sherif Jenny. . Referring Provider: Monisha Tucker , [address], [place], [address]. tel:[phone] [facility], [place], [place], [id number], [place] tel:[phone] [place] No Information 3 Sherif Jenny. . Referring Provider: Monisha Tucker , [address], [place], [address]. tel:[phone] [facility], [place], [place], [id number], [place] tel:[phone] [place] No Information 2 3 Sherif Jenny. . Referring Provider: Monisha Tucker , [address], [place], [address]. tel:[phone] [facility], [place], [place], [id number], [place] tel:[phone] [place] No Information 3 Sherif Jenny. . Referring Provider: Monisha Tucker [address], [place], [address]. tel:[phone] [facility], [address], [place], [place], [id number], [place] tel:[phone] [place] No Information 3 Sherif Adamesah. . Referring Provider: Monisha uTcker [address], [place], [address]. tel:[phone] [facility] [address], [place], [place], [id number], [place] tel:[phone] [place] No Information 3 Jose Armando Chowdh[place]yn. , [place], [place]. Referring Provider: Monisha Tucker [address], [place], [address]. tel:[phone] [facility], [address], [place], [place], [id number], [place] tel:[phone] [place] No Information 3 Jose Armando [place]. , [place], [place]. Referring Provider: Monisha Tucker [address], [place], [address]. tel:[phone] [facility] [address], [place], [place], [id number], [place] tel:[phone] [place] No Information 3 Suárez Eric. , [place], [place]. Referring Provider: Monisha Tucker [address], [place], [address]. tel:[phone] [facility], [place], [place], [id number], [place] tel:[phone] [place] No Information 3 Jose Armando Chow[place]. , [place], [place]. Referring Provider: Monisha Tucker [address], [place], [address]. tel:[phone] [facility], [place], [place], [id number], [place] tel:[phone] [place] No Information 3 Jose Armando [place]. , [place], [place]. Referring Provider: Monisha Tucker , [address], [place], [address]. tel:[phone] [facility], [place], [place], [id number], [place] tel:[phone] [place] No Information 3 Jose Armando Chow[place]. , [place], [place]. Referring Provider: Monisha Tucker [address], [place], [address]. tel:[phone] [facility] [address], [place], [place], [id number], [place] tel:[phone] [place] No Information 3 Modglin Parvez. . Referring Provider: Monisha Tucker [address], [place], [address]. tel:[phone] [facility], [place], [place], [id number], [place] tel:[phone] [place] No Information 3 Jose Armando Chow[place]. , [place], [place]. Referring Provider: Monisha Tucker [address], [place], [address]. tel:[phone] [facility], [place], [place], [id number], [place] tel:[phone] [place] No Information 3 Jose Armando [place]. , [place], [place]. Referring Provider: Monisha Tucker [address], [place], [address]. tel:[phone] [facility], [place], [place], [id number], [place] tel:[phone] [place] No Information 0 3 Jose Armando Eric. , [place], [place]. Referring Provider: Monisha Tucker , [address], [place], [address]. tel:[phone] [facility] [address], [place], [place], [id number], [place] tel:[phone] [place] No Information 0 3 Suárez Eric. , [place], [place]. Referring Provider: Monisha Tucker [address], [place], [address]. tel:[phone] [facility], [place], [place], [id number], [place] tel:[phone] [place] No Information 0 3 Jose Armando Chow[place]. , [place], [place]. Referring Provider: Monisha Tucker [address], [place], [address]. tel:[phone] [facility], [place], [place], [id number], [place] tel:[phone] [place] No Information 3 Jose Armando [place]. , [place], [place]. Referring Provider: Monisha Tucker [address], [place], [address]. tel:[phone] [facility], [place], [place], [id number], [place] tel:[phone] [place] No Information 3 Jose Armando [place]. , [place], [place]. Referring Provider: Monisha Tucker [address], [place], [address]. tel:[phone] [facility], [place], [place], [id number], [place] tel:[phone] [place] No Information 3 Jose Armando Reyes , [place], [place]. Referring Provider: Monisha Tucker , [address], [facility] [place], [address]. tel:[phone] [facility], [address], [place], [place], [id number], [place] tel:[phone] [place] No Information 3 Suárez Eric , [place], [place]. Referring Provider: Monisha Tucker , [address], [place], [address]. tel:[phone] [facility] [address], [place], [id number], [place] tel:[phone] [place] No Information 3 [place]. Referring Provider: Monisha Tucker [address], [place], [address]. tel:[phone] [facility], [address], [place], [place], [id number], [place] tel:[phone] [place] No Information 3 Jose Armando [place]es [place], [place]. Referring Provider: Monisha Tucker , [address], [place], [address]. tel:[phone] [facility], [place], [id number], [place] tel:[phone] [place] No Information 2 Trevin Brett. . Referring Provider: [address], [place], [address]. tel:[phone] [facility], [place], [place], [id number], [place] tel:[phone] [place] No Information 2 Trevin Brett. . Referring Provider: [address], [place], [address]. tel:[phone] [facility] [address], [place], [place], [id number], [place] tel:[phone] [place] No Information 2 Trevin Brett. . Referring Provider: [address], [place], [address]. tel:[phone] [facility] [address], [place], [place], [id number], [place] tel:[phone] [place] No Information 2 Trevin Brett. . Referring Provider: [address], [place], [address]. tel:[phone] [facility] [address] [place], [place] [address], [place], [place], [id number], [place] tel:[phone] [place] No Information - 2 Trevin Brett. . Referring Provider: [address], [place], [address]. tel:[phone] [facility] [address], [place], [place], [id number], tel:[phone] [place] No Information 0- 2 Trevin Brett. . Referring Provider: [address], [place], [address]. tel:[phone] [facility] [address], [place], [place], [id number], [place] tel:[phone] [place] No Information 0 2 Trevin Brett. . Referring Provider: [address], [place], [address]. tel:[phone] [facility], [place], [place], [id number], [place] tel:[phone] [place] No Information 2 Trevin West. . Referring Provider: Dick Best, [address], [place], [address]. tel:[phone] [facility], [address], [place], [place], [id number], tel:[phone] [place] No Information Dec-3 0 2 Trevin West. . Referring Provider: Dick Bset, [address], [place], [address]. tel:[phone] Family History Family Member Type Diagnosis Age At Onset No Information Payers Payer name Insurance type Covered constitution party ID Authoriza tiestella(s) Medicare [place] [id number] RUST [id number] Social History Type Description Quantity Date Captured Comments Sex Male Smoking Status No Information Chief Complaint And Reason For Visit No Information Reason For Referral Reason For Referral No Information History Of Present Illness Encounter Date Complaint History Of Prese nt Illness No Information Functional Status Date Functional Assessmen t No Information Instructions Date Instruction Additional Infor mation Prescribed activity/exercise edu cation Related to Overweight Dietary needs education Related to Overweight Giving encouragement to exercise Related to Overweight Giving encouragement to exercise Related to Overweight Giving encouragement to exercise Related to Overweight Giving encouragement to exercise Related to Overweight Giving encouragement to exercise Related to Overweight Giving encouragement to exercise Related to Overweight Assessments Type Assessment Date No Information Patient Care Teams Name Effective Dates (start - stop) Status Members No Information
--- OUTSIDE RECORDS SUMMARY | 2024-11-03 23:37 | XMS_ITS | Clinical Summary ---
Author Organization [facility] Address [address] [place] [address] Care Team Providers Care Database Specialist Name Role Phone Monisha Tucker MD Primary Care Provider Jefe Chung NP Unavailable Mazin Vigil MD Unavailable Quincy Mixon MD Unavailable [phone] Murali Milton MD Unavailable [phone] Cornelio Ferris MD Unavailable [phone] Allergies No known active allergies Medications sertraline [...] Psychiatry Assessment & Plan (04/18/2023 9:51 AM REGIONAL BRANCH MANAGER): Chronic. Stable. 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 Patient reports the tamsulosin was making a Pee too frequently so he stopped it. He is requesting to stay off of it. We will need to monitor urinary symptoms Assessment & Plan (04/18/2023 9:52 AM REGIONAL BRANCH MANAGER): Chronic. Feels oxybutynin ineffective. Will try [...] to get him in to see a parts department supervisor instead Assessment & Plan (04/18/2023 9:54 AM REGIONAL BRANCH MANAGER): Continue care per surgeon Dr. Mixon. Continue IV antibiotics for total of 6 weeks. Antibiotics will be done in about a week and a half. Continue wound care in the toe. Monitor for recurrent ulcers. They are trying to save the toe previously by doing an I and D and deferring amputation Abnormal CT of the abdomen 04/15/2023 Overview (04/15/2023): 04/12/23 at [facility]. Report to be scanned Coronary [...] noted on CT abdomen pelvis 04/12/2023 at [facility] Assessment & Plan (09/06/2023 12:27 PM CDT): Patient had incidental finding of aortic atherosclerosis on prior imaging. Discussed recommendation to start a baby aspirin daily for risk reduction. We will target an LDL less than 70 with cholesterol medication. Check levels and adjust simvastatin as needed Assessment & Plan (04/18/2023 9:51 AM REGIONAL BRANCH MANAGER): Incidental on prior imaging. Continue simvastatin. We will monitor levels and plan to just in the future as needed target LDL goal less than 70 Lumbar facet arthropathy 02/16/2023 Assessment & Plan (04/18/2023 9:51 AM REGIONAL BRANCH MANAGER): Chronic. Follows with pain management. Advised caution with naproxen as may be contributing to some of his stomach symptoms. Thirty day course of PPI order Sacroiliitis, not elsewhere classified Assessment & Plan (04/18/2023 9:52 AM REGIONAL BRANCH MANAGER): Mild noted on recent CT. Continue care per pain specialist Lumbar spondylosis 08/05/2022 Assessment & Plan (04/18/2023 9:51 AM REGIONAL BRANCH MANAGER): Chronic. Care per pain manage Spondylolisthesis of lumbar region 09/25/2020 Assessment & Plan (04/18/2023 9:52 AM REGIONAL BRANCH MANAGER): Chronic. Medication care per pain management. Caution with NSAIDs given recent stomach issues. Advised if guarding to take naproxen needs to take it with food. We will give a 30 day course of PPI Anxiety 06/13/2019 Assessment & Plan (04/18/2023 9:52 AM REGIONAL BRANCH MANAGER): Chronic. Medication and care per Psychiatry. [...] adjustment. Assessment & Plan (04/18/2023 9:52 AM REGIONAL BRANCH MANAGER): Chronic. On simvastatin. We will plan [...] psychiatrist Assessment & Plan (04/18/2023 9:52 AM REGIONAL BRANCH MANAGER): Chronic. Medication and care per Psychiatry. Patient felt lamotrigine caused side effects so he is now stopped it through discussion with his psychiatrist Conductive hearing loss, bilateral 10/14/2016 Nonallergic rhinitis 10/14/2016 Resolved Problems Problem Noted Date Diagnosed Date Resolved Date MSSA bacteremia 04/18/2023 09/06/2023 Assessment & Plan (04/18/2023 9:54 AM REGIONAL BRANCH MANAGER): Noted at time of hospitalization for [...] (12/26/2020): Added automatically from request for surgery [id number] Acquired right foot drop 09/25/202007/2022 Class 1 obesity with body ma ss index (BMI) of 33.0 to 33.9 in adult 06/13/2019 08/05/2022 Depression 06/13/2019 04/18/2023 Nontraumatic complete tear o f left rotator cuff 07/17/2018 08/05/2022 Overview (07/17/2018): Added automatically from request for surgery [id number] Partial tear of left subscapularis tendon 01/10/2018 [...] 04/04/1971 - 04/03/1972 for broken jaw COLONOSCOPY 1990s SHOULDER ARTHROSCOPY 09/07/2018 Left rotator cuff repair [...] Added automatically from req uest for surgery [id number] Low back pain Chickenpox Non-recurrent bilateral ingu [...] Status Comments Brother Father Maternal Grandfather Mother [place] age 70s Paternal Grandfather Paternal Grandmother Sister [...] on file Legal Sex Male 7:15 PM REGIONAL BRANCH MANAGER Gender Identity Not on file Sexual Orientation Not on file Occupation Industry Job Start Date Job End Date retired Not on file Not on file Not on file Obstetrics History Last Filed Vital Signs Vital Sign Reading Time Taken Comments Blood Pressure 115/62 05/31/2024 8:03 AM REGIONAL BRANCH MANAGER Pulse 101 05/31/2024 8:03 AM REGIONAL BRANCH MANAGER Temperature 37.1 C (98.7 F) 03/08/2024 9:19 AM REGIONAL BRANCH MANAGER Respiratory Rate 17 05/31/2024 8:03 AM REGIONAL BRANCH MANAGER Oxygen Saturation 99% 05/31/2024 8:03 AM REGIONAL BRANCH MANAGER Inhaled Oxygen Concentration - - Weight 96.4 kg (212 lb 8 oz) 03/08/2024 9:19 AM REGIONAL BRANCH MANAGER Height 185.4 cm (6' 1) 03/08/2024 9:19 AM REGIONAL BRANCH MANAGER Body Mass Index 28.04 03/08/2024 9:19 AM REGIONAL BRANCH MANAGER Plan of Treatment Health Maintenance Due Date Last Done Comments Hepatitis B Screening 02/13[birth year]1974 Zoster Vaccine (1 of 2) 02/13/2006 Covid-19 Vaccine (2023-2 5 season) 2023 02/12/2023, 02/26/2022, 01/31/2021, Additional history exists Depression Screening 09/05/2024 09/06/2023, 09/06/2023, 01/07/2023, Additional history exists Well Visit 65+ 09/05/2024 09/06/2023 Influenza Vaccine (#1) 2024 , 01/07/2023, 02/26/2022, Additional history exists Fall Risk Assessment 05/31/2025 05/31/2024, 01/19/2024, 09/06/2023, Additional history exists Prostate Cancer Screening-PSA 09/08/2025 09/09/2023, 05/26/2022 DTaP/Tdap/Td Vaccine (2 - Td or Tdap) 12/27/2032 12/27/2022 Colon Cancer Screening-Colonoscopy 10/19/2033 10/20/2023, 11/12/2022 Pneumococcal vaccine 65+ Completed 09/06/2023 Hepatitis C Screening Completed 09/28/2023 Colon Cancer Screening-CT Colonography Discontinued 10/20/2023 Colon Cancer Screening-DNA Stool Discontinued 10/20/19 Colon Cancer Screening-FIT Discontinued 10/20/2023 Colon Cancer Screening-Sigmoidoscopy Discontinued 10/20/2023 Medical Devices Implanted Type Area Oil Tester Device Identifier Shelf Expiration Date Model / Serial / Lot Amanda Patient-[employer]ered [employer] [id number] Base Plate 26mm Tm Reverse 20m - [id number] Implanted:Qty : 1 on 09/17/2019 at [facility] Other - see comments Left: Shoulder [employer] [id number] 12/02/2028 [id number] / / [id number] Ar[employer] Ar-2324 Bcm Swivelock 4.75mm 24.5mm Self Punch Vent Shoulder [place] Suture - Sna - [id number] Implanted:Qty : 1 on 09/07/2018 by Amaury Gordon MD at [facility] Left: Humerus [employer] [id number] 05/04/2020 [id number]-[id number] / NA / [id number] [employer] Ar-2324 Bcm Swivelock 4.75mm 24.5mm Self Punch Vent Shoulder [place] Suture - [id number] Implanted:Qty : 1 on 09/07/2018 by Amaury Gordon MD at [facility] Left: Shoulder [employer] [id number] 05/04/2020 AR-2324BCM / / [id number] Amanda [employer] [id number] Glenosphere Tm Reverse 36mm Centric - [id number] Implanted:Qty : 1 on 09/17/2019 at [facility] Left: Shoulder [employer] [id number] 12/02/2028 [id number] / / [id number] Amanda [employer] 01.01911.048 Ncb Anatomical Shoulder 4.5mm 48mm Inverse Reverse Lock Self Tap - [id number] Implanted:Qty : 1 on 09/17/2019 at [facility] Left: Shoulder [employer] [id number] 03/03/2024 01.90175.048 / / [id number] [employer] 01.76467.042 Ncb Anatomical Shoulder 4.5mm 42mm Inverse Reverse Lock Self Tap - [id number] Implanted:Qty : 1 on 09/17/2019 at [facility] Left: Shoulder [employer] [id number] 02/02/2024.36323.042 / / [id number] Amanda [employer] [id number] 12mm 130mm Shoulder Stem Humeral Trabecular Metal Tivanium - [id number] Implanted:Qty : 1 on 09/17/2019 at [facility] Left: Shoulder [employer] [id number] 07/02/2029 [id number] / / [id number] [employer] [id number] 36mm H+3mm Reverse Humerus 7d Standard Liner Shoulder Trabecular - [id number] Implanted:Qty : 1 on 09/17/2019 at [facility] Left: Shoulder [employer] [id number] 06/02/2027 [id number] / / [id number] Explanted Type Area Oil Tester Device Identifier Shelf Expiration Date Model / Serial / Lot JDCPhosphate Surgical Instruments [id number] Siva 3/32in 9in 2 Trocar Pin Fixation Nonsterile - [id number] Explanted:Qty: 1 on 09/17/2019 at [facility] [employer] [id number] / / Procedures Procedure Name Priority Date/Time Associated Diagnosis Comments COLONOSCOPY Routine 10/20/2023 9:37 AM CDT HEPATITIS C SCREENING Routine 09/28/2023 11:10 AM CDT PSA SCREEN Routine 05/26/2022 12:14 PM REGIONAL BRANCH MANAGER Screening for prostate cancer from Last 3 Months or Most Recently Relevant to Health Maintenance Results * COLONOSCOPY (10/20/2023 9:37 AM CDT) Scribed Colonoscopy Normal Monisha Tucker MD [facility] Fin al Result * HEPATITIS C SCREENING (09/28/2023 11:10 AM CDT) SCRIBED HCV ab Non Reactive Rj Dooley MD [facility] Final Re sult * PSA screen (05/26/2022 12:14 PM REGIONAL BRANCH MANAGER) PSA-Total 1.99 <=5.40 ng/mL IRAM GARCIA [...] revised 21. Blood 05/26/2022 12:1 4 PM REGIONAL BRANCH MANAGER 05/26/2022 2:55 PM REGIONAL BRANCH MANAGER Nayan Linder DO LAB BLOOD ORDERABLES Fin al Result Performing Organization Address City/State/ZIP Co hi Phone Number [facility] [phone] Department [place] [address] from Last 3 Months or Most Recently Relevant to Health Maintenance Insurance MEDICARE [facility] MEDICARE SUPPLEMENT MEDICARE [facility] MEDICARE [employer] MEDICARE SUPPLEMENT Advance Directives For more information, please contact: [phone] Documents on File Type Date Recorded Patient Hand Blocker Expl anation ADVANCE DIRECTIVE 12/27/2023 8:58 AM Power of Registered Nurse [facility] for Health Care Power of Registered Nurse Cardiovascular [facility]cu 05/16/2023 12:09 PM * Full Code (Latest Code Status on File) Date Activated Date Inactivated Comments 03/08/2024 10:51 AM 03/09/2024 5:26 AM * Full Code Date Activated Date Inactivated Comments 09/17/2019 7:41 PM 09/18/2019 4:44 PM Care Teams Database Specialist Relationship Specialty Start Date End Date Monisha Tucker MD PCP - General Family Practice 08/05/22 [place] [address] [address] Nurse Practitioner Pain Management 09/06/23 [place] [address] [address] Consulting Physician Pain Management 09/06/23 [place] [address] [address] Referring Physician General Surgery 09/06/23 [place] [id number] [address] Consulting Physician Neurosurgery 11/14/23 Cornelio Ferris MD [address] [address] Referring Physician Psychiatry 12/15/23
--- OUTSIDE RECORDS SUMMARY | 2024-11-03 23:38 | XMS_ITS | Encounter Summary ---
Author Organization [facility] Address [address] [place] [address] Care Team Providers Care Nuclear Technologist Name Role Phone Vladimir Skelton MD Primary Care Provider Encounter Details Date Type Department Care Team (Latest Contact Info) Description 02/07/[address] [facility] , Josue Knutson MD Social [...] on filedocumented in this encounter Care Teams Nuclear Technologist Relationship Specialty Start Date End Date Vladimir Skelton MD [address] [place] [address] [address] [place] [address] PCP - General 03/27/15 documented as of this encounter
--- OUTSIDE RECORDS SUMMARY | 2024-11-03 23:38 | XMS_ITS | Clinical Summary ---
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 Gender Identity Not on file Sexual Orientation Not on file Plan of Treatment Health Maintenance Due Date Last Done Comments Hepatitis C Virus (HCV) Screening 1955 TdaP Immunization 1955 Cologuard 02/13/2001 Colonoscopy 02/13/2001 Colorectal Cancer Screening 02/13/2001 Immunochemical Fecal Occult Blood 02/13/2001 Pneumococcal Immunization (50+ years) (1 of 1 - PCV) 02/13/2006 Zoster Immunization (1 of 2) 02/13/2006 SARS-COV-2 Immunization ( - season) 2023 07/12/2020, 06/26/2020, 06/19/2020 Influenza Immunization (#1) 12/03/202401/04, 01/02/2020, 01/09/2014, Additional history exists Respiratory Syncytial Virus (RSV) Immunization (Adult) (1 - 1-dose 75+ series) 02/13/2031 Hepatitis B Immunization Aged Out No longer eligible based on patient's age to complete this topic Human Papillomavirus (HPV) Immunization Aged Out No longer eligible based on patient's age to complete this topic Meningococcal Immunization (ACWY) Aged Out No longer eligible based on patient's age to complete this topic Rotavirus Immunization Aged Out No lo nger eligible based on patient's age to complete this topic
--- OUTSIDE RECORDS SUMMARY | 2024-11-03 23:38 | XMS_ITS ---
Author Name Auto Generated, Auto Generated Organization [facility] Address [address] [place] [address] Phone [phone] Care Team Providers Care Inspector Health Care Facilities Name Role Phone Rj Dooley Unavailable Functional Status No Results Mental Status No Results Allergies and Intolerances Name Onset Date Reaction Severity No Known Allergies (Allergy) TueMar 24 16:29:00 EST 2022 Encounters Program Name Primary Diagnosis Admission Date/Time Dis charge Date/Time Assisted Living Area Malignant neoplasm of prostate TueMay 31 06:00:00 EST 2023 [facility] Jul 29 20:00:00 EDT 2024Sep 07 18:00:00 EDT 2024 [facility] Dec 14 20:00:00 EDT 2023Mar 30 17:00:00 EST [...] 2 Times Daily Indication: Prep for TREATMENT CARBIDE TOOL DIE MAKER supervision x1, x4 TueSep 26 13:00:00 EDT [...] 2 Times Daily Indication: Prep for TREATMENT CARBIDE TOOL DIE MAKER supervision x1, x3 TueSep 26 16:55:00 EDT [...] for 5 Days Indication: prep for CT CARBIDE TOOL DIE MAKER supervision x1, x4 TueSep 21 01:00:00 EDT [...] TABLET Oral 1 Time Daily Indication: supplement CARBIDE TOOL DIE MAKER supervision x1 2 tablets= 1000mg TueAugust 23 01:00:00 EDT 2024 cholecalciferol (vitamin D3) 25 mcg (1,000 unit) tablet 1 tablet TABLET Oral 1 Time Daily Indication: supplement CARBIDE TOOL DIE MAKER supervision x1 TueAugust 23 01:00:00 EDT 2024 Orgovyx 120 mg tablet 3 tablets TABLET O ral 1 Time Daily for 1 Day Indication: Prostate cancer CARBIDE TOOL DIE MAKER supervision x13 tablets for 1 day TueAugust 23 01:00:00 EDT 2024August 24 00:59:00 EDT 2024 Orgovyx 120 mg tablet 1 tablet TABLET Or al 1 Time Daily Indication: prostate cancer CARBIDE [employer]OL [employer]KER supervision x1 TueAugust 24 01:00:00 EDT 2024 QUEtiapine 50 mg tablet 1 TABLET TABLET Oral 1 Time Daily Indication: mood disorder CARBIDE TOOL [employer] MAKER administration TueAugust 04 03:00:00 EDT 2024 AdviL Liqui-GeL 200 mg capsule 2-3 caps CAPSULE Oral PRN Every 8 Hours for 14 Days Indication: pain/inflammation TueJul 27 12:00:00 EDT 2024August 10 11:59:00 EDT 2024 clomiPRAMINE 25 mg capsule 1 cap CAPSULE Oral Hour Of Sleep Indication: OCD CARBIDE TOOL DIE MAKER Supervision x4 TueJul 05 01:00:00 EDT 2024August 04 03:07:00 EDT 2024 PreserVision AREDS 2,148 mcg-113 mg-45 mg-17.4 mg tablet 2 tablets TABLET Oral 1 Time Daily Indication: eye supplement CARBIDE TOOL DIE MAKER supervision x1 TueJun 27 01:00:00 EDT 2024 [...] Oral 1 Time Daily Indication: eye supplement CARBIDE TOOL DIE MAKER supervision x1 TueJun 26 01:00:00 EDT 2024Jun [...] 1 tablet po twice daily times 5 days.CARBIDE TOOL DIE MAKER Supervision x1, x4. TueMay 15 07:00:00 EST 2024May 20 06:59:00 EST 2024 oxyBUTYnin chloride ER 15 mg tablet,extended release 24 hr 1 TABLET TABLET, EXTENDED RELEASE 24 HR Oral 1 Time Daily Indication: antispasmodic - per [facility] TueMay 07 15:30:00 EST 2024 acetaminophen 500 [...] Oral 1 Time Weekly Indication: supplement - CARBIDE TOOL DIE MAKER supervision X1 TueMar 12 01:00:00 EST 2023August [...] 12 Hours for 7 Days Indication: UTI CARBIDE TOOL [employer] MAKER Supervision x1 x3 TueFeb 14 14:43:00 EST [...] Other 2 Times Monthly Indication: monthly vitals CARBIDE TOOL DIE MAKER to obtain TueFeb 26 01:00:00 EST 2023 cephALEXin 500 mg capsule 1 CAPSULE Oral Every 12 Hours for 7 Days Indication: UTI CARBIDE TOOL DIE MAKER Supervision x1 x3 TueFeb 12 18:00:00 EST 2023Feb 14 14:44:00 EST 2023 sertraline 100 mg tablet 200mg TABLET Or al 1 Time Daily Indication: depression DepressionCNA supervision x42 OYGJ=748 MG TueFeb 05 01:00:00 EST 2023 omeprazole 40 mg capsule,delayed release 1 CAP CAPSULE,DELAYED RELEASE (ENTERIC COATED) Oral 1 Time Daily Indication: GERD CARBIDE TOOL DIE MAKER supervision x1 TueFeb 05 01:00:00 EST 2023 Adult 50 Plus Probiotic 4 billion cell capsule 1 capsule CAPSULE Oral 1 Time Daily Indication: constipation GI prophCNA Supervision x1 TueFeb 05 01:00:00 EST 2023Jun 19 20:26:00 EDT 2024 PreserVision AREDS 2,148 mcg-113 mg-45 mg-17.4 mg tablet 2 tablets TABLET Oral 1 Time Daily Indication: eye supplement CARBIDE TOOL DIE MAKER supervision x1 TueFeb 05 01:00:00 EST 2023Jun [...] Other 2 Times Monthly Indication: monthly vitals CARBIDE TOOL DIE MAKER to obtain TueFeb 05 01:00:00 EST 2023Feb 14 18:15:00 EST 2023 cetirizine 10 mg tablet 1 tablet TABLET Oral PRN 1 Time Daily Indication: allergies TueFeb 05 01:00:00 EST 2023 QUEtiapine 100 mg tablet 1 tablet TABLET Oral 1 Time Daily Indication: OCD Anxiety, OCDPer [place]ce[place] NPCNA supervision x4 TueFeb 05 01:00:00 [...] TABLET,CHEWABLE Oral 1 Time Daily Indication: anticoagulant CARBIDE TOOL DIE MAKER supervision X1 TueSep 06 01:00:00 EDT 2023Feb 05 16:45:00 EST 2023 HYDROcodone 5 mg-acetaminophen 325 mg tablet 1 TAB TABLET Oral PRN Every 6 Hours Indication: pain PAIN *DO NOT EXCEED 3GM/DAY APAP FROM ALL SOURCES* TueMay 31 12:00:00 EST 2023Feb 05 16:45:00 EST 2023 sertraline 100 mg tablet 200mg TABLET Or al 1 Time Daily Indication: depression Depression2 UGDY=266 MG TueMay 31 12:00:00 EST 2023Feb 05 [...] Other 2 Times Monthly Indication: monthly vitals CARBIDE TOOL DIE MAKER to obtain TueMay 31 12:00:00 EST 2023Feb 05 16:45:00 EST 2023 cetirizine 10 mg tablet 1 tablet TABLET Oral PRN 1 Time Daily Indication: allergies TueMay 31 12:00:00 EST 2023Feb 05 16:45:00 EST 2023 QUEtiapine 100 mg tablet 1 tablet TABLET Oral 1 Time Daily Indication: OCD Anxiety, OCDPer Renetta Ferris ANALYTICS ARCHITECT TueMay 31 12:00:00 EST 2023Feb 05 16:45:00 EST 2023 QUEtiapine 100 mg tablet 1 tablet TABLET Oral 1 Time Daily Indication: OCD Anxiety, OCDPer Renetta Ferris ANALYTICS ARCHITECT TueJun 11 19:20:00 EDT 2023Jun 13 00:01:00 [...] al 1 Time Daily Indication: depression Depression2 ARHV=080 MG TueJun 08 23:38:00 EST 2023Jun 12 [...] Other 2 Times Monthly Indication: monthly vitals CARBIDE TOOL DIE MAKER to obtain TueJun 08 23:48:00 EST 2023Jun 12 23:59:00 EDT 2023 cetirizine 10 mg tablet 1 tablet TABLET Oral PRN 1 Time Daily Indication: allergies TueJun 08 23:51:00 EST 2023Jun 13 00:00:00 EDT 2023 Blood Pressure Cuff 1 EACH Other 2 Times Monthly Indication: monthly vitals CARBIDE TOOL DIE MAKER to obtain [facility] Jun 04 09:59:00 EST 2023Jun 08 23:51:00 [...] al 1 Time Daily Indication: depression Depression2 IIIZ=201 MG TueMay 31 12:00:00 EST 2023Jun 08 23:39:00 EST 2023 QUEtiapine 100 mg tablet 1 tablet TABLET Oral 2 Times Daily Indication: OCD Anxiety, OCD TueMay 31 12:00:00 2023Jun 08 23:39:00 EST 2023 simvastatin 20 mg tablet 1 tablet TABLET Oral 1 Time Daily Indication: hyperlipidemia HLD TueMay 31 12:00:00 2023 [facility] Jun 03 10:56:00 EST 2023 zolpidem [...] Or al 1 Time Daily Indication: Depression2 PMAI=570 MG TueMay 24 18:00:00 2023May 31 01:00:00 [...] 14 00:00:00 EST 2023 * Text: * rodent exterminator (current) use of antibiotics* Code: * Start [...] 12 00:00:00 EDT 2024 * Text: * rodent exterminator (current) use of aspirin* Code: * Start [...] Measurement Date Systolic Blood Pressure 125.00 mm[Hg] [facility] Nov 03 14:40:54 EDT 2024 Diastolic Blood Pressure 67.00 mm[Hg] [facility] Nov 03 14:40:54 EDT 2024 Pulse Oximetry [...] :41 EDT 2024 Heart Rate 84.00 /min [facility] Jun 16 21:16 :41 EDT 2024 Body temperature 98.10 [degF] [facility] Jun 16 21:1 6:41 EDT 2024 Respiratory rate 20.00 /min [facility] Jun 16 21:1 6:41 EDT 2024 Systolic Blood Pressure 138.00 mm[Hg] [facility] Jun 02 21:49:24 EST 2024 Diastolic Blood Pressure 68.00 mm[Hg] [facility] Jun 02 21:49:24 EST 2024 Pulse Oximetry 97.00 % [facility] Jun 02 21:49 :24 EST 2024 Heart Rate 76.00 /min [facility] Jun 02 21:49 :24 EST 2024 Body temperature 98.00 [degF] [facility] Jun 02 21:4 9:24 EST 2024 Respiratory rate 18.00 /min [facility] Jun 02 21:4 9:24 EST 2024 Systolic [...] EST 2024 Systolic Blood Pressure 133.00 mm[Hg] [facility] Feb 15 21:00:08 EST 2024 Diastolic Blood Pressure 68.00 mm[Hg] [facility] Feb 15 21:00:08 EST 2024 Pulse Oximetry 96.00 % [facility] Feb 15 21:00 :08 EST 2024 Body weight 0.00 [lb_av] [facility] Feb 15 21:00 :08 EST 2024 Heart Rate 76.00 /min [facility] Feb 15 21:00 :08 EST 2024 Body temperature 98.00 [degF] [facility] Feb 15 21:0 0:08 EST 2024 Respiratory rate 18.00 /min [facility] Feb 15 21:0 0:08 EST 2024 Systolic Blood Pressure 139.00 mm[Hg] [facility] Feb 15:54:54 EST 2024 Diastolic Blood Pressure 72.00 mm[Hg] [facility] Feb 15:54:54 EST 2024 Pulse Oximetry 96.00 % [facility] May 05 15:54 :54 EST 2024 Body weight 208.40 [lb_av] [facility] May 05 15:54 :54 EST 2024 Heart Rate 64.00 /min [facility] May 05 15:54 :54 EST 2024 Body temperature 98.00 [degF] [facility] May 05 15:5 4:54 EST 2024 Respiratory rate 18.00 /min [facility] May 05 15:5 4:54 EST 2024 Body temperature 97.40 [degF] TueApr 23 17:4 3:32 EST 2024 Body temperature 98.10 [degF] [facility] Apr 22 21:0 6:15 EST 2024 Body temperature 98.10 [degF] [facility] Apr 22 17:0 5:39 EST 2024 Body temperature 97.60 [degF] [facility] Apr 21 21:4 3:40 EST 2024 Body temperature 97.90 [degF] [facility] Apr 21 13:5 9:28 EST 2024 Body temperature 97.70 [degF] [facility] Apr 20 22:1 7:46 2024 Systolic Blood [...] EDT 2023 Body temperature 97.90 [degF] [facility] 13:2 8:30 EDT 2023 Body temperature 97.70 [degF] [facility] 13:2 6:40 EDT 2023 Body temperature 98.20 [degF] [facility] 18:0 1:23 EDT 2023 Body temperature 97.90 [degF] [facility] 16:0 2:07 EDT 2023 Body temperature 98.20 [degF] [facility] Jan 12 21:3 8:59 EDT 2023 Body temperature 97.50 [degF] [facility] Jan 12 14:2 4:40 EDT 2023 Body temperature 97.40 [degF] [facility] Jan 12 03:0 9:21 EDT 2023 Systolic [...] 03:51:00 EDT 2023 Pulse Oximetry 95.00 % [facility] 21 03:51 :00 EDT 2023 Heart Rate 102.00 /min [facility] 21 03:51 :00 EDT 2023 Body temperature 97.00 [degF] [facility] 21 03:5 1:00 EDT 2023 Respiratory rate 22.00 /min [facility] 03:5 1:00 EDT 2023 Systolic Blood Pressure 140.00 mm[Hg] [facility] Sep 15 20:32:47 EDT 2023 Diastolic Blood Pressure 76.00 mm[Hg] [facility] 15 20:32:47 EDT 2023 Body weight 212.00 [lb_av] [facility] 15 20:32 :47 EDT 2023 Heart Rate 90.00 /min [facility] 15 20:32 :47 EDT 2023 Body temperature 97.50 [degF] [facility] 20:3 2:47 EDT 2023 Respiratory rate 18.00 /min [facility] 20:3 2:47 EDT 2023 Systolic Blood Pressure 106.00 mm[Hg] [facility] 21:11:20 EDT 2023 Diastolic Blood Pressure 72.00 mm[Hg] [facility] 21:11:20 EDT 2023 Body weight 214.60 [lb_av] [facility] 21:11 :20 EDT 2023 Heart Rate 98.00 /min [facility] 21:11 :20 EDT 2023 Body temperature 97.00 [degF] [facility] 21:1 1:20 EDT 2023 Respiratory rate 18.00 /min [facility] 21:1 1:20 EDT 2023 Systolic Blood Pressure 149.00 mm[Hg] [facility] Nov 16 20:23:43 EDT 2023 Diastolic Blood Pressure 79.00 mm[Hg] [facility] Nov 16 20:23:43 EDT 2023 Heart Rate 93.00 /min [facility] Nov 16 20:23 :43 EDT 2023 Body temperature 96.80 [degF] [facility] Nov 16 20:2 3:43 EDT 2023 Respiratory rate 18.00 /min TueNov 16 20:2 3:43 EDT 2023 Reason for Referral Past Medical History
--- OUTSIDE RECORDS SUMMARY | 2024-11-03 23:38 | XMS_ITS | Encounter Summary ---
Author Organization [facility] Address [address] [place] [address] Care Team Providers Care Billing Manager Name Role Phone Vladimir Skelton MD Primary Care Provider Monisha Tucker MD Primary Care Provider Jefe Chung NP Unavailable Mazin Vigil MD Unavailable Quincy Mixon MD Unavailable [phone] Murali Milton MD Unavailable [phone] Robert Bull RN Unavailable Cornelio Ferris MD Unavailable [phone] Reason for Visit * Reason Onset Date Comments No Show 08/14/2021 Encounter Details Date Type Department Care Team (Late st Contact Info) Description 08/14/2021 Documentation [facility] OP Physical Therapy [address] [address] Aleta Nielsen PTA No Show [...] file 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 Gender Identity Not on file Sexual Orientation Not on file Occupation Industry Job Start Date Job End Date retired Not on file Not on file Not on file documented as of this encounter Plan of Treatment Not on file documented as of this encounter Visit Diagnoses Not on filedocumented in this encounter Care Teams Billing Manager Relationship Specialty Start Date End Date Vladimir Skelton MD PCP - General Family Medicine 05/04/18 08/04/22 Monisha Tucker MD PCP - General Family Practice 08/05/22 [place] [address] [facility] [address] [place] [address] Nurse Practitioner Pain Management 09/06/23 [place] [address] [facility] [address] [address] Consulting Physician Pain Management 09/06/23 [place] [address] [facility] [address] [address] Referring Physician General Surgery 09/06/23 [place] [address] [facility] [address] [address] Consulting Physician Neurosurgery 11/14/23 Robert Bull RN [address] [place] [address] [address] [place] [address] [facility] 12/08/23 01/01/24 Cornelio Ferris MD [address] [facility] [address] [place] [address] Referring Physician Psychiatry 12/15/23 documented as of this encounter
--- NOTE | 2024-11-04 02:16 | ED.FALL ---
HPI - Fall General Chief Complaint: Fall Stated Complaint: fall with his walker Time Seen by Provider: 11/04/24 01:50 History of Present Illness HPI Narrative: Patient was walking with his walker when it when out from under him, and he fell backwards and hit his head. He has no injuries anywhere else. No loss of consciousness. Initially was some bleeding from the top of his head which is resolved. Related Data Home Medications ?Medication ?Instructions ?Recorded ?Confirmed ?Last Taken ?Type sertraline 100 mg tablet 200 mg PO HS 09/16/22 06/18/24 05/19/23 History simvastatin 20 mg tablet 20 mg PO QPM 09/16/22 06/18/24 05/19/23 History zolpidem 10 mg tablet 10 mg PO HS Insomnia 03/16/23 06/18/24 Unknown History bupropion HCl 300 mg 24 hr tablet, 300 mg PO QAM 05/12/23 06/26/24 06/26/24 History extended release omeprazole 40 mg capsule,delayed 40 mg PO DAILY 05/12/23 06/18/24 05/20/23 06:00 History release vitamins A,C,C-aepm-fvdibu 2,148 2 tablet PO DAILY 05/13/23 06/26/24 06/22/24 History mcg-113 mg-45 mg-17.4 mg tablet (PreserVision AREDS) acetaminophen 500 mg tablet 1,000 mg PO Q8H PRN pain 06/18/24 06/18/24 Unknown History (Acetaminophen Extra Strength) aspirin 81 mg chewable tablet 81 mg PO DAILY 06/18/24 06/26/24 06/18/24 History cetirizine 10 mg tablet (24Hour 10 mg PO DAILY 06/18/24 06/18/24 Unknown History Allergy) cholecalciferol (vitamin D3) 1,250 1,250 mcg PO WEEKLY 06/18/24 06/26/24 06/22/24 History mcg (50,000 unit) tablet cyanocobalamin (vitamin B-12) 1,000 mcg PO DAILY 06/18/24 06/26/24 06/22/24 History 1,000 mcg capsule lactobacillus combination no.4 3 4,000 mmu cells PO DAILY 06/18/24 06/26/24 06/22/24 History billion cell capsule (Probiotic) oxybutynin chloride 15 mg 15 mg PO DAILY 06/18/24 06/18/24 Unknown History tablet,extended release 24 hr quetiapine 50 mg tablet 50 mg PO HS 06/18/24 06/18/24 Unknown History sodium phosphates 19 gram-7 118 ml RECTAL DAILY 06/18/24 06/26/24 06/26/24 History gram/118 mL enema (Enema) Allergies Allergy/AdvReac Type Severity Reaction Status Date / Time No Known Allergies Allergy Verified 07/26/24 11:29 Review of Systems Review of Systems: All systems reviewed & are unremarkable except as noted in HPI and below PMFSH Past Medical History Medical History Dyslipidemia Anxiety and depression Insomnia Hyperlipidemia Surgical History Surgical History Hx of inguinal hernia repair Open bilateral inguinal hernia repairs with UHS mesh 05/20/23 SAW History of incision and drainage I&D of left 2nd toe abscess 03/18/23. H/O colonoscopy Family History Family History Mother Family history of arthritis Acute myocardial infarction Hypertension Father Family history of malignant neoplasm Social History Social History Smoking status: Never smoker Alcohol intake: never Substance use: never Substance use type: does not use Do You Feel Safe in your Home?: Yes Lack of Transportation: No Lack of Food: Never True Current Housing: I Have Housing Concerned About Future Housing: No Difficulty Paying Gas/Electric Bills: No Difficulty Paying for Meds: No Currently Unemployed: No Education: Bachelor's Degree Difficulty w/ Childcare or Family Care: No Living arrangements: assisted living Spiritual care concerns: No Exam Narrative: EXAMINATION OF ORGAN SYSTEMS/BODY AREAS: Constitutional: Vital signs per nursing GENERAL:[No acute distress, non-toxic appearing.] HEAD: Laceration to the head EYES: EOMI, conjunctiva normal ENT: Hearing grossly intact LUNGS: Nonlabored breathing. HEART: [Regular rate and rhythm] ABD: [Soft], [nontender to palpation] EXT: Normal range of motion SKIN: head lac NEURO: [Alert and oriented x 3. No gross focal sensory or strength deficits.] PSYCH: Normal affect Course Vital Signs Vital signs: Vital Signs Temperature 97.7 F 11/03/24 23:36 Pulse Rate 75 11/03/24 23:36 Respiratory Rate 18 11/03/24 23:36 Blood Pressure 128/70 11/03/24 23:36 Pulse Oximetry 100 11/03/24 23:36 Oxygen Delivery Room Air 11/03/24 23:36 Temperature 97.7 F 11/03/24 23:36 Pulse Rate 65 11/04/24 02:49 Respiratory Rate 14 11/04/24 02:49 Blood Pressure 136/83 11/04/24 02:49 Pulse Oximetry 98 11/04/24 02:49 Oxygen Delivery Room Air 11/03/24 23:36 MDM - Fall MDM Narrative Medical decision making narrative: Patient presents here after falling when his walker when out from under him, he did hit his head, there is a small cut, is cleaned well by myself, closed with glue skin glue in usual fashion, and CT head/C-spine obtained which thankfully did not show any acute abnormality. He tells me his tetanus is up-to-date Stable for discharge with precautions Discharge Plan Discharge Clinical Impression: Head injury, Abrasion of scalp Patient Disposition: Home Condition: Stable Instructions: Head Injury (ED), Abrasion (ED) Additional Instructions: Please follow up with your doctor; you can always return for any further issues. Patient Language: Maori Prescriptions: No Action bupropion HCl 300 mg tablet extended release 24 hr 300 mg PO QAM omeprazole 40 mg capsule,delayed release(DR/EC) 40 mg PO DAILY zolpidem 10 mg tablet 10 mg PO HS PreserVision AREDS 2,148 mcg-113 mg-45 mg-17.4mg Tablet 2 tablet PO DAILY Rx Instructions: administer with AM and PM meals Probiotic 3 billion cell capsule 4,000 mmu cells PO DAILY Rx Instructions: administer with a meal cetirizine [24Hour Allergy] 10 mg tablet 10 mg PO DAILY cyanocobalamin (vitamin B-12) 1,000 mcg capsule 1,000 mcg PO DAILY aspirin 81 mg tablet,chewable 81 mg PO DAILY cholecalciferol (vitamin D3) 1,250 mcg (50,000 unit) tablet 1,250 mcg PO WEEKLY quetiapine 50 mg tablet 50 mg PO HS acetaminophen [Acetaminophen Extra Strength] 500 mg tablet 1,000 mg PO Q8H PRN (Reason: pain) oxybutynin chloride 15 mg tablet extended release 24hr 15 mg PO DAILY Enema 19-7 gram/118 mL enema 118 ml RECTAL DAILY Patient Comments: PRE-OP 06/26/24 sertraline 100 mg tablet 200 mg PO HS simvastatin 20 mg tablet 20 mg PO QPM Follow-up/Referrals: Rj Dooley MD [Primary Care Provider] - 2 Days
--- OUTSIDE RECORDS SUMMARY | 2024-11-04 02:19 | XMS_ITS | Encounter Summary ---
Author Organization [facility] Address [address] [place] [address] Care Team Providers Care Naval Architect Name Role Phone Vladimir Skelton MD Primary Care Provider Encounter Details Date Type Department Care Team (Latest Contact Info) Description 02/07/2018 Abstract [facility] , Josue Knutson MD Social [...] on filedocumented in this encounter Care Teams Naval Architect Relationship Specialty Start Date End Date Vladimir Skelton MD [address] [place] [address] [address] [place] [address] PCP - General 03/27/15 documented as of this encounter
--- OUTSIDE RECORDS SUMMARY | 2024-11-04 02:19 | XMS_ITS | Clinical Summary ---
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
--- OUTSIDE RECORDS SUMMARY | 2024-11-04 02:19 | XMS_ITS | Clinical Summary ---
Author Organization [facility] Address [address] [place] [address] Care Team Providers Care Corporate Director Name Role Phone Monisha Tucker MD Primary Care Provider Jefe Chung NP Unavailable Mazin Vigil MD Unavailable [phone] Quincy Mixon MD Unavailable [phone] Murali Milton MD Unavailable [phone] Cornelio Ferris MD Unavailable [phone] Allergies No known active allergies Medications sertraline [...] Psychiatry Assessment & Plan (04/18/2023 9:51 AM TRAVEL ACCOMMODATIONS RATER): Chronic. Stable. 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 Patient reports the tamsulosin was making a Pee too frequently so he stopped it. He is requesting to stay off of it. We will need to monitor urinary symptoms Assessment & Plan (04/18/2023 9:52 AM TRAVEL ACCOMMODATIONS RATER): Chronic. Feels oxybutynin ineffective. Will try change [...] to get him in to see a rock splitter instead Assessment & Plan (04/18/2023 9:54 AM TRAVEL ACCOMMODATIONS RATER): Continue care per surgeon Dr. Mixon. Continue IV antibiotics for total of 6 weeks. Antibiotics will be done in about a week and a half. Continue wound care in the toe. Monitor for recurrent ulcers. They are trying to save the toe previously by doing an I and D and deferring amputation Abnormal CT of the abdomen 04/15/2023 Overview (04/15/2023): 04/12/23 at [facility]. Report to be scanned Coronary artery calcification [...] noted on CT abdomen pelvis 04/12/2023 at [facility] Assessment & Plan (09/06/2023 12:27 PM CDT): Patient had incidental finding of aortic atherosclerosis on prior imaging. Discussed recommendation to start a baby aspirin daily for risk reduction. We will target an LDL less than 70 with cholesterol medication. Check levels and adjust simvastatin as needed Assessment & Plan (04/18/2023 9:51 AM TRAVEL ACCOMMODATIONS RATER): Incidental on prior imaging. Continue simvastatin. We will monitor levels and plan to just in the future as needed target LDL goal less than 70 Lumbar facet arthropathy 02/16/2023 Assessment & Plan (04/18/2023 9:51 AM TRAVEL ACCOMMODATIONS RATER): Chronic. Follows with pain management. Advised caution with naproxen as may be contributing to some of his stomach symptoms. Thirty day course of PPI order Sacroiliitis, not elsewhere classified Assessment & Plan (04/18/2023 9:52 AM TRAVEL ACCOMMODATIONS RATER): Mild noted on recent CT. Continue care per pain specialist Lumbar spondylosis 08/05/2022 Assessment & Plan (04/18/2023 9:51 AM TRAVEL ACCOMMODATIONS RATER): Chronic. Care per pain manage Spondylolisthesis of lumbar region 09/25/2020 Assessment & Plan (04/18/2023 9:52 AM TRAVEL ACCOMMODATIONS RATER): Chronic. Medication care per pain management. Caution with NSAIDs given recent stomach issues. Advised if guarding to take naproxen needs to take it with food. We will give a 30 day course of PPI Anxiety 06/13/2019 Assessment & Plan (04/18/2023 9:52 AM TRAVEL ACCOMMODATIONS RATER): Chronic. Medication and care per Psychiatry. Defer [...] adjustment. Assessment & Plan (04/18/2023 9:52 AM TRAVEL ACCOMMODATIONS RATER): Chronic. On simvastatin. We will plan to [...] psychiatrist Assessment & Plan (04/18/2023 9:52 AM TRAVEL ACCOMMODATIONS RATER): Chronic. Medication and care per Psychiatry. Patient felt lamotrigine caused side effects so he is now stopped it through discussion with his psychiatrist Conductive hearing loss, bilateral 10/14/2016 Nonallergic rhinitis 10/14/2016 Resolved Problems Problem Noted Date Diagnosed Date Resolved Date MSSA bacteremia 04/18/2023 09/06/2023 Assessment & Plan (04/18/2023 9:54 AM TRAVEL ACCOMMODATIONS RATER): Noted at time of hospitalization for toe [...] (12/26/2020): Added automatically from request for surgery [id number] Acquired right foot drop 09/25/202007/2022 Class 1 obesity with body ma ss index (BMI) of 33.0 to 33.9 in adult 06/13/2019 08/05/2022 Depression 06/13/2019 04/18/2023 Nontraumatic complete tear o f left rotator cuff 07/17/2018 08/05/2022 Overview (07/17/2018): Added automatically from request for surgery [id number] Partial tear of left subscapularis tendon 01/10/2018 [...] Added automatically from req uest for surgery [id number] Low back pain Chickenpox Non-recurrent bilateral ingu [...] Status Comments Brother Father Maternal Grandfather Mother [place] age 70s Paternal Grandfather Paternal Grandmother Sister [...] on file Legal Sex Male 7:15 PM TRAVEL ACCOMMODATIONS RATER Gender Identity Not on file Sexual Orientation Not on file Occupation Industry Job Start Date Job End Date retired Not on file Not on file Not on file Obstetrics History Last Filed Vital Signs Vital Sign Reading Time Taken Comments Blood Pressure 115/62 05/31/2024 8:03 AM TRAVEL ACCOMMODATIONS RATER Pulse 101 05/31/2024 8:03 AM TRAVEL ACCOMMODATIONS RATER Temperature 37.1 C (98.7 F) 03/08/2024 9:19 AM TRAVEL ACCOMMODATIONS RATER Respiratory Rate 17 05/31/2024 8:03 AM TRAVEL ACCOMMODATIONS RATER Oxygen Saturation 99% 05/31/2024 8:03 AM TRAVEL ACCOMMODATIONS RATER Inhaled Oxygen Concentration - - Weight 96.4 kg (212 lb 8 oz) 03/08/2024 9:19 AM TRAVEL ACCOMMODATIONS RATER Height 185.4 cm (6' 1) 03/08/2024 9:19 AM TRAVEL ACCOMMODATIONS RATER Body Mass Index 28.04 03/08/2024 9:19 AM TRAVEL ACCOMMODATIONS RATER Plan of Treatment Health Maintenance Due Date [...] Discontinued 10/20/2023 Medical Devices Implanted Type Area Wire Tinner Device Identifier Shelf Expiration Date Model / Serial / Lot Amanda [employer] [id number] Base Plate 26mm Tm Reverse 20m - [id number] Implanted:Qty : 1 on 09/17/2019 at [facility] Other - see comments Left: Shoulder [employer] [id number] 12/02/2028 [id number] / / [id number] Ar[employer] Ar-2324 Bcm Swivelock 4.75mm 24.5mm Self Punch Vent Shoulder Howe Suture - Sna - [id number] Implanted:Qty : 1 on 09/07/2018 by Amaury Gordon MD at [facility] Left: Humerus [employer] [id number] 05/04/2020 AR-2324BCM / NA / [id number] [employer] Ar-2324 Bcm Swivelock 4.75mm 24.5mm Self Punch Vent Shoulder Howe Suture - [id number] Implanted:Qty : 1 on 09/07/2018 by Amaury Gordon MD at [facility] Left: Shoulder [employer] [id number] 05/04/2020 AR-2324BCM / / [id number] Amanda [employer] [id number] Glenosphere Tm Reverse 36mm Centric - [id number] Implanted:Qty : 1 on 09/17/2019 at [facility] Left: Shoulder [employer] [id number] 12/02/2028 [id number] / / [id number] [employer] 01.95836.048 Ncb Anatomical Shoulder 4.5mm 48mm Inverse Reverse Lock Self Tap - [id number] Implanted:Qty : 1 on 09/17/2019 at [facility] Left: Shoulder [employer] [id number] 03/03/2024 01.30724.048 / / [id number] [employer] 01.94221.042 Ncb Anatomical Shoulder 4.5mm 42mm Inverse Reverse Lock Self Tap - [id number] Implanted:Qty : 1 on 09/17/2019 at [facility] Left: Shoulder [employer] [id number] 02/02/2024.16606.042 / / [id number] [employer] [id number] 12mm 130mm Shoulder Stem Humeral Trabecular Metal Tivanium - [id number] Implanted:Qty : 1 on 09/17/2019 at [facility] Left: Shoulder [employer] [id number] 07/02/2029 [id number] / / [id number] Amanda [employer] [id number] 36mm H+3mm Reverse Humerus 7d Standard Liner Shoulder Trabecular - [id number] Implanted:Qty : 1 on 09/17/2019 at [facility] Left: Shoulder [employer] [id number] 06/02/2027 [id number] / / [id number] Explanted Type Area Wire Tinner Device Identifier Shelf Expiration Date Model / Serial / Lot iversity [employer] [id number] Siva 3/32in 9in 2 Trocar Pin Fixation Nonsterile - [id number] Explanted:Qty: 1 on 09/17/2019 at [facility] [employer] [id number] / / Procedures Procedure Name Priority Date/Time Associated Diagnosis Comments COLONOSCOPY Routine 10/20/2023 9:37 AM CDT HEPATITIS C SCREENING Routine 09/28/2023 11:10 AM CDT PSA SCREEN Routine 05/26/2022 12:14 PM TRAVEL ACCOMMODATIONS RATER Screening for prostate cancer from Last 3 Months or Most Recently Relevant to Health Maintenance Results * COLONOSCOPY (10/20/2023 9:37 AM CDT) Scribed Colonoscopy Normal Monisha Tucker MD [facility] Fin al Result * HEPATITIS C SCREENING (09/28/2023 11:10 AM CDT) SCRIBED HCV ab Non Reactive Rj Dooley MD [facility] Final Re sult * PSA screen (05/26/2022 12:14 PM TRAVEL ACCOMMODATIONS RATER) PSA-Total 1.99 <=5.40 ng/mL IRAM GARCIA Comment: [...] revised 21. Blood 05/26/2022 12:1 4 PM TRAVEL ACCOMMODATIONS RATER 05/26/2022 2:55 PM TRAVEL ACCOMMODATIONS RATER Nayan Linder DO LAB BLOOD ORDERABLES Fin al Result Performing Organization Address City/State/[place]IP [place] Phone Number IRAM [phone] [place] [address] from Last 3 Months or Most Recently Relevant to Health Maintenance Insurance MEDICARE [facility] MEDICARE SUPPLEMENT MEDICARE [facility] MEDICARE BLUE CROSS MEDICARE SUPPLEMENT Advance Directives For more information, please contact: [phone] Documents on File Type Date Recorded Patient Bank Operations Officer Expl anation ADVANCE DIRECTIVE 12/27/2023 8:58 AM Power of Shrink Pit Operator for Health Care Power of Shrink Pit Operator 05/16/2023 12:09 PM * Full Code (Latest Code Status on File) Date Activated Date Inactivated Comments 03/08/2024 10:51 AM 03/09/2024 5:26 AM * Full Code Date Activated Date Inactivated Comments 09/17/2019 7:41 PM 09/18/2019 4:44 PM Care Teams Corporate Director Relationship Specialty Start Date End Date Monisha Tucker MD PCP - General Family Practice 08/05/22 [place] [address] [address] Nurse Practitioner Pain Management 09/06/23 [place] [address] [address] Consulting Physician Pain Management 09/06/23 [place] [address] [address] Referring Physician General Surgery 09/06/23 [place] [address] [address] Consulting Physician Neurosurgery 11/14/23 Cornelio Ferris MD [address] [address] Referring Physician Psychiatry 12/15/23
--- OUTSIDE RECORDS SUMMARY | 2024-11-04 02:19 | XMS_ITS ---
Author Name Auto Generated, Auto Generated Organization [facility] Address [address] [place] [address] Phone [phone] Care Team Providers Care Squad Boss Name Role Phone Rj Dooley Unavailable Functional Status No Results Mental Status No Results Allergies and Intolerances Name Onset Date Reaction Severity No Known Allergies (Allergy) TueMar 24 16:29:00 EST 2022 Encounters Program Name Primary Diagnosis Admission Date/Time Dis charge Date/Time Assisted Living Area Malignant neoplasm of prostate TueMay 31 06:00:00 EST 2023 [facility] Jul 29 20:00:00 EDT 2024Sep 07 18:00:00 [...] 2 Times Daily Indication: Prep for TREATMENT HAND SINGER supervision x1, x4 TueSep 26 13:00:00 EDT [...] 2 Times Daily Indication: Prep for TREATMENT HAND SINGER supervision x1, x3 TueSep 26 16:55:00 EDT [...] for 5 Days Indication: prep for CT HAND SINGER supervision x1, x4 TueSep 21 01:00:00 EDT [...] TABLET Oral 1 Time Daily Indication: supplement HAND SINGER supervision x1 2 tablets= 1000mg TueAugust 23 01:00:00 EDT 2024 cholecalciferol (vitamin D3) 25 mcg (1,000 unit) tablet 1 tablet TABLET Oral 1 Time Daily Indication: supplement HAND SINGER supervision x1 TueAugust 23 01:00:00 EDT 2024 Orgovyx 120 mg tablet 3 tablets TABLET O ral 1 Time Daily for 1 Day Indication: Prostate cancer HAND SINGER supervision x13 tablets for 1 day TueAugust 23 01:00:00 EDT 2024August 24 00:59:00 EDT 2024 Orgovyx 120 mg tablet 1 tablet TABLET Or al 1 Time Daily Indication: prostate cancer HAND SINGER supervision x1 TueAugust 24 01:00:00 EDT 2024 QUEtiapine 50 mg tablet 1 TABLET TABLET Oral 1 Time Daily Indication: mood disorder HAND SINGER administration TueAugust 04 03:00:00 EDT 2024 AdviL Liqui-GeL 200 mg capsule 2-3 caps CAPSULE Oral PRN Every 8 Hours for 14 Days Indication: pain/inflammation TueJul 27 12:00:00 EDT 2024August 10 11:59:00 EDT 2024 clomiPRAMINE 25 mg capsule 1 cap CAPSULE Oral Hour Of Sleep Indication: OCD HAND SINGER Supervision x4 TueJul 05 01:00:00 EDT 2024August 04 03:07:00 EDT 2024 PreserVision AREDS 2,148 mcg-113 mg-45 mg-17.4 mg tablet 2 tablets TABLET Oral 1 Time Daily Indication: eye supplement HAND SINGER supervision x1 TueJun 27 01:00:00 EDT 2024 [...] Oral 1 Time Daily Indication: eye supplement HAND SINGER supervision x1 TueJun 26 01:00:00 EDT 2024Jun [...] 1 tablet po twice daily times 5 days.HAND SINGER Supervision x1, x4. TueMay 15 07:00:00 EST 2024May 20 06:59:00 EST 2024 oxyBUTYnin chloride ER 15 mg tablet,extended release 24 hr 1 TABLET TABLET, EXTENDED RELEASE 24 HR Oral 1 Time Daily Indication: antispasmodic - per [facility] TueMay 07 15:30:00 EST 2024 acetaminophen [...] Oral 1 Time Weekly Indication: supplement - HAND SINGER supervision X1 TueMar 12 01:00:00 EST 2023August [...] 12 Hours for 7 Days Indication: UTI HAND SINGER Supervision x1 x3 TueFeb 14 14:43:00 EST [...] Other 2 Times Monthly Indication: monthly vitals HAND SINGER to obtain TueFeb 26 01:00:00 EST 2023 cephALEXin 500 mg capsule 1 CAPSULE Oral Every 12 Hours for 7 Days Indication: UTI HAND SINGER Supervision x1 x3 TueFeb 12 18:00:00 EST 2023Feb 14 14:44:00 EST 2023 sertraline 100 mg tablet 200mg TABLET Or al 1 Time Daily Indication: depression DepressionCNA supervision x42 CLWQ=672 MG TueFeb 05 01:00:00 EST 2023 omeprazole 40 mg capsule,delayed release 1 CAP CAPSULE,DELAYED RELEASE (ENTERIC COATED) Oral 1 Time Daily Indication: GERD HAND SINGER supervision x1 TueFeb 05 01:00:00 EST 2023 Adult 50 Plus Probiotic 4 billion cell capsule 1 capsule CAPSULE Oral 1 Time Daily Indication: constipation GI prophCNA Supervision x1 TueFeb 05 01:00:00 EST 2023Jun 19 20:26:00 EDT 2024 PreserVision AREDS 2,148 mcg-113 mg-45 mg-17.4 mg tablet 2 tablets TABLET Oral 1 Time Daily Indication: eye supplement HAND SINGER supervision x1 TueFeb 05 01:00:00 EST 2023Jun [...] Other 2 Times Monthly Indication: monthly vitals HAND SINGER to obtain TueFeb 05 01:00:00 EST 2023Feb 14 18:15:00 EST 2023 cetirizine 10 mg tablet 1 tablet TABLET Oral PRN 1 Time Daily Indication: allergies TueFeb 05 01:00:00 EST 2023 QUEtiapine 100 mg tablet 1 tablet TABLET Oral 1 Time Daily Indication: OCD Anxiety, OCDPer Renetta [place] Bryce[place] NPCNA supervision x4 TueFeb 05 01:00:00 [...] TABLET,CHEWABLE Oral 1 Time Daily Indication: anticoagulant HAND SINGER supervision X1 TueSep 06 01:00:00 EDT 2023Feb 05 16:45:00 EST 2023 HYDROcodone 5 mg-acetaminophen 325 mg tablet 1 TAB TABLET Oral PRN Every 6 Hours Indication: pain PAIN *DO NOT EXCEED 3GM/DAY APAP FROM ALL SOURCES* TueMay 31 12:00:00 EST 2023Feb 05 16:45:00 EST 2023 sertraline 100 mg tablet 200mg TABLET Or al 1 Time Daily Indication: depression Depression2 HRXZ=281 MG TueMay 31 12:00:00 EST 2023Feb 05 [...] Other 2 Times Monthly Indication: monthly vitals HAND SINGER to obtain TueMay 31 12:00:00 EST 2023Feb 05 16:45:00 EST 2023 cetirizine 10 mg tablet 1 tablet TABLET Oral PRN 1 Time Daily Indication: allergies TueMay 31 12:00:00 EST 2023Feb 05 16:45:00 EST 2023 QUEtiapine 100 mg tablet 1 tablet TABLET Oral 1 Time Daily Indication: OCD Anxiety, OCDPer Renetta Ferris UNDER GROUND MINER TueMay 31 12:00:00 EST 2023Feb 05 16:45:00 EST 2023 QUEtiapine 100 mg tablet 1 tablet TABLET Oral 1 Time Daily Indication: OCD Anxiety, OCDPer Renetta Ferris UNDER GROUND MINER TueJun 11 19:20:00 EDT 2023Jun 13 00:01:00 [...] al 1 Time Daily Indication: depression Depression2 OVRR=981 MG TueJun 08 23:38:00 EST 2023Jun 12 [...] Other 2 Times Monthly Indication: monthly vitals HAND SINGER to obtain TueJun 08 23:48:00 EST 2023Jun 12 23:59:00 EDT 2023 cetirizine 10 mg tablet 1 tablet TABLET Oral PRN 1 Time Daily Indication: allergies TueJun 08 23:51:00 EST 2023Jun 13 00:00:00 EDT 2023 Blood Pressure Cuff 1 EACH Other 2 Times Monthly Indication: monthly vitals HAND SINGER to obtain [facility] Jun 04 09:59:00 EST 2023Jun 08 23:51:00 [...] al 1 Time Daily Indication: depression Depression2 TQHY=607 MG TueMay 31 12:00:00 EST 2023Jun 08 23:39:00 EST 2023 QUEtiapine 100 mg tablet 1 tablet TABLET Oral 2 Times Daily Indication: OCD Anxiety, OCD TueMay 31 12:00:00 2023Jun 08 23:39:00 EST 2023 simvastatin 20 mg tablet 1 tablet TABLET Oral 1 Time Daily Indication: hyperlipidemia HLD TueMay 31 12:00:00 2023 [facility] Jun 03 10:56:00 EST 2023 [...] Or al 1 Time Daily Indication: Depression2 BKTC=775 MG TueMay 24 18:00:00 2023May 31 01:00:00 [...] 14 00:00:00 EST 2023 * Text: * exterminator helper (current) use of antibiotics* Code: * Start [...] 12 00:00:00 EDT 2024 * Text: * exterminator helper (current) use of aspirin* Code: * Start [...] Measurement Date Systolic Blood Pressure 125.00 mm[Hg] [facility] Nov 03 14:40:54 EDT 2024 Diastolic Blood Pressure 67.00 mm[Hg] [facility] Nov 03 14:40:54 EDT 2024 [...] :41 EDT 2024 Heart Rate 84.00 /min [facility] Jun 16 21:16 :41 EDT 2024 Body temperature 98.10 [degF] [facility] Jun 16 21:1 6:41 EDT 2024 Respiratory rate 20.00 /min [facility] Jun 16 21:1 6:41 EDT 2024 Systolic Blood Pressure 138.00 mm[Hg] [facility] Jun 02 21:49:24 EST 2024 Diastolic Blood Pressure 68.00 mm[Hg] [facility] Jun 02 21:49:24 EST 2024 Pulse Oximetry 97.00 % [facility] Jun 02 21:49 :24 EST 2024 Heart Rate 76.00 /min [facility] Jun 02 21:49 :24 EST 2024 Body temperature 98.00 [degF] [facility] Jun 02 21:4 9:24 EST 2024 Respiratory rate 18.00 /min [facility] Jun 02 21:4 9:24 EST [...] EST 2024 Systolic Blood Pressure 133.00 mm[Hg] [facility] Feb 15 21:00:08 EST 2024 Diastolic Blood Pressure 68.00 mm[Hg] [facility] Feb 15 21:00:08 EST 2024 Pulse Oximetry 96.00 % [facility] Feb 15 21:00 :08 EST 2024 Body weight 0.00 [lb_av] [facility] Feb 15 21:00 :08 EST 2024 Heart Rate 76.00 /min [facility] Feb 15 21:00 :08 EST 2024 Body temperature 98.00 [degF] [facility] Feb 15 21:0 0:08 EST 2024 Respiratory rate 18.00 /min [facility] Feb 15 21:0 0:08 EST 2024 Systolic Blood Pressure 139.00 mm[Hg] [facility] Feb 15:54:54 EST 2024 Diastolic Blood Pressure 72.00 mm[Hg] [facility] Feb 15:54:54 EST 2024 Pulse Oximetry 96.00 % [facility] May 05 15:54 :54 EST 2024 Body weight 208.40 [lb_av] [facility] May 05 15:54 :54 EST 2024 Heart Rate 64.00 /min [facility] May 05 15:54 :54 EST 2024 Body temperature 98.00 [degF] [facility] May 05 15:5 4:54 EST 2024 Respiratory rate 18.00 /min [facility] May 05 15:5 4:54 EST 2024 Body temperature 97.40 [degF] TueApr 23 17:4 3:32 EST 2024 Body temperature 98.10 [degF] Sun Apr 22 21:0 6:15 EST 2024 Body temperature 98.10 [degF] [facility] Apr 22 17:0 5:39 EST 2024 Body temperature 97.60 [degF] [facility] Apr 21 21:4 3:40 EST 2024 Body temperature 97.90 [degF] [facility] Apr 21 13:5 9:28 EST 2024 Body temperature 97.70 [degF] TueApr 20 22:1 7:46 2024 Systolic Blood Pressure 136.00 mm[Hg] TueApr 19 10:53:15 2024 Diastolic Blood Pressure 79.00 mm[Hg] TueApr 19 10:53:15 2024 Pulse Oximetry 98.00 % TueApr 19 10:53 :15 2024 Heart Rate 74.00 /min TueApr 19 10:53 :15 2024 Body weight 208.30 [lb_av] TueApr 19 10:53 :15 2024 Body temperature 97.80 [degF] TueApr 19 10:5 3:15 2024 Respiratory rate 20.00 /min TueApr 19 10:5 3:15 2024 Systolic Blood Pressure 123.00 mm[Hg] TueApr 04 21:29:07 2024 Diastolic Blood Pressure 78.00 mm[Hg] TueApr 04 21:29:07 2024 Pulse Oximetry 98.00 % TueApr 04 21:29 :07 2024 Respiratory rate 18.00 /min TueApr 04 21:2 9:07 2024 Body weight 207.30 [lb_av] TueApr 04 21:29 :07 EST 2024 Heart Rate 79.00 /min TueApr 04 21:29 :07 2024 Body temperature 97.90 [degF] TueApr 04 21:2 9:07 EST 2024 Systolic [...] 6:28 EDT 2023 Body temperature 97.90 [degF] [facility] 13:2 8:30 EDT 2023 Body temperature 97.70 [degF] [facility] 13:2 6:40 EDT 2023 Body temperature 98.20 [degF] [facility] 18:0 1:23 EDT 2023 Body temperature 97.90 [degF] [facility] 16:0 2:07 EDT 2023 Body temperature 98.20 [degF] [facility] Jan 12 21:3 8:59 EDT 2023 Body temperature 97.50 [degF] [facility] Jan 12 14:2 4:40 EDT 2023 Body temperature 97.40 [degF] [facility] Jan 12 03:0 9:21 EDT 2023 Systolic [...] 03:51:00 EDT 2023 Pulse Oximetry 95.00 % [facility] 21 03:51 :00 EDT 2023 Heart Rate 102.00 /min [facility] 21 03:51 :00 EDT 2023 Body temperature 97.00 [degF] [facility] 21 03:5 1:00 EDT 2023 Respiratory rate 22.00 /min [facility] 03:5 1:00 EDT 2023 Systolic Blood Pressure 140.00 mm[Hg] [facility] Sep 15 20:32:47 EDT 2023 Diastolic Blood Pressure 76.00 mm[Hg] [facility] 15 20:32:47 EDT 2023 Body weight 212.00 [lb_av] [facility] 15 20:32 :47 EDT 2023 Heart Rate 90.00 /min [facility] 15 20:32 :47 EDT 2023 Body temperature 97.50 [degF] [facility] 20:3 2:47 EDT 2023 Respiratory rate 18.00 /min [facility] 20:3 2:47 EDT 2023 Systolic Blood Pressure 106.00 mm[Hg] [facility] 21:11:20 EDT 2023 Diastolic Blood Pressure 72.00 mm[Hg] [facility] 21:11:20 EDT 2023 Body weight 214.60 [lb_av] [facility] 21:11 :20 EDT 2023 Heart Rate 98.00 /min [facility] 21:11 :20 EDT 2023 Body temperature 97.00 [degF] [facility] 21:1 1:20 EDT 2023 Respiratory rate 18.00 /min [facility] 21:1 1:20 EDT 2023 Systolic Blood Pressure 149.00 mm[Hg] [facility] Nov 16 20:23:43 EDT 2023 Diastolic Blood Pressure 79.00 mm[Hg] [facility] Nov 16 20:23:43 EDT 2023 Heart Rate 93.00 /min [facility] Nov 16 20:23 :43 EDT 2023 Body temperature 96.80 [degF] [facility] Nov 16 20:2 3:43 EDT 2023 Respiratory rate 18.00 /min TueNov 16 20:2 3:43 EDT 2023 Reason for Referral Past Medical History
--- OUTSIDE RECORDS SUMMARY | 2024-11-04 02:19 | XMS_ITS | Continuity of Care Document ---
Author Organization [facility] Address [address] [place] [address] Phone Care Team Providers Care Sql Consultant Name Role Phone Jose Armando PT,MPT,ATC, Eric [...] or Cold Pack Manual Therapy Therapeutic Activities Neuromuscular Re-Ed Therapeutic Exercise Therapeutic [...] Complexity Therapeutic Activities Neuromuscular Re-Ed Therapeutic Activities Neuromuscular Re-Ed Therapeutic Exercise Therapeutic Activities Neuromuscular Re-Ed Therapeutic Exercise Therapeutic Activities Neuromuscular Re-Ed Therapeutic Exercise Therapeutic Activities Neuromuscular Re-Ed Therapeutic Exercise Therapeutic Activities Neuromuscular Re-Ed Therapeutic Exercise Therapeutic Activities Neuromuscular Re-Ed Therapeutic Exercise Neuromuscular Re-Ed Therapeutic Activities Therapeutic Activities Hot or Cold Pack Neuromuscular Re-Ed Doc neg elder mal no plan Therapeutic Activities PT Evaluation Low Complexity Neuromuscular Re-Ed Advance Directives Directive Yes / No Effective Date File Name No Information Encounters Encounter Description Practice Location Reason(s) For Visit Diagnoses Date Provider Providers Copied on Encounter [facility], [id number], tel:[phone] Meno No Information 4 [place], [place], . [facility], [place], [place], [id number], tel:[phone] Meno No Information 3 Ta Leonardo. . Referring Provider: Monisha Tucker , [address], [place], [address]. tel:[phone] [facility], [place], [place], [id number], tel:[phone] Meno No Information 3 Sherif Alvarado. . Referring Provider: Monisha Tucker [address], [place], [address]. tel:[phone] [facility], [address], [place], [place], [id number], [place] tel:[phone] Meno No Information 3 Sherif Jenny. . Referring Provider: Monisha Tucker , [address], [place], [address]. tel:[phone] [facility], [address], [place], [place], [id number], [place] tel:[phone] Meno No Information 3 Sherif Jenny. . Referring Provider: Monisha Tucker , [address], [place], [address]. tel:[phone] [facility], [address], [place], [place], [id number], [place] tel:[phone] Meno No Information 3 Sherif Jenny. . Referring Provider: Monisha Tucker , [address], [place], [address]. tel:[phone] [facility], [place], [place], [id number], [place] tel:[phone] Meno No Information 3 Sherif Jenny. . Referring Provider: Monisha Tucker , [address], [place], [address]. tel:[phone] [facility], [place], [place], [id number], [place] tel:[phone] Meno No Information 2 3 Sherif Jenny. . Referring Provider: Monisha Tucker , [address], [place], [address]. tel:[phone] [facility], [place], [place], [id number], [place] tel:[phone] Meno No Information 3 Sherif Jenny. . Referring Provider: Monisha Tucker [address], [place], [address]. tel:[phone] [facility], [address], [place], [place], [address], [place] tel:[phone] Meno No Information 3 Sherif Adamesah. . Referring Provider: Monisha Tucker [address], [place], [address]. tel:[phone] [facility] [address], [place], [place], [id number], [place] tel:[phone] Meno No Information 3 Jose Armando Chowdh[place]yn. , [place], [place]. Referring Provider: Monisha Tucker [address], [place], [address]. tel:[phone] [facility], [address], [place], [place], [id number], [place] tel:[phone] Meno No Information 3 Jose Armando [place]. , [place], [place]. Referring Provider: Monisha Tucker [address], [place], [address]. tel:[phone] [facility] [address], [place], [place], [id number], [place] tel:[phone] Meno No Information 3 Suárez Eric. , [place], [place]. Referring Provider: Monisha Tucker [address], [place], [address]. tel:[phone] [facility], [place], [place], [id number], [place] tel:[phone] Meno No Information 3 Jose Armando [place]. , [place], [place]. Referring Provider: Monisha Tucker [address], [place], [address]. tel:[phone] [facility], [place], [place], [address], [place] tel:[phone] Meno No Information 3 Jose Armando [place]. , [place], [place]. Referring Provider: Monisha Tucker , [address], [place], [address]. tel:[phone] [facility], [place], [place], [id number], [place] tel:[phone] Meno No Information 3 Jose Armando [place]. , [place], [place]. Referring Provider: Monisha Tucker [address], [place], [address]. tel:[phone] [facility] [address], [place], [place], [id number], [place] tel:[phone] Meno No Information 3 Modglin Parvez. . Referring Provider: Monisha Tucker [address], [place], [address]. tel:[phone] [facility], [place], [place], [id number], [place] tel:[phone] Meno No Information 3 Jose Armando [place]. , [place], [place]. Referring Provider: Monisha Tucker [address], [place], [address]. tel:[phone] [facility], [place], [place], [id number], [place] tel:[phone] Meno No Information 3 Jose Armando [place]. , [place], [place]. Referring Provider: Monisha Tucker [address], [place], [address]. tel:[phone] [facility], [place], [place], [id number], [place] tel:[phone] Meno No Information 0 3 Jose Armando Eric. , [place], [place]. Referring Provider: Monisha Tucker , [address], [place], [address]. tel:[phone] [facility] [address], [place], [place], [id number], [place] tel:[phone] Meno No Information 0 3 Suárez Eric. , [place], [place]. Referring Provider: Monisha Tucker [address], [place], [address]. tel:[phone] [facility], [place], [place], [id number], [place] tel:[phone] Meno No Information 0 3 Jose Armando [place]. , [place], [place]. Referring Provider: Monisha Tucker [address], [place], [address]. tel:[phone] [facility], [place], [place], [id number], [place] tel:[phone] Meno No Information 3 Jose Armando [place]. , [place], [place]. Referring Provider: Monisha Tucker [address], [place], [address]. tel:[phone] [facility], [place], [place], [address], [place] tel:[phone] Meno No Information 3 Jose Armando [place]. , [place], [place]. Referring Provider: Monisha Tucker [address], [place], [address]. tel:[phone] [facility], [place], [place], [address], [place] tel:[phone] Meno No Information 3 Jose Armando Reyes , [place], [place]. Referring Provider: Monisha Tucker , [address], [facility] [place], [address]. tel:[phone] [facility], [address], [place], [place], [id number], [place] tel:[phone] Meno No Information 3 Suárez Eric , [place], [place]. Referring Provider: Monisha Tucker , [address], [place], [address]. tel:[phone] [facility] [address], [place], [place], [id number], [place] tel:[phone] Meno No Information 3 Suárez [place], [place], [place]. Referring Provider: Monisha Tucker [address], [place], [address]. tel:[phone] [facility], [address], [place], [place], [id number], [place] tel:[phone] Meno No Information 3 Jose Armando Calles [place], [place], [place]. Referring Provider: Monisha Tucker , [address], [place], [address]. tel:[phone] [facility], [place], [place], [id number], [place] tel:[phone] Meno No Information 2 Trevin Brett. . Referring Provider: [address], [place], [address]. tel:[phone] [facility], [place], [place], [address], [place] tel:[phone] Meno No Information 2 Trevin Brett. . Referring Provider: [address], [place], [address]. tel:[phone] [facility] [address], [place], [place], [id number], [place] tel:[phone] Meno No Information 2 Trevin Brett. . Referring Provider: [address], [place], [address]. tel:[phone] [facility] [address], [place], [place], [id number], [place] tel:[phone] Meno No Information 2 Trevin Brett. . Referring Provider: [address], [place], [address]. tel:[phone] [facility] [address] [place], [place] [address], [place], [place], [id number], [place] tel:[phone] Meno No Information - 2 Trevin Brett. . Referring Provider: [address], [place], [address]. tel:[phone] [facility] [address], [place], [place], [address], tel:[phone] Meno No Information 0- 2 Trevin Brett. . Referring Provider: [address], [place], [address]. tel:[phone] [facility] [address], [place], [place], [address], [place] tel:[phone] Meno No Information 0 2 Trevin Brett. . Referring Provider: [address], [place], [address]. tel:[phone] [facility], [place], [place], [address], [place] tel:[phone] Meno No Information 2 Trevin West. . Referring Provider: Dick Best, [address], [place], [address]. tel:[phone] [facility], [address], [place], [place], [address], tel:[phone] Meno No Information Dec-3 0 2 Trevin West. . Referring Provider: Dick Best, [address], [place], [address]. tel:[phone] Family History Family Member Type Diagnosis Age At Onset No Information Payers Payer name Insurance type Covered democrat ID Authoriza tiestella(s) Medicare [place] [id number] [facility] [id number] Social History Type Description Quantity Date Captured [...]
--- OUTSIDE RECORDS SUMMARY | 2024-11-04 02:19 | XMS_ITS | Clinical Summary ---
Author Organization [facility] Address [address] [place] [address] Care Team Providers Care Stage Set Designer Name Role Phone Vladimir Skelton MD Primary [...] Comments Blood Pressure 136/86 04/11/2018 10:33 AM CHARGE AUTHORIZER Pulse 71 04/11/2018 10:33 AM CHARGE AUTHORIZER Temperature 36.8 C (98.2 F) 04/11/2018 10:33 AM CHARGE AUTHORIZER Respiratory Rate 20 11/04/2017 7:57 PM CDT Oxygen Saturation 97% 11/04/2017 7:57 PM CDT Inhaled Oxygen Concentration - - Weight 116 kg (255 lb 12.8 oz) 04/11/2018 10:33 AM CHARGE AUTHORIZER Height 188 cm (6' 2) 04/11/2018 10:33 AM CHARGE AUTHORIZER Body Mass Index 32.84 04/11/2018 10:33 AM CHARGE AUTHORIZER Plan of Treatment Health Maintenance Due Date [...] age to complete this topic Insurance MEDICARE [facility] Care Teams Stage Set Designer Relationship Specialty Start Date End Date Vladimir Skelton MD [address] [place] [address] DR [address] [place] [id number] PCP - General 03/27/15
--- OUTSIDE RECORDS SUMMARY | 2024-11-04 02:19 | XMS_ITS | Encounter Summary ---
Author Organization [facility] Address [address] [place] [address] Care Team Providers Care Risk Lead Name Role Phone Vladimir Skelton MD Primary Care Provider [phone] Monisha Tucker MD Primary Care Provider Jefe Chung NP Unavailable Mazin Vigil MD Unavailable Quincy Mixon MD Unavailable [phone] Murali Milton MD Unavailable [phone] Robert Bull RN Unavailable Cornelio Ferris MD Unavailable [phone] Reason for Visit * Reason Onset Date Comments No Show 08/14/2021 Encounter Details Date Type Department Care Team (Late st Contact Info) Description 08/14/2021 Documentation [facility] OP Physical Therapy [address] [address] Aleta Nielsen PTA No Show [...] on file 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 Gender Identity Not on file Sexual Orientation Not on file Occupation Industry Job Start Date Job End Date retired Not on file Not on file Not on file documented as of this encounter Plan of Treatment Not on file documented as of this encounter Visit Diagnoses Not on filedocumented in this encounter Care Teams Risk Lead Relationship Specialty Start Date End Date Vladimir Skelton MD PCP - General Family Medicine 05/04/18 08/04/22 Monisha Tucker MD PCP - General Family Practice 08/05/22 [place] [address] [address] [facility] [address] [place] [address] Nurse Practitioner Pain Management 09/06/23 [place] [address] [address] [facility] [address] [address] Consulting Physician Pain Management 09/06/23 [place] [address] [address] [facility] [address] [address] Referring Physician General Surgery 09/06/23 [place] [address] [address] [facility] [address] [address] Consulting Physician Neurosurgery 11/14/23 Robert Bull RN [address] [place] [address] [address] [place] [address] Fur [employer]er 12/08/23 01/01/24 Cornelio Ferris MD [address] [facility] [address] [place] [address] Referring Physician Psychiatry 12/15/23 documented as of this encounter
--- OUTSIDE RECORDS SUMMARY | 2024-11-04 02:19 | XMS_ITS | Referral Summary ---
Author Organization [facility] Address [address] [place] [address] Care Team Providers Care Catastrophe Claims Supervisor Name Role Phone Monisha Tucker MD Primary Care Provider Jefe Chung NP Unavailable Mazin Vigil MD Unavailable Quincy Mixon MD Unavailable [phone] Murali Milton MD Unavailable [phone] Cornelio Ferris MD Unavailable [phone] Allergies No known active allergies Medications sertraline [...] Psychiatry Assessment & Plan (04/18/2023 9:51 AM DOLL WIG MAKER ROOTED HAIR): Chronic. Stable. 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 Patient reports the tamsulosin was making a Pee too frequently so he stopped it. He is requesting to stay off of it. We will need to monitor urinary symptoms Assessment & Plan (04/18/2023 9:52 AM DO[employer] W[employer] ROOTED HAIR): Chronic. Feels oxybutynin ineffective. Will try change [...] to get him in to see a photocopier technician instead Assessment & Plan (04/18/2023 9:54 AM DOLL W[employer] ROOTED HAIR): Continue care per surgeon Dr. Mixon. Continue IV antibiotics for total of 6 weeks. Antibiotics will be done in about a week and a half. Continue wound care in the toe. Monitor for recurrent ulcers. They are trying to save the toe previously by doing an I and D and deferring amputation Abnormal CT of the abdomen 04/15/2023 Overview (04/15/2023): 04/12/23 at [facility]. Report to be scanned Coronary artery [...] noted on CT abdomen pelvis 04/12/2023 at [facility] Assessment & Plan (09/06/2023 12:27 PM CDT): Patient had incidental finding of aortic atherosclerosis on prior imaging. Discussed recommendation to start a baby aspirin daily for risk reduction. We will target an LDL less than 70 with cholesterol medication. Check levels and adjust simvastatin as needed Assessment & Plan (04/18/2023 9:51 AM DO[employer] W[employer] RO[employer]ED HAIR): Incidental on prior imaging. Continue simvastatin. We will monitor levels and plan to just in the future as needed target LDL goal less than 70 Lumbar facet arthropathy 02/16/2023 Assessment & Plan (04/18/2023 9:51 AM DO[employer] ROOTED HAIR): Chronic. Follows with pain management. Advised caution with naproxen as may be contributing to some of his stomach symptoms. Thirty day course of PPI order Sacroiliitis, not elsewhere classified Assessment & Plan (04/18/2023 9:52 AM DO[employer] W[employer] RO[employer]ED HAIR): Mild noted on recent CT. Continue care per pain specialist Lumbar spondylosis 08/05/2022 Assessment & Plan (04/18/2023 9:51 AM DO[employer] RO[employer] HAIR): Chronic. Care per pain manage Spondylolisthesis of lumbar region 09/25/2020 Assessment & Plan (04/18/2023 9:52 AM DO[employer] RO[employer] HAIR): Chronic. Medication care per pain management. Caution with NSAIDs given recent stomach issues. Advised if guarding to take naproxen needs to take it with food. We will give a 30 day course of PPI Anxiety 06/13/2019 Assessment & Plan (04/18/2023 9:52 AM DO[employer] HAIR): Chronic. Medication and care per Psychiatry. Defer [...] adjustment. Assessment & Plan (04/18/2023 9:52 AM DOLL W[employer] RO[employer]ED HAIR): Chronic. On simvastatin. We will plan to [...] psychiatrist Assessment & Plan (04/18/2023 9:52 AM DO[employer] W[employer] HAIR): Chronic. Medication and care per Psychiatry. Patient felt lamotrigine caused side effects so he is now stopped it through discussion with his psychiatrist Conductive hearing loss, bilateral 10/14/2016 Nonallergic rhinitis 10/14/2016 Resolved Problems Problem Noted Date Diagnosed Date Resolved Date MSSA bacteremia 04/18/2023 09/06/2023 Assessment & Plan (04/18/2023 9:54 AM DO[employer] HAIR): Noted at time of hospitalization for toe [...] (12/26/2020): Added automatically from request for surgery [id number] Acquired right foot drop 09/25/202007/2022 Class 1 obesity with body ma ss index (BMI) of 33.0 to 33.9 in adult 06/13/2019 08/05/2022 Depression 06/13/2019 04/18/2023 Nontraumatic complete tear o f left rotator cuff 07/17/2018 08/05/2022 Overview (07/17/2018): Added automatically from request for surgery [id number] Partial tear of left subscapularis tendon 01/10/2018 [...] on file Legal Sex Male 7:15 PM [employer] Gender Identity Not on file Sexual Orientation Not on file Occupation Industry Job Start Date Job End Date retired Not on file Not on file Not on file Last Filed Vital Signs Vital Sign Reading Time Taken Comments Blood Pressure 115/62 05/31/2024 8:03 AM [employer] Pulse 101 05/31/2024 8:03 AM [employer] Temperature 37.1 C (98.7 F) 03/08/2024 9:19 AM [employer]IR Respiratory Rate 17 05/31/2024 8:03 AM [employer] Oxygen Saturation 99% 05/31/2024 8:03 AM [employer]IR Inhaled Oxygen Concentration - - Weight 96.4 kg (212 lb 8 oz) 03/08/2024 9:19 AM [employer] Height 185.4 cm (6' 1) 03/08/2024 9:19 AM [employer] Body Mass Index 28.04 03/08/2024 9:19 AM [employer] Plan of Treatment Not on file Medical Devices Implanted Type Area Veterinary Radiologist Device Identifier Shelf Expiration Date Model / Serial / Lot [employer] [id number] Base Plate 26mm Tm Reverse 20m - [id number] Implanted:Qty : 1 on 09/17/2019 at [facility] Other - see comments Left: Shoulder [employer] [id number] 12/02/2028 [id number] / / [id number] [employer] Ar-2324 Bcm Swivelock 4.75mm 24.5mm Self Punch Vent Shoulder [place] Suture - Sna - [id number] Implanted:Qty : 1 on 09/07/2018 by Amaury Gordon MD at [facility] Left: Humerus [employer] [id number] 05/04/2020 AR-2324BCM / NA / [id number] [employer] Ar-2324 Bcm Swivelock 4.75mm 24.5mm Self Punch Vent Shoulder [place] Suture - [id number] Implanted:Qty : 1 on 09/07/2018 by Amaury Gordon MD at [facility] Left: Shoulder [employer] [id number] 05/04/2020 AR-2324BCM / / [id number] [employer] [id number] Glenosphere Tm Reverse 36mm Centric - [id number] Implanted:Qty : 1 on 09/17/2019 at [facility] Left: Shoulder [employer] [id number] 12/02/2028 [id number] / / [id number] [employer] .[id number] Ncb Anatomical Shoulder 4.5mm 48mm Inverse Reverse Lock Self Tap - [id number] Implanted:Qty : 1 on 09/17/2019 at [facility] Left: Shoulder [employer] [id number] 03/03/2024.34455.048 / / [id number] [employer] .88269.042 Ncb Anatomical Shoulder 4.5mm 42mm Inverse Reverse Lock Self Tap - [id number] Implanted:Qty : 1 on 09/17/2019 at [facility] Left: Shoulder [employer] [id number] 02/02/2024.82401.042 / / [id number] [employer] [id number] 12mm 130mm Shoulder Stem Humeral Trabecular Metal Tivanium - [id number] Implanted:Qty : 1 on 09/17/2019 at [facility] Left: Shoulder [employer] [id number] 07/02/2029 [id number] / / [id number] [employer] [id number] 36mm H+3mm Reverse Humerus 7d Standard Liner Shoulder Trabecular - [id number] Implanted:Qty : 1 on 09/17/2019 at [facility] Left: Shoulder [employer] [id number] 06/02/2027 [id number] / / [id number] Explanted Type Area Veterinary Radiologist Device Identifier Shelf Expiration Date Model / Serial / Lot [employer] [id number] Steinmann 3/32in 9in 2 Trocar Pin Fixation Nonsterile - [id number] Explanted:Qty: 1 on 09/17/2019 at [facility] [employer] [id number] / / Procedures Procedure Name Priority Date/Time Associated Diagnosis Comments COLONOSCOPY Routine 10/20/2023 9:37 AM CDT HEPATITIS C SCREENING Routine 09/28/2023 11:10 AM CDT PSA SCREEN Routine 05/26/2022 12:14 PM [employer] Screening for prostate cancer from Last 3 Months or Most Recently Relevant to Health Maintenance Results * COLONOSCOPY (10/20/2023 9:37 AM CDT) Scribed Colonoscopy Normal us Monisha Tucker MD HEALTH MAINTENANCE Fin al Result * HEPATITIS C SCREENING (09/28/2023 11:10 AM CDT) SCRIBED HCV ab Non Reactive Rj Dooley MD HEALTH MAINTENANCE Final Re sult * PSA screen (05/26/2022 12:14 PM DO[employer]) PSA-Total 1.99 <=5.40 ng/mL IRAM GARCIA Comment: [...] revised 21. Blood 05/26/2022 12:1 4 PM [employer] HAIR 05/26/2022 2:55 PM [employer] HAIR Nayan Linder DO LAB BLOOD ORDERABLES Fin al Result IRAM GARCIA [id number] Department [place] [address] from Last 3 Months or Most Recently Relevant to Health Maintenance Insurance MEDICARE [employer] MEDICARE SUPPLEMENT MEDICARE [facility] MEDICARE [facility] MEDICARE SUPPLEMENT Advance Directives For more information, please contact: [phone] Documents on File Type Date Recorded Patient Rn Anesthesiology Expl anation ADVANCE DIRECTIVE 12/27/2023 8:58 AM Power of Ham Smoker for Health Care Power of Ham Smoker 05/16/2023 12:09 PM * Full Code (Latest Code Status on File) Date Activated Date Inactivated Comments 03/08/2024 10:51 AM 03/09/2024 5:26 AM * Full Code Date Activated Date Inactivated Comments 09/17/2019 7:41 PM 09/18/2019 4:44 PM Care Teams Catastrophe Claims Supervisor Relationship Specialty Start Date End Date Monisha Tucker MD PCP - General Family Practice 08/05/22 [place] [id number] [address] [facility] [address] [place] [address] Nurse Practitioner Pain Management 09/06/23 [place] [id number] [address] [facility] [address] [address] Consulting Physician Pain Management 09/06/23 [place] [id number] [address] [address] Referring Physician General Surgery 09/06/23 [place] [id number] [address] Consulting Physician Neurosurgery 11/14/23 Cornelio Ferris MD [address] [address] Referring Physician Psychiatry 12/15/23
--- OUTSIDE RECORDS SUMMARY | 2024-11-04 02:20 | XMS_ITS ---
Author Name Auto Generated, Auto Generated Organization [facility] Address [address] [place] [address] Phone [phone] Care Team Providers Care Can Filling And Closing Machine Tender Name Role Phone Rj Dooley Unavailable [phone] Functional Status No Results Mental Status No [...] simethicone 125 mg capsule 1 capsule CAP ROAS Oral 2 Times Daily Indication: Prep for TREATMENT MUD GRINDER supervision x1, x4 TueSep 26 13:00:00 EDT [...] 2 Times Daily Indication: Prep for TREATMENT MUD GRINDER supervision x1, x3 TueSep 26 16:55:00 EDT [...] for 5 Days Indication: prep for CT MUD GRINDER supervision x1, x4 TueSep 21 01:00:00 EDT [...] TABLET Oral 1 Time Daily Indication: supplement MUD GRINDER supervision x1 2 tablets= 1000mg TueAugust 23 01:00:00 EDT 2024 cholecalciferol (vitamin D3) 25 mcg (1,000 unit) tablet 1 tablet TABLET Oral 1 Time Daily Indication: supplement MUD GRINDER supervision x1 TueAugust 23 01:00:00 EDT 2024 Orgovyx 120 mg tablet 3 tablets TABLET O ral 1 Time Daily for 1 Day Indication: Prostate cancer MUD GRINDER supervision x13 tablets for 1 day TueAugust 23 01:00:00 EDT 2024August 24 00:59:00 EDT 2024 Orgovyx 120 mg tablet 1 tablet TABLET Or al 1 Time Daily Indication: prostate cancer MUD GRINDER supervision x1 TueAugust 24 01:00:00 EDT 2024 QUEtiapine 50 mg tablet 1 TABLET TABLET Oral 1 Time Daily Indication: mood disorder MUD GRINDER administration TueAugust 04 03:00:00 EDT 2024 AdviL Liqui-GeL 200 mg capsule 2-3 caps CAPSULE Oral PRN Every 8 Hours for 14 Days Indication: pain/inflammation TueJul 27 12:00:00 EDT 2024August 10 11:59:00 EDT 2024 clomiPRAMINE 25 mg capsule 1 cap CAPSULE Oral Hour Of Sleep Indication: OCD MUD GRINDER Supervision x4 TueJul 05 01:00:00 EDT 2024August 04 03:07:00 EDT 2024 PreserVision AREDS 2,148 mcg-113 mg-45 mg-17.4 mg tablet 2 tablets TABLET Oral 1 Time Daily Indication: eye supplement MUD GRINDER supervision x1 TueJun 27 01:00:00 EDT 2024 [...] Oral 1 Time Daily Indication: eye supplement MUD GRINDER supervision x1 TueJun 26 01:00:00 EDT 2024Jun [...] 1 tablet po twice daily times 5 days.MUD GRINDER Supervision x1, x4. TueMay 15 07:00:00 EST 2024May 20 06:59:00 EST 2024 oxyBUTYnin chloride ER 15 mg tablet,extended release 24 hr 1 TABLET TABLET, EXTENDED RELEASE 24 HR Oral 1 Time Daily Indication: antispasmodic - per [facility] TueMay 07 15:30:00 EST 2024 acetaminophen [...] Oral 1 Time Weekly Indication: supplement - MUD GRINDER supervision X1 TueMar 12 01:00:00 EST 2023August [...] 12 Hours for 7 Days Indication: UTI MUD GRINDER Supervision x1 x3 TueFeb 14 14:43:00 EST [...] Other 2 Times Monthly Indication: monthly vitals MUD GRINDER to obtain TueFeb 26 01:00:00 EST 2023 cephALEXin 500 mg capsule 1 CAPSULE Oral Every 12 Hours for 7 Days Indication: UTI MUD GRINDER Supervision x1 x3 TueFeb 12 18:00:00 EST 2023Feb 14 14:44:00 EST 2023 sertraline 100 mg tablet 200mg TABLET Or al 1 Time Daily Indication: depression DepressionCNA supervision x42 LCNP=589 MG TueFeb 05 01:00:00 EST 2023 omeprazole 40 mg capsule,delayed release 1 CAP CAPSULE,DELAYED RELEASE (ENTERIC COATED) Oral 1 Time Daily Indication: GERD MUD GRINDER supervision x1 TueFeb 05 01:00:00 EST 2023 Adult 50 Plus Probiotic 4 billion cell capsule 1 capsule CAPSULE Oral 1 Time Daily Indication: constipation GI prophCNA Supervision x1 TueFeb 05 01:00:00 EST 2023Jun 19 20:26:00 EDT 2024 PreserVision AREDS 2,148 mcg-113 mg-45 mg-17.4 mg tablet 2 tablets TABLET Oral 1 Time Daily Indication: eye supplement MUD GRINDER supervision x1 TueFeb 05 01:00:00 EST 2023Jun [...] Other 2 Times Monthly Indication: monthly vitals MUD GRINDER to obtain TueFeb 05 01:00:00 EST 2023Feb 14 18:15:00 EST 2023 cetirizine 10 mg tablet 1 tablet TABLET Oral PRN 1 Time Daily Indication: allergies TueFeb 05 01:00:00 EST 2023 QUEtiapine 100 mg tablet 1 tablet TABLET Oral 1 Time Daily Indication: OCD Anxiety, OCDPer Renetta Satanta Bryceoi NPCNA supervision x4 TueFeb 05 01:00:00 [...] TABLET,CHEWABLE Oral 1 Time Daily Indication: anticoagulant MUD GRINDER supervision X1 TueSep 06 01:00:00 EDT 2023Feb 05 16:45:00 EST 2023 HYDROcodone 5 mg-acetaminophen 325 mg tablet 1 TAB TABLET Oral PRN Every 6 Hours Indication: pain PAIN *DO NOT EXCEED 3GM/DAY APAP FROM ALL SOURCES* TueMay 31 12:00:00 EST 2023Feb 05 16:45:00 EST 2023 sertraline 100 mg tablet 200mg TABLET Or al 1 Time Daily Indication: depression Depression2 KKPD=839 MG TueMay 31 12:00:00 EST 2023Feb 05 [...] Other 2 Times Monthly Indication: monthly vitals MUD GRINDER to obtain TueMay 31 12:00:00 EST 2023Feb 05 16:45:00 EST 2023 cetirizine 10 mg tablet 1 tablet TABLET Oral PRN 1 Time Daily Indication: allergies TueMay 31 12:00:00 EST 2023Feb 05 16:45:00 EST 2023 QUEtiapine 100 mg tablet 1 tablet TABLET Oral 1 Time Daily Indication: OCD Anxiety, OCDPer Renetta Ferris HAIRSPRING SETTER TueMay 31 12:00:00 EST 2023Feb 05 16:45:00 EST 2023 QUEtiapine 100 mg tablet 1 tablet TABLET Oral 1 Time Daily Indication: OCD Anxiety, OCDPer Renetta Ferris HAIRSPRING SETTER TueJun 11 19:20:00 EDT 2023Jun 13 00:01:00 [...] al 1 Time Daily Indication: depression Depression2 PABY=837 MG TueJun 08 23:38:00 EST 2023Jun 12 [...] Other 2 Times Monthly Indication: monthly vitals MUD GRINDER to obtain TueJun 08 23:48:00 EST 2023Jun 12 23:59:00 EDT 2023 cetirizine 10 mg tablet 1 tablet TABLET Oral PRN 1 Time Daily Indication: allergies TueJun 08 23:51:00 EST 2023Jun 13 00:00:00 EDT 2023 Blood Pressure Cuff 1 EACH Other 2 Times Monthly Indication: monthly vitals MUD GRINDER to obtain [place] Jun 04 09:59:00 EST 2023Jun 08 23:51:00 [...] al 1 Time Daily Indication: depression Depression2 OLWL=656 MG TueMay 31 12:00:00 EST 2023Jun 08 23:39:00 EST 2023 QUEtiapine 100 mg tablet 1 tablet TABLET Oral 2 Times Daily Indication: OCD Anxiety, OCD TueMay 31 12:00:00 2023Jun 08 23:39:00 EST 2023 simvastatin 20 mg tablet 1 tablet TABLET Oral 1 Time Daily Indication: hyperlipidemia HLD TueMay 31 12:00:00 2023 [facility] Jun 03 10:56:00 EST 2023 [...] Or al 1 Time Daily Indication: Depression2 AADO=162 MG TueMay 24 18:00:00 2023May 31 01:00:00 [...] 14 00:00:00 EST 2023 * Text: * rib builder (current) use of antibiotics* Code: * Start [...] 12 00:00:00 EDT 2024 * Text: * rib builder (current) use of aspirin* Code: * Start [...] Measurement Date Systolic Blood Pressure 125.00 mm[Hg] [facility] Nov 03 14:40:54 EDT 2024 Diastolic Blood Pressure 67.00 mm[Hg] [facility] Nov 03 14:40:54 EDT 2024 [...] :41 EDT 2024 Heart Rate 84.00 /min [facility] Jun 16 21:16 :41 EDT 2024 Body temperature 98.10 [degF] [facility] Jun 16 21:1 6:41 EDT 2024 Respiratory rate 20.00 /min [facility] Jun 16 21:1 6:41 EDT 2024 Systolic Blood Pressure 138.00 mm[Hg] [facility] Jun 02 21:49:24 EST 2024 Diastolic Blood Pressure 68.00 mm[Hg] [facility] Jun 02 21:49:24 EST 2024 Pulse Oximetry 97.00 % [facility] Jun 02 21:49 :24 EST 2024 Heart Rate 76.00 /min [facility] Jun 02 21:49 :24 EST 2024 Body temperature 98.00 [degF] [facility] Jun 02 21:4 9:24 EST 2024 Respiratory rate 18.00 /min [facility] Jun 02 21:4 9:24 EST [...] EST 2024 Systolic Blood Pressure 133.00 mm[Hg] [facility] Feb 15 21:00:08 EST 2024 Diastolic Blood Pressure 68.00 mm[Hg] [facility] Feb 15 21:00:08 EST 2024 Pulse Oximetry 96.00 % [facility] Feb 15 21:00 :08 EST 2024 Body weight 0.00 [lb_av] [facility] Feb 15 21:00 :08 EST 2024 Heart Rate 76.00 /min [facility] Feb 15 21:00 :08 EST 2024 Body temperature 98.00 [degF] [facility] Feb 15 21:0 0:08 EST 2024 Respiratory rate 18.00 /min [facility] Feb 15 21:0 0:08 EST 2024 Systolic Blood Pressure 139.00 mm[Hg] [facility] Feb 15:54:54 EST 2024 Diastolic Blood Pressure 72.00 mm[Hg] [facility] Feb 15:54:54 EST 2024 Pulse Oximetry 96.00 % [facility] May 05 15:54 :54 EST 2024 Body weight 208.40 [lb_av] [facility] May 05 15:54 :54 EST 2024 Heart Rate 64.00 /min [facility] May 05 15:54 :54 EST 2024 Body temperature 98.00 [degF] [facility] May 05 15:5 4:54 EST 2024 Respiratory rate 18.00 /min [facility] May 05 15:5 4:54 EST 2024 Body temperature 97.40 [degF] TueApr 23 17:4 3:32 EST 2024 Body temperature 98.10 [degF] Sun Apr 22 21:0 6:15 EST 2024 Body temperature 98.10 [degF] [place] Apr 22 17:0 5:39 EST 2024 Body temperature 97.60 [degF] [facility] Apr 21 21:4 3:40 EST 2024 Body temperature 97.90 [degF] [facility] Apr 21 13:5 9:28 EST [...] 6:28 EDT 2023 Body temperature 97.90 [degF] [facility] 13:2 8:30 EDT 2023 Body temperature 97.70 [degF] [facility] 13:2 6:40 EDT 2023 Body temperature 98.20 [degF] [facility] 18:0 1:23 EDT 2023 Body temperature 97.90 [degF] [facility] 16:0 2:07 EDT 2023 Body temperature 98.20 [degF] [facility] Jan 12 21:3 8:59 EDT 2023 Body temperature 97.50 [degF] [facility] Jan 12 14:2 4:40 EDT 2023 Body temperature 97.40 [degF] [facility] Jan 12 03:0 9:21 EDT 2023 Systolic [...] 03:51:00 EDT 2023 Pulse Oximetry 95.00 % [facility] 21 03:51 :00 EDT 2023 Heart Rate 102.00 /min [facility] 21 03:51 :00 EDT 2023 Body temperature 97.00 [degF] [facility] 21 03:5 1:00 EDT 2023 Respiratory rate 22.00 /min [facility] 03:5 1:00 EDT 2023 Systolic Blood Pressure 140.00 mm[Hg] [place] Sep 15 20:32:47 EDT 2023 Diastolic Blood Pressure 76.00 mm[Hg] [facility] 15 20:32:47 EDT 2023 Body weight 212.00 [lb_av] [facility] 15 20:32 :47 EDT 2023 Heart Rate 90.00 /min [facility] 15 20:32 :47 EDT 2023 Body temperature 97.50 [degF] [facility] 20:3 2:47 EDT 2023 Respiratory rate 18.00 /min [facility] 20:3 2:47 EDT 2023 Systolic Blood Pressure 106.00 mm[Hg] [facility] 21:11:20 EDT 2023 Diastolic Blood Pressure 72.00 mm[Hg] [facility] 21:11:20 EDT 2023 Body weight 214.60 [lb_av] [facility] 21:11 :20 EDT 2023 Heart Rate 98.00 /min [facility] 21:11 :20 EDT 2023 Body temperature 97.00 [degF] [facility] 21:1 1:20 EDT 2023 Respiratory rate 18.00 /min [facility] 21:1 1:20 EDT 2023 Systolic Blood Pressure 149.00 mm[Hg] [facility] Nov 16 20:23:43 EDT 2023 Diastolic Blood Pressure 79.00 mm[Hg] [facility] Nov 16 20:23:43 EDT 2023 Heart Rate 93.00 /min [facility] Nov 16 20:23 :43 EDT 2023 Body temperature 96.80 [degF] [facility] Nov 16 20:2 3:43 EDT 2023 Respiratory rate 18.00 /min TueNov 16 20:2 3:43 EDT 2023 Reason for Referral Past Medical History
[2024-11-04 02:49] VITALS: BP 136/83; PULSE 65; RESP 14; O2SAT 98
[2024-11-04 03:42] VITALS: BP 140/90; PULSE 69; RESP 18; O2SAT 100
== END 2024-11-04 03:44 | disposition home or self-care (01) ==
PROVIDERS: Emergency Provider Emergency Medicine; PCP Family Medicine
DX: S00.01XA Abrasion of scalp, initial encounter (principal); E78.5 Hyperlipidemia, unspecified; F41.9 Anxiety disorder, unspecified; F32.A Depression, unspecified; Z79.899 Other long term (current) drug therapy; Z79.82 Long term (current) use of aspirin; W18.39XA Other fall on same level, initial encounter
CPT/HCPCS: 70450; 72125; 99284